=== PATIENT | male | born 1945 | race American Indian/Alaskan Native ===

== ENCOUNTER 2016-11-02 08:27 | Emergency (ER) | payer MEDICARE, OTHER ==
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
--- NOTE | 2016-11-02 09:24 | XR ---
Right elbow HISTORY: Trauma and pain 3 views of the right elbow, no comparisons Bone mineralization, joint spaces and alignment are maintained. There is no evident joint effusion. A rthropathy changes are present. There is soft tissue swelling. IMPRESSION: No acute fracture or dislocation. Soft tissue swelling. Follow-up as indicated.
--- NOTE | 2016-11-02 09:26 | XR ---
Right RIBS with PA chest x-ray HISTORY: Trauma and pain Frontal view of the chest, 4 views of the right ribs correlated to prior chest x-ray dated 2014 Chest shows a stable appearance. No displaced rib fracture. IMPRESSION: No acute abnormalities evident. Bone scan could be performed for increased sensitivity as indicated.
[2016-11-02 10:05] VITALS: BP 123/69; PULSE 94; RESP 14; TEMP 98
== END 2016-11-02 10:07 | disposition home or self-care (01) ==
LOC: EC 08:27
DX: S20.211A Contusion of right front wall of thorax, initial encounter (principal); S50.01XA Contusion of right elbow, initial encounter; W19.XXXA Unspecified fall, initial encounter; F03.90 Unspecified dementia, unspecified severity, without behavioral disturbance, psychotic disturbance, mood disturbance, and anxiety; I11.0 Hypertensive heart disease with heart failure; I50.9 Heart failure, unspecified; I25.10 Atherosclerotic heart disease of native coronary artery without angina pectoris; Z95.5 Presence of coronary angioplasty implant and graft; Z79.82 Long term (current) use of aspirin; Z79.899 Other long term (current) drug therapy; Z88.5 Allergy status to narcotic agent; Z87.891 Personal history of nicotine dependence
CPT/HCPCS: 99283

== ENCOUNTER 2017-03-31 14:11 | Emergency (ER) | payer MEDICARE ==
[2017-03-31] MEDS ORDERED: SODIUM CHLORIDE 0.9% 1,000 ML IV ONE (14:32)
[2017-03-31] MEDS ORDERED: RX INFO: IV CONTRAST WAS GIVEN 1 EACH MISC MISCELLANE PRN (14:32)
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
[2017-03-31 15:14] LABS: Basophils % (A) 1 %; CHCM 35.1; Eosinophils # (A) 0.1 k/uL (0-0.7); Eosinophils % (A) 2 %; HCT 43.7 % (39.0-53.0); HDW 2.76; HGB 15.2 gm/dL (13.0-17.5); Luc # (Auto) 0.09; Luc % (Auto) 2; Lymphocytes # (A) 1.6 k/uL (1.0-4.8); Lymphocytes % (A) 32 %; MCH 29.9 pg (25.0-35.0); MCHC 34.9 g/dL (31.0-37.0); MCV 85.9 fL (80.0-100.0); Monocytes # (A) 0.3 k/uL (0-1.0); Monocytes % (A) 5 %; Neutrophils # (A) 2.9 k/uL (1.3-7.7); Neutrophils % (A) 59 %; RBC 5.09 m/uL (4.30-5.90); RDW 13.5 % (11.5-15.5); WBC 4.9 k/uL (3.8-10.6); WBC (Perox) 4.98
[2017-03-31 15:19] LABS: Anion Gap 10 mmol/L; Blood Urea Nitrogen 15 mg/dL (9-20); Calcium 9.6 mg/dL (8.4-10.2); Carbon Dioxide 22 mmol/L (22-30); Chloride 106 mmol/L (98-107); Glucose 364 mg/dL (74-99); Non-African American GFR(MDRD) >60 (>60 ml/min/1.73 sqM); Potassium 4.1 mmol/L (3.5-5.1); Sodium 138 mmol/L (137-145)
[2017-03-31 15:30] LABS: Amorphous Sediment,Urine Occasional /hpf; Appearance,Urine Cloudy (Clear); Bacteria,Urine Few /hpf; Bilirubin,Urine Negative (Negative); Glucose,Urine (UA) 4+ (Negative); Ketones,Urine Negative (Negative); Leukocyte Esterase,Urine Large (Negative); Mucus,Urine Rare /hpf; Nitrite,Urine Negative (Negative); Particle Count 8055; Protein,Urine Trace (Negative); RBC,Urine 26 /hpf (0-5); Specific Gravity,Urine 1.032 (1.001-1.035); Squamous Epithelial Cell,Urine 6 /hpf (0-4); UA Billing (MACRO vs. MICRO) MICRO; Urobilinogen,Urine <2.0 mg/dL (<2.0); WBC,Urine >182 /hpf (0-5)
--- NOTE | 2017-03-31 16:10 | CT ---
EXAMINATION TYPE: CT abdomen pelvis w con DATE OF EXAM: 03/31/2017 COMPARISON: 07/02/2012 HISTORY: Lower abdominal pain x1 week. CT DLP: 1238.9 mGycm CONTRAST: CT scan of the abdomen and pelvis is performed without Oral Contrast and with IV Contrast, patient in jected with 100 mL of Omnipaque 300. FINDINGS: LUNG BASES-: No visible nodule. No infiltrate. LIVER/GB: No calcified gallstones. Simple cyst left hepatic lobe. Biliary tree is of normal caliber . PANCREAS: No inflammation. No distinct mass. SPLEEN: No splenic enlargement. No lesion seen. ADRENALS: No nodule. No thickening. KIDNEYS/BLADDER: No hydronephrosis. Nonobstructing 4 mm calculus lower pole right kidney. Simple jareth al cysts are noted bilaterally. Urinary bladder grossly unremarkable. BOWEL: Normal appendix. Normal bowel caliber. No inflammation. Moderate sigmoid diverticulosis with out diverticulitis. GENITAL ORGANS: Enlargement of the prostate gland. LYMPH NODES: No greater than 1cm abdominal or pelvic lymph nodes are appreciated. AORTA: Nonaneurysmal atheromatous change of the abdominal aorta. OSSEOUS STRUCTURES: Degenerative changes lumbar spine. OTHER: No significant additional abnormality is seen. IMPRESSION: 1. No acute intra-abdominal process. 2. Nonobstructing right-sided nephrolithiasis. 3. Sigmoid diverticulosis without diverticulitis.
[2017-03-31] MEDS ORDERED: INSULIN REGULAR 100 UNIT/ML VIAL SQ ONE (16:20)
[2017-03-31 16:27] VITALS: RESP 18
[2017-03-31 17:58] LABS: Glucose,Whole Blood 262 mg/dL (75-99)
[2017-03-31 18:05] VITALS: BP 147/80; PULSE 86; TEMP 98.6
== END 2017-03-31 18:05 | disposition home or self-care (01) ==
LOC: EC 14:11
DX: N47.1 Phimosis (principal); N48.1 Balanitis; N39.0 Urinary tract infection, site not specified; R00.0 Tachycardia, unspecified; I25.10 Atherosclerotic heart disease of native coronary artery without angina pectoris; E78.5 Hyperlipidemia, unspecified; I11.0 Hypertensive heart disease with heart failure; I50.9 Heart failure, unspecified; E11.40 Type 2 diabetes mellitus with diabetic neuropathy, unspecified; Z95.5 Presence of coronary angioplasty implant and graft; Z88.5 Allergy status to narcotic agent; Z79.02 Long term (current) use of antithrombotics/antiplatelets; Z79.84 Long term (current) use of oral hypoglycemic drugs; Z79.899 Other long term (current) drug therapy; Z87.891 Personal history of nicotine dependence
CPT/HCPCS: 99284; 96365; 96361; 36415; 80048; 83605; 85025; 81001; 87040; 74177; J0696; Q9967

== ENCOUNTER 2017-06-20 08:35 | Emergency (ER) | payer MEDICARE ==
[2017-06-20] MEDS ORDERED: SODIUM CHLORIDE 0.9% 1,000 ML IV STA (08:58)
[2017-06-20 09:18] LABS: Basophils % (A) 1 %; CH 31.2; CHCM 34.4; Eosinophils # (A) 0.1 k/uL (0-0.7); Eosinophils % (A) 2 %; HCT 42.9 % (39.0-53.0); HDW 2.65; HGB 14.3 gm/dL (13.0-17.5); Luc # (Auto) 0.07; Luc % (Auto) 2; Lymphocytes # (A) 1.3 k/uL (1.0-4.8); Lymphocytes % (A) 33 %; MCH 30.3 pg (25.0-35.0); MCHC 33.3 g/dL (31.0-37.0); Mean Platelet Volume 9.1; Monocytes # (A) 0.2 k/uL (0-1.0); Monocytes % (A) 6 %; Neutrophils # (A) 2.3 k/uL (1.3-7.7); Neutrophils % (A) 57 %; RBC 4.71 m/uL (4.30-5.90); RDW 14.3 % (11.5-15.5); WBC (Perox) 4.16
[2017-06-20 09:28] LABS: Anion Gap 8 mmol/L; Calcium 8.9 mg/dL (8.4-10.2); Carbon Dioxide 20 mmol/L (22-30); Chloride 107 mmol/L (98-107); Glucose 274 mg/dL (74-99); Non-African American GFR(MDRD) >60 (>60 ml/min/1.73 sqM); Sodium 135 mmol/L (137-145); Total Bilirubin 0.5 mg/dL (0.2-1.3); Total Protein 6.5 g/dL (6.3-8.2)
[2017-06-20 09:31] LABS: Blood Urea Nitrogen 9 mg/dL (9-20); Potassium 4.7 mmol/L (3.5-5.1)
[2017-06-20 09:32] LABS: ALT 22 U/L (21-72); AST 19 U/L (17-59); Alkaline Phosphatase 126 U/L (38-126); Magnesium 1.9 mg/dL (1.6-2.3)
[2017-06-20] MEDS ORDERED: KETOROLAC 30 MG/ML 1 ML VIAL IVP STA (09:39)
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
[2017-06-20 09:43] LABS: Creatine Kinase 68 U/L (55-170); INR 1.2 (<1.2); Partial Thromboplastin Time 23.3 sec (22.0-30.0); Prothrombin Time 12.1 sec (9.0-12.0)
--- NOTE | 2017-06-20 09:55 | XR ---
EXAMINATION TYPE: XR chest 2V DATE OF EXAM: 06/20/2017 HISTORY: Chest Pain. REFERENCE: Previous study dated 11/02/2016. FINDINGS: The lungs are overinflated but clear. Pleural spaces are clear. The heart is not enlarged. IMPRESSION: COPD.
[2017-06-20 09:56] LABS: Creatine Kinase MB 0.8 ng/mL (0.0-2.4); Troponin I <0.012 ng/mL (0.000-0.034)
--- NOTE | 2017-06-20 09:57 | XR ---
EXAMINATION TYPE: XR ribs LT , 4 VIEWS DATE OF EXAM ORDERED: 06/20/2017 HISTORY: Pain. COMPARISON: None. FINDINGS: No displaced rib fracture is seen. The underlying lung is unremarkable. No pneumothorax is seen. IMPRESSION: I DO NOT IDENTIFY A DISPLACED RIB FRACTURE AT THIS TIME.
[2017-06-20 10:32] VITALS: RESP 18
[2017-06-20 10:51] VITALS: BP 165/86; PULSE 72; TEMP 98.5
== END 2017-06-20 10:47 | disposition home or self-care (01) ==
LOC: EC 08:35
DX: R07.81 Pleurodynia (principal); E11.9 Type 2 diabetes mellitus without complications; I25.10 Atherosclerotic heart disease of native coronary artery without angina pectoris; I11.0 Hypertensive heart disease with heart failure; I50.9 Heart failure, unspecified; E78.5 Hyperlipidemia, unspecified; I25.2 Old myocardial infarction; Z87.891 Personal history of nicotine dependence; Z95.5 Presence of coronary angioplasty implant and graft; Z79.01 Long term (current) use of anticoagulants; Z79.84 Long term (current) use of oral hypoglycemic drugs; Z79.899 Other long term (current) drug therapy; Z88.5 Allergy status to narcotic agent; W19.XXXA Unspecified fall, initial encounter; Y92.015 Private garage of single-family (private) house as the place of occurrence of the external cause
CPT/HCPCS: 99284 ×2; 96374 ×2; 96361 ×2; 36415; 93005; 80053; 82550; 82553; 83735; 84484; 85025; 85610; 85730; 71020; 71100; J1885

== ENCOUNTER 2017-09-23 16:12 | Emergency (ER) | payer MEDICARE ==
[2017-09-23 16:18] VITALS: BP 171/86; PULSE 84; RESP 20; TEMP 97.5
--- NOTE | 2017-09-23 16:35 | XR ---
Left wrist HISTORY: Trauma and pain 4 views of the left wrist Correlation to prior exam 06/01/2016 Minimally displaced ulnar styloid fracture is present. There is sclerotic density within the distal r adial metaphysis, minimally displaced and possibly comminuted intra-articular fracture is present at the distal left radius. No dislocation. Bone mineralization is reduced. There is soft tissue swelling . IMPRESSION: Wrist fractures as described.
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
== END 2017-09-23 16:59 | disposition home or self-care (01) ==
LOC: EC 16:12
DX: S62.102A Fracture of unspecified carpal bone, left wrist, initial encounter for closed fracture (principal); I25.10 Atherosclerotic heart disease of native coronary artery without angina pectoris; E11.9 Type 2 diabetes mellitus without complications; E78.5 Hyperlipidemia, unspecified; I11.0 Hypertensive heart disease with heart failure; I25.2 Old myocardial infarction; I50.9 Heart failure, unspecified; F17.200 Nicotine dependence, unspecified, uncomplicated; Z79.02 Long term (current) use of antithrombotics/antiplatelets; Z79.84 Long term (current) use of oral hypoglycemic drugs; Z79.899 Other long term (current) drug therapy; Z88.5 Allergy status to narcotic agent; W01.0XXA Fall on same level from slipping, tripping and stumbling without subsequent striking against object, initial encounter; Y92.009 Unspecified place in unspecified non-institutional (private) residence as the place of occurrence of the external cause; Y93.89 Activity, other specified
CPT/HCPCS: 29125; 99283

== ENCOUNTER 2017-10-26 10:54 | Emergency (ER) | payer MEDICARE ==
[2017-10-26 11:26] VITALS: BP 185/88; PULSE 92; RESP 18; TEMP 98.5
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
--- NOTE | 2017-10-26 13:24 | XR ---
EXAMINATION TYPE: XR ribs LT w pa chest xray DATE OF EXAM: 10/26/2017 COMPARISON: 06/20/2017 HISTORY: Pain TECHNIQUE: Frontal view of the chest and 4 views of the left ribs are obtained FINDINGS: Mild ectasia of the aorta with vague left basilar subsegmental infiltrate or atelectasis. A pical pleural thickening noted. No pneumothorax. Correlate for underlying COPD. Rib cage intact. Hypertrophic and degenerative change of the spine. IMPRESSION: 1. Left basilar subsegmental atelectasis or infiltrate. 2. No pneumothorax. 3. No acute displaced rib fracture.
== END 2017-10-26 13:46 | disposition home or self-care (01) ==
LOC: EC 10:54
DX: S20.212A Contusion of left front wall of thorax, initial encounter (principal); I25.119 Atherosclerotic heart disease of native coronary artery with unspecified angina pectoris; I50.9 Heart failure, unspecified; I11.0 Hypertensive heart disease with heart failure; E78.5 Hyperlipidemia, unspecified; I25.2 Old myocardial infarction; F17.200 Nicotine dependence, unspecified, uncomplicated; Z79.01 Long term (current) use of anticoagulants; Z79.84 Long term (current) use of oral hypoglycemic drugs; Z79.899 Other long term (current) drug therapy; Z88.5 Allergy status to narcotic agent; W18.12XA Fall from or off toilet with subsequent striking against object, initial encounter
CPT/HCPCS: 99283

== ENCOUNTER 2018-06-19 08:18 | Emergency (ER) | payer MEDICARE ==
[2018-06-19 08:22] VITALS: BP 185/97; PULSE 103; RESP 20; TEMP 97.6
[2018-06-19] MEDS ORDERED: HYDROcodone/APAP 5-325MG 1 EACH TAB PO STA (08:31)
[2018-06-19] MEDS ORDERED: SODIUM CHLORIDE 0.9% 1,000 ML IV STA (08:31)
[2018-06-19] MEDS ORDERED: ONDANSETRON 4 MG/2 ML VIAL IVP STA (08:31)
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
[2018-06-19 09:10] LABS: Basophils % (A) 1 %; Eosinophils # (A) 0.2 k/uL (0-0.7); Eosinophils % (A) 3 %; HGB 14.8 gm/dL (13.0-17.5); Lymphocytes # (A) 2.1 k/uL (1.0-4.8); Lymphocytes % (A) 30 %; MCH 30.2 pg (25.0-35.0); MCHC 35.2 g/dL (31.0-37.0); MCV 85.7 fL (80.0-100.0); Mean Platelet Volume 8.2; Monocytes # (A) 0.4 k/uL (0-1.0); Monocytes % (A) 5 %; Neutrophils # (A) 4.1 k/uL (1.3-7.7); Neutrophils % (A) 60 %; Platelet Count 151 k/uL (150-450); RBC 4.91 m/uL (4.30-5.90); RDW 13.6 % (11.5-15.5); WBC 6.9 k/uL (3.8-10.6)
--- NOTE | 2018-06-19 09:11 | XR ---
EXAMINATION TYPE: XR chest 2V DATE OF EXAM: 06/19/2018 HISTORY: left side pain. REFERENCE: Previous study dated 10/26/2017. FINDINGS: The lungs are overinflated but clear. Pleural spaces are clear. Heart size is within normal limits. IMPRESSION: COPD.
--- NOTE | 2018-06-19 09:12 | XR ---
EXAMINATION TYPE: XR KUB , 2 VIEWS DATE OF EXAM ORDERED: 06/19/2018 HISTORY: Left posterior flank pain. COMPARISON: None. FINDINGS: The lung bases are clear. Within the abdomen, the abdominal gas pattern is within normal limits. There is no evidence of obstru ction or free air. There is some minimal calcification of the aorta. IMPRESSION: NO ACUTE INTRA-ABDOMINAL ABNORMALITY.
[2018-06-19 09:15] LABS: INR 1.2 (<1.2); Partial Thromboplastin Time 23.1 sec (22.0-30.0); Prothrombin Time 11.3 sec (9.0-12.0)
[2018-06-19 09:19] LABS: ALT 13 U/L (21-72); AST 13 U/L (17-59); Albumin 3.6 g/dL (3.5-5.0); Alkaline Phosphatase 129 U/L (38-126); Anion Gap 8 mmol/L; Blood Urea Nitrogen 9 mg/dL (9-20); Calcium 8.9 mg/dL (8.4-10.2); Carbon Dioxide 25 mmol/L (22-30); Chloride 108 mmol/L (98-107); Glucose 195 mg/dL (74-99); Potassium 4.2 mmol/L (3.5-5.1); Sodium 141 mmol/L (137-145); Total Bilirubin 0.7 mg/dL (0.2-1.3); Total Protein 6.6 g/dL (6.3-8.2)
[2018-06-19 09:23] LABS: Creatine Kinase 39 U/L (55-170)
[2018-06-19 09:36] LABS: Creatine Kinase MB 0.7 ng/mL (0.0-2.4); Troponin I <0.012 ng/mL (0.000-0.034)
[2018-06-19 09:49] LABS: Appearance,Urine Cloudy (Clear); Bacteria,Urine Few /hpf; Bilirubin,Urine Negative (Negative); Blood,Urine Small (Negative); Budding Yeast,Urine Few /hpf; Color,Urine Yellow; Glucose,Urine (UA) 4+ (Negative); Ketones,Urine Negative (Negative); Leukocyte Esterase,Urine Large (Negative); Mucus,Urine Rare /hpf; Nitrite,Urine Negative (Negative); PH, Urine 5.5 (5.0-8.0); Protein,Urine 1+ (Negative); RBC,Urine 39 /hpf (0-5); Specific Gravity,Urine 1.019 (1.001-1.035); Squamous Epithelial Cell,Urine 3 /hpf (0-4)
--- NOTE | 2018-06-19 10:55 | CT ---
EXAMINATION TYPE: CT abdomen pelvis wo con DATE OF EXAM: 06/19/2018 COMPARISON: Previous study dated 03/31/2017 HISTORY: Left sided flank pain with history of renal stones CT DLP: 688.4 mGycm Automated exposure control for dose reduction was used. FINDINGS: Visualized portions of the lungs are clear. There is no pleural or pericardial fluid. The h eart is not enlarged. Within the abdomen, the spleen and gallbladder appear normal. There is a stable, cystic-appearing, 1. 8 cm lesion in the lateral segment of the left lobe of the liver. There is a stable calcification tracy r the ligament of Treitz. The liver is otherwise normal. Both adrenal glands appear normal. There is a stable, 6.7 mm nonobstructing calculus in the anterior lower pole calyx of the right kidne y. There is some vascular calcification involving both kidneys as well as other arterial structures. There is no evidence of hydronephrosis. Limited views of the pancreas are unremarkable. There is no significant retroperitoneal, iliac or inguinal adenopathy. The bladder is unremarkable. The prostate gland is enlarged and is partially calcified. There is extensive diverticular change involving the left side of the colon without radiographic evid ence of diverticulitis. The appendix is normal. Small bowel loops are normal in caliber. There is no free fluid and no free air. There is degenerative disc disease, hypertrophic spondylosis and facet arthropathy in the lumbar spin e. There is a prominent Schmorl's node in the superior endplate of L3. IMPRESSION: 1. NONOBSTRUCTING RIGHT RENAL NEPHROLITHIASIS. 2. STABLE CYSTIC APPEARING LESION WITHIN THE LEFT LOBE OF THE LIVER. THIS COULD BE CONFIRMED WITH ULT RASOUND. 3. PROSTATIC HYPERTROPHY. 4. UNCOMPLICATED DIVERTICULOSIS OF THE LEFT SIDE OF THE COLON. 5. DEGENERATIVE CHANGES WITHIN THE SPINE.
== END 2018-06-19 11:36 | disposition home or self-care (01) ==
LOC: EC 08:18
DX: R10.9 Unspecified abdominal pain (principal); N20.0 Calculus of kidney; N40.0 Benign prostatic hyperplasia without lower urinary tract symptoms; K76.89 Other specified diseases of liver; K57.30 Diverticulosis of large intestine without perforation or abscess without bleeding; E11.65 Type 2 diabetes mellitus with hyperglycemia; E11.40 Type 2 diabetes mellitus with diabetic neuropathy, unspecified; I25.119 Atherosclerotic heart disease of native coronary artery with unspecified angina pectoris; I50.9 Heart failure, unspecified; E78.5 Hyperlipidemia, unspecified; I25.2 Old myocardial infarction; F17.200 Nicotine dependence, unspecified, uncomplicated; Z79.84 Long term (current) use of oral hypoglycemic drugs; Z79.02 Long term (current) use of antithrombotics/antiplatelets; Z79.899 Other long term (current) drug therapy; Z88.5 Allergy status to narcotic agent; Z95.5 Presence of coronary angioplasty implant and graft
CPT/HCPCS: 36415; 93005; 80053; 82550; 82553; 84484; 85025; 85610; 85730; 81001; 87086; 71046; 74018; 74176; 99284; 96374; 96361; J2405

== ENCOUNTER 2018-12-19 09:31 | Inpatient (IN) | payer MEDICARE ==
[2018-12-19] MEDS ORDERED: SODIUM CHLORIDE 0.9% 1,000 ML IV STA (09:59)
[2018-12-19] MEDS ORDERED: SODIUM CHLORIDE 0.9% 500 ML 500 ML IV ONE (10:00)
[2018-12-19] MEDS ORDERED: ONDANSETRON 4 MG/2 ML VIAL IVP STA (10:07)
[2018-12-19 10:08] LABS: Basophils % (A) 0 %; Eosinophils # (A) 0.1 k/uL (0-0.7); Eosinophils % (A) 1 %; HCT 49.4 % (39.0-53.0); HGB 16.8 gm/dL (13.0-17.5); Lymphocytes # (A) 0.8 k/uL (1.0-4.8); Lymphocytes % (A) 8 %; MCH 28.6 pg (25.0-35.0); MCHC 33.9 g/dL (31.0-37.0); MCV 84.1 fL (80.0-100.0); Mean Platelet Volume 11.4; Monocytes # (A) 0.4 k/uL (0-1.0); Monocytes % (A) 4 %; Neutrophils # (A) 8.7 k/uL (1.3-7.7); Neutrophils % (A) 86 %; Platelet Count 200 k/uL (150-450); RBC 5.87 m/uL (4.30-5.90); RDW 15.8 % (11.5-15.5); WBC 10.1 k/uL (3.8-10.6)
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
[2018-12-19 10:59] LABS: Albumin 4.5 g/dL (3.5-5.0); Calcium 9.5 mg/dL (8.4-10.2); Total Protein 8.5 g/dL (6.3-8.2)
[2018-12-19 11:04] LABS: INR 1.1 (<1.2); Prothrombin Time 11.4 sec (9.0-12.0)
[2018-12-19] MEDS ORDERED: HEPARIN SODIUM,PORCINE 5,000 UNIT/ML 1 ML VIAL IV ONE (11:42)
[2018-12-19] MEDS ORDERED: HEPARIN SODIUM,PORCINE 5,000 UNIT/ML 1 ML VIAL IV PRN (11:42)
[2018-12-19] MEDS ORDERED: NITROGLYCERIN SL TABS 0.4 MG TAB SUBLINGUAL PRN (11:51)
--- NOTE | 2018-12-19 12:22 | CT ---
EXAMINATION TYPE: CT abdomen pelvis w con DATE OF EXAM: 12/19/2018 REFERENCE: Previous study dated 06/19/2018. HISTORY: Pain HISTORY: Vomiting, diarrhea REFERENCE: NONE CT DLP: 938.5 mGy Automated exposure control for dose reduction was used. TECHNIQUE: Helical acquisition through the abdomen and pelvis was obtained following the oral ingesti on of without Oral Contrast and following intravenous administration of 100 mL of Isovue 300. The dev a was reformatted in axial, coronal and sagittal projections. FINDINGS: There is an consolidation in the left lower lobe. There is dependent atelectasis in the ri ght lung. There is no pleural or pericardial fluid. The heart is not enlarged. Within the abdomen, there is a stable 1.8 cm low attenuating lesion within the liver which likely rep resents a cyst. This can BE confirmed with ultrasound. The gallbladder is normal. The spleen is suleman l. Both adrenal glands appear normal. There is an 8mm, low attenuating lesion in the upper pole of the right kidney likely representing a c yst. There is a nonobstructing 7.2 mm calculus in the anterior lower pole calyx of the right kidney. Left kidney appears unremarkable. The pancreas is unremarkable. There is mild to moderate atheromatous calcification of the visualized arterial tree. There is fusifo rm dilatation of the distal abdominal aorta which measures 3 mm and is unchanged from previous. There is some tortuosity and ectasia of the iliac vessels. There is no significant retroperitoneal, iliac or inguinal adenopathy. The prostate gland is enlarged and contains calcifications. The bladder is unremarkable. There is extensive diverticulosis of the sigmoid colon with scattered diverticula elsewhere but witho ut radiographic evidence of diverticulitis. The appendix appears normal. Small bowel loops are normal. There is no free fluid and no free air. There is degenerative disc disease and hypertrophic spondylosis within the spine. There is a stable S chmorl's node in the superior endplate of the L3 vertebral body. IMPRESSION: 1. LEFT LOWER LOBE AIRSPACE DISEASE MAY REFLECT PNEUMONIA. 2. NONOBSTRUCTING RIGHT-SIDED NEPHROLITHIASIS. 3. CYSTIC CHANGE IN BOTH LIVER AND RIGHT KIDNEY. 4. ECTASIA OF THE INFRARENAL ABDOMINAL AORTA. 5. UNCOMPLICATED DIVERTICULOSIS OF THE LEFT SIDE OF THE COLON. 6. DEGENERATIVE CHANGES WITHIN THE SPINE.
--- NOTE | 2018-12-19 12:24 | XR ---
EXAMINATION TYPE: XR chest 2V DATE OF EXAM: 12/19/2018 HISTORY: Pain. REFERENCE: Previous study dated 06/19/2018. FINDINGS: The lungs are overinflated but clear. Heart size is normal. Pleural spaces are clear. IMPRESSION: COPD.
[2018-12-19] MEDS: HEPARIN SOD,PORK IN 0.45% NACL 25,000 UNIT in 0.45% NACL 1 250ML.BAG IV SCH (12:52)
[2018-12-19 17:03] LABS: Glucose,Whole Blood 118 mg/dL (75-99)
[2018-12-19 17:12] LABS: Amorphous Sediment,Urine Rare /hpf; Appearance,Urine Turbid (Clear); Bilirubin,Urine Negative (Negative); Blood,Urine Moderate (Negative); Budding Yeast,Urine Many /hpf; Color,Urine Yellow; Glucose,Urine (UA) 4+ (Negative); Leukocyte Esterase,Urine Large (Negative); Nitrite,Urine Negative (Negative); PH, Urine 5.5 (5.0-8.0); Protein,Urine 1+ (Negative); RBC,Urine >182 /hpf (0-5); Squamous Epithelial Cell,Urine 16 /hpf (0-4); Urobilinogen,Urine <2.0 mg/dL (<2.0); WBC,Urine >182 /hpf (0-5)
[2018-12-19 17:29] LABS: Specific Gravity,Urine >1.050 (1.001-1.035)
[2018-12-19 17:30] LABS: Ketones,Urine 2+ (Negative)
[2018-12-19] MEDS: INSULIN ASPART (NovoLOG) 100 UNIT/ML VIAL SQ SCH (20:06)
[2018-12-19] MEDS: SODIUM CHLORIDE 0.9% 1,000 ML IV SCH (20:07)
[2018-12-19 20:09] LABS: Glucose,Whole Blood 117 mg/dL (75-99)
[2018-12-19] MEDS ORDERED: RX INFO: IV CONTRAST WAS GIVEN 1 EACH MISC MISCELLANE PRN (22:46)
[2018-12-19] MEDS ORDERED: AZITHROMYCIN 500 MG in SODIUM CHLORIDE 0.9% 250 ML IVPB SCH (23:00)
[2018-12-19] MEDS: METOPROLOL TARTRATE 25 MG TAB PO SCH (23:56)
--- NOTE | 2018-12-20 00:14 | CT ---
EXAM: CT Chest With Intravenous Contrast CLINICAL HISTORY: ITS.REASON CT Reason: copd/cap TECHNIQUE: Axial computed tomography images of the chest with intravenous contrast. CTDI is 8.90 mGy and DLP is 423.80 mGy-cm. This CT exam was performed using one or more of the following dose reduction techniques: automated exposure control, adjustment of the mA and/or kV according to patient size, and/or use of iterative reconstruction technique. COMPARISON: CT chest 05/10/12. FINDINGS: Lungs: Centrilobular emphysema worse at the upper lobes. Large bulla at the medial aspect of the left apex measuring up to 6.3 centimeters. Scarring versus subsegmental atelectasis at the posterior aspect of left lower lobe is mild. Pleural space: Unremarkable. No pneumothorax. No significant effusion. Heart: See below. Bones/joints: Unremarkable. No acute fracture. No dislocation. Soft tissues: Unremarkable. Vasculature: No PE. No aneurysm or dissection. Multivessel coronary calcifications without pericardial or pericardial effusion. Lymph nodes: Small scattered mediastinal lymph nodes. No remarkable hilar lymph nodes. IMPRESSION: No PE or other acute cardiopulmonary disease.
[2018-12-20] MEDS: SODIUM CHLORIDE 0.9% 1,000 ML IV SCH ×3 (04:15→21:44)
[2018-12-20] MEDS: INSULIN ASPART (NovoLOG) 100 UNIT/ML VIAL SQ SCH ×4 (05:59→21:43)
[2018-12-20 06:24] LABS: Glucose,Whole Blood 140 mg/dL (75-99)
[2018-12-20 06:44] LABS: Basophils % (A) 1 %; Eosinophils # (A) 0.1 k/uL (0-0.7); Eosinophils % (A) 1 %; HCT 42.4 % (39.0-53.0); Lymphocytes # (A) 0.7 k/uL (1.0-4.8); Lymphocytes % (A) 13 %; MCH 28.8 pg (25.0-35.0); MCHC 32.9 g/dL (31.0-37.0); MCV 87.5 fL (80.0-100.0); Monocytes # (A) 0.3 k/uL (0-1.0); Monocytes % (A) 6 %; Neutrophils # (A) 4.3 k/uL (1.3-7.7); Neutrophils % (A) 78 %; Platelet Count 142 k/uL (150-450); RBC 4.84 m/uL (4.30-5.90); RDW 13.3 % (11.5-15.5); WBC 5.5 k/uL (3.8-10.6)
[2018-12-20 06:58] LABS: ALT 34 U/L (21-72); AST 36 U/L (17-59); Albumin 3.1 g/dL (3.5-5.0); Alkaline Phosphatase 104 U/L (38-126); Anion Gap 9 mmol/L; Blood Urea Nitrogen 18 mg/dL (9-20); Calcium 8.4 mg/dL (8.4-10.2); Carbon Dioxide 22 mmol/L (22-30); Chloride 107 mmol/L (98-107); Cholesterol 224 mg/dL (<200); Glucose 133 mg/dL (74-99); HDL Cholesterol 31 mg/dL (40-60); LDL Cholesterol,Calculated 172 mg/dL (0-99); Sodium 138 mmol/L (137-145); Total Bilirubin 0.5 mg/dL (0.2-1.3); Triglycerides 105 mg/dL (<150)
[2018-12-20 07:06] LABS: Appearance,Urine Cloudy (Clear); Bacteria,Urine Moderate /hpf; Bilirubin,Urine Negative (Negative); Blood,Urine Small (Negative); Color,Urine Yellow; Glucose,Urine (UA) 4+ (Negative); Ketones,Urine 1+ (Negative); Leukocyte Esterase,Urine Large (Negative); Mucus,Urine Occasional /hpf; Nitrite,Urine Negative (Negative); PH, Urine 5.5 (5.0-8.0); Protein,Urine 1+ (Negative); RBC,Urine 52 /hpf (0-5); Specific Gravity,Urine >1.050 (1.001-1.035); Squamous Epithelial Cell,Urine 9 /hpf (0-4); Urobilinogen,Urine <2.0 mg/dL (<2.0)
--- NOTE | 2018-12-20 07:46 | HP ---
HISTORY AND PHYSICAL CHIEF COMPLAINT: A 73-year-old white male came with vomiting and diarrhea for 1 week. He says the diarrhea is worse eating goulash. He is on anticoagulant cannot think of the name. He is noncompliant with all his medications. He runs out of all his medications, cannot afford any of his medicines. He was found to have possible pneumonia on a chest x-ray. CAT scan was ordered. MEDICATIONS: He is not really taking them. He is suppose to be Lipitor, Plavix, Lopressor, Actos, Bactrim, Tylenol 3, [place]. ALLERGIES: MORPHINE. REVIEW OF SYSTEMS: Fourteen point review of systems negative except for mentioned in HPI. PAST MEDICAL HISTORY: Coronary artery disease, angina, COPD, diabetes mellitus, GI bleed, hypertension, dyslipidemia, myocardial infarction, non STEMI, diverticulitis, diverticulosis. SURGERIES: Had orthopedic surgery, polypectomy, umbilical hernia repair. FAMILY HISTORY: Mother diabetes mellitus. Father with colon cancer. PHYSICAL EXAMINATION: A white male, no acute distress. Pupils equal, round, react to light and accommodation. CARDIOVASCULAR: S1, S2. LUNGS: Clear. Nonlabored. No wheeze. GI: Soft, increased bowel sounds. No mass or organomegaly. Muscle strength 5/5 x4. NEUROLOGIC: Cranial nerves are intact. SKIN: Warm, dry, no rashes. Excoriation . PSYCH: Fair mood and affect. Pulse rate 89 to 102, temp 97.7, blood pressure 110 to 124 over 70s. Troponins elevated at 1.5. EKGs negative. Chest x-ray shows right upper lobe pneumonia. UA is abnormal for UTI. ASSESSMENT: 1. Elevated troponin. 2. Possible gastroenteritis. 3. Urinary tract infection with sepsis. 4. Rule out myocardial infarction. 5. Chronic obstructive pulmonary disease . 6. Insulin-dependent diabetes mellitus. 7. Hypertension. 8. Dyslipidemia. 9. History of cardiac stents. Cardiology consult for non-STEMI, possible GI or surgical recommendation for diarrhea, nausea and vomiting. MMODL / IJN: [id number] /
[2018-12-20] MEDS: IPRATROPIUM-ALBUTEROL 3 ML NEB INHALATION SCH ×4 (08:09→21:32)
[2018-12-20] MEDS: METOPROLOL TARTRATE 50 MG TAB PO SCH ×2 (09:43→20:29)
[2018-12-20] MEDS: CLOPIDOGREL 75 MG TAB PO SCH (09:43)
[2018-12-20] MEDS: ASPIRIN 325 MG TAB PO SCH (09:43)
[2018-12-20] MEDS: ATORVASTATIN 80 MG TAB PO SCH (09:43)
[2018-12-20] MEDS: METOPROLOL TARTRATE 25 MG TAB PO SCH (10:58)
[2018-12-20 11:20] LABS: Glucose,Whole Blood 161 mg/dL (75-99)
[2018-12-20 11:40] LABS: Hemoglobin A1C 10.3 % (4.0-6.0)
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
--- NOTE | 2018-12-20 12:12 | ECHOF ---
Referral Reason:lv function MEASUREMENTS -------- HEIGHT: 188.0 cm WEIGHT: 83.9 kg BP: RVIDd: 3.5 cm (< 3.3) IVSd: 1.3 cm (0.6 - 1.1) LVIDd: 4.7 cm (3.9 - 5.3) LVPWd: 1.3 cm (0.6 - 1.1) IVSs: 2.0 cm LVIDs: 3.2 cm LVPWs: 2.0 cm LA Diam: 4.5 cm (2.7 - 3.8) LAESV Index (A-L): 24.27 ml/m Ao Diam: 3.1 cm (2.0 - 3.7) AV Cusp: 2.0 cm (1.5 - 2.6) MV EXCURSION: 19.176 mm (> 18.000) MV EF SLOPE: 50 mm/s (70 - 150) EPSS: 1.5 cm MV E Melvin: 0.77 m/s MV DecT: 170 ms MV A Melvin: 0.83 m/s MV E/A Ratio: 0.92 RAP: 5.00 mmHg RVSP: 33.51 mmHg FINDINGS -------- Sinus rhythm. This was a technically good study. The left ventricular size is normal. There is mild concentric left ventricular hypertrophy. Overa ll left ventricular systolic function is moderately impaired with, an EF between 35 - 40 %. The right ventricle is mildly enlarged. Normal LA size by volume 22+/-6 ml/m2. The right atrium is normal in size. There is mild aortic valve sclerosis. The mitral valve leaflets are mildly thickened. There is trace mitral regurgitation. Mild tricuspid regurgitation present. There is borderline pulmonary hypertension. The right ventr icular systolic pressure, as measured by Doppler, is 33.51mmHg. The pulmonic valve was not well visualized. The aortic root size is normal. Normal inferior vena cava with normal inspiratory collapse consistent with estimated right atrial pre ssure of 5 mmHg. There is no pericardial effusion. CONCLUSIONS -------- 1. Sinus rhythm. 2. This was a technically good study. 3. The left ventricular size is normal. 4. There is mild concentric left ventricular hypertrophy. 5. Overall left ventricular systolic function is moderately impaired with, an EF between 35 - 40 %. 6. The right ventricle is mildly enlarged. 7. Normal LA size by volume 22+/-6 ml/m2. 8. The right atrium is normal in size. 9. There is mild aortic valve sclerosis. 10. The mitral valve leaflets are mildly thickened. 11. There is trace mitral regurgitation. 12. Mild tricuspid regurgitation present. 13. There is borderline pulmonary hypertension. 14. The right ventricular systolic pressure, as measured by Doppler, is 33.51mmHg. 15. The pulmonic valve was not well visualized. 16. The aortic root size is normal. 17. Normal inferior vena cava with normal inspiratory collapse consistent with estimated right atrial pressure of 5 mmHg. 18. There is no pericardial effusion. INSPECTOR ALIGNING: Effie River RDCS
[2018-12-20] MEDS: HEPARIN SOD,PORK IN 0.45% NACL 25,000 UNIT in 0.45% NACL 1 250ML.BAG IV SCH (12:26)
[2018-12-20 16:31] LABS: Glucose,Whole Blood 151 mg/dL (75-99)
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
--- NOTE | 2018-12-20 20:13 | NM ---
EXAMINATION TYPE: NM hepatobiliary w CCK DATE OF EXAM: 12/20/2018 COMPARISON: NONE HISTORY: TECHNIQUE: After the intravenous administration of 3.63 mCi Tc 99m Mebrofenin hepatobiliary scintigra phy is performed. Immediate images post injection. FINDINGS: There is satisfactory initial accumulation of tracer by the liver. The gallbladder is visualized wit hin 20 minutes. The small bowel activity is noted within 15 minutes. At one hour CCK was administer ed, patient was injected with 1.68 mcg of Kinevac, and gallbladder ejection fraction is calculated at 84 %, in the normal range. Therefore there is no scintigraphic evidence of cystic or common bile du ct obstruction to suggest acute cholecystitis or gallbladder dyskinesia. IMPRESSION: Normal exam. Normal gallbladder ejection fraction. No focal liver defect.
[2018-12-20] MEDS: AZITHROMYCIN 500 MG TAB PO SCH (20:29)
[2018-12-20 21:14] LABS: Glucose,Whole Blood 140 mg/dL (75-99)
[2018-12-21 06:26] LABS: Glucose,Whole Blood 130 mg/dL (75-99)
[2018-12-21] MEDS: INSULIN ASPART (NovoLOG) 100 UNIT/ML VIAL SQ SCH ×4 (06:35→21:33)
[2018-12-21] MEDS: IPRATROPIUM-ALBUTEROL 3 ML NEB INHALATION SCH ×4 (07:16→20:30)
[2018-12-21 07:33] LABS: Basophils % (A) 1 %; Eosinophils # (A) 0.1 k/uL (0-0.7); Eosinophils % (A) 3 %; HCT 36.2 % (39.0-53.0); HGB 12.2 gm/dL (13.0-17.5); Lymphocytes # (A) 1.3 k/uL (1.0-4.8); Lymphocytes % (A) 32 %; MCH 29.2 pg (25.0-35.0); MCHC 33.7 g/dL (31.0-37.0); MCV 86.6 fL (80.0-100.0); Mean Platelet Volume 8.3; Monocytes # (A) 0.3 k/uL (0-1.0); Monocytes % (A) 7 %; Neutrophils # (A) 2.3 k/uL (1.3-7.7); Neutrophils % (A) 56 %; Platelet Count 126 k/uL (150-450); RBC 4.18 m/uL (4.30-5.90); RDW 13.4 % (11.5-15.5); WBC 4.2 k/uL (3.8-10.6)
[2018-12-21] MEDS: ATORVASTATIN 80 MG TAB PO SCH (09:12)
[2018-12-21] MEDS: ASPIRIN 325 MG TAB PO SCH (09:13)
[2018-12-21] MEDS: CLOPIDOGREL 75 MG TAB PO SCH (09:13)
[2018-12-21] MEDS: METOPROLOL TARTRATE 50 MG TAB PO SCH (09:13)
[2018-12-21] MEDS: SODIUM CHLORIDE 0.9% 1,000 ML IV SCH (09:13)
--- NOTE | 2018-12-21 10:19 | P.PN ---
Subjective Patient is doing well. No chest discomfort dizziness lightheadedness or palpitations Resting comfortably in bed He still continues to have the abdominal tenderness but it is improved since yesterday. Labs are reviewed hemoglobin 12.2 white count 4.2 On examination blood pressure 121/61 mmHg of rate in the 70s afebrile 98.3F Breath sounds are clear no rhonchi no crackles Heart sounds S1 and S2 are normal no murmurs or gallops or rub Extremities is warm no edema Impression Abnormal troponins of 1.5 1.7 1.5, non-Q-wave myocardial infarction/myocardial injury Known coronary artery disease status post cardiac stenting in the past Uncontrolled diabetes2 Cardio myopathy reduced LV systolic function ejection fraction 3540% mildly enlarged RV mild valvular abnormalities Patient presenting with nausea vomiting diarrhea and left-sided abdominal discomfort. Computed tomography scan suggests diverticulosis of the left side of the colon. It's exactly where his tenderness is Left lower lobe airspace disease on computed tomography scan Calcification of the arterial tree Distal abdominal aorta 3 cm LDL 172 total cholesterol 224 HDL 31 Plan Increase metoprolol to 75 mg twice daily Stop IV fluids Continue statins and antiplatelet agents Continue IV antibiotics Cardiac workup thereafter Objective - Vital Signs Vital signs: Vital Signs Temp 98.3 F 12/21/18 08:00 Pulse 71 12/21/18 08:00 Resp 18 12/21/18 08:00 BP 121/61 12/21/18 08:00 Pulse Ox 92 L 12/21/18 08:00 Intake & Output 12/20/18 12/21/18 12/21/18 18:59 06:59 18:59 Intake Total 644 1700 240 Output Total 600 Balance 44 1700 240 Weight 90.9 kg Intake: Intake, IV Titration 1700 Amount Sodium Chloride 0.9% 1, 1600 000 ml @ 100 mls/hr IV . Q10H [facility] Rx#:[id number] cefTRIAXone 1 gm In 100 Sodium Chloride 0.9% 50 ml @ 100 mls/hr IVPB Q12HR [facility] Rx#:[id number] Oral 644 240 Output: Urine 600 Other: Voiding Method Urinal Urinal - Labs CBC & Chem 7: 12/21/18 06:48 12/20/18 06:14 Labs: Abnormal Lab Results - Last 24 Hours (Table) 12/20/18 12/20/18 12/20/18 Range/Units 06:14 11:18 16:29 RBC (4.30-5.90) m/uL Hgb (13.0-17.5) gm/dL Hct (39.0-53.0) % Plt Count (150-450) k/uL POC Glucose (mg/dL) 161 H 151 H (75-99) mg/dL Hemoglobin A1c 10.3 H (4.0-6.0) % 12/20/18 12/21/18 12/21/18 Range/Units 21:05 06:18 06:48 RBC 4.18 L (4.30-5.90) m/uL Hgb 12.2 L (13.0-17.5) gm/dL Hct 36.2 L (39.0-53.0) % Plt Count 126 L (150-450) k/uL POC Glucose (mg/dL) 140 H 130 H (75-99) mg/dL Hemoglobin A1c (4.0-6.0) % Microbiology - Last 24 Hours (Table) 12/20/18 04:00 Urine Culture - Preliminary Urine,Clean Catch
[2018-12-21 11:34] LABS: Glucose,Whole Blood 187 mg/dL (75-99)
--- NOTE | 2018-12-21 13:45 | P.PN ---
Subjective Progress Note Date: 12/21/18 CHIEF COMPLAINT: Nausea, emesis, diarrhea HISTORY OF PRESENT ILLNESS: Patient seen and examined the bedside. Patient denies abdominal pain. Denies nausea or vomiting. Tolerating diet. HIDA scan completed yesterday reveals ejection fraction of 84%. PHYSICAL EXAM: VITAL SIGNS: Reviewed. GENERAL: Well-developed in no acute distress. HEENT: No sclera icterus. Extraocular movements grossly intact. Moist buccal mucosa. Head is atraumatic, normocephalic. ABDOMEN: Soft. Nondistended. Nontender. NEUROLOGIC: Alert and oriented. Cranial nerves II through XII grossly intact. ASSESSMENT: 1. Nausea, vomiting, diarrhea, suspect viral gastroenteritis, resolved 2. Diverticulosis, no evidence of acute diverticulitis 3. Hyperkinetic gallbladder PLAN: Continue current diet. Patient is stable for discharge from a surgical standpoint. Patient may follow up outpatient with Dr. Jacobs for possible laparoscopic cholecystectomy Nurse practitioner note has been reviewed by physician. Signing provider agrees with the documented findings, assessment, and plan of care. Objective - Vital Signs Vital signs: Vital Signs Temp 98.2 F 12/21/18 12:00 Pulse 87 12/21/18 12:00 Resp 18 12/21/18 12:00 BP 138/76 12/21/18 12:00 Pulse Ox 93 L 12/21/18 12:00 Intake & Output 12/20/18 12/21/18 12/21/18 18:59 06:59 18:59 Intake Total 644 1700 462 Output Total 600 700 Balance 44 1700 -238 Weight 90.9 kg Intake: Intake, IV Titration 1700 Amount Sodium Chloride 0.9% 1, 1600 000 ml @ 100 mls/hr IV . Q10H [facility] Rx#:[id number] cefTRIAXone 1 gm In 100 Sodium Chloride 0.9% 50 ml @ 100 mls/hr IVPB Q12HR [facility] Rx#:[id number] Oral 644 462 Output: Urine 600 700 Other: Voiding Method Urinal Urinal - Labs CBC & Chem 7: 12/21/18 06:48 12/20/18 06:14 Labs: Abnormal Lab Results - Last 24 Hours (Table) 12/20/18 12/20/18 12/21/18 Range/Units 16:29 21:05 06:18 RBC (4.30-5.90) m/uL Hgb (13.0-17.5) gm/dL Hct (39.0-53.0) % Plt Count (150-450) k/uL POC Glucose (mg/dL) 151 H 140 H 130 H (75-99) mg/dL 12/21/18 12/21/18 Range/Units 06:48 11:24 RBC 4.18 L (4.30-5.90) m/uL Hgb 12.2 L (13.0-17.5) gm/dL Hct 36.2 L (39.0-53.0) % Plt Count 126 L (150-450) k/uL POC Glucose (mg/dL) 187 H (75-99) mg/dL Microbiology - Last 24 Hours (Table) 12/20/18 04:00 Urine Culture - Final Urine,Clean Catch
[2018-12-21 15:24] VITALS: BMI 25.7
[2018-12-21 16:26] LABS: Glucose,Whole Blood 143 mg/dL (75-99)
[2018-12-21] MEDS: AZITHROMYCIN 500 MG TAB PO SCH (20:10)
[2018-12-21] MEDS: METOPROLOL TARTRATE 25 MG TAB PO SCH (20:11)
[2018-12-21 21:17] LABS: Glucose,Whole Blood 122 mg/dL (75-99)
[2018-12-22 05:44] LABS: Glucose,Whole Blood 134 mg/dL (75-99)
[2018-12-22] MEDS: INSULIN ASPART (NovoLOG) 100 UNIT/ML VIAL SQ SCH ×4 (05:45→20:56)
[2018-12-22 07:05] LABS: Basophils % (A) 1 %; Eosinophils # (A) 0.2 k/uL (0-0.7); Eosinophils % (A) 3 %; HCT 37.2 % (39.0-53.0); HGB 12.2 gm/dL (13.0-17.5); Lymphocytes # (A) 1.3 k/uL (1.0-4.8); Lymphocytes % (A) 28 %; MCH 28.6 pg (25.0-35.0); MCHC 32.9 g/dL (31.0-37.0); MCV 86.9 fL (80.0-100.0); Mean Platelet Volume 8.2; Monocytes # (A) 0.3 k/uL (0-1.0); Monocytes % (A) 6 %; Neutrophils # (A) 2.8 k/uL (1.3-7.7); Neutrophils % (A) 61 %; Platelet Count 131 k/uL (150-450); RBC 4.28 m/uL (4.30-5.90); RDW 13.3 % (11.5-15.5); WBC 4.6 k/uL (3.8-10.6)
[2018-12-22] MEDS: IPRATROPIUM-ALBUTEROL 3 ML NEB INHALATION SCH ×4 (07:50→20:44)
[2018-12-22] MEDS ORDERED: SODIUM CHLORIDE 0.9% 1,000 ML in EMPTY BAG 1 BAG IV ONE (09:10)
[2018-12-22] MEDS: METOPROLOL TARTRATE 25 MG TAB PO SCH ×2 (09:45→20:36)
[2018-12-22] MEDS: ASPIRIN 325 MG TAB PO SCH (09:45)
[2018-12-22] MEDS: CLOPIDOGREL 75 MG TAB PO SCH (09:46)
[2018-12-22] MEDS: ATORVASTATIN 80 MG TAB PO SCH (09:46)
--- NOTE | 2018-12-22 10:50 | P.PN ---
Subjective Patient is doing better at least from an abdominal perspective. He has less discomfort he is less tender in the left side of the abdomen He denies any chest discomfort dizziness lightheadedness or palpitations He was admitted with epigastric and abdominal discomfort. He had tenderness on the left side of his abdomen and he was treated with IV antibiotics. He has definitely improved On examination his blood pressure is 126/72 mmHg heart rate is in the 80s Breath sounds are clear no rhonchi no crackles Heart sounds S1 and S2 are normal no murmurs or gallops no rub Abdomen soft, minimal tenderness now Extent is warm no edema Impression Coronary artery disease status post coronary stenting in the past Abnormal troponins of 1.5 1.7 and 1.5 On appropriate medical treatment at this time and pain-free new Suggest I discussed this with Dr. Edmond and I have recommended to the patient coronary angiography. Dr. Edmond will proceed with coronary angiography tomorrow I discussed this with the surgical team to check if any surgery was being p lanned. It appears that there are no plans for any urgent surgery at this point If he were to undergo coronary stenting he would remain on dual antiplatelet therapy without interruption for at least 4 months, Continue aspirin Lasix atorvastatin metoprolol Objective - Vital Signs Vital signs: Vital Signs Temp 97.8 F 12/22/18 08:00 Pulse 84 12/22/18 08:10 Resp 16 12/22/18 08:00 BP 126/72 12/22/18 08:00 Pulse Ox 93 L 12/22/18 08:00 Intake & Output 12/21/18 12/22/18 12/22/18 18:59 06:59 18:59 Intake Total 684 700 360 Output Total 1450 Balance -766 700 360 Weight 90.9 kg 93.4 kg Intake: Intake, IV Titration 400 Amount Sodium Chloride 0.9% 1, 400 000 ml @ 100 mls/hr IV . Q10H [facility] Rx#:[id number] Oral 684 300 360 Output: Urine 1450 Other: Voiding Method Urinal Urinal # Voids 1 - Labs CBC & Chem 7: 12/22/18 06:45 12/20/18 06:14 Labs: Abnormal Lab Results - Last 24 Hours (Table) 12/21/18 12/21/18 12/21/18 Range/Units 11:24 16:25 21:13 RBC (4.30-5.90) m/uL Hgb (13.0-17.5) gm/dL Hct (39.0-53.0) % Plt Count (150-450) k/uL POC Glucose (mg/dL) 187 H 143 H 122 H (75-99) mg/dL 12/22/18 12/22/18 Range/Units 05:43 06:45 RBC 4.28 L (4.30-5.90) m/uL Hgb 12.2 L (13.0-17.5) gm/dL Hct 37.2 L (39.0-53.0) % Plt Count 131 L (150-450) k/uL POC Glucose (mg/dL) 134 H (75-99) mg/dL Microbiology - Last 24 Hours (Table) 12/20/18 04:00 Urine Culture - Final Urine,Clean Catch
[2018-12-22 11:41] LABS: Glucose,Whole Blood 190 mg/dL (75-99)
[2018-12-22 16:54] LABS: Glucose,Whole Blood 169 mg/dL (75-99)
[2018-12-22] MEDS: AZITHROMYCIN 500 MG TAB PO SCH (20:36)
[2018-12-22 20:47] LABS: Glucose,Whole Blood 150 mg/dL (75-99)
--- NOTE | 2018-12-22 22:41 | PN ---
PROGRESS NOTE SUBJECTIVE: 73-year-old white male admitted with diverticulitis. Surgery and Cardiology has been seeing him. Hyperkinetic gallbladder on HIDA scan, which will need to be outpatient worked on. Cardiology is clearing for discharge was cleared from cardiac recommendations and cardiomyopathy treatments. He is supposed to have coronary angiography tomorrow and possible discharge home. Depending on stenting, he may or may not be discharged. MMODL / IJN: [id number] /
[2018-12-23] MEDS ORDERED: ASPIRIN 325 MG TAB PO ONE (05:00)
[2018-12-23] MEDS ORDERED: ATORVASTATIN 80 MG TAB PO ONE (05:00)
[2018-12-23] MEDS: ATORVASTATIN 80 MG TAB PO SCH (05:24)
[2018-12-23] MEDS: ASPIRIN 325 MG TAB PO SCH (05:24)
[2018-12-23 06:13] LABS: Glucose,Whole Blood 161 mg/dL (75-99)
[2018-12-23] MEDS: METOPROLOL TARTRATE 25 MG TAB PO SCH ×2 (06:19→21:09)
[2018-12-23] MEDS: CLOPIDOGREL 75 MG TAB PO SCH (06:19)
[2018-12-23] MEDS: INSULIN ASPART (NovoLOG) 100 UNIT/ML VIAL SQ SCH ×4 (06:21→20:41)
[2018-12-23] MEDS ORDERED: IV FLUID CONTINUATION 400 ML IV ONE (07:29)
[2018-12-23] MEDS: IPRATROPIUM-ALBUTEROL 3 ML NEB INHALATION SCH ×4 (07:38→19:22)
[2018-12-23 07:39] LABS: Basophils % (A) 1 %; Eosinophils # (A) 0.2 k/uL (0-0.7); Eosinophils % (A) 4 %; HCT 39.5 % (39.0-53.0); HGB 12.8 gm/dL (13.0-17.5); Lymphocytes # (A) 1.3 k/uL (1.0-4.8); Lymphocytes % (A) 26 %; MCH 29.2 pg (25.0-35.0); MCHC 32.5 g/dL (31.0-37.0); MCV 89.9 fL (80.0-100.0); Mean Platelet Volume 8.4; Monocytes # (A) 0.2 k/uL (0-1.0); Monocytes % (A) 4 %; Neutrophils # (A) 3.2 k/uL (1.3-7.7); Neutrophils % (A) 63 %; Platelet Count 139 k/uL (150-450); RBC 4.39 m/uL (4.30-5.90); RDW 13.3 % (11.5-15.5); WBC 5.1 k/uL (3.8-10.6)
[2018-12-23] MEDS ORDERED: MIDAZOLAM 2 MG/2 ML VIAL IV ONE (07:45)
[2018-12-23] MEDS ORDERED: fentaNYL (PF) 50 MCG/ML 2 ML AMP IV ONE (07:48)
[2018-12-23] MEDS ORDERED: fentaNYL (PF) 50 MCG/ML 2 ML AMP ONE (07:51)
[2018-12-23] MEDS ORDERED: LIDOCAINE 1% INJ 10MG/ML (20 ML MDV) SQ ONE (07:51)
[2018-12-23] MEDS ORDERED: BIVALIRUDIN BOLUS 250 MG/50 ML IV ONE (08:19)
[2018-12-23] MEDS ORDERED: BIVALIRUDIN 250 MG in SODIUM CHLORIDE 0.9% 50 ML IV ONE (08:19)
[2018-12-23] MEDS ORDERED: CLOPIDOGREL 75 MG TAB ONE (08:45)
[2018-12-23] MEDS ORDERED: CLOPIDOGREL 75 MG TAB PO ONE (08:46)
--- NOTE | 2018-12-23 08:49 | CC ---
CARDIAC CATHETERIZATION REPORT INDICATION: Unstable angina. PROCEDURE NOTE: After obtaining informed consent, left heart catheterization and coronary angiogram are performed via the right femoral artery using standard Taco catheters. The patient tolerated the procedure well without any obvious immediate complications. He received moderate conscious sedation and total sedation time was 12 minutes. FINDINGS: 1. HEMODYNAMICS: Left ventricular end-diastolic pressure is 14 mm. There is no significant gradient across the aortic valve. 2. LEFT VENTRICULOGRAM: Left ventriculogram is not performed. 3. ANGIOGRAPHIC DATA: Left Main Coronary Artery: Left main coronary artery shows a 30% stenosis in its distal portion as it bifurcates into LAD and circumflex coronary artery. This seemed to have worsened a little compared to a prior angiogram in 2015. He had previous stents in both mid LAD and diagonal. Mid LAD stent appears patent. Diagonal stent is also patent, but just distal to the stent there is a focal 90% stenosis. Circumflex coronary artery is a nondominant vessel and shows mild nonobstructive coronary artery disease. Right coronary artery is a large dominant vessel that was previously stented in the proximal part. Just distal to the stent, he has a 60% to 70% stenosis. CONCLUSIONS: Multivessel coronary artery disease with patent stent within the left anterior descending artery, diagonal and right coronary artery. He has new significant obstructive lesions in the diagonal just past the stent which at its worse seems to be 90%. In the right coronary artery, there is a 60% to 70% stenosis past the stent in the mid right coronary artery. PLAN: I reviewed angiographic data with Dr. Jan Theodore the animal rehabilitator who performed angioplasties on him. He will proceed with angioplasty of the diagonal and if it goes well, will perform angioplasty of the right coronary artery in the same setting. MMODL / IJN: [id number] /
[2018-12-23] MEDS ORDERED: HYDROmorphone 2 MG/ML 1 ML SYRINGE IV ONE (08:57)
[2018-12-23] MEDS ORDERED: MAG HYDROX/AL HYDROX/SIMETH 30 ML CUP PO PRN (09:06)
[2018-12-23] MEDS ORDERED: ZOLPIDEM 5 MG TAB PO PRN (09:06)
[2018-12-23] MEDS ORDERED: ATROPINE SULFATE 0.1 MG/ML 10ML SYRINGE IV PRN (09:06)
[2018-12-23] MEDS ORDERED: RX INFO: IV CONTRAST WAS GIVEN 1 EACH MISC MISCELLANE PRN (09:06)
[2018-12-23] MEDS ORDERED: IOPAMIDOL-370 150ML BTL INJ ONE (09:09)
[2018-12-23] MEDS ORDERED: IOPAMIDOL-370 100ML BTL INJ ONE (09:10)
[2018-12-23] MEDS: SODIUM CHLORIDE 0.9% 1,000 ML IV SCH ×2 (10:08→23:16)
[2018-12-23 11:26] LABS: Glucose,Whole Blood 134 mg/dL (75-99)
[2018-12-23 16:36] LABS: Glucose,Whole Blood 153 mg/dL (75-99)
--- NOTE | 2018-12-23 17:16 | PN ---
PROGRESS NOTE DATE OF SERVICE: December 23, 2018. He does not complain of any chest pain and had undergone cardiac cath with stent placement today. The patient has no chest pain at this time and is in the post angioplasty state. On physical examination, blood pressure 126/78, respiratory rate of 18, pulse rate is 70, O2 saturation on 2 L by nasal cannula is 93%. HEENT is unremarkable. Chest is clear. Cardiovascular system is S1, S2. No S3, no S4. No murmurs. Abdomen is soft. There is no pedal edema. Labs reveal a white count 5.1, hemoglobin of 12.8. IMPRESSION: At this time is: 1. Acute myocardial infarction. 2. Coronary artery disease, status post cardiac cath with subsequent stent placement. Continue current medications which were reviewed. Appreciate Cardiology input and intervention. Increase his activity level. Depending on how he does, further changes to his care will be made. MMODL / IJN: [id number] /
[2018-12-23 20:40] LABS: Glucose,Whole Blood 128 mg/dL (75-99)
[2018-12-23] MEDS: LOSARTAN 50 MG TAB PO SCH (20:55)
[2018-12-23] MEDS: AZITHROMYCIN 500 MG TAB PO SCH (20:55)
[2018-12-24 06:29] LABS: Glucose,Whole Blood 144 mg/dL (75-99)
--- NOTE | 2018-12-24 06:40 | PTCA ---
PERCUTANEOUSTRANS CORORONARY ANGIOGRAPHY DATE OF SERVICE: 12/23/2018 PROCEDURE: 1. PTCA and stenting of the major diagonal branch with a drug-eluting stent. 2. PTCA and stenting of mid right coronary artery with a drug-eluting stent. PERFORMED BY: Dr. Jan Theodore. Moderate conscious sedation time was 41 minutes. Patient was administered Versed and Dilaudid. His oxygen saturation, hemodynamics and EKG were monitored closely. CLINICAL INFORMATION: Mr. Alireza Ervin is a 73-year-old gentleman with a known history of CAD. I performed stenting of his RCA in 2014 in the proximal portion, which was a 99% stenosis with calcification. Prior to that in 2012, I performed stenting of LAD and diagonal in both the vessels with drug-eluting stent. He has not been following consistently with progressive die maker. He came in with nondescript symptoms of abdominal pain, had a troponin elevation and because of his clinical presentation Dr. Hawthorne recommended coronary angiography that was performed by Dr. Lucio. Study revealed that the previously stented LAD was patent, but the diagonal lesion just immediately distal to the previous stent had an 80% stenosis and mid RCA which was a very super dominant vessel had another 70% to 80% stenosis immediately beyond the stented segment. The patient was advised intervention that was performed in the same setting. PROCEDURE NOTE: The existing 6-[place]ine[place] introducer in the right femoral artery was used to perform the procedure. I used a standard left Taco guide catheter to cannulate the left coronary artery and a run-through wire was used to cross the lesion of diagonal. Without predilatation, a 2.5 caliber 8 mm Xience stent was deployed at 13 atmospheres. Patient did not have any chest pain or EKG changes. Excellent angiographic result was achieved. Subsequently I turned my attention to the RCA. Using a KRS catheter, I cannulated the right coronary artery. The same run-through wire was used to cross the lesion. A 3.0 caliber 12 mm NC Trek balloon was used to pre-dilate the lesion. I then deployed a 15 mm long 4.0 caliber Xience stent at 13 atmospheres. Patient had a fairly decent result. In the proximal half of the stent there was still inadequate expansion. I addressed this with a 4.0 caliber 12 mm NC Trek balloon up to 13 atmospheres. Excellent angiographic result was achieved. Patient had mild chest discomfort and significant inferior ST elevation with inflation. Excellent angiographic result without complication was achieved. The sheath was sutured. Results were discussed with the patient and family. He was already on Plavix. He received additional 300 mg of Plavix. He also received Angiomax bolus and infusion as per protocol. Results were discussed with the patient and family and he was sent to the room in a stable condition. MMFIORELLA / IGNACION: [id number] /
[2018-12-24] MEDS: INSULIN ASPART (NovoLOG) 100 UNIT/ML VIAL SQ SCH ×4 (06:51→21:05)
[2018-12-24 07:09] LABS: Basophils # (A) 0.1 k/uL (0-0.2); Basophils % (A) 1 %; Eosinophils # (A) 0.1 k/uL (0-0.7); Eosinophils % (A) 3 %; HCT 36.4 % (39.0-53.0); HGB 12.1 gm/dL (13.0-17.5); Lymphocytes # (A) 1.2 k/uL (1.0-4.8); Lymphocytes % (A) 24 %; MCH 29.5 pg (25.0-35.0); MCHC 33.3 g/dL (31.0-37.0); MCV 88.6 fL (80.0-100.0); Mean Platelet Volume 8.6; Monocytes # (A) 0.2 k/uL (0-1.0); Monocytes % (A) 5 %; Neutrophils # (A) 3.4 k/uL (1.3-7.7); Neutrophils % (A) 66 %; Platelet Count 131 k/uL (150-450); RBC 4.12 m/uL (4.30-5.90); RDW 13.7 % (11.5-15.5); WBC 5.1 k/uL (3.8-10.6)
[2018-12-24 07:11] LABS: Anion Gap 4 mmol/L; Blood Urea Nitrogen 7 mg/dL (9-20); Calcium 8.5 mg/dL (8.4-10.2); Carbon Dioxide 28 mmol/L (22-30); Chloride 105 mmol/L (98-107); Glucose 147 mg/dL (74-99); Potassium 3.8 mmol/L (3.5-5.1); Sodium 137 mmol/L (137-145)
[2018-12-24] MEDS: IPRATROPIUM-ALBUTEROL 3 ML NEB INHALATION SCH ×4 (07:25→19:39)
[2018-12-24] MEDS: CLOPIDOGREL 75 MG TAB PO SCH (08:44)
[2018-12-24] MEDS: LOSARTAN 50 MG TAB PO SCH (08:44)
[2018-12-24] MEDS: METOPROLOL TARTRATE 25 MG TAB PO SCH ×2 (08:44→21:04)
[2018-12-24] MEDS: ATORVASTATIN 80 MG TAB PO SCH (08:45)
[2018-12-24] MEDS: ASPIRIN 81 MG PO SCH (08:45)
[2018-12-24 11:48] LABS: Glucose,Whole Blood 122 mg/dL (75-99)
--- NOTE | 2018-12-24 14:34 | P.PN ---
Subjective Patient is doing well. He has no chest discomfort no dizziness lightheadedness or palpitations. He underwent coronary stenting yesterday and did very well Electrolytes are normal BUN 7 creatinine 0.5 On examination he is afebrile 98.1F pulse rate in 70s normal respirations Blood pressure 134/78 mmHg Breath sounds are clear no rhonchi no crackles Heart sounds S1-S2 normal no murmurs or gallop. Extremities warm no edema Impression Non-Q wave myocardial infarction Left radical ejection fraction moderately impaired ejection fraction 35-40% RV enlargement mild Coronary artery disease chest was Ney stenting to the diagonal branch as well as the mid RCA with drug-eluting stents History of noncompliance He presented with abdominal symptoms as well as epigastric discomfort and his abdominal tenderness has resolved on IV antibiotics He may go home today on dual antiplatelet therapy with aspirin and Plavix Atorvastatin 80 mg daily Metoprolol 75 mg twice daily Losartan 50 mrem daily Follow-up with Dr. Zuniga Objective - Vital Signs Vital signs: Vital Signs Temp 98.1 F 12/24/18 12:00 Pulse 76 12/24/18 11:14 Resp 16 12/24/18 12:00 BP 158/95 12/24/18 12:00 Pulse Ox 90 L 12/24/18 08:00 Intake & Output 12/23/18 12/24/18 12/24/18 18:59 06:59 18:59 Intake Total 696.83 900 480 Output Total 100 500 300 Balance 596.83 400 180 Weight 93 kg Intake: IV 216.83 Intake, IV Titration 900 Amount Sodium Chloride 0.9% 1, 900 000 ml @ 75 mls/hr IV . [id number] [facility] Rx#:[id number] Oral 480 480 Output: Urine 100 500 300 Other: Voiding Method Urinal Urinal # Bowel Movements 0 - Labs CBC & Chem 7: 12/24/18 06:23 12/24/18 06:23 Labs: Abnormal Lab Results - Last 24 Hours (Table) 12/23/18 12/23/18 12/24/18 Range/Units 16:32 20:38 06:15 RBC (4.30-5.90) m/uL Hgb (13.0-17.5) gm/dL Hct (39.0-53.0) % Plt Count (150-450) k/uL BUN (9-20) mg/dL Creatinine (0.66-1.25) mg/dL Glucose (74-99) mg/dL POC Glucose (mg/dL) 153 H 128 H 144 H (75-99) mg/dL 12/24/18 12/24/18 12/24/18 Range/Units 06:23 06:23 11:43 RBC 4.12 L (4.30-5.90) m/uL Hgb 12.1 L (13.0-17.5) gm/dL Hct 36.4 L (39.0-53.0) % Plt Count 131 L (150-450) k/uL BUN 7 L (9-20) mg/dL Creatinine 0.52 L (0.66-1.25) mg/dL Glucose 147 H (74-99) mg/dL POC Glucose (mg/dL) 122 H (75-99) mg/dL
[2018-12-24 17:06] LABS: Glucose,Whole Blood 145 mg/dL (75-99)
--- NOTE | 2018-12-24 19:56 | PN ---
PROGRESS NOTE DATE OF SERVICE: December 24, 2018. The patient has been hemodynamically stable. He has no chest pain. On physical examination, his respiratory rate is 18, pulse rate 89, temperature 97 degrees Fahrenheit, blood pressure 151/92, O2 saturation on 2 L by nasal cannula is 95%. HEENT: Unremarkable. Chest is clear. Cardiovascular system reveals an S1, S2. Abdomen is soft. There is no edema. White count is 5.1, hemoglobin of 12.1, sodium 137, potassium 3.8, chloride 105, bicarb 28, glucose 147. IMPRESSION: At this time is: 1. Acute myocardial infarction. 2. Ischemic cardiomyopathy. 3. Status post stent placement. Increase his activity level. Continue him on his current medications. Discharge planning is in progress for tomorrow if he is otherwise stable. MMODL / IJN: [id number] /
[2018-12-24 20:49] LABS: Glucose,Whole Blood 146 mg/dL (75-99)
[2018-12-24] MEDS: AZITHROMYCIN 500 MG TAB PO SCH (21:04)
[2018-12-25 00:42] VITALS: RESP 18
[2018-12-25 06:24] LABS: Glucose,Whole Blood 144 mg/dL (75-99)
[2018-12-25 06:38] LABS: Basophils % (A) 1 %; Eosinophils # (A) 0.2 k/uL (0-0.7); Eosinophils % (A) 3 %; HCT 41.7 % (39.0-53.0); HGB 13.7 gm/dL (13.0-17.5); Lymphocytes # (A) 1.9 k/uL (1.0-4.8); Lymphocytes % (A) 26 %; MCH 29.3 pg (25.0-35.0); MCHC 32.8 g/dL (31.0-37.0); MCV 89.4 fL (80.0-100.0); Mean Platelet Volume 8.5; Monocytes # (A) 0.4 k/uL (0-1.0); Monocytes % (A) 6 %; Neutrophils # (A) 4.7 k/uL (1.3-7.7); Neutrophils % (A) 63 %; Platelet Count 162 k/uL (150-450); RBC 4.66 m/uL (4.30-5.90); RDW 13.2 % (11.5-15.5); WBC 7.5 k/uL (3.8-10.6)
[2018-12-25] MEDS: INSULIN ASPART (NovoLOG) 100 UNIT/ML VIAL SQ SCH (06:45)
[2018-12-25] MEDS: IPRATROPIUM-ALBUTEROL 3 ML NEB INHALATION SCH ×2 (07:05→11:17)
[2018-12-25] MEDS: ASPIRIN 81 MG PO SCH (07:37)
[2018-12-25] MEDS: LOSARTAN 50 MG TAB PO SCH (07:37)
[2018-12-25] MEDS: ATORVASTATIN 80 MG TAB PO SCH (07:37)
[2018-12-25] MEDS: METOPROLOL TARTRATE 25 MG TAB PO SCH (07:37)
[2018-12-25] MEDS: CLOPIDOGREL 75 MG TAB PO SCH (07:37)
[2018-12-25 08:06] VITALS: BP 144/93; PULSE 85; TEMP 97.5
--- NOTE | 2018-12-25 11:36 | P.PN ---
Subjective This is a pleasant 73 male who underwent stent placement to the diagonal branch in the mid RCA. He is currently maintained on dual antiplatelet therapy. He is seen and examined resting comfortably in bed in no acute distress. He denies symptoms of chest discomfort, shortness of breath, dizziness or palpitations. Blood pressure 144/93 heart rate 85 afebrile maintaining oxygen saturation on room air. Laboratory data reviewed, WBC 7.5, hemoglobin 13.7, platelets 162. Currently maintained on aspirin 81 mg daily, atorvastatin 80 mg daily, Plavix 75 mg daily, losartan 50 mg daily and Lopressor 75 mg twice a day. GENERAL: Well-appearing, well-nourished and in no acute distress. NECK: Supple without JVD or thyromegaly. LUNGS: Breath sounds clear to auscultation bilaterally. Respiration equal and unlabored. No wheezes, rales or rhonchi. HEART: Regular rate and rhythm without murmurs, rubs or gallops. S1 and S2 heard. EXTREMITIES: Normal range of motion, no edema. No clubbing or cyanosis. Peripheral pulses intact. ASSESSMENT Non-Q wave myocardial infarction status post successful stent placement to the diagonal branch and RCA Moderately impaired LV systolic function with ejection fraction 35-40% Hypertension Dyslipidemia History of noncompliance PLAN Overall stable from a cardiac perspective maintained on dual antiplatelet therapy. Will be discharged home to follow-up with Dr. Hawthorne in one week. The importance of medication compliance was discussed in great detail. Nurse Practitioner note has been reviewed, I agree with a documented findings and plan of care. Patient was seen and examined. Objective - Vital Signs Vital signs: Vital Signs Temp 97.5 F L 12/25/18 08:00 Pulse 85 12/25/18 08:00 Resp 18 12/25/18 08:00 BP 144/93 12/25/18 08:00 Pulse Ox 93 L 12/25/18 08:00 Intake & Output 12/24/18 12/25/18 12/25/18 18:59 06:59 18:59 Intake Total 480 644 240 Output Total 300 175 Balance 180 644 65 Weight 92.2 kg Intake: Oral 480 644 240 Output: Urine 300 175 Other: Voiding Method Urinal # Voids 1 1 # Bowel Movements 0 - Labs CBC & Chem 7: 12/25/18 05:49 12/24/18 06:23 Labs: Abnormal Lab Results - Last 24 Hours (Table) 12/24/18 12/24/18 12/24/18 Range/Units 11:43 17:04 20:48 POC Glucose (mg/dL) 122 H 145 H 146 H (75-99) mg/dL 12/25/18 Range/Units 06:15 POC Glucose (mg/dL) 144 H (75-99) mg/dL
--- NOTE | 2018-12-25 19:53 | DS ---
DISCHARGE SUMMARY Alireza Ervin is a 73-year-old male who presented initially to the ED at [facility] on December 19, 2018. At that time, he had come in with a history of vomiting and diarrhea for 1 week. He had begun an anticoagulant, had an episode of emesis. He also had some abdominal cramping and subsequently was seen in the ED and admitted for further evaluation and management. Past medical history is positive for coronary artery disease, angina, previous stent placement, osteomyelitis in the past. Family history positive for diabetes in his mother. Cancer in his father, colon cancer, at age 71. On physical examination, vitals stable. He is afebrile. His chest is clear. Cardiovascular system reveals an S1, S2. Abdomen is soft. There is no edema. INITIAL IMPRESSION: 1. Vomiting and nausea, etiology which is unclear, possibly was secondary gastroenteritis. 2. Troponin that was elevated with a known history of coronary artery disease for which the patient was on IV heparin. The patient subsequently was admitted for further treatment. During the hospital stay, patient was diagnosed to have a non ST NM. Subsequently underwent cardiac catheterization on December 23, 2018 and underwent coronary angioplasty with PTCA and stenting of the major diagonal branch with drug-eluting stent and PTCA and stenting of the mid right coronary with drug-eluting stent. Patient tolerated the procedure well and subsequently was closely monitored for 48 hours. He is doing better today and will be discharged home. He has no chest pain. On physical examination, respiratory rate is 18, pulse rate 85, temperature 97.5, blood pressure 140/93, O2 saturation on room air is 93%. HEENT is unremarkable. His chest is clear. Cardiovascular system: S1, S2. Abdomen is soft. There is no edema. White count of 7.5, hemoglobin 13.7. Patient will be discharged home today. DISCHARGE DIAGNOSES: 1. Acute myocardial infarction. 2. Gastroenteritis. 3. Ischemic cardiomyopathy. CONDITION: Stable. DIET: Cardiac. ACTIVITY: As tolerated. DISCHARGE MEDICATIONS: 1. Bystolic 5 mg daily. 2. 06/18 1 tablet p.o. daily. 3. Metoprolol 75 mg p.o. b.i.d. 4. Cozaar 50 mg p.o. daily. 5. Clopidogrel 75 mg p.o. daily. 6. Atorvastatin 80 mg p.o. q.h.s. 7. Aspirin 81 mg p.o. daily. Patient will follow up with Cardiology in one weeks time. Will follow up with Dr. Bello Holden in 3-4 days. MMODL / IJN: [id number] /
--- NOTE | 2018-12-28 10:36 | CDI ---
Documentation Clarification Form Date: 12/28/18 From: Zahraa Gomez Phone: If you have a question regarding this query, please contact Adrienne Gonsalves at [phone] between 8am and 5pm. Admit Date: 12/19/2018 11:51:00 AM Patient Name: Alireza Ervin Visit Number: [id number] Discharge Date: 12/25/2018 12:02:00 PM ATTENTION: The Clinical Documentation Specialists (CDI) and [facility] Coding Staff appreciate your assistance in clarifying documentation. Please respond to the clarification below the line at the bottom and electronically sign. The CDI & [facility] Coding staff will review the response and follow-up if needed. Please note: Queries are made part of the Legal Health Record. If you have any questions, please contact the author of this message via ITS. Dr. Bello Holden The patient presented with a NSTEMI, nausea vomiting and diarrhea. Sepsis was documented in the ED note as well. History/Risk Factors: The patient was found to have a UTI and viral gastroenteritis. The patient is also diabetic and has dementia. Clinical Indicators: No fever or chills. WBC: 5.5 Lactic acid: 1.5 Blood cultures: Not collected. Vitals signs on admission: T. 97.2, P. 102, R. 18, BP 124/76 Treatment: Antibiotics: IV Zithromax, IV Ceftriaxone IV Bolus: 1 Liter then 1 liter at 100 mls/hr In your professional opinion, please clarify if these findings signify whether the Sepsis was: Ruled Out Ruled In Other, please specify Unable to determine MTDD
--- NOTE | 2018-12-31 10:38 | DS ---
DISCHARGE SUMMARY Sepsis is ruled out. MMODL / IJN: [id number] /
--- NOTE | 2019-01-04 10:48 | CDI ---
Documentation Clarification Form Date: 01/04/19 From: Zahraa Gomez Phone: If you have a question regarding this query, please contact Adrienne Gonsalves at [phone] between 8am and 5pm. Admit Date: 12/19/2018 11:51:00 AM Patient Name: Alireza Ervin Visit Number: [id number] Discharge Date: 12/25/2018 12:02:00 PM ATTENTION: The Clinical Documentation Specialists (CDI) and [facility] Coding Staff appreciate your assistance in clarifying documentation. Please respond to the clarification below the line at the bottom and electronically sign. The CDI & [facility] Coding staff will review the response and follow-up if needed. Please note: Queries are made part of the Legal Health Record. If you have any questions, please contact the author of this message via ITS. Dr. Sonu Theodore Documentation in the H&P states that the patient's chest x-ray shows right upper lobe pneumonia. History/Risk Factors: Patient had an acute WI on admission along with UTI, gastritis and ischemic cardiomyopathy. Clinical Indicators: No cough, no fever Vital signs: T. 97.2, P. 102, R. 18, Bp 124/76 WBC/Left shift: 10.1/8.7 X-ray: Abdominal x-ray: Left lower lobe airspace disease may reflect pneumonia. Chest x-ray: COPD, Chest CT: No PE or other acute cardiopulmonary disease. Lung/Breathing assessment: Clear. Nonlabored. No wheeze. Treatment: Antibiotics: IV Zithromax, IV Ceftriaxone O2 2 L/nasal cannula Breathing Tx: Duoneb 3ml In order to capture the severity of condition, please clarify if the condition signifies and you are treating for: Aspiration Pneumonia, identify if: Bacterial Pneumonia, specify causal organism (if known) Viral Pneumonia, specify casual organism (if known) Healthcare Acquired Pneumonia/Pneumonia, unspecified Pneumonia Ruled Out Other, please specify Unable to determine MTDD
--- NOTE | 2019-01-07 07:28 | CDI ---
Documentation Clarification Form Date: 01/04/2019 10:48:00 AM From: Zahraa Gomez Phone: If you have a question regarding this query, please contact Adrienne Gonsalves at [phone] between 8am and 5pm. Admit Date: 12/19/2018 11:51:00 AM Patient Name: Alireza Ervin Visit Number: [id number] Discharge Date: 12/25/2018 12:02:00 PM ATTENTION: The Clinical Documentation Specialists (CDI) and [facility] Coding Staff appreciate your assistance in clarifying documentation. Please respond to the clarification below the line at the bottom and electronically sign. The CDI & [facility] Coding staff will review the response and follow-up if needed. Please note: Queries are made part of the Legal Health Record. If you have any questions, please contact the author of this message via ITS. Dr. Sonu Theodore Thank you for signing your previous query. Please document a response before signing this query. Documentation in the H&P states that the patient's chest x-ray shows right upper lobe pneumonia. History/Risk Factors: Patient had an acute GA on admission along with UTI, gastritis and ischemic cardiomyopathy. Clinical Indicators: No cough, no fever Vital signs: T. 97.2, P. 102, R. 18, Bp 124/76 WBC/Left shift: 10.1/8.7 X-ray: Abdominal x-ray: Left lower lobe airspace disease may reflect pneumonia. Chest x-ray: COPD, Chest CT: No PE or other acute cardiopulmonary disease. Lung/Breathing assessment: Clear. Nonlabored. No wheeze. Treatment: Antibiotics: IV Zithromax, IV Ceftriaxone O2 2 L/nasal cannula Breathing Tx: Duoneb 3ml In order to capture the severity of condition, please clarify if the condition signifies and you are treating for: Aspiration Pneumonia, identify if: Bacterial Pneumonia, specify causal organism (if known) Viral Pneumonia, specify casual organism (if known) Healthcare Acquired Pneumonia/Pneumonia, unspecified Pneumonia Ruled Out Other, please specify Unable to determine MTDD
--- NOTE | 2019-01-12 08:19 | CDI ---
Documentation Clarification Form Date: 01/04/2019 10:48:00 AM From: Zahraa Gomez Phone: If you have a question regarding this query, please contact Adrienne Gonsalves at [phone] between 8am and 5pm. Admit Date: 12/19/2018 11:51:00 AM Patient Name: Alireza Ervin Visit Number: [id number] Discharge Date: 12/25/2018 12:02:00 PM ATTENTION: The Clinical Documentation Specialists (CDI) and [facility] Coding Staff appreciate your assistance in clarifying documentation. Please respond to the clarification below the line at the bottom and electronically sign. The CDI & [facility] Coding staff will review the response and follow-up if needed. Please note: Queries are made part of the Legal Health Record. If you have any questions, please contact the author of this message via ITS. Dr. Bello Holden Documentation in the H&P states that the patient's chest x-ray shows right upper lobe pneumonia. CT scan was ordered to verify the pneumonia but it showed no PE or other acute cardiopulmonary disease. History/Risk Factors: Patient had an acute DC on admission along with UTI, gastritis and ischemic cardiomyopathy. Clinical Indicators: No cough, no fever Vital signs: T. 97.2, P. 102, R. 18, Bp 124/76 WBC/Left shift: 10.1/8.7 X-ray: Abdominal x-ray: Left lower lobe airspace disease may reflect pneumonia. Chest x-ray: COPD, Chest CT: No PE or other acute cardiopulmonary disease. Lung/Breathing assessment: Clear. Nonlabored. No wheeze. Treatment: Antibiotics: IV Zithromax, IV Ceftriaxone O2 2 L/nasal cannula Breathing Tx: Duoneb 3ml In order to capture the severity of condition, please clarify if the condition signifies and you are treating for: Aspiration Pneumonia, identify if: Bacterial Pneumonia, specify causal organism (if known) Viral Pneumonia, specify casual organism (if known) Healthcare Acquired Pneumonia/Pneumonia, unspecified Pneumonia Ruled Out Other, please specify Unable to determine MTDD
--- NOTE | 2019-01-13 08:40 | DS ---
DISCHARGE SUMMARY ADDENDUM: Community-acquired pneumonia, bacterial pneumonia. MMODL / IJN: [id number] /
== END 2018-12-25 12:02 | disposition home health service (06) | DRG 246 ==
LOC: EC 09:31 → 3SCARD 11:51
PROVIDERS: ADMIT Family Medicine; ATTEND Family Medicine
PROC: 027135Z Dilation of Coronary Artery, Two Arteries with Two Drug-eluting Intraluminal Devices, Percutaneous Approach (ICD-10-PCS; principal; 2018-12-23 07:30)
PROC: 4A023N7 Measurement of Cardiac Sampling and Pressure, Left Heart, Percutaneous Approach (ICD-10-PCS; 2018-12-23 07:30)
PROC: B2111ZZ Fluoroscopy of Multiple Coronary Arteries using Low Osmolar Contrast (ICD-10-PCS; 2018-12-23 07:30)
DX: I21.4 Non-ST elevation (NSTEMI) myocardial infarction (principal); J15.9 Unspecified bacterial pneumonia; I50.22 Chronic systolic (congestive) heart failure; N39.0 Urinary tract infection, site not specified; I25.110 Atherosclerotic heart disease of native coronary artery with unstable angina pectoris; I25.5 Ischemic cardiomyopathy; J44.9 Chronic obstructive pulmonary disease, unspecified; E11.42 Type 2 diabetes mellitus with diabetic polyneuropathy; I11.0 Hypertensive heart disease with heart failure; E11.65 Type 2 diabetes mellitus with hyperglycemia; F03.90 Unspecified dementia, unspecified severity, without behavioral disturbance, psychotic disturbance, mood disturbance, and anxiety; E78.5 Hyperlipidemia, unspecified; F17.200 Nicotine dependence, unspecified, uncomplicated; K57.30 Diverticulosis of large intestine without perforation or abscess without bleeding; I25.2 Old myocardial infarction; A08.4 Viral intestinal infection, unspecified; J30.2 Other seasonal allergic rhinitis; K44.9 Diaphragmatic hernia without obstruction or gangrene; M10.9 Gout, unspecified; M19.90 Unspecified osteoarthritis, unspecified site; H53.8 Other visual disturbances; H93.19 Tinnitus, unspecified ear; I83.90 Asymptomatic varicose veins of unspecified lower extremity; K82.8 Other specified diseases of gallbladder; Z79.02 Long term (current) use of antithrombotics/antiplatelets; Z79.899 Other long term (current) drug therapy; Z79.84 Long term (current) use of oral hypoglycemic drugs; Z88.5 Allergy status to narcotic agent; Z87.442 Personal history of urinary calculi; Z87.11 Personal history of peptic ulcer disease; Z86.73 Personal history of transient ischemic attack (TIA), and cerebral infarction without residual deficits; Z87.01 Personal history of pneumonia (recurrent); Z86.010 Personal history of colon polyps; Z98.41 Cataract extraction status, right eye; Z96.1 Presence of intraocular lens; Z95.5 Presence of coronary angioplasty implant and graft; Z91.14 Patient's other noncompliance with medication regimen; Z80.0 Family history of malignant neoplasm of digestive organs; Z83.3 Family history of diabetes mellitus
CPT/HCPCS: 36415; 71046; 71260; 74177; 78227; 80048; 80053; 80061; 81001; 82272; 83036; 83605; 83690; 84484; 85025; 85610; 85730; 87086; 87502; 93005; 93306; 93458; 94640; 94760; 96361; 96365; 96366; 96375; 96376; 99291; C1874

== ENCOUNTER 2019-06-19 14:35 | Emergency (ER) | payer MEDICARE ==
[2019-06-19 14:40] VITALS: BP 157/76; PULSE 87; RESP 18; TEMP 98.6
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
== END 2019-06-19 15:17 | disposition home or self-care (01) ==
LOC: EC 14:35
DX: L03.011 Cellulitis of right finger (principal); I25.119 Atherosclerotic heart disease of native coronary artery with unspecified angina pectoris; I11.0 Hypertensive heart disease with heart failure; I50.9 Heart failure, unspecified; E11.40 Type 2 diabetes mellitus with diabetic neuropathy, unspecified; I25.2 Old myocardial infarction; F17.200 Nicotine dependence, unspecified, uncomplicated; Z79.84 Long term (current) use of oral hypoglycemic drugs; Z79.899 Other long term (current) drug therapy; Z88.5 Allergy status to narcotic agent; Z95.5 Presence of coronary angioplasty implant and graft
CPT/HCPCS: 10060; 99283

== ENCOUNTER 2019-12-25 13:49 | Emergency (ER) | payer MEDICARE ==
[2019-12-25 13:56] VITALS: RESP 18; TEMP 97.9
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
--- NOTE | 2019-12-25 14:52 | US ---
EXAMINATION TYPE: US venous doppler duplex LE LT DATE OF EXAM: 12/25/2019 2:43 PM COMPARISON: NONE CLINICAL HISTORY: pain. SIDE PERFORMED: Left TECHNIQUE: The lower extremity deep venous system is examined utilizing real time linear array sonog polo with graded compression, doppler sonography and color-flow sonography. VESSELS IMAGED: External Iliac Vein (EIV) Common Femoral Vein Deep Femoral Vein Greater Saphenous Vein * Femoral Vein Popliteal Vein Small Saphenous Vein * Proximal Calf Veins (* superficial vessels) Left Leg: Negative for DVT IMPRESSION: No evidence for DVT at this time.
[2019-12-25] MEDS ORDERED: traMADol 50 MG STARTER PACK 3 TAB BTL PO STA (15:07)
[2019-12-25 15:32] VITALS: BP 150/85; PULSE 96
== END 2019-12-25 15:32 | disposition home or self-care (01) ==
LOC: EC 13:49
DX: M54.16 Radiculopathy, lumbar region (principal); I25.10 Atherosclerotic heart disease of native coronary artery without angina pectoris; I11.0 Hypertensive heart disease with heart failure; I50.9 Heart failure, unspecified; E11.40 Type 2 diabetes mellitus with diabetic neuropathy, unspecified; I25.2 Old myocardial infarction; F17.200 Nicotine dependence, unspecified, uncomplicated; Z95.5 Presence of coronary angioplasty implant and graft; Z79.84 Long term (current) use of oral hypoglycemic drugs; Z79.899 Other long term (current) drug therapy; Z88.5 Allergy status to narcotic agent
CPT/HCPCS: 99283

== ENCOUNTER 2020-02-04 13:55 | Inpatient (IN) | payer MEDICARE ==
[2020-02-04] MEDS ORDERED: NITROGLYCERIN SL TABS 0.4 MG TAB SUBLINGUAL STA (13:58)
[2020-02-04] MEDS ORDERED: LIDOCAINE 1% INJ 10MG/ML (20 ML MDV) ONE (14:06)
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
[2020-02-04] MEDS ORDERED: NALOXONE 0.4 MG/ML 1 ML VIAL IV PRN (14:09)
[2020-02-04] MEDS ORDERED: IV FLUID CONTINUATION 700 ML IV ONE (14:15)
--- NOTE | 2020-02-04 14:23 | XR ---
EXAMINATION TYPE: XR chest 1V portable DATE OF EXAM: 02/04/2020 COMPARISON: Prior chest x-ray and CT 12/19/2018 HISTORY: Chest pain TECHNIQUE: Single frontal view of the chest is obtained. FINDINGS: There is no pleural effusion or pneumothorax seen. No evident pneumonia. Lung volumes are increased consistent with underlying emphysema. The cardiac silhouette size is within normal limits. The osseous structures are intact. IMPRESSION: No acute process. Emphysema.
[2020-02-04] MEDS ORDERED: MIDAZOLAM 2 MG/2 ML VIAL IV ONE (14:25)
[2020-02-04] MEDS ORDERED: LIDOCAINE 1% INJ 10MG/ML (10 ML MDV) SQ ONE (14:27)
[2020-02-04] MEDS ORDERED: HEPARIN SODIUM 1,000 UN/ML (10ML VL) ONE (14:28)
[2020-02-04] MEDS ORDERED: TIROFIBAN BOLUS 12.5MG/250 ML BAG IV ONE (14:33)
[2020-02-04] MEDS ORDERED: TIROFIBAN 12.5MG-250ML NS 250 ML IV ONE (14:34)
[2020-02-04] MEDS ORDERED: NITROGLYCERIN 1000MCG/10ML SYRINGE INTRACORON ONE (14:52)
[2020-02-04] MEDS ORDERED: IOPAMIDOL-370 100ML BTL INJ ONE ×2 (14:56→15:13)
[2020-02-04] MEDS ORDERED: niCARdipine 25 MG/10 ML VIAL ONE (14:57)
[2020-02-04 14:59] LABS: Basophils # (A) 0.1 k/uL (0-0.2); Basophils % (A) 1 %; Eosinophils # (A) 0.1 k/uL (0-0.7); Eosinophils % (A) 2 %; HCT 41.6 % (39.0-53.0); HGB 13.6 gm/dL (13.0-17.5); Lymphocytes # (A) 1.5 k/uL (1.0-4.8); Lymphocytes % (A) 28 %; MCH 28.8 pg (25.0-35.0); MCHC 32.8 g/dL (31.0-37.0); MCV 87.7 fL (80.0-100.0); Mean Platelet Volume 10.2; Monocytes # (A) 0.3 k/uL (0-1.0); Monocytes % (A) 5 %; Neutrophils # (A) 3.4 k/uL (1.3-7.7); Neutrophils % (A) 63 %; Platelet Count 157 k/uL (150-450); RBC 4.74 m/uL (4.30-5.90); RDW 13.8 % (11.5-15.5); WBC 5.4 k/uL (3.8-10.6)
[2020-02-04] MEDS ORDERED: niCARdipine 25 MG/10 ML VIAL INTRACORON ONE (14:59)
[2020-02-04] MEDS ORDERED: CLOPIDOGREL 75 MG TAB ONE (15:03)
[2020-02-04 15:08] LABS: ALT 15 U/L (4-49); AST 25 U/L (17-59); African American GFR (CKD) >90 (>60 ml/min/1.73 sqM); Albumin 3.5 g/dL (3.5-5.0); Alkaline Phosphatase 170 U/L (38-126); Anion Gap 6 mmol/L; Blood Urea Nitrogen 16 mg/dL (9-20); Calcium 8.8 mg/dL (8.4-10.2); Carbon Dioxide 25 mmol/L (22-30); Chloride 102 mmol/L (98-107); Glucose 335 mg/dL (74-99); Magnesium 2.1 mg/dL (1.6-2.3); Non-African American GFR(CKD) 84 (>60 ml/min/1.73 sqM); Potassium 4.3 mmol/L (3.5-5.1); Sodium 133 mmol/L (137-145); Total Bilirubin 0.4 mg/dL (0.2-1.3); Total Protein 6.6 g/dL (6.3-8.2)
[2020-02-04] MEDS ORDERED: fentaNYL (PF) 50 MCG/ML 2 ML AMP ONE (15:08)
[2020-02-04] MEDS ORDERED: fentaNYL (PF) 50 MCG/ML 2 ML AMP IV ONE (15:10)
[2020-02-04] MEDS ORDERED: CLOPIDOGREL 75 MG TAB PO ONE (15:14)
[2020-02-04] MEDS ORDERED: ZOLPIDEM 5 MG TAB PO PRN (15:20)
[2020-02-04] MEDS ORDERED: ATROPINE SULFATE 0.1 MG/ML 10ML SYRINGE IV PRN (15:20)
[2020-02-04] MEDS ORDERED: RX INFO: IV CONTRAST WAS GIVEN 1 EACH MISC MISCELLANE PRN (15:20)
[2020-02-04 16:12] LABS: Glucose,Whole Blood 342 mg/dL (75-99)
[2020-02-04] MEDS: SODIUM CHLORIDE 0.9% 1,000 ML IV SCH (17:21)
[2020-02-04] MEDS: INSULIN ASPART (NovoLOG) 100 UNIT/ML VIAL SQ SCH ×2 (17:21→21:28)
[2020-02-04 18:24] LABS: INR 1.1 (<1.2); Partial Thromboplastin Time 37.4 sec (22.0-30.0); Prothrombin Time 11.1 sec (9.0-12.0)
[2020-02-04] MEDS: TIROFIBAN 12.5MG-250ML NS 250 ML IV SCH (18:59)
[2020-02-04] MEDS ORDERED: LORazepam 0.5 MG TAB PO PRN (20:13)
[2020-02-04] MEDS ORDERED: TEMAZEPAM 15 MG CAP PO PRN (20:13)
[2020-02-04 20:59] LABS: Glucose,Whole Blood 233 mg/dL (75-99)
[2020-02-04] MEDS ORDERED: INSULIN DETEMIR (LEVEMIR) 100 UNIT/ML SYR SQ SCH (21:00)
[2020-02-04] MEDS ORDERED: METOPROLOL TARTRATE 25 MG TAB PO SCH (21:00)
[2020-02-04] MEDS: ATORVASTATIN 80 MG TAB PO SCH (21:45)
[2020-02-04] MEDS: METOPROLOL TARTRATE 50 MG TAB PO SCH (21:45)
[2020-02-04] MEDS: LISINOPRIL 10 MG TAB PO SCH (21:45)
--- NOTE | 2020-02-04 21:55 | CONS ---
CONSULTATION Alireza Ervin is a 74-year-old gentleman with a known history of CAD, multiple previous PCIs that were performed. The last one was in December 2018 when I performed PTCA and stenting of a mid super dominant RCA and also a major diagonal branch of LAD. At that time, his LAD was patent and that was also stented in the past in 2012. He presented to [facility] with chest pain that was going on for 2-3 days, but more severe from last night 10:00 pm and got really worse this morning and he came into the hospital. For this gentleman, I performed stenting of RCA initially in 2014 and again in 2019. In 2015 lesion was proximal; 2019, was a mid lesion. Prior to that in 2012, I performed stenting of mid LAD and diagonal and I performed a repeat stenting of the diagonal distal to the previous stent in 2018. He now presented with an anterior myocardial infarction with an ST elevation and I advised prompt transfer from [facility] to [facility] for a PCI. I saw the patient in the freezer laboratory technician. He was hemodynamically stable, complained of ongoing chest pain, had ST elevation persistent. He smokes and has not been very consistent with medications, but for the last 2 days he tells me that he has taken his aspirin and Plavix. He has diabetes, hypertension, hyperlipidemia, smoking, COPD, noncompliance with medications, multiple stents. PAST MEDICAL HISTORY: 1. CAD with multiple PCIs as mentioned above. In 2012, I performed stenting of LAD and diagonal and repeat diagonal stenting in December 2018. I performed stenting of RCA proximal lesion in 2014 and repeat a stenting of the same vessel in mid lesion new lesion in 2018. 2. He has hypertension. 3. Type 2 diabetes. 4. Hyperlipidemia. 5. Osteoarthritis. PAST SURGICAL HISTORY: He has had previous accident and surgeries of his shoulder, thumb, umbilical hernia repair, rotator cuff surgery in both shoulders and cataract operations. ALLERGIES: MORPHINE. MEDICATIONS: Medications at home include Bystolic 5 mg daily, aspirin 81 mg daily, Lipitor 80 mg daily, Plavix 75 mg daily, Cozaar 50 mg daily, metoprolol tartrate 75 mg b.i.d., Augmentin he has been taking for some nonspecific infection that is unclear to me. Naproxen p.r.n. He also takes Empagliflozin and linagliptin combination 10/ 1 daily. PHYSICAL EXAMINATION: On examination, blood pressure was 140/80, pulse rate is about 93 per minute, regular. HEENT: Unremarkable. Fundus was not examined by me. NECK: Supple there is JVD of 1 cm. No carotid bruit. HEART exam reveals S1, S2, somewhat distant heart sounds, short systolic murmur. LUNGS: Lungs revealed bilateral diminished air entry, but no rales or rhonchi. ABDOMEN is soft, nontender. LOWER EXTREMITIES reveal normal pulses. No edema. CENTRAL NERVOUS SYSTEM is grossly within normal limits. This patient by echocardiogram had ejection fraction in the 40% range in 2019. EKG revealed sinus mechanism, anterior ST elevations. IMPRESSION: 1. Acute anterior wall ST-elevation myocardial infarction. 2. History of coronary artery disease with multivessel PCI in the past. 3. Hypertension. 4. Type 2 diabetes mellitus. 5. Smoking and chronic obstructive pulmonary disease. 6. History of ischemic cardiomyopathy. RECOMMENDATIONS: I recommended prompt cardiac cath and PCI and proceeded to perform the procedure expeditiously. MMODL / IJN: [id number] /
--- NOTE | 2020-02-04 22:08 | CC ---
CARDIAC CATHETERIZATION REPORT CARDIAC CATH AND PCI: DATE OF SERVICE: 02/04/2020. PROCEDURE PERFORMED: 1. Left heart catheterization and coronary angiography. 2. PTCA and stenting of a totally occluded mid LAD performed in the setting of an acute ST-elevation myocardial infarction with reperfusion accomplished in 85 minutes from the time he presented to [facility]. PERFORMED BY: Dr. Jan Theodore. SEDATION: Moderate conscious sedation time was 49 minutes. Patient was administered Versed. Oxygen saturation, hemodynamics and EKG were monitored closely. CLINICAL INFORMATION: Mr. Alireza Ervin is a 74-year-old gentleman with a known history of CAD, underwent multivessel PCI. In 2012, I performed LAD and diagonal stenting and repeat diagonal stenting was performed in December 2018. LAD was patent at that time. Proximal RCA was stented in 2014, I performed repeat stenting of a mid RCA, new location, new lesion in 2018. He presented to [facility] with chest pain and anterior ST elevation and was brought into the cemetery laborer expeditiously in [facility]. PROCEDURE NOTE: Under local anesthesia and strict aseptic precautions, a 6-Central African introducer was placed in the right femoral artery. I started off with a standard left Taco guide catheter of 6-Central African caliber and proceeded to perform the proceeded to perform PCI. Following the PCI, I used a standard right Taco catheter to check right coronary angiography and I also checked LV pressures but did not perform an LV gram. Following the procedure, I used a Perclose device to secure hemostasis, but the suture broke and therefore I switched over to an 8-Central African Angio-Seal device with excellent hemostasis. A FemoStop was applied and he was sent to the room in a stable condition with good distal pulses. CARDIAC CATHETERIZATION FINDINGS: CORONARY ANGIOGRAPHY FINDINGS: RIGHT CORONARY ARTERY: This is technically a very super dominant vessel that had a proximal RCA stenting performed in 2014 and mid RCA stenting performed in 2018 about 13 months ago. This vessel has about a 40% proximal lesion, very tortuous, super dominant, distally bifurcates into multiple branches, has minor irregularities. The stented segment is widely patent. The PDA branch has some diffuse disease in the midportion. The PLV branch also has a significant lesion in the midportion, but beyond the stenotic area, the amount of myocardium is small. Both of these lesions represent progression of disease, although there was moderate lesion before in 2019 as well. LEFT MAIN CORONARY ARTERY: This is a short patent vessel which has about 20% lesion distally and bifurcates into LAD and circumflex. LEFT ANTERIOR DESCENDING CORONARY vessel is totally occluded in the midportion. It gives off a small diagonal branch proximally. The larger diagonal branch in the midportion. This diagonal was stented in 2019 and the stented segment is widely patent with good flow. The LAD is occluded after the diagonal and a septal branch and the occlusion is before the previously placed stent. There appears to be some thrombus. LEFT POSTERIOR CIRCUMFLEX CORONARY ARTERY: Nondominant vessel gives off a high first obtuse marginal which is small in caliber, less than 2 mm in length, but long in distribution and very proximally there is a 90% stenosis. Beyond this, the circumflex is very tortuous, gives off a second obtuse marginal and then continues distally. All of these branches have minor diffuse irregularities. No other critical lesions are noted. Left ventriculogram was not performed. The left ventricular end-diastolic pressure was about 14 to 15 mmHg without any gradient across aortic valve. FINAL IMPRESSION: This patient has a superdominant RCA which has widely patent proximal and mid portion at the site of previous stenting, but in the proximal area before the stent, there is of 35% to 40% narrowing. Distally the PLV and PDA branches have diffuse disease in the midportion more than 60%. The left main has 20% narrowing. LAD is totally occluded in the midportion, which is the culprit lesion. Diagonal that was stented is patent. Circumflex marginal which is a high first obtuse marginal, small caliber, long distribution has a 95% stenosis. Rest of circumflex has mild diffuse disease. The filling pressures are acceptable and no gradient across aortic valve. RECOMMENDATIONS: I recommended PCI of LAD and this was performed expeditiously. PCI PROCEDURE DETAILS: I used a standard left Taco guide catheter. I gave a total of 7000 of heparin, 4000 was given in the emergency room at [facility] and another 3000 here and patient was started on an Aggrastat bolus and drip. ACT was 247. He also received 600 mg of Plavix. Standard left Taco guide catheter was used to cannulate the left coronary artery and a run-through wire was used to cross the lesion. A 2.5 caliber 15 mm Trek balloon was used to pre-dilate the lesion. I then deployed a 23 mm long 2.75 caliber Xience stent which was deployed distal to the previous stent and also enclosed the previous 12 mm stent and proximal to it. I then deployed a 3.0 caliber 8 mm Xience stent proximal to the previous stent and telescoped into it. Excellent angiographic result was achieved. Patient had relief of chest pain, but ST-segment elevation persisted. There was a remarkably good CHAITANYA-3 flow noted. I then performed the rest of coronary angiography. The sheath was then taken out and a Perclose device used to secure hemostasis. The suture on the wire Perclose device broke. Therefore, I switched over to an Angio-Seal since I already had a wire in place securely. I used 8- Central African Angio-Seal with excellent hemostasis. A FemoStop was applied and will be kept on for 4 hours. Aggrastat will be used for 12 hours. The patient's ACT was 247. Results were discussed with the patient. I spoke to his sister by phone. He was sent to the ICU in a stable condition. Prognosis however remains guarded. He was counseled regarding the need to quit smoking. MMODL / IJN: [id number] /
--- NOTE | 2020-02-04 22:25 | HP ---
HISTORY AND PHYSICAL DATE OF SERVICE: 02/04/2020 I am covering for Dr. Holden. CHIEF COMPLAINT: Chest pain. HISTORY OF PRESENT ILLNESS: This 74-year-old gentleman with a past medical history of multiple medical problems including history of CAD, history of CHF, COPD, dementia, diabetes type 2, hypertension, hyperlipidemia, being followed by Dr. Holden in the outpatient setting presented with chest pain to [facility]. The pain was present 9 out of 10, felt in the anterior part of the chest with some radiation to the shoulder. EKG showed changes in ST elevation, V1 in the anterior leads and Cardiology transferred the patient to [facility] and admitted for further evaluation and treatment. The patient underwent LAD stenting. The patient being closely monitored in ICU at this time. The blood sugars have been elevated 324. Troponins were found to be elevated up to 115. There is no history of fever, rigors. No history of headache, loss of consciousness, seizures at this time. PAST MEDICAL HISTORY: History of CAD, history of CHF, COPD, dementia, diabetes type 2, GI bleed, hypertension, hyperlipidemia. MEDICATIONS: 1. Ozempic 0.5 mg subcu q.7 days. 2. Bystolic 5 mg p.o. daily. 3. Naprosyn 500 mg p.o. b.i.d. 4. Lopressor 75 mg p.o. b.i.d. 5. Cozaar 750 mg p.o. daily. 6. Glyxambi 1 tablet p.o. daily. 7. Plavix 75 mg p.o. daily. 8. Lipitor 80 mg q.h.s. 9. Aspirin 81 mg daily. 10.Augmentin 1 tablet p.o. b.i.d. ALLERGIES: MORPHINE. SOCIAL HISTORY: History of alcohol and history of nicotine dependence. FAMILY HISTORY: History of diabetes in the family. REVIEW OF SYSTEMS: ENT: No diminished vision. No diminished hearing. CARDIO system as mentioned earlier. RESPIRATION: No cough or hemoptysis. GI no nausea and vomiting. no dysuria or hematuria. NERVOUS SYSTEM: No numbness or weakness. ALLERGY/IMMUNOLOGY no asthma or hayfever. MUSCULOSKELETAL system: ntd CONSTITUTIONAL: As mentioned earlier. DERMATOLOGY: Negative. RHEUMATOLOGY negative. PSYCHIATRY as mentioned earlier. PHYSICAL EXAMINATION: Alert and oriented x3. Pulse is 85. Blood pressure 105/87, respiration 12, temperature is normal. Pulse ox 98% on 3 L. HEENT is conjunctivae normal. Oral mucosa moist. NECK is no jugular venous distention. No carotid bruit. No lymph node enlargement. CARDIOVASCULAR system: S1, S2 muffled. No S3, no S4. RESPIRATORY: Breath sounds diminished in the bases. No rhonchi. No crackles. ABDOMEN: Soft, obese, nontender. No mass palpable. LEGS: No edema. No swelling. NERVOUS SYSTEM: Higher functions as mentioned earlier. Moves all 4 limbs. No focal motor or sensory deficits. Lymphatics: No lymph nodes palpable in the neck, axillae or groin. SKIN: No ulcer, no rashes and no bleeding. JOINTS: No active deforming arthropathy. LABS: CBC within normal limits. Sodium 133, glucose of 335. Troponin as noted. Alkaline phosphatase 170. ASSESSMENT: 1. Acute ST-segment elevation anterior wall myocardial infarct, status post cardiac catheterization and stenting of the LAD. 2. Diabetes mellitus type 2 uncontrolled. 3. Hyponatremia. 4. Troponin 115. 5. Elevated alkaline phosphatase. 6. History of nicotine dependence. 7. History of ETOH. 8. History of congestive heart failure, ejection fraction unknown. 9. History of chronic obstructive pulmonary disease. 10.Dementia. 11.History of gastrointestinal bleed. 12.Hypertension. 13.Hyperlipidemia. 14.History of myocardial infarction. 15.History of degenerative joint disease. 16.History of renal disease. 17.History of pneumonia. 18.History of bilateral peripheral neuropathy. 19.History of nephrolithiasis. 20.History of benign polyps. 21.History of stomach ulcer with lower gastrointestinal bleeding. 22.History of coronary artery disease/stents. 23.History of nicotine dependence. 24.History of THC. 25.Obesity with body mass of 32.1. 26.FULL CODE. RECOMMENDATIONS AND DISCUSSION: This 74-year-old gentleman who presented with multiple complex medical issues, we will monitor the patient closely, continue the current medications, monitor in ICU, dual antiplatelet treatment. I would also recommend hemoglobin A1c and we will initiate Lantus empirically now and continue to monitor. Otherwise, I would recommend close followup with Dr. Holden in the outpatient setting regarding further management of diabetes mellitus. We will resume the rest of medications when it is confirmed. Overall prognosis guarded because of multiple complex medical issues. A 2D echo will be ordered and copy of this will be forwarded to Dr. Holden. Discussed with the patient and staff. The patient understands and agrees. MMODL / IJN: [id number] / ANDREY
[2020-02-04 23:26] LABS: Hemoglobin A1C 9.1 % (4.0-6.0)
[2020-02-05 04:51] LABS: Basophils % (A) 1 %; Eosinophils # (A) 0.2 k/uL (0-0.7); Eosinophils % (A) 2 %; HCT 41.4 % (39.0-53.0); HGB 13.5 gm/dL (13.0-17.5); Lymphocytes # (A) 1.7 k/uL (1.0-4.8); Lymphocytes % (A) 20 %; MCH 29.1 pg (25.0-35.0); MCHC 32.6 g/dL (31.0-37.0); MCV 89.3 fL (80.0-100.0); Mean Platelet Volume 10.2; Monocytes # (A) 0.4 k/uL (0-1.0); Monocytes % (A) 5 %; Neutrophils # (A) 5.9 k/uL (1.3-7.7); Neutrophils % (A) 71 %; Platelet Count 159 k/uL (150-450); RBC 4.64 m/uL (4.30-5.90); RDW 13.9 % (11.5-15.5); WBC 8.3 k/uL (3.8-10.6)
[2020-02-05] MEDS: SODIUM CHLORIDE 0.9% 1,000 ML IV SCH (05:00)
[2020-02-05 05:02] LABS: African American GFR (CKD) >90 (>60 ml/min/1.73 sqM); Anion Gap 4 mmol/L; Blood Urea Nitrogen 22 mg/dL (9-20); Carbon Dioxide 26 mmol/L (22-30); Chloride 104 mmol/L (98-107); Glucose 162 mg/dL (74-99); Non-African American GFR(CKD) 88 (>60 ml/min/1.73 sqM); Potassium 4.5 mmol/L (3.5-5.1); Sodium 134 mmol/L (137-145)
[2020-02-05 06:34] LABS: Glucose,Whole Blood 163 mg/dL (75-99)
[2020-02-05] MEDS: INSULIN ASPART (NovoLOG) 100 UNIT/ML VIAL SQ SCH ×7 (06:51→22:08)
[2020-02-05] MEDS: PANTOPRAZOLE 40 MG TABLET PO SCH (06:53)
[2020-02-05] MEDS: TIROFIBAN 12.5MG-250ML NS 250 ML IV SCH (07:35)
[2020-02-05] MEDS: NITROGLYCERIN SL TABS 0.4 MG TAB SUBLINGUAL PRN (07:53)
[2020-02-05] MEDS: NICOTINE 14MG/24HR PATCH TRANSDERM SCH (07:53)
[2020-02-05] MEDS: METOPROLOL TARTRATE 50 MG TAB PO SCH ×2 (07:53→22:04)
[2020-02-05 10:09] VITALS: BMI 32.1
[2020-02-05 11:57] LABS: Glucose,Whole Blood 233 mg/dL (75-99)
[2020-02-05] MEDS: MAG HYDROX/AL HYDROX/SIMETH 30 ML CUP PO PRN (12:08)
[2020-02-05 17:28] LABS: Glucose,Whole Blood 190 mg/dL (75-99)
--- NOTE | 2020-02-05 18:35 | PN ---
PROGRESS NOTE DATE OF SERVICE: 02/05/2020 I am covering for Dr. Holden. This 74-year-old gentleman with acute anterior wall ST-segment elevation infarction, underwent cardiac consultation and as well as stenting of the totally occluded mid LAD by Dr. Jan Theodore. The patient being closely monitored. Patient also had uncontrolled blood sugars. Hemoglobin A1c is around 9. The patient apparently not very compliant with medications even with blood pressure medications according to the staff. PAST MEDICAL HISTORY: Reviewed. REVIEW OF SYSTEMS: Cardiovascular system: No angina or palpitations. RESPIRATORY: Occasional cough. GI as mentioned earlier. no dysuria. NERVOUS SYSTEM: No numbness, weakness. CURRENT MEDICATIONS: Reviewed and include: 1. Maalox 30 mL q.4 p.r.n. 2. Lipitor 80 mg q.h.s. 3. Atropine 0.5. 4. NovoLog before meals and at bedtime. 5. Levemir 30 units subcu q.h.s. 6. Zestril 10 mg q.h.s. 7. Ativan 0.5 mg p.o. q.8. 8. Metoprolol 50 mg p.o. b.i.d. 9. Narcan 0.2 q.2 p.r.n. 10.Habitrol 14 daily. 11.Nitrostat 0.4 mg sublingual p.r.n. 12.Protonix 40 mg p.o. b.i.d. 13.Restoril 15 mg q.h.s. p.r.n. 14.Ambien. PHYSICAL EXAMINATION: Patient is alert, oriented x3. Pulse 71. Blood pressure 118/70, respiration 12, temperature 97.8, pulse ox 98% on 2 L. HEENT: Conjunctivae normal. Oral mucosa moist. NECK is no JVD. No thyroid enlargement. No carotid bruit. Cardiovascular system: S1, S2 muffled. No S3, no S4. RESPIRATORY: Breath sounds diminished in the bases. No rhonchi. No crackles. ABDOMEN: Soft, nontender. No mass palpable. LEGS: No edema. No swelling. NERVOUS SYSTEM: Higher functions as mentioned earlier. Moves all 4 limbs. No focal motor or sensory deficit. Lymphatics: No lymph nodes palpable in the neck, axillae or groin. SKIN: No ulcer, no rashes and no bleeding. JOINTS no active deforming arthropathy. LABS: CBC within normal limits. Sodium 134 and troponin is 56. ASSESSMENT: 1. Acute ST-segment elevation anterior wall myocardial infarction status post cardiac catheterization, stenting of the LAD. 2. Diabetes type 2, uncontrolled. 3. Hyponatremia. 4. History of troponin 115. 5. Elevated alkaline phosphatase. 6. History of nicotine dependence. 7. History of noncompliance. 8. History of ETOH. 9. History of congestive heart failure, ejection fraction unknown. 10.History of chronic obstructive pulmonary disease. 11.Dementia. 12.History of gastrointestinal bleed. 13.Hypertension. 14.Hyperlipidemia. 15.History of myocardial infarction. 16.History of degenerative joint disease. 17.History of renal disease. 18.History of pneumonia. 19.History of bilateral peripheral neuropathy. 20.History of nephrolithiasis. 21.History of benign polyps. 22.Stomach ulcer with lower gastrointestinal bleeding. 23.History of coronary artery disease/stent. 24.History of nicotine dependence. 25.History of history of THC. 26.Obesity with body mass index of 32.1. 27.FULL CODE. RECOMMENDATIONS AND DISCUSSION: This 74-year-old gentleman with past medical history of multiple medical problems, at this time, I recommend to continue the current medications. Continue symptomatic treatment. Otherwise, I will recommend increase Lantus to 30 units at night and monitor blood sugars closely. The patient at this time will seem to be preferring taking 1 shot of insulin rather than taking pills, but we will continue to monitor. Continue the antiplatelet agents. Closely follow with multiple consultants. Prognosis guarded. Further recommendations to follow. MMODL / IJN: [id number] /
[2020-02-05] MEDS: ATORVASTATIN 80 MG TAB PO SCH (22:04)
[2020-02-05] MEDS: LISINOPRIL 10 MG TAB PO SCH (22:05)
[2020-02-05 22:09] LABS: Glucose,Whole Blood 246 mg/dL (75-99)
[2020-02-05] MEDS: INSULIN DETEMIR (LEVEMIR) 100 UNIT/ML SYR SQ SCH (22:19)
--- NOTE | 2020-02-06 07:29 | P.PN ---
Subjective Patient is resting comfortably in bed. No chest discomfort dizziness lightheadedness or palpitations He was admitted with ST elevation OR and stenting to the mid LAD Blood pressure 135/88 mmHg afebrile respirations normal pulse ox 91% on room air Normal heart sounds no murmurs or gallops no rub Normal breath sounds no rhonchi no crackles Abdomen soft nontender Extremities warm no edema Impression CAD ST elevation OR status post stenting Type 2 diabetes Noncompliance with medications in the past Suggest Continue atorvastatin, continue lisinopril Continue metoprolol tartrate May be transferred to [facility]. Objective - Vital Signs Vital signs: Vital Signs Temp 98.1 F 02/06/20 04:00 Pulse 70 02/06/20 04:00 Resp 16 02/06/20 04:00 BP 118/69 02/06/20 04:00 Pulse Ox 92 L 02/06/20 04:00 Intake & Output 02/05/20 02/06/20 02/06/20 18:59 06:59 18:59 Intake Total 1075 200 Output Total 5 Balance 1070 200 Weight 113.398 kg Intake: Intake, IV Titration 525 Amount IV Fluid Continuation 700 75 ml @ 0 mls/hr IV .STK- [facility] Rx#:[id number] Sodium Chloride 0.9% 1, 450 000 ml @ 75 mls/hr IV . [id number] [facility] Rx#:[id number] Oral 550 200 Output: Stool 5 Other: # Voids 1 2 # Bowel Movements 1 - Labs CBC & Chem 7: 02/05/20 04:24 02/05/20 04:24 Labs: Abnormal Lab Results - Last 24 Hours (Table) 02/05/20 02/05/20 02/05/20 Range/Units 11:55 17:26 22:08 POC Glucose (mg/dL) 233 H 190 H 246 H (75-99) mg/dL
[2020-02-06 07:58] LABS: Glucose,Whole Blood 206 mg/dL (75-99)
[2020-02-06] MEDS: INSULIN ASPART (NovoLOG) 100 UNIT/ML VIAL SQ SCH ×7 (08:03→22:19)
[2020-02-06] MEDS: NITROGLYCERIN SL TABS 0.4 MG TAB SUBLINGUAL PRN (08:14)
[2020-02-06] MEDS: NICOTINE 14MG/24HR PATCH TRANSDERM SCH (08:15)
[2020-02-06] MEDS: PANTOPRAZOLE 40 MG TABLET PO SCH (08:15)
[2020-02-06] MEDS: METOPROLOL TARTRATE 50 MG TAB PO SCH ×2 (08:16→22:19)
[2020-02-06 11:39] LABS: Glucose,Whole Blood 132 mg/dL (75-99)
[2020-02-06] MEDS ORDERED: ACETAMINOPHEN TAB 500 MG TAB PO PRN (15:26)
[2020-02-06 16:41] LABS: Glucose,Whole Blood 211 mg/dL (75-99)
--- NOTE | 2020-02-06 18:27 | PN ---
PROGRESS NOTE DATE OF SERVICE: 02/06/2020 I am covering for Dr. Holden. This 74-year-old gentleman who was admitted with acute anterior wall ST segment elevation, underwent cardiac catheterization as well as stenting of the totally occluded LAD by Dr. Jan Theodore. Patient being closely monitored at this time. The patient also complaining of central chest pain, which is rather vague in character, according to him. No relation with exertion was reported. Patient is able to walk around. Cardiology following the patient. Patient is on dual antiplatelet treatment. Smoking cessation has been advised. PAST MEDICAL HISTORY: Reviewed. REVIEW OF SYSTEMS: Cardiovascular: No angina. RESPIRATORY: As mentioned earlier. GI: As mentioned earlier. no dysuria. Nervous system: No numbness or weakness. CURRENT MEDICATIONS: Reviewed and include: 1. Maalox 30 mL q.4 p.r.n. 2. Lipitor 80 mg q.h.s. 3. Atropine. 4. NovoLog. 5. Levemir. 6. Zestril. 7. Ativan. 8. Narcan. 9. Habitrol. 10.Protonix. 11.Restoril. 12.Ambien. PHYSICAL EXAM: Patient is alert and oriented times three. Pulse 67, blood pressure 126/60, respirations 18, temperature 97.7, pulse ox 100 percent on room air. HEENT: Conjunctivae normal. NECK: No JVD. CARDIOVASCULAR: S1, S2 muffled. RESPIRATIONS: Breath sounds diminished in the bases. A few scattered rhonchi. No crackles. ABDOMEN: Soft, nontender. LEGS are no edema. No swelling. Nervous system: No focal deficits. LABS: Accu-Cheks 206 and 132. CBC within normal limits. Sodium 134. Troponin noted. ASSESSMENT: 1. Acute ST segment anterior wall myocardial infarction status post cardiac catheterization and stenting of the LAD. 2. Diabetes type 2 uncontrolled. 3. Hyponatremia. 4. History of troponin, 115. 5. Elevated alkaline phosphatase. 6. History of nicotine dependence. 7. History of noncompliance. 8. History of ETOH. 9. History of congestive heart failure, ejection fraction unknown. 10.History of chronic obstructive pulmonary disease. 11.Dementia. 12.History of gastrointestinal bleed. 13.Hypertension. 14.History of myocardial infarction. 15.History of degenerative joint disease. 16.History of renal disease. 17.History of pneumonia. 18.History of bilateral peripheral neuropathy. 19.History of nephrolithiasis. 20.History of benign polyps. 21.Stomach ulcer with lower gastrointestinal bleeding. 22.History of coronary artery disease/stent. 23.History of nicotine dependence. 24.History of THC. 25.Obesity with body mass index of 32.1. 26.FULL CODE. RECOMMENDATIONS AND DISCUSSION: Recommend to continue current medications, symptomatic treatment. Continue monitoring. Continue dual antiplatelet treatment. Continue with insulin 30 units at night, which seems to be controlling the blood sugars better. Otherwise a 2D echo has been has been requested. Overall prognosis guarded because of multiple complex medical issues. Also recommend symptomatic treatment of the pain. Further recommendations to follow. MMODL / IJN: [id number] /
[2020-02-06 20:27] LABS: Glucose,Whole Blood 286 mg/dL (75-99)
[2020-02-06] MEDS: LISINOPRIL 10 MG TAB PO SCH (22:19)
[2020-02-06] MEDS: ATORVASTATIN 80 MG TAB PO SCH (22:19)
[2020-02-06] MEDS: TIROFIBAN 12.5MG-250ML NS 250 ML IV SCH (22:41)
[2020-02-06] MEDS: INSULIN DETEMIR (LEVEMIR) 100 UNIT/ML SYR SQ SCH (23:47)
[2020-02-07] MEDS: MAG HYDROX/AL HYDROX/SIMETH 30 ML CUP PO PRN (04:17)
[2020-02-07] MEDS: NITROGLYCERIN SL TABS 0.4 MG TAB SUBLINGUAL PRN ×3 (04:56→05:08)
[2020-02-07] MEDS ORDERED: NITROGLYCERIN OINT 1 INCH/GM PACKET TOPICAL STA (05:15)
[2020-02-07] MEDS: ASPIRIN 81 MG PO SCH ×2 (05:21→08:43)
[2020-02-07] MEDS: CLOPIDOGREL 75 MG TAB PO SCH ×2 (05:21→08:43)
--- NOTE | 2020-02-07 06:21 | P.PN ---
Subjective Patient admitted with chest discomfort to [facility] He demonstrated ST elevation PR He was taken to the [facility] yesterday Coronary stenting of the occluded mid LAD was performed He has a history of noncompliance On examination blood pressure is 104/60 mmHg respirations in the 20s pulse rate in the 70s he is afebrile Oxygen saturation 92% on 2 L nasal cannula Medications reviewed and include atorvastatin 80 mg by mouth daily insulin lisinopril metoprolol 50 mg twice daily Nicotine patch and tirofiban drip Impression ST elevation PR Type 2 diabetes on insulin History of noncompliance to medications Plan 2-D echo and Doppler study May go to 3 S. Objective - Vital Signs Vital signs: Vital Signs Temp 97.8 F 02/05/20 12:00 Pulse 65 02/05/20 12:00 Resp 21 02/05/20 12:00 BP 103/58 02/05/20 12:00 Pulse Ox 92 L 02/05/20 12:00 Intake & Output 02/04/20 02/05/20 02/05/20 18:59 06:59 18:59 Intake Total 792.73 900 850 Output Total 200 1100 3 Balance 592.73 -200 847 Weight 113.398 kg 113.398 kg Intake: IV 167.73 Intake, IV Titration 225 900 450 Amount IV Fluid Continuation 700 75 ml @ 0 mls/hr IV .STK- [facility] Rx#:[id number] Sodium Chloride 0.9% 1, 225 900 375 000 ml @ 75 mls/hr IV . [id number] [facility] Rx#:[id number] Oral 400 400 Output: Urine 200 1100 Stool 3 Other: # Voids 1 # Bowel Movements 1 - Labs CBC & Chem 7: 02/05/20 04:24 02/05/20 04:24 Labs: Abnormal Lab Results - Last 24 Hours (Table) 02/04/20 02/04/20 02/04/20 Range/Units 14:42 14:42 14:42 APTT (22.0-30.0) sec Sodium 133 L (137-145) mmol/L BUN (9-20) mg/dL Glucose 335 H (74-99) mg/dL POC Glucose (mg/dL) (75-99) mg/dL Hemoglobin A1c 9.1 H (4.0-6.0) % Alkaline Phosphatase 170 H (38-126) U/L Troponin I 0.525 H* (0.000-0.034) ng/mL 02/04/20 02/04/20 02/04/20 Range/Units 15:51 17:57 17:57 APTT 37.4 H (22.0-30.0) sec Sodium (137-145) mmol/L BUN (9-20) mg/dL Glucose (74-99) mg/dL POC Glucose (mg/dL) 342 H (75-99) mg/dL Hemoglobin A1c (4.0-6.0) % Alkaline Phosphatase (38-126) U/L Troponin I 115.000 H* (0.000-0.034) ng/mL 02/04/20 02/04/20 02/05/20 Range/Units 20:58 23:25 04:24 APTT (22.0-30.0) sec Sodium 134 L (137-145) mmol/L BUN 22 H (9-20) mg/dL Glucose 162 H (74-99) mg/dL POC Glucose (mg/dL) 233 H (75-99) mg/dL Hemoglobin A1c (4.0-6.0) % Alkaline Phosphatase (38-126) U/L Troponin I 56.000 H* (0.000-0.034) ng/mL 02/05/20 02/05/20 02/05/20 Range/Units 04:24 06:32 11:55 APTT (22.0-30.0) sec Sodium (137-145) mmol/L BUN (9-20) mg/dL Glucose (74-99) mg/dL POC Glucose (mg/dL) 163 H 233 H (75-99) mg/dL Hemoglobin A1c (4.0-6.0) % Alkaline Phosphatase (38-126) U/L Troponin I 33.900 H* (0.000-0.034) ng/mL
[2020-02-07 06:23] LABS: Glucose,Whole Blood 226 mg/dL (75-99)
--- NOTE | 2020-02-07 06:23 | P.PN ---
Subjective Patient resting comfortably in bed no chest discomfort He was admitted with ST elevation PA and underwent stenting to the mid LAD by Dr. Theodore On examination normal breath sounds without any rhonchi or crackles Normal heart sounds Soft abdomen nontender No edema in the lower extremities no JVD Peak troponin was 56 Normal kidney function normal electrolytes Impression Coronary artery disease ST elevation PA mid LAD stenosis status post stenting Suggest 2-D echo and Doppler to assess LV function Continue dual antiplatelet therapy beta blockers and statins May transfer to telemetry Patient stable Objective - Vital Signs Vital signs: Vital Signs Temp 98.3 F 02/07/20 04:00 Pulse 66 02/07/20 05:09 Resp 18 02/07/20 05:09 BP 107/60 02/07/20 05:09 Pulse Ox 93 L 02/07/20 04:00 Intake & Output 02/06/20 02/06/20 02/07/20 06:59 18:59 06:59 Intake Total 200 1160 Output Total 500 380 Balance 200 660 -380 Weight 112.2 kg Intake: Oral 200 1160 Output: Urine 500 380 Other: Voiding Method Toilet # Voids 2 1 2 - Labs CBC & Chem 7: 02/05/20 04:24 02/05/20 04:24 Labs: Abnormal Lab Results - Last 24 Hours (Table) 02/06/20 02/06/20 02/06/20 Range/Units 07:56 11:30 16:30 POC Glucose (mg/dL) 206 H 132 H 211 H (75-99) mg/dL 02/06/20 Range/Units 20:26 POC Glucose (mg/dL) 286 H (75-99) mg/dL
[2020-02-07] MEDS: PANTOPRAZOLE 40 MG TABLET PO SCH (07:12)
[2020-02-07] MEDS: INSULIN ASPART (NovoLOG) 100 UNIT/ML VIAL SQ SCH ×7 (07:12→20:54)
[2020-02-07] MEDS: METOPROLOL TARTRATE 50 MG TAB PO SCH ×2 (08:53→20:33)
[2020-02-07] MEDS: NICOTINE 14MG/24HR PATCH TRANSDERM SCH (08:53)
--- NOTE | 2020-02-07 11:39 | ECHOF ---
Referral Reason:Acute Ant STEMI S/P LAD PCI MEASUREMENTS -------- HEIGHT: 188.0 cm WEIGHT: 113.4 kg BP: 107/69 IVSd: 1.5 cm (0.6 - 1.1) LVIDd: 4.7 cm (3.9 - 5.3) LVPWd: 1.6 cm (0.6 - 1.1) IVSs: 1.9 cm LVIDs: 3.6 cm LVPWs: 1.9 cm LA Diam: 4.1 cm (2.7 - 3.8) RVIDd: 3.5 cm (< 3.3) LAESV Index (A-L): 29.68 ml/m Ao Diam: 3.3 cm (2.0 - 3.7) AV Cusp: 1.8 cm (1.5 - 2.6) EPSS: 1.3 cm MV E Melvin: 0.85 m/s MV DecT: 184 ms MV A Melvin: 0.77 m/s MV E/A Ratio: 1.11 RAP: 15.00 mmHg RVSP: 41.67 mmHg MV EF SLOPE: 182.10 mm/s (70 - 150) MV EXCURSION: 22.67 mm (> 18.000) FINDINGS -------- Sinus rhythm. This was a technically difficult study with suboptimal parasternal views. The left ventricular size is normal. There is moderate concentric left ventricular hypertrophy. O verall left ventricular systolic function is moderately impaired with, an EF between 35 - 40 %. Api brown anterior LV wall motion is hypokinetic. Apical lateral LV wall motion is hypokinetic. Apica l inferior LV wall motion is hypokinetic. Apical septum LV wall motion is hypokinetic. The right ventricle is mildly enlarged. LA is midly dilated 29-33ml/m2. The right atrium is normal in size. Interatrial and interventricular septum intact. There is mild aortic valve sclerosis. Mild mitral annular calcification present. Mild mitral regurgitation is present. Mild tricuspid regurgitation present. There is mild pulmonary hypertension. The right ventricular systolic pressure, as measured by Doppler, is 41.67mmHg. The pulmonic valve was not well visualized. The aortic root size is normal. The inferior vena cava is dilated with poor inspiratory collapse which is consistent with estimated r ight atrial pressure of 15 mmHg. There is no pericardial effusion. CONCLUSIONS -------- 1. Sinus rhythm. 2. This was a technically difficult study with suboptimal parasternal views. 3. The left ventricular size is normal. 4. There is moderate concentric left ventricular hypertrophy. 5. Overall left ventricular systolic function is moderately impaired with, an EF between 35 - 40 %. 6. Apical anterior LV wall motion is hypokinetic. 7. Apical lateral LV wall motion is hypokinetic. 8. Apical inferior LV wall motion is hypokinetic. 9. Apical septum LV wall motion is hypokinetic. 10. The right ventricle is mildly enlarged. 11. LA is midly dilated 29-33ml/m2. 12. The right atrium is normal in size. 13. Interatrial and interventricular septum intact. 14. There is mild aortic valve sclerosis. 15. Mild mitral annular calcification present. 16. Mild mitral regurgitation is present. 17. Mild tricuspid regurgitation present. 18. There is mild pulmonary hypertension. 19. The right ventricular systolic pressure, as measured by Doppler, is 41.67mmHg. 20. The pulmonic valve was not well visualized. 21. The aortic root size is normal. 22. The inferior vena cava is dilated with poor inspiratory collapse which is consistent with estimat ed right atrial pressure of 15 mmHg. 23. There is no pericardial effusion. LABORATORY SAMPLER: Effie River RDCS
[2020-02-07 11:44] LABS: Glucose,Whole Blood 214 mg/dL (75-99)
--- NOTE | 2020-02-07 13:27 | P.PN ---
Subjective Progress Note Date: 02/07/20 This is a 74-year-old gentleman who presented to the hospital with an acute ST elevation myocardial infarction in the anterior wall, he underwent angioplasty and stenting of the LAD. Patient was seen and examined this morning, he feels well, denies any chest pain this morning and is breathing is stable. He does have history of hypertension, diabetes, hyperlipidemia, and nicotine dependence. Echocardiogram with Doppler study was performed which revealed an ejection fraction of 35-40%, apical anterior lateral inferior and septal wall hypokinesia noted. Blood pressure 100/50 with a heart rate in the 60s, 92% on room air. Objective - Vital Signs Vital signs: Vital Signs Temp 98.3 F 02/07/20 11:40 Pulse 62 02/07/20 11:40 Resp 18 02/07/20 11:40 BP 101/57 02/07/20 11:40 Pulse Ox 92 L 02/07/20 08:50 Intake & Output 02/06/20 02/07/20 02/07/20 18:59 06:59 18:59 Intake Total 1160 480 Output Total 500 606 300 Balance 660 -606 180 Weight 112.2 kg Intake: Oral 1160 480 Output: Urine 500 606 300 Other: Voiding Method Toilet Toilet # Voids 1 1 1 - Exam PHYSICAL EXAMINATION: GENERAL: 74-year-old gentleman in no acute distress at the time of my examination HEENT: Head is atraumatic, normocephalic. Pupils equal, round. Sclera anicteric. Conjunctiva are clear. Mucous membranes of the mouth are moist. Neck is supple. There is no elevated jugular venous pressure. No carotid bruit is heard. HEART EXAMINATION: Heart S1, S2 normal. No murmur or gallop heard. CHEST EXAMINATION: Lungs are clear to auscultation and precussion. No chest wall tenderness is noted on palpation or with deep breathing. ABDOMEN: Soft, nontender. Bowel sounds are heard. No organomegaly noted. EXTREMITIES: 2+ peripheral pulses with no evidence of peripheral edema and no calf tenderness noted. NEUROLOGIC patient is awake, alert and oriented 3 . . - Labs CBC & Chem 7: 02/05/20 04:24 02/05/20 04:24 Labs: Abnormal Lab Results - Last 24 Hours (Table) 02/06/20 02/06/20 02/07/20 Range/Units 16:30 20:26 06:22 POC Glucose (mg/dL) 211 H 286 H 226 H (75-99) mg/dL 02/07/20 Range/Units 11:34 POC Glucose (mg/dL) 214 H (75-99) mg/dL Assessment and Plan Plan: Assessment and plan #[address] elevation MS status post angioplasty and stenting of the LAD #2 hypertension #3 diabetes #4 hyperlipidemia #5 nicotine dependence #6 ischemic cardiomyopathy with documented ejection fraction of 35-40% Plan We will continue to monitor the patient for 24 hours, patient may require a LifeVest prior to discharge for prevention of sudden cardiac . Further recommendations to follow. DNP note has been reviewed, I agree with a documented findings and plan of care. Patient was seen and examined.
--- NOTE | 2020-02-07 15:25 | XR ---
EXAMINATION TYPE: XR chest 1V portable DATE OF EXAM: 02/07/2020 COMPARISON: Prior chest x-ray 02/04/2020 HISTORY: Congestive heart failure TECHNIQUE: Single frontal view of the chest is obtained. FINDINGS: Findings similar to prior exam. Patient is rotated. No evident pneumothorax or pleural eff usion. Heart size may be accentuated by rotation. Central vascularity appears prominently, as. Vascul ar indistinctness. Retrocardiac density persists. IMPRESSION: Correlate for pulmonary venous hypertension and interstitial edema, possible left lower lobe atelectasis, correlate to exclude pneumonia. Rotated exam. Follow-up suggested.
[2020-02-07 16:50] LABS: Glucose,Whole Blood 274 mg/dL (75-99)
--- NOTE | 2020-02-07 17:25 | PN ---
PROGRESS NOTE DATE OF SERVICE: 02/07/2020 This is a 74-year-old gentleman who was admitted with acute ST-segment elevation myocardial infarction, had cardiac cath and stenting also. A 2D echo with Doppler showed ejection fraction 35%-40%. The patient will be closely monitored. The patient had chest pain 2 days ago, which is nonspecific. This is improved with conservative line of management. PHYSICAL EXAMINATION: Alert and oriented x3. Pulse 62, blood pressure 101/57, respiration 18, temperature 98.3, pulse ox 98% on room air. HEENT: Normal. NECK: No jugular venous distension. CARDIOVASCULAR: S1, S2, muffled. RESPIRATION: Breath sounds diminished at the bases, a few scattered rhonchi, no crackles. ABDOMEN: Soft, nontender. LEGS No edema, no swelling. NERVOUS SYSTEM: No focal deficits. LABS: Accu-Cheks 226, 214. Sodium is 134. ASSESSMENT: 1. Acute ST-segment elevation myocardial infarction, anterior wall. 2. Status post cardiac catheterization and stenting of the LAD. 3. Acute congestive heart failure with acute systolic dysfunction, ejection fraction 35%-40% percent, possibly secondary to myocardial infarction. 4. Diabetes mellitus type 2, uncontrolled. 5. Hyponatremia. 6. Troponin 115. 7. Elevated alkaline phosphatase. 8. History of nicotine dependence. 9. History of noncompliance. 10.History of ETOH. 11.History of congestive heart failure. 12.History of chronic obstructive pulmonary disease. 13.Dementia. 14.History of gastrointestinal bleed. 15.Hypertension. 16.History of myocardial infarction. 17.History of degenerative joint disease. 18.History of renal disease. 19.History of pneumonia. 20.History of bilateral peripheral neuropathy. 21.History of nephrolithiasis. 22.History of benign polyps. 23.History of stomach ulcer with lower gastrointestinal bleeding. 24.History of coronary artery disease, stent. 25.History of nicotine dependence. 26.History of THC. 27.Obesity with body mass index of 32.1. 28.FULL CODE. RECOMMENDATION: Recommend to continue current medications, symptomatic treatment. Otherwise at this time, I would recommend continue with dual antiplatelet treatment, beta blockers, the rest of the medications per Cardiology and the previous chest x-ray was reviewed showing no acute abnormality. I would repeat a chest x-ray to ensure adequate volume status, otherwise and in the absence of CHF. Otherwise, closely follow with Cardiology. Prognosis guarded. Further recommendations to follow. Cardiology might be considering LifeVest prior to discharge because of the low ejection fraction. Further recommendations to follow.. MMODL / IJN: [id number] /
[2020-02-07 20:12] LABS: Glucose,Whole Blood 189 mg/dL (75-99)
[2020-02-07] MEDS: ATORVASTATIN 80 MG TAB PO SCH (20:33)
[2020-02-07] MEDS: LISINOPRIL 10 MG TAB PO SCH (20:33)
[2020-02-07] MEDS ORDERED: INSULIN DETEMIR (LEVEMIR) 100 UNIT/ML SYR SQ SCH (21:00)
[2020-02-08] MEDS: INSULIN ASPART (NovoLOG) 100 UNIT/ML VIAL SQ SCH ×4 (06:09→12:31)
[2020-02-08 06:15] LABS: Glucose,Whole Blood 168 mg/dL (75-99)
[2020-02-08] MEDS: PANTOPRAZOLE 40 MG TABLET PO SCH (06:15)
[2020-02-08 07:32] LABS: Basophils # (A) 0.1 k/uL (0-0.2); Basophils % (A) 1 %; Eosinophils # (A) 0.2 k/uL (0-0.7); Eosinophils % (A) 3 %; HCT 38.3 % (39.0-53.0); HGB 12.4 gm/dL (13.0-17.5); Lymphocytes # (A) 1.7 k/uL (1.0-4.8); Lymphocytes % (A) 28 %; MCH 28.8 pg (25.0-35.0); MCHC 32.3 g/dL (31.0-37.0); MCV 88.9 fL (80.0-100.0); Monocytes # (A) 0.4 k/uL (0-1.0); Monocytes % (A) 7 %; Neutrophils # (A) 3.7 k/uL (1.3-7.7); Neutrophils % (A) 60 %; Platelet Count 135 k/uL (150-450); RBC 4.31 m/uL (4.30-5.90); RDW 13.7 % (11.5-15.5); WBC 6.1 k/uL (3.8-10.6)
[2020-02-08 07:45] LABS: African American GFR (CKD) >90 (>60 ml/min/1.73 sqM); Anion Gap 4 mmol/L; Blood Urea Nitrogen 19 mg/dL (9-20); Calcium 8.6 mg/dL (8.4-10.2); Carbon Dioxide 25 mmol/L (22-30); Chloride 104 mmol/L (98-107); Glucose 155 mg/dL (74-99); Non-African American GFR(CKD) 90 (>60 ml/min/1.73 sqM); Potassium 4.7 mmol/L (3.5-5.1); Sodium 133 mmol/L (137-145)
[2020-02-08] MEDS: ASPIRIN 81 MG PO SCH (08:29)
[2020-02-08] MEDS: METOPROLOL TARTRATE 50 MG TAB PO SCH (08:29)
[2020-02-08] MEDS: NICOTINE 14MG/24HR PATCH TRANSDERM SCH (08:29)
[2020-02-08] MEDS: CLOPIDOGREL 75 MG TAB PO SCH (08:29)
[2020-02-08 08:34] VITALS: BP 111/58; PULSE 66; RESP 16; TEMP 98
[2020-02-08 11:50] LABS: Glucose,Whole Blood 335 mg/dL (75-99)
--- NOTE | 2020-02-08 15:29 | P.PN ---
Subjective Progress Note Date: 02/08/20 This is a 74-year-old gentleman who presented to the hospital with an acute ST elevation myocardial infarction in the anterior wall, he underwent angioplasty and stenting of the LAD. Patient was seen and examined this morning, he feels well, denies any chest pain this morning and is breathing is stable. He does have history of hypertension, diabetes, hyperlipidemia, and nicotine dependence. Echocardiogram with Doppler study was performed which revealed an ejection fraction of 35-40%, apical anterior lateral inferior and septal wall hypokinesia noted. Blood pressure 100/50 with a heart rate in the 60s, 92% on room air. 02/08/2020 Patient was seen and examined this morning, hemodynamically stable. Denies any chest pain, up ambulating without any difficulty. From cardiology's persp ective, he may be able to be discharged home today to follow-up in the office post discharge. Objective - Vital Signs Vital signs: Vital Signs Temp 98 F 02/08/20 08:00 Pulse 66 02/08/20 08:00 Resp 16 02/08/20 08:00 BP 111/58 02/08/20 08:00 Pulse Ox 95 02/08/20 08:00 Intake & Output 02/07/20 02/08/20 02/08/20 18:59 06:59 18:59 Intake Total 720 240 Output Total 300 1 Balance 420 239 Weight 112.8 kg Intake: Oral 720 240 Output: Urine 300 Stool 1 Other: Voiding Method Toilet Toilet # Voids 2 1 - Exam PHYSICAL EXAMINATION: GENERAL: 74-year-old gentleman in no acute distress at the time of my examination HEENT: Head is atraumatic, normocephalic. Pupils equal, round. Sclera anicteric. Conjunctiva are clear. Mucous membranes of the mouth are moist. Neck is supple. There is no elevated jugular venous pressure. No carotid bruit is heard. HEART EXAMINATION: Heart S1, S2 normal. No murmur or gallop heard. CHEST EXAMINATION: Lungs are clear to auscultation and precussion. No chest wall tenderness is noted on palpation or with deep breathing. ABDOMEN: Soft, nontender. Bowel sounds are heard. No organomegaly noted. EXTREMITIES: 2+ peripheral pulses with no evidence of peripheral edema and no calf tenderness noted. NEUROLOGIC patient is awake, alert and oriented 3 . . - Labs CBC & Chem 7: 05/27/20 06:55 02/08/20 06:55 Labs: Abnormal Lab Results - Last 24 Hours (Table) 02/07/20 02/07/20 02/08/20 Range/Units 16:41 20:10 06:14 Hgb (13.0-17.5) gm/dL Hct (39.0-53.0) % Plt Count (150-450) k/uL Sodium (137-145) mmol/L Glucose (74-99) mg/dL POC Glucose (mg/dL) 274 H 189 H 168 H (75-99) mg/dL 02/08/20 02/08/20 02/08/20 Range/Units 06:55 06:55 11:48 Hgb 12.4 L (13.0-17.5) gm/dL Hct 38.3 L (39.0-53.0) % Plt Count 135 L (150-450) k/uL Sodium 133 L (137-145) mmol/L Glucose 155 H (74-99) mg/dL POC Glucose (mg/dL) 335 H (75-99) mg/dL Assessment and Plan Plan: Assessment and plan #[address] elevation [place] status post angioplasty and stenting of the LAD #2 hypertension #3 diabetes #4 hyperlipidemia #5 nicotine dependence #6 ischemic cardiomyopathy with documented ejection fraction of 35-40% Plan Patient may be discharged home today, follow-up in the office post discharge. DNP note has been reviewed, I agree with a documented findings and plan of care. Patient was seen and examined.
--- NOTE | 2020-02-09 15:19 | P.DS ---
Providers Date of admission: 02/04/20 14:05 Expected date of discharge: 02/08/20 Attending physician: Keeley Babcock Consults: 02/04/20 14:09 Consult Physician Routine Consulting Provider: Elvin Geller Consult Reason/Comments: stemi Do you want consulting provider notified?: Already Contacted 02/04/20 15:20 Consult Physician Routine Consulting Provider: Elvin Geller Consult Reason/Comments: Post Interventional patient Do you want consulting provider notified?: Already Contacted [facility] Course: Final diagnosis Acute ST segment elevation myocardial infarction, anterior wall Status post cardiac catheterization and stenting of the LAD Acute congestive heart failure with acute systolic dysfunction, ejection fracti on 35-40%, possibly secondary to myocardial infarction Diabetes mellitus type 2, uncontrolled Hyponatremia Troponin 115 Elevated alkaline phosphatase History of nicotine dependence History of noncompliance history of EtOH History of congestive heart failure History of COPD Dementia History of GI bleed Hypertension history of myocardial infarction History of DJD History of renal disease History of pneumonia History of bilateral peripheral neuropathy history of nephrolithiasis history of benign polyps History of stomach ulcer with lower GI bleeding History of coronary artery disease, stents history of THC use Obesity with body mass index of 32.1 full code Discharge disposition Patient is being discharged in a stable condition with guarded prognosis to home and will follow-up with Dr. Holden upon discharge. Patient will also be following up with cardiology Dr. Hawthorne in one week. Total time taken is 35 minutes. History of present illness This is a 74-year-old male who was recently admitted with acute ST segment elevation myocardial infarction and was being closely monitored. Patient underwent cardiac catheterization with stenting to the LAD and repeat echo showed ejection fraction of 35-40%. She was reinitiated on aspirin and Plavix and will continue in the outpatient setting. Patient will follow-up with cardiology in the outpatient setting in 1 week. Currently no reports of chest pain, worsening shortness of breath, or palpitations. Patient is afebrile. No reports of nausea or vomiting and patient is tolerating diet. Patient requesting to go home today. On exam vital signs are stable. Temp is 98.0F, pulse is 66, respirations are 16, blood pressure is 111/58, oxygen saturation is 95 % on room air. Cardio S1, S2 are muffled. Respiratory system shows diminished breath sounds at the bases with no crackles or rhonchi noted. Abdomen is soft and nontender. Nervous system shows no focal deficits. Please refer to medication reconciliation sheet for a list of medications. Patient Condition at Discharge: Stable Plan - Discharge Summary New Discharge Prescriptions: New Nicotine 14Mg/24Hr Patch [Habitrol] 1 patch TRANSDERM DAILY #20 patch Insulin Detemir (Levemir) [Levemir] 50 unit SQ HS 30 Days #3 syr Metoprolol Tartrate [Lopressor] 50 mg PO BID 30 Days #60 tab Nitroglycerin Sl Tabs [Nitrostat] 0.4 mg SUBLINGUAL Q5M PRN #20 tab PRN Reason: Chest Pain Pantoprazole [Protonix] 40 mg PO AC-BRKFST 30 Days #30 tablet. Lisinopril [Zestril] 10 mg PO HS 30 Days #30 tab Continue Semaglutide [Ozempic] 0.25 mg SQ Q7D Aspirin 81 mg PO DAILY #30 chewable Atorvastatin [Lipitor] 80 mg PO HS #30 tab Clopidogrel Bisulfate [Plavix] 75 mg PO DAILY #30 tab Discontinued Nebivolol [Bystolic] 5 mg PO DAILY Naproxen 500 mg PO BID #20 tablet Discharge Medication List Semaglutide [Ozempic] 0.25 mg SQ Q7D 12/20/18 [History] Aspirin 81 mg PO DAILY #30 chewable 12/24/18 [Rx] Atorvastatin [Lipitor] 80 mg PO HS #30 tab 12/24/18 [Rx] Clopidogrel Bisulfate [Plavix] 75 mg PO DAILY #30 tab 12/24/18 [Rx] Insulin Detemir (Levemir) [Levemir] 50 unit SQ HS 30 Days #3 syr 02/07/20 [Rx] Lisinopril [Zestril] 10 mg PO HS 30 Days #30 tab 02/07/20 [Rx] Metoprolol Tartrate [Lopressor] 50 mg PO BID 30 Days #60 tab 02/07/20 [Rx] Nicotine 14Mg/24Hr Patch [Habitrol] 1 patch TRANSDERM DAILY #20 patch 02/07/20 [Rx] Nitroglycerin Sl Tabs [Nitrostat] 0.4 mg SUBLINGUAL Q5M PRN #20 tab 02/07/20 [Rx] Pantoprazole [Protonix] 40 mg PO AC-BRKFST 30 Days #30 tablet.dr 02/07/20 [Rx] Follow up Appointment(s)/Referral(s): Maverick Hawthorne MD [STAFF PHYSICIAN] - 02/14/20 1:30 pm (THURSDAY With REYNALDO Turner) Bello Holden MD [Primary Care Provider] - 1-2 days (Offices was closed. Please call tomorrow to make a follow up appointment.) Patient Instructions/Handouts: Heart Attack (DC), Safe Use of Antiplatelet Medication (DC), Heart Catheterization (DC) Activity/Diet/Wound Care/Special Instructions: Activity Limited until follow-up Continue current diet Follow-up with primary care provider upon discharge Follow-up with cardiology Discharge Disposition: HOME SELF-CARE
== END 2020-02-08 13:09 | disposition home or self-care (01) | DRG 246 ==
LOC: EC 13:55 → 2SICU 14:05 → 3SCARD 02-06 10:51
PROVIDERS: ADMIT Hospitalist; ATTEND Hospitalist
PROC: B2111ZZ Fluoroscopy of Multiple Coronary Arteries using Low Osmolar Contrast (ICD-10-PCS; 2020-02-04)
PROC: 027035Z Dilation of Coronary Artery, One Artery with Two Drug-eluting Intraluminal Devices, Percutaneous Approach (ICD-10-PCS; principal; 2020-02-04 14:07)
PROC: 4A023N7 Measurement of Cardiac Sampling and Pressure, Left Heart, Percutaneous Approach (ICD-10-PCS; 2020-02-04 14:07)
DX: I21.09 ST elevation (STEMI) myocardial infarction involving other coronary artery of anterior wall (principal); I50.21 Acute systolic (congestive) heart failure; E87.1 Hypo-osmolality and hyponatremia; E11.65 Type 2 diabetes mellitus with hyperglycemia; J44.9 Chronic obstructive pulmonary disease, unspecified; F03.90 Unspecified dementia, unspecified severity, without behavioral disturbance, psychotic disturbance, mood disturbance, and anxiety; I11.0 Hypertensive heart disease with heart failure; E11.42 Type 2 diabetes mellitus with diabetic polyneuropathy; F17.210 Nicotine dependence, cigarettes, uncomplicated; I25.5 Ischemic cardiomyopathy; E78.5 Hyperlipidemia, unspecified; M19.90 Unspecified osteoarthritis, unspecified site; I25.10 Atherosclerotic heart disease of native coronary artery without angina pectoris; E66.9 Obesity, unspecified; M10.9 Gout, unspecified; K44.9 Diaphragmatic hernia without obstruction or gangrene; J30.2 Other seasonal allergic rhinitis; H53.8 Other visual disturbances; I25.2 Old myocardial infarction; Z68.32 Body mass index [BMI] 32.0-32.9, adult; Z71.3 Dietary counseling and surveillance; Z71.6 Tobacco abuse counseling; Z79.82 Long term (current) use of aspirin; Z79.02 Long term (current) use of antithrombotics/antiplatelets; Z79.899 Other long term (current) drug therapy; Z91.19 Patient's noncompliance with other medical treatment and regimen; Z87.19 Personal history of other diseases of the digestive system; Z87.448 Personal history of other diseases of urinary system; Z87.01 Personal history of pneumonia (recurrent); Z87.442 Personal history of urinary calculi; Z87.11 Personal history of peptic ulcer disease; Z95.5 Presence of coronary angioplasty implant and graft; Z87.81 Personal history of (healed) traumatic fracture; Z87.828 Personal history of other (healed) physical injury and trauma; Z98.890 Other specified postprocedural states; Z98.41 Cataract extraction status, right eye; Z96.1 Presence of intraocular lens; Z86.010 Personal history of colon polyps; Z91.14 Patient's other noncompliance with medication regimen; Z88.5 Allergy status to narcotic agent; Z83.3 Family history of diabetes mellitus; Z80.0 Family history of malignant neoplasm of digestive organs
CPT/HCPCS: 71045; 80048; 80053; 83036; 83735; 84484; 85025; 85610; 85730; 93306; 93458; 99285

== ENCOUNTER 2020-05-11 09:38 | Inpatient (IN) | payer MEDICARE ==
[2020-05-11 11:55] LABS: Glucose,Whole Blood 118 mg/dL (75-99)
--- NOTE | 2020-05-11 15:27 | XR ---
EXAMINATION TYPE: XR chest 2V DATE OF EXAM: 05/11/2020 CLINICAL HISTORY: COPD TECHNIQUE: Frontal and lateral views of the chest are obtained. COMPARISON: 02/07/2020 chest radiograph FINDINGS: The cardiomediastinal silhouette is within normal limits for size. Pulmonary vasculature i s normal. There is no focal air space opacity, pleural effusion, or pneumothorax seen. The osseous st ructures are intact. IMPRESSION: No acute cardiopulmonary process.
[2020-05-11] MEDS: PANTOPRAZOLE 40 MG/10 ML VIAL IVP SCH (15:30)
[2020-05-11 15:39] LABS: Basophils # (A) 0.1 k/uL (0-0.2); Basophils % (A) 1 %; Eosinophils # (A) 0.2 k/uL (0-0.7); Eosinophils % (A) 3 %; HGB 13.8 gm/dL (13.0-17.5); Lymphocytes % (A) 31 %; MCH 28.4 pg (25.0-35.0); MCHC 32.1 g/dL (31.0-37.0); MCV 88.7 fL (80.0-100.0); Mean Platelet Volume 7.8; Monocytes # (A) 0.3 k/uL (0-1.0); Monocytes % (A) 5 %; Neutrophils # (A) 3.8 k/uL (1.3-7.7); Neutrophils % (A) 59 %; Platelet Count 195 k/uL (150-450); RBC 4.85 m/uL (4.30-5.90); RDW 13.5 % (11.5-15.5); WBC 6.4 k/uL (3.8-10.6)
[2020-05-11 16:06] LABS: ALT 8 U/L (4-49); AST 22 U/L (17-59); African American GFR (CKD) >90 (>60 ml/min/1.73 sqM); Albumin 3.4 g/dL (3.5-5.0); Alkaline Phosphatase 146 U/L (38-126); Anion Gap 4 mmol/L; Blood Urea Nitrogen 11 mg/dL (9-20); Carbon Dioxide 29 mmol/L (22-30); Chloride 103 mmol/L (98-107); Glucose 137 mg/dL (74-99); Non-African American GFR(CKD) >90 (>60 ml/min/1.73 sqM); Potassium 4.1 mmol/L (3.5-5.1); Sodium 136 mmol/L (137-145); Total Bilirubin 0.5 mg/dL (0.2-1.3); Total Protein 6.3 g/dL (6.3-8.2)
[2020-05-11 16:34] LABS: Appearance,Urine Cloudy (Clear); Bacteria,Urine Rare /hpf; Bilirubin,Urine Negative (Negative); Blood,Urine Negative (Negative); Color,Urine Yellow; Glucose,Urine (UA) Negative (Negative); Hyaline Casts,Urine 1 /lpf (0-2); Ketones,Urine Negative (Negative); Leukocyte Esterase,Urine Large (Negative); Mucus,Urine Rare /hpf; Nitrite,Urine Negative (Negative); PH, Urine 7.5 (5.0-8.0); Protein,Urine Trace (Negative); RBC,Urine 50 /hpf (0-5); Specific Gravity,Urine 1.019 (1.001-1.035); Squamous Epithelial Cell,Urine 4 /hpf (0-4); WBC,Urine 115 /hpf (0-5)
[2020-05-11] MEDS: SODIUM CHLORIDE 0.9% 1,000 ML IV SCH (16:40)
[2020-05-11 16:49] LABS: Glucose,Whole Blood 144 mg/dL (75-99)
[2020-05-11] MEDS ORDERED: HEPARIN SODIUM,PORCINE 5,000 UNIT/ML 1 ML VIAL IV PRN (16:58)
[2020-05-11] MEDS ORDERED: HEPARIN SODIUM,PORCINE 5,000 UNIT/ML 1 ML VIAL IV ONE (16:58)
[2020-05-11] MEDS ORDERED: RX INFO: IV CONTRAST WAS GIVEN 1 EACH MISC MISCELLANE PRN (17:00)
[2020-05-11 17:44] LABS: INR 1.1 (<1.2); Partial Thromboplastin Time 22.5 sec (22.0-30.0); Prothrombin Time 10.8 sec (9.0-12.0)
[2020-05-11] MEDS: HEPARIN SOD,PORK IN 0.45% NACL 25,000 UNIT in 0.45% NACL 1 250ML.BAG IV SCH (18:13)
[2020-05-11] MEDS: INSULIN ASPART (NovoLOG) 100 UNIT/ML VIAL SQ SCH ×2 (18:14→20:26)
[2020-05-11] MEDS ORDERED: ASPIRIN 81 MG PO STA (19:13)
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
--- NOTE | 2020-05-11 20:13 | CT ---
EXAMINATION TYPE: CT chest w con DATE OF EXAM: 05/11/2020 COMPARISON: HISTORY: COPD. CT DLP: 429.1 mGycm, Automated exposure control for dose reduction was used. CONTRAST: Performed injected with 100ml mL of Isovue 300. TECHNIQUE: Axial images were obtained at 5 mm thick sections. Reconstructed images are reviewed on [employer] computer in the coronal plane. FINDINGS: Portion of the thyroid visualized is normal. No suspicious lung nodules or focal infiltrates are present. Emphysematous blebs and bulla are presen t in the lung apices. No enlarged mediastinal or hilar adenopathy is evident. The ascending aorta diameter at the level o f the main pulmonary artery is 3.6 cm. The main pulmonary artery diameter at the bifurcation is 2.[address] sections are obtained through the upper abdomen. 1.7 cm cyst measuring 7 Hounsfield units is in the anterior left lobe liver. Pancreas is atrophic. Upper abdomen is otherwise unremarkable. St omach is debris filled. IMPRESSIONS: 1. COPD.
[2020-05-11 20:19] LABS: Glucose,Whole Blood 148 mg/dL (75-99)
[2020-05-11] MEDS: ATORVASTATIN 80 MG TAB PO SCH (20:26)
[2020-05-11] MEDS: INSULIN DETEMIR (LEVEMIR) 100 UNIT/ML SYR SQ SCH (20:26)
--- NOTE | 2020-05-11 20:51 | HP ---
HISTORY AND PHYSICAL This patient is a 74-year-old white male who came in with altered mental status, dizziness and falls. He gets dizzy with any ambulation. He has lost 20-30 pounds in the last 6 months. His foot has been dragging a little bit. He fell forward and cracked his head and broke a rib. This was about a month ago. History of diabetes for 15-20 years. He also has stents in his heart. He stopped all of his medications for his heart, including his Plavix, atenolol and atorvastatin. Long-time history of smoking. Lumbar disc disease. He was found to have a large UTI and was admitted, placed on IV antibiotics. Neurology consult. For his extreme weight loss, elevated D- dimer is ordered. A CT scan of the chest, which is pending. PAST MEDICAL HISTORY: Coronary artery disease, COPD, dementia, diabetes mellitus, GI bleed, dyslipidemia, hypertension, myocardial infarction, osteoarthritis, pneumonia, renal disease, osteomyelitis, mild memory impairment, history GI bleed in the past. PAST SURGICAL HISTORY: Heart catheterization with stent, hernia repair, orthopedic surgery, colonoscopy, polypectomy, umbilical hernia repair, bilateral rotator cuff surgery, PTCA with stent in the RCA. He is a current everyday smoker for many many years, noncompliant with medications due to monetary funds. FAMILY MEDICAL HISTORY: Mother with diabetes mellitus. Father with cancer of the colon. HOME MEDICATIONS: Tresiba 20 units b.i.d. He stopped all of his other medicines. ALLERGIES: MORPHINE (anaphylaxis). PHYSICAL EXAMINATION: VITAL SIGNS: Temperature 98.2, pulse 83 to 89, respiratory rate 18 to 19, blood pressure 148/80. CARDIOVASCULAR: S1, S2. LUNGS: Wheezes x4. GENERAL APPEARANCE: He is thin, disheveled. Left pupil is small, difficult to assess. Cranial nerves appear to be intact. Reflexes are downgoing. No tremors. No carotid bruits. No peripheral edema. Onychomycosis. Labs are reviewed. UA is reviewed. Elevated D-dimer. Elevated troponin. ASSESSMENT: 1. Mild encephalopathy from urinary tract infection causing some altered mental status and some imbalance, dizziness, lightheadedness, possibly orthostatic. Otherwise, on no medicines at home for this that could cause this. 2. Recurrent falls. 3. Peripheral neuropathy, possibly from diabetes. 4. Chest pain, elevated cardiac enzymes. 5. Hypertension. 6. Diabetes, poorly controlled. 7. Dyslipidemia. He is getting a CT scan of his head, carotid artery test. Start him on aspirin and Plavix. Check orthostatics. Treat UTI. Please see further orders. MMODL / IJN: [id number] /
[2020-05-11] MEDS ORDERED: ATORVASTATIN 40 MG TAB PO SCH (21:00)
[2020-05-11] MEDS ORDERED: atenoloL 25 MG TAB PO SCH (21:00)
--- NOTE | 2020-05-11 22:55 | US ---
EXAMINATION TYPE: US carotid duplex BILAT DATE OF EXAM: 05/11/2020 COMPARISON: NONE CLINICAL HISTORY: Dizziness, falls,. Dizziness EXAM MEASUREMENTS: RIGHT: Peak Systolic Velocity (PSV) cm/sec ----- Right CCA: 48.5 ----- Right ICA: 86.2 ----- Right ECA: 71.1 ICA/CCA ratio: 1.8 RIGHT: End Diastole cm/sec ----- Right CCA: 14.0 ----- Right ICA: 21.1 ----- Right ECA: 9.5 LEFT: Peak Systolic Velocity (PSV) cm/sec ----- Left CCA: 66.8 ----- Left ICA: 64.8 ----- Left ECA: 63.9 ICA/CCA ratio: 1.0 LEFT: End Diastole cm/sec ----- Left CCA: 17.4 ----- Left ICA: 25.5 ----- Left ECA: 8.6 VERTEBRALS (direction of flow): Right Vertebral: Antegrade Left Vertebral: Antegrade Rhythm: No elevated velocities, no significant stenosis. Intimal thickening is present. Some plaque is noted at the left carotid bulb near the internal carotid artery origin IMPRESSION: No significant flow-limiting stenosis. Criteria for Assigning % of Stenosis / Diameter reduction (Estimation based on the indirect measurements of the internal carotid artery velocities (ICA PSV). 1. Normal (no stenosis)=ICA PSV < 125 cm/s: ratio < 2.0: ICA EDV<40 cm/s. 2. Less than 50% stenosis=ICA PSV < 125 cm/s: ratio < 2.0: ICA EDV<40 cm/s. 3. 50 to 69% stenosis=ICA PSV of 125 to 230 cm/s: ration 2.0 ? 4.0: ICA EDV 40-100 cm/s. 4. Greater than 70% stenosis to near occlusion= ICA PSV > 230 cm/s: ratio > 4.0: ICA EDV > 100 cm/s. 5. Near occlusion= ICA PSV velocities may be low or undetectable: variable ratio and ICA EDV. 6. Total occlusion=unable to detect flow.
[2020-05-12 03:55] LABS: Basophils # (A) 0.1 k/uL (0-0.2); Basophils % (A) 1 %; Eosinophils # (A) 0.2 k/uL (0-0.7); Eosinophils % (A) 3 %; HCT 40.2 % (39.0-53.0); HGB 12.7 gm/dL (13.0-17.5); Lymphocytes # (A) 2.3 k/uL (1.0-4.8); Lymphocytes % (A) 36 %; MCH 27.7 pg (25.0-35.0); MCHC 31.7 g/dL (31.0-37.0); MCV 87.4 fL (80.0-100.0); Mean Platelet Volume 8.4; Monocytes # (A) 0.4 k/uL (0-1.0); Monocytes % (A) 6 %; Neutrophils # (A) 3.3 k/uL (1.3-7.7); Neutrophils % (A) 53 %; Platelet Count 179 k/uL (150-450); RBC 4.59 m/uL (4.30-5.90); RDW 13.6 % (11.5-15.5); WBC 6.3 k/uL (3.8-10.6)
[2020-05-12 04:11] LABS: ALT 9 U/L (4-49); AST 22 U/L (17-59); African American GFR (CKD) >90 (>60 ml/min/1.73 sqM); Alkaline Phosphatase 151 U/L (38-126); Anion Gap 4 mmol/L; Blood Urea Nitrogen 9 mg/dL (9-20); Calcium 8.7 mg/dL (8.4-10.2); Carbon Dioxide 25 mmol/L (22-30); Chloride 108 mmol/L (98-107); Cholesterol 221 mg/dL (<200); Glucose 94 mg/dL (74-99); HDL Cholesterol 34 mg/dL (40-60); LDL Cholesterol,Calculated 155 mg/dL (0-99); Non-African American GFR(CKD) >90 (>60 ml/min/1.73 sqM); Sodium 137 mmol/L (137-145); Total Bilirubin 0.4 mg/dL (0.2-1.3); Total Protein 5.7 g/dL (6.3-8.2); Triglycerides 160 mg/dL (<150)
[2020-05-12] MEDS: SODIUM CHLORIDE 0.9% 1,000 ML IV SCH ×2 (04:25→12:43)
[2020-05-12 06:06] LABS: Glucose,Whole Blood 116 mg/dL (75-99)
[2020-05-12] MEDS: INSULIN ASPART (NovoLOG) 100 UNIT/ML VIAL SQ SCH ×4 (06:30→20:33)
--- NOTE | 2020-05-12 07:33 | CT ---
EXAMINATION TYPE: CT brain wo con DATE OF EXAM: 05/12/2020 COMPARISON: None HISTORY: 74 year-old male dizziness, falls TECHNIQUE: Examination was done in axial plane without intravenous contrast. Coronal and sagittal r econstructions performed. CT DLP: 1100.4 mGycm Automated exposure control for dose reduction was used. FINDINGS: There is no evidence of acute intracranial hemorrhage, acute ischemic changes, mass, mass-effect, or extra-axial fluid collection. There is no effacement of cerebral sulci or basal subarachnoid cister ns. There is no hydrocephalus. There is no midline shift. Fisher-white matter distinction is preserv ed. Moderate cerebral cortical atrophy especially in the bifrontal regions. Scattered atelectatic calcifi cations within the V4 segments of the vertebral arteries and within the bilateral carotid siphons. Incidental 3 mm of benign cerebellar tonsillar ectopia on the right. Trace mucosal thickening ethmoid air cells. Orbits and globes are intact. Mastoid air cells well pneu matized. IMPRESSION: Moderate cortical atrophy, especially bifrontal atrophy. No acute intracranial abnormality seen. Trac e chronic ethmoid sinus disease.
[2020-05-12 08:25] LABS: Basophils # (A) 0.1 k/uL (0-0.2); Basophils % (A) 1 %; Eosinophils # (A) 0.2 k/uL (0-0.7); Eosinophils % (A) 3 %; HCT 39.7 % (39.0-53.0); HGB 13.1 gm/dL (13.0-17.5); Lymphocytes # (A) 1.8 k/uL (1.0-4.8); Lymphocytes % (A) 29 %; MCH 28.9 pg (25.0-35.0); MCV 87.6 fL (80.0-100.0); Mean Platelet Volume 8.1; Monocytes # (A) 0.3 k/uL (0-1.0); Monocytes % (A) 5 %; Neutrophils # (A) 3.8 k/uL (1.3-7.7); Neutrophils % (A) 61 %; Platelet Count 164 k/uL (150-450); RBC 4.53 m/uL (4.30-5.90); RDW 13.4 % (11.5-15.5); WBC 6.3 k/uL (3.8-10.6)
[2020-05-12] MEDS: ASPIRIN 81 MG PO SCH (09:14)
[2020-05-12] MEDS: lisinopriL 5 MG TAB PO SCH (09:14)
[2020-05-12] MEDS: PANTOPRAZOLE 40 MG/10 ML VIAL IVP SCH (09:14)
[2020-05-12] MEDS: METOPROLOL TARTRATE 50 MG TAB PO SCH ×2 (09:14→20:33)
[2020-05-12] MEDS: CLOPIDOGREL 75 MG TAB PO SCH (09:14)
--- NOTE | 2020-05-12 11:50 | PN ---
PROGRESS NOTE A 74-year-old white male came in with altered mental status, found to have elevated troponins. Waiting to be placed on heparin drip. CT of the chest showed no PE with elevated D-dimer, so he was continued on because of elevated troponins until cardiology assesses. Brain CT and carotid Dopplers are normal. He is being treated for UTI, urosepsis at this time. Temp 98.4, pulse 16, respiratory 70s to 80s. Oxygen level was 91% on room air, blood pressure 130/73. CARDIOVASCULAR: S1, S2. Lungs show wheezes at the bases. Hematology: Negative Homans. Psych: Fair mood and affect. He has a large amount of weight gain recently. Also, he is on Rocephin for UTI. ASSESSMENT/PLAN: 1. Urinary tract infection with sepsis. 2. Elevated troponins, possible non STEMI. 3. Chronic obstructive pulmonary disease. 4. Insulin-dependent diabetes mellitus. 5. Hypertension. 6. Noncompliance with home medicines. 7. Restarted aspirin. Beta rad, Lipitor and Plavix. 8. Await for Cardiology recommendations. 9. Continue to treat for UTI and sepsis. 10.Order CT scan of the abdomen later on for his weight loss once Cardiology gets done dealing with his heart. MMODL / IJN: [id number] /
[2020-05-12 11:58] LABS: Glucose,Whole Blood 174 mg/dL (75-99)
[2020-05-12] MEDS: INSULIN DETEMIR (LEVEMIR) 100 UNIT/ML SYR SQ SCH ×2 (12:40→20:33)
[2020-05-12] MEDS: HEPARIN SOD,PORK IN 0.45% NACL 25,000 UNIT in 0.45% NACL 1 250ML.BAG IV SCH (12:42)
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
--- NOTE | 2020-05-12 14:55 | ECHOF ---
Referral Reason:cp, nstemi MEASUREMENTS -------- HEIGHT: 182.9 cm WEIGHT: 83.0 kg BP: 130/73 IVSd: 1.2 cm (0.6 - 1.1) LVIDd: 4.9 cm (3.9 - 5.3) LVPWd: 1.1 cm (0.6 - 1.1) IVSs: 1.6 cm LVIDs: 4.4 cm LVPWs: 1.6 cm LA Diam: 4.2 cm (2.7 - 3.8) LAESV Index (A-L): 26.69 ml/m Ao Diam: 3.7 cm (2.0 - 3.7) AV Cusp: 1.6 cm (1.5 - 2.6) LA Diam: 4.1 cm (2.7 - 3.8) MV EXCURSION: 20.195 mm (> 18.000) MV EF SLOPE: 75 mm/s (70 - 150) EPSS: 1.4 cm MV E Melvin: 0.35 m/s MV DecT: 206 ms MV A Melvin: 0.70 m/s MV E/A Ratio: 0.50 FINDINGS -------- Undetermined rhythm. This was a techncally difficult study with suboptimal views, , Lumason utilized for enhancement of im ages. The left ventricular size is normal. There is moderate global hypokinesis of LV . Overall left ve ntricular systolic function is severely impaired with, an EF between 25 - 30 %. The right ventricle is normal in size. The left atrium is mildly dilated. LA is midly dilated 29-33ml/m2. The right atrial size is normal. 5.0mg OF Lumason UTLIZED: 2 OR MORE WALL SEGMENTS NOT VISUALIZED. The aortic valve is trileaflet, and appears structurally normal. No aortic stenosis or regurgitation. Mild mitral regurgitation is present. Mild tricuspid regurgitation present. Right ventricular systolic pressure is normal at < 35 mmHg. Trace/mild (physiologic) pulmonic regurgitation. The aortic root size is normal. There is no pericardial effusion. CONCLUSIONS -------- 1. The left ventricular size is normal. 2. There is moderate global hypokinesis of LV . 3. Overall left ventricular systolic function is severely impaired with, an EF between 25 - 30 %. 4. The right ventricle is normal in size. 5. The left atrium is mildly dilated. 6. LA is midly dilated 29-33ml/m2. 7. The right atrial size is normal. 8. 5.0mg OF Lumason UTLIZED: 2 OR MORE WALL SEGMENTS NOT VISUALIZED. 9. Mild mitral regurgitation is present. 10. Mild tricuspid regurgitation present. 11. Trace/mild (physiologic) pulmonic regurgitation. ELECTRICAL TECH: Rani Estrada RDCS
[2020-05-12 17:01] LABS: Glucose,Whole Blood 122 mg/dL (75-99)
[2020-05-12 20:18] LABS: Glucose,Whole Blood 148 mg/dL (75-99)
[2020-05-12] MEDS: ATORVASTATIN 80 MG TAB PO SCH (20:33)
[2020-05-13 06:10] LABS: Glucose,Whole Blood 106 mg/dL (75-99)
[2020-05-13 06:11] LABS: Basophils % (A) 1 %; Eosinophils # (A) 0.2 k/uL (0-0.7); Eosinophils % (A) 3 %; HCT 40.8 % (39.0-53.0); HGB 13.2 gm/dL (13.0-17.5); Lymphocytes # (A) 1.8 k/uL (1.0-4.8); Lymphocytes % (A) 33 %; MCH 28.5 pg (25.0-35.0); MCHC 32.4 g/dL (31.0-37.0); Mean Platelet Volume 8.3; Monocytes # (A) 0.2 k/uL (0-1.0); Monocytes % (A) 4 %; Neutrophils # (A) 3.2 k/uL (1.3-7.7); Neutrophils % (A) 57 %; Platelet Count 179 k/uL (150-450); RBC 4.63 m/uL (4.30-5.90); RDW 13.7 % (11.5-15.5); WBC 5.6 k/uL (3.8-10.6)
[2020-05-13] MEDS: SODIUM CHLORIDE 0.9% 1,000 ML IV SCH ×2 (06:13→19:47)
[2020-05-13] MEDS: INSULIN ASPART (NovoLOG) 100 UNIT/ML VIAL SQ SCH ×4 (06:32→21:29)
[2020-05-13] MEDS: CLOPIDOGREL 75 MG TAB PO SCH (08:33)
[2020-05-13] MEDS: ASPIRIN 81 MG PO SCH (08:33)
[2020-05-13] MEDS: METOPROLOL TARTRATE 50 MG TAB PO SCH ×2 (08:33→19:47)
[2020-05-13] MEDS: PANTOPRAZOLE 40 MG/10 ML VIAL IVP SCH (08:34)
[2020-05-13] MEDS: lisinopriL 5 MG TAB PO SCH (08:34)
[2020-05-13] MEDS: INSULIN DETEMIR (LEVEMIR) 100 UNIT/ML SYR SQ SCH ×2 (08:34→21:28)
[2020-05-13] MEDS: HEPARIN SOD,PORK IN 0.45% NACL 25,000 UNIT in 0.45% NACL 1 250ML.BAG IV SCH (08:48)
[2020-05-13 12:15] LABS: Glucose,Whole Blood 128 mg/dL (75-99)
[2020-05-13] MEDS ORDERED: ALPRAZolam 0.25 MG TAB PO PRN (13:01)
[2020-05-13] MEDS ORDERED: NITROGLYCERIN SL TABS 0.4 MG TAB SUBLINGUAL PRN (13:01)
[2020-05-13] MEDS ORDERED: ALPRAZolam 0.5 MG TAB PO PRN (13:01)
--- NOTE | 2020-05-13 13:02 | P.PN ---
Subjective HISTORY OF PRESENTING ILLNESS This is a pleasant 74-year-old male past medical history significant for coronary artery disease status post multivessel PCI, myocardial infarction most recently in January 2020, ischemic cardiomyopathy, chronic systolic heart failure, hypertension, dyslipidemia, diabetes mellitus and chronic nicotine dependence. He follows in the office with Dr. Theodore. He is seen and examined resting comfortably lying flat in bed in no acute distress. He states he did have an episode of chest discomfort this morning that was very brief in nature and resolved on its own momentarily. Blood pressure 146/80 heart rate 75 afebrile maintaining oxygen saturation on room air. Laboratory data reviewed, CBC unremarkable. Currently maintained on heparin infusion, aspirin 81 mg daily, atorvastatin 80 mg daily, Plavix 75 mg daily, lisinopril 5 mg daily and metoprolol 50 mg twice a day. Repeat echocardiogram reveals severely impaired LV systolic function with ejection fraction 25-30% with global hypokinesia noted. PHYSICAL EXAMINATION CONSTITUTIONAL: No apparent distress. HEENT: Head is normocephalic. Pupils are equal, round. Sclerae anicteric. Mucous membranes of the mouth are moist. No JVD. No carotid bruit. CHEST EXAMINATION: Lungs are clear to auscultation. No chest wall tenderness is noted on palpation or with deep breathing. HEART EXAMINATION: Regular rate and rhythm. S1, S2 heard. No murmurs, gallops or rub. EXTREMITIES: 2+ peripheral pulses, no lower extremity edema and no calf tenderness. ASSESSMENT Non-ST elevated myocardial infarction Chest pain Coronary artery disease status post PCI in the setting of a myocardial infarction January 2020 Medication noncompliance Hypertension Dyslipidemia Diabetes mellitus Chronic nicotine dependence PLAN Continue current medical regimen and proceed with cardiac catheterization tomorrow as previously discussed. Nurse Practitioner note has been reviewed, I agree with a documented findings and plan of care. Patient was seen and examined. Objective - Vital Signs Vital signs: Vital Signs Temp 98.5 F 05/13/20 08:40 Pulse 75 05/13/20 11:45 Resp 16 05/13/20 11:45 BP 146/80 05/13/20 11:45 Pulse Ox 92 L 05/13/20 11:45 Intake & Output 05/12/20 05/13/20 05/13/20 18:59 06:59 18:59 Intake Total 501.468 234.889 Output Total 800 650 Balance -298.532 -650 234.889 Weight 86.9 kg Intake: IV 80 Heparin Sod,Pork in 0.45% 80 NaCl 25,000 unit In 0.45 % NaCl 1 250ml.bag @ 11. 862 UNITS/KG/HR 10 mls/hr IV .Q24H [facility] Rx#: [id number] Intake, IV Titration 181.468 234.889 Amount Heparin Sod,Pork in 0.45% 131.468 234.889 NaCl 25,000 unit In 0.45 % NaCl 1 250ml.bag @ 11. 862 UNITS/KG/HR 10 mls/hr IV .Q24H [facility] Rx#: [id number] 1 gm In 50 Sodium Chloride 0.9% 50 ml @ 100 mls/hr IVPB Q24HR [facility] Rx#:[id number] Oral 240 Output: Urine 800 650 Other: Voiding Method Toilet Toilet Toilet Urinal Urinal Urinal # Bowel Movements 1 - Labs CBC & Chem 7: 05/13/20 06:01 05/12/20 03:00 Labs: Abnormal Lab Results - Last 24 Hours (Table) 05/12/20 05/12/20 05/13/20 Range/Units 16:48 20:11 06:01 APTT 47.3 H (22.0-30.0) sec POC Glucose (mg/dL) 122 H 148 H (75-99) mg/dL 05/13/20 05/13/20 Range/Units 06:04 12:13 APTT (22.0-30.0) sec POC Glucose (mg/dL) 106 H 128 H (75-99) mg/dL
[2020-05-13 17:06] LABS: Glucose,Whole Blood 145 mg/dL (75-99)
[2020-05-13] MEDS: ATORVASTATIN 80 MG TAB PO SCH (19:48)
[2020-05-13 21:10] LABS: Glucose,Whole Blood 139 mg/dL (75-99)
--- NOTE | 2020-05-14 03:28 | PN ---
PROGRESS NOTE A 74-year-old white male awaiting heart catheterization. Remains on IV heparin, Plavix, beta blockers, cholesterol pills. Non-STEMI. He is being treated for UTI with IV Rocephin. CARDIOVASCULAR: S1, S2. LUNGS: Clear. GI: Soft. HEMATOLOGY: Negative Homans. PSYCH: Fair mood and affect Continue with current antibiotics, IV heparin. Wait for treatment. Possible discharge home after heart catheterization. MMODL / IJN: [id number] /
[2020-05-14] MEDS ORDERED: SODIUM CHLORIDE 0.9% 1,000 ML in EMPTY BAG 1 BAG IV ONE (06:00)
[2020-05-14] MEDS ORDERED: ASPIRIN 325 MG TAB PO ONE (06:00)
[2020-05-14 06:11] LABS: Glucose,Whole Blood 101 mg/dL (75-99)
[2020-05-14] MEDS: INSULIN ASPART (NovoLOG) 100 UNIT/ML VIAL SQ SCH ×4 (06:20→21:00)
[2020-05-14] MEDS ORDERED: LIDOCAINE 1% INJ 10MG/ML (20 ML MDV) ONE (08:51)
[2020-05-14] MEDS ORDERED: VERAPAMIL 2.5 MG/ML 2 ML AMP ONE (08:51)
[2020-05-14] MEDS ORDERED: HEPARIN SODIUM 1,000 UN/ML (10ML VL) ONE (08:56)
[2020-05-14 08:57] LABS: Basophils # (A) 0.1 k/uL (0-0.2); Basophils % (A) 1 %; Eosinophils # (A) 0.2 k/uL (0-0.7); Eosinophils % (A) 3 %; HCT 39.9 % (39.0-53.0); HGB 12.9 gm/dL (13.0-17.5); Lymphocytes # (A) 1.5 k/uL (1.0-4.8); Lymphocytes % (A) 24 %; MCH 28.4 pg (25.0-35.0); MCHC 32.2 g/dL (31.0-37.0); MCV 88.1 fL (80.0-100.0); Mean Platelet Volume 8.5; Monocytes # (A) 0.3 k/uL (0-1.0); Monocytes % (A) 5 %; Neutrophils # (A) 4.1 k/uL (1.3-7.7); Neutrophils % (A) 66 %; Platelet Count 164 k/uL (150-450); RBC 4.53 m/uL (4.30-5.90); RDW 13.7 % (11.5-15.5); WBC 6.3 k/uL (3.8-10.6)
[2020-05-14] MEDS ORDERED: IV FLUID CONTINUATION 1,000 ML IV ONE (09:12)
[2020-05-14] MEDS ORDERED: MIDAZOLAM 2 MG/2 ML VIAL IVP ONE (09:12)
[2020-05-14 09:14] LABS: African American GFR (CKD) >90 (>60 ml/min/1.73 sqM); Anion Gap 4 mmol/L; Blood Urea Nitrogen 13 mg/dL (9-20); Calcium 8.3 mg/dL (8.4-10.2); Carbon Dioxide 25 mmol/L (22-30); Chloride 108 mmol/L (98-107); Glucose 101 mg/dL (74-99); Non-African American GFR(CKD) >90 (>60 ml/min/1.73 sqM); Potassium 4.5 mmol/L (3.5-5.1); Sodium 137 mmol/L (137-145)
[2020-05-14] MEDS ORDERED: LIDOCAINE 1% INJ 10MG/ML (20 ML MDV) SQ ONE (09:16)
[2020-05-14] MEDS ORDERED: VERAPAMIL SYRINGE (5 MG/10 ML) INTRAARTER ONE (09:22)
[2020-05-14] MEDS ORDERED: BIVALIRUDIN BOLUS 250 MG/50 ML IV ONE (09:41)
[2020-05-14] MEDS ORDERED: BIVALIRUDIN 250 MG in SODIUM CHLORIDE 0.9% 50 ML IV ONE (09:42)
[2020-05-14] MEDS ORDERED: IOPAMIDOL-370 100ML BTL INJ ONE ×2 (09:49→10:06)
[2020-05-14] MEDS ORDERED: NITROGLYCERIN 1000MCG/10ML SYRINGE INTRACORON ONE (10:01)
[2020-05-14] MEDS ORDERED: CLOPIDOGREL 75 MG TAB ONE (10:04)
[2020-05-14] MEDS ORDERED: CLOPIDOGREL 75 MG TAB PO ONE (10:05)
[2020-05-14] MEDS ORDERED: lisinopriL 5 MG TAB PO STA (10:27)
[2020-05-14] MEDS: CLOPIDOGREL 75 MG TAB PO SCH (10:31)
--- NOTE | 2020-05-14 11:41 | CC ---
CARDIAC CATHETERIZATION REPORT DATE OF SERVICE: 05/14/2020. PROCEDURES: 1. Left heart catheterization and coronary angiography. 2. PTCA and stenting of first obtuse marginal branch of circumflex. 3. PTCA and stenting of mid circumflex coronary artery. PERFORMED BY: Dr. Jan Theodore. Moderate conscious sedation time was 51 minutes. Patient was administered Versed and oxygenation. Hemodynamics and EKG were monitored closely. CLINICAL INFORMATION: Mr. Alireza Ervin is a 74-year-old gentleman who is very noncompliant. He has multivessel PCI performed in the past. In 2012, I performed stenting of his LAD and RCA. He also had a diagonal branch stenting. In 2019, I performed right coronary artery and diagonal branch stenting. At that time, LAD was patent. He presented with acute anterior RI in January of this year and underwent stenting of mid LAD with 2 drug-eluting stents. After he left the hospital, he has not followed up with any insurance representative and has stopped taking his medications about a month and a half ago. He comes into the hospital with chest pain, has a troponin elevation suggestive of non-ST elevation RI. He was advised cardiac catheterization after due discussion regarding risks, benefits, and options. PROCEDURE NOTE: Under local anesthesia and strict aseptic precautions, a 6-Thai introducer was placed in the right radial artery. Using a JL3.5 and JR4 catheters, I performed coronary angiography and the same right Taco catheter was used to check LV pressures but LV gram was not performed. I then proceeded to perform PCI of the circumflex marginal as well as mid circumflex in the same setting. After the procedure was completed. A TR band was applied and patient was sent to the room in stable condition with oxygen saturation in the fingers of the right hand of more than 92%. CARDIAC CATHETERIZATION FINDINGS: The left ventricular end-diastolic pressure was about 8 mmHg. There was no gradient across the aortic valve. CORONARY ANGIOGRAPHY FINDINGS: RIGHT CORONARY ARTERY: A very large dominant vessel has about a 30% to 40% narrowing in the proximal portion and the stented segment is widely patent. Distally bifurcates into PDA and PLV. PDA in the midportion has a 70% stenosis and diffuse disease beyond that. PLV gives off a secondary superior branch which is small in caliber and distribution has an 80% to 90% stenosis, unchanged from January of this year. The main portion of the PLV is free of significant disease. These two lesions were also noted in January, but I advised medical therapy at that time. LEFT MAIN CORONARY ARTERY: Short patent vessel with a distal disease of 20%. Bifurcates into LAD and circumflex. LEFT ANTERIOR DESCENDING CORONARY ARTERY: A 30%-40% percent proximal lesion. Mid LAD has that was stented before is widely patent with remarkably good flow. Diagonal that was stented is also widely patent with good flow. There is a first diagonal which is small in caliber, has a 90% stenosis but the vessel is less than 1.5 mm. Second diagonal that was stented is patent and mid LAD is patent. LEFT POSTERIOR CIRCUMFLEX CORONARY ARTERY: Nondominant vessel, gives off a first obtuse marginal. A 2.2 mm vessel. There is a 95% stenosis and mid circumflex after the groove branch has another 95% stenosis with a moderate caliber vessel beyond that. Left ventriculogram was not performed. RECOMMENDATION: I recommended intervention of the first obtuse marginal branch of circumflex and mid circumflex and proceeded to perform this in the same setting. The right coronary branches will be dealt with later. If he has more symptoms, we can pursue medical therapy for that. I explained to the patient the rationale and proceeded to perform procedure in the same setting. PCI PROCEDURE DETAILS: A JL4, 6-Thai guide catheter was used to cannulate the left coronary artery. A run- through wire was used to cross the lesion in the first obtuse marginal. The patient received Angiomax bolus and infusion. He also received 600 mg of Plavix. The first obtuse marginal branch was crossed with a run-through wire. Predilatation was performed with a 2.0 caliber Trek balloon and then a 2.0 caliber 12 mm Jennifer Resolute stent was deployed with excellent result. I then advanced the wire carefully into the distal circumflex beyond the lesion. I used the same 2.0 balloon that was available to pre-dilate the lesion. I then deployed a 2.25 caliber 12 mm Xience stent. The patient did have mild chest discomfort but no significant EKG changes. Excellent angiographic result was achieved without complication. The sheath was taken out and TR band applied as per protocol. The patient received 2 drug-eluting stents. one in the first obtuse marginal which was a 2.0 caliber jennifer and one in the mid circumflex which is a 2.25 12 mm Xience stent. Excellent result was achieved. Patient had no complication. Results were discussed with the patient and family and he was sent to the room in a stable condition. He was advised the importance of being compliant with medications. MMODL / IJN: [id number] /
[2020-05-14 12:12] LABS: Glucose,Whole Blood 110 mg/dL (75-99)
--- NOTE | 2020-05-14 14:02 | PN ---
PROGRESS NOTE Mr. Ervin came in with a chest pain, had a mild troponin elevation, underwent a cardiac cath which revealed 95% first OM and mid circumflex. Both of these were stented with good result. He also has disease in the PLV and PDA branches, but these are chronic. We will pursue medical therapy for that. No significant disease noted in the proximal RCA that was stented and LAD and diagonal which was stented previously. Vitals are stable. No JVD, S1-S2 heard normally. Lungs are clear. Abdomen and lower extremity exam unchanged. Plan is to continue dual antiplatelet therapy. Patient has been noncompliant, stopped all his medications for 6 weeks. Advised to be compliant with medicines. Hopefully we can discharge him in the next 24 to 48 hours on dual antiplatelet therapy and I will see him in the office in a week. MMODL / IJN: [id number] /
--- NOTE | 2020-05-14 15:31 | P.PN ---
Subjective Progress Note Date: 05/14/20 Principal diagnosis: Low Vitamin B12 level Dizziness and light-headedness: likely due to orthostatic in nature. Patient was seen at bedside and he states that he is doing much better today compared to the weekend. He states that he does not have any further episodes of dizziness lightheadedness. He does not have any weakness, difficulty getting his words out. Objective - Vital Signs Vital signs: Vital Signs Temp 98 F 05/14/20 00:00 Pulse 73 05/14/20 12:09 Resp 19 05/14/20 12:00 BP 121/71 05/14/20 12:09 Pulse Ox 97 05/14/20 10:24 Intake & Output 05/13/20 05/14/20 05/14/20 18:59 06:59 18:59 Intake Total 554.889 116.8 Output Total 400 1110 Balance 154.889 -1110 116.8 Weight 85.8 kg Intake: IV 80 116.8 Heparin Sod,Pork in 0.45% 80 NaCl 25,000 unit In 0.45 % NaCl 1 250ml.bag @ 11. 862 UNITS/KG/HR 10 mls/hr IV .Q24H SUSIE Rx#: [id number] Intake, IV Titration 234.889 Amount Heparin Sod,Pork in 0.45% 234.889 NaCl 25,000 unit In 0.45 % NaCl 1 250ml.bag @ 11. 862 UNITS/KG/HR 10 mls/hr IV .Q24H SUSIE Rx#: [id number] Oral 240 Output: Urine 400 1110 Other: Voiding Method Toilet Toilet Toilet Urinal Urinal Urinal # Voids 4 # Bowel Movements 1 - Exam On examination patient is an elderly male, in no acute distress. Patient is alert and awake. Patient states is May and the year is 2019. He knows he is in [facility] in [place]. Knows name of the current president. Speech and language functions are normal. Attention and concentration fund of knowledge is adequate. Detailed cognitive function testing deferred. On cranial nerve examination pupils are unequal, right is larger, oblong, nonreactive, surgical. The left pupil is very small, difficult to assess reactivity. Visual mohan are full on confrontation, extraocular muscles are intact with no nystagmus. Face is symmetric, tongue protrudes to the midline. Palatal elevation and sensation normal. Hearing and shoulder shrug normal. On muscle strength testing there is no pronator drift and the strength is normal in arms and legs distally and proximally. Reflexes are 1+ at the biceps, 1 brachioradialis, 1+ knees, absent ankles and plantars are downgoing. Patient has bilateral hammertoes. Sensory touch is equal with no neglect. No ataxia for dccymv-yz-xxdo or ixgx-ph-rdso testing. Tone and bulk of muscles normal. No parkinsonian tremor. Gait deferred. There is no carotid bruit, S1 and S2 audible, abdomen soft, chest clear. No peripheral edema. Patient has onychomycosis. - Labs CBC & Chem 7: 05/14/20 08:22 05/14/20 08:22 Labs: Abnormal Lab Results - Last 24 Hours (Table) 05/13/20 05/13/20 05/14/20 Range/Units 16:40 20:57 06:09 Hgb (13.0-17.5) gm/dL Chloride (98-107) mmol/L Creatinine (0.66-1.25) mg/dL Glucose (74-99) mg/dL POC Glucose (mg/dL) 145 H 139 H 101 H (75-99) mg/dL Calcium (8.4-10.2) mg/dL 05/14/20 05/14/20 05/14/20 Range/Units 08:22 08:22 12:10 Hgb 12.9 L (13.0-17.5) gm/dL Chloride 108 H (98-107) mmol/L Creatinine 0.59 L (0.66-1.25) mg/dL Glucose 101 H (74-99) mg/dL POC Glucose (mg/dL) 110 H (75-99) mg/dL Calcium 8.3 L (8.4-10.2) mg/dL Microbiology - Last 24 Hours (Table) 05/13/20 23:11 Urine Culture - Preliminary Urine,Voided Assessment and Plan Assessment: * Dizziness, lightheadedness, only on standing up, likely orthostatic in nature. * Low Vitamin B12 * Altered mental status, possible mild encephalopathy. Probable UTI. Also due to low vitamin B12 level. Possible mild underlying cognitive impairment. * Recurrent falls, mostly accidental in nature. Patient has history of diabet es, has evidence of mild peripheral neuropathy on examination, which may be contributing to poor balance and falls. No clinical evidence of parkinsonism. * Chest pain with elevated cardiac enzymes. * Hypertension * Diabetes poorly controlled * Hyperlipidemia Plan: * For imbalance: check B12: 160. Because his vitamin B12 was low patient was started on the vitamin B12 1000 g IM for 7 days and after that please change it to the by mouth daily * folate: 8.0 hemoglobin A1c: 8.0. * CT head: Was reported as moderate cortical atrophy, especially bifrontal atrophy. No acute intracranial abnormality seen. Trace chronic ethmoid sinus disease. * Carotid Doppler: No significant flow limiting stenosis. * Patient has hyperlipidemia. We will start patient on Lipitor 40 mg daily which was changed to the Lipitor 80 mg likely from a primary or cardiology perspective. * Optimize control of diabetes, to target hemoglobin A1c <7.0. * Cardiology on board for abnormal cardiac enzymes. We will start aspirin 325 mg. was switched changed to aspirin 81 mg and the Plavix 75 was added likely from cardiology perspective * Check orthostatics. * Patient had an echocardiogram on the * Treatment of UTI as per IM. * The patient had echocardiogram on 05/12/2020 which was reported as the dict ated difficult study with suboptimal views. There is moderate global hypokinesis of left ventricle. Overall left ventricular systolic function was severely impaired with ejection fraction 25-30%. Left atrium is mildly dilated. * Patient had cardiac cath today. We'll defer the cardiac management to the cardiology team. * Upon discharge the patient needs to follow up with a neurologist as an outpa tient especially that his vitamin B-12 was low and was having dizziness and lightheadedness as well as some mild mild cognitive issues to see whether dose actually improved or not. Patient is clear from neurology perspective. Augie Mazariegos MD Neuro-hospitalist Time with Patient: Greater than 30
[2020-05-14] MEDS: SODIUM CHLORIDE 0.9% 1,000 ML IV SCH ×4 (16:11→23:45)
[2020-05-14] MEDS: CYANOCOBALAMIN 1,000 MCG/ML 1 ML VIAL IM SCH (16:12)
[2020-05-14] MEDS: METOPROLOL TARTRATE 50 MG TAB PO SCH ×2 (16:12→19:47)
[2020-05-14] MEDS: INSULIN DETEMIR (LEVEMIR) 100 UNIT/ML SYR SQ SCH ×2 (16:12→21:00)
[2020-05-14 17:06] LABS: Glucose,Whole Blood 137 mg/dL (75-99)
[2020-05-14] MEDS: HEPARIN SOD,PORK IN 0.45% NACL 25,000 UNIT in 0.45% NACL 1 250ML.BAG IV SCH (18:44)
[2020-05-14] MEDS: PANTOPRAZOLE 40 MG/10 ML VIAL IVP SCH (19:36)
[2020-05-14] MEDS: lisinopriL 5 MG TAB PO SCH (19:37)
[2020-05-14] MEDS: ATORVASTATIN 80 MG TAB PO SCH (19:47)
[2020-05-14 20:28] LABS: Glucose,Whole Blood 164 mg/dL (75-99)
--- NOTE | 2020-05-14 20:59 | PN ---
PROGRESS NOTE This 74-year-old white male is status post non-STEMI. He had 2 stents placed in the right circumflex artery today per Cardiology. Remains on IV antibiotics until urine culture is back for urosepsis. He is having no chest pain or shortness of breath. No lightheadedness, dizziness, syncope. His home medicines have been restarted. Await standard postoperative PTCA and IV antibiotics at this time and possible discharge home in the next 24 to 48 hours. He also has some infection in his distal finger digits, 2 to 3 fingers, for which he will need antibiotics for few weeks going home. MMODL / IJN: [id number] /
[2020-05-15 06:18] LABS: Glucose,Whole Blood 109 mg/dL (75-99)
[2020-05-15] MEDS: INSULIN ASPART (NovoLOG) 100 UNIT/ML VIAL SQ SCH ×2 (06:31→11:32)
[2020-05-15 07:19] LABS: Basophils % (A) 1 %; Eosinophils # (A) 0.2 k/uL (0-0.7); Eosinophils % (A) 4 %; HCT 37.1 % (39.0-53.0); HGB 11.9 gm/dL (13.0-17.5); Lymphocytes # (A) 1.4 k/uL (1.0-4.8); Lymphocytes % (A) 24 %; MCH 28.4 pg (25.0-35.0); MCHC 32.1 g/dL (31.0-37.0); MCV 88.4 fL (80.0-100.0); Mean Platelet Volume 8.4; Monocytes # (A) 0.3 k/uL (0-1.0); Monocytes % (A) 6 %; Neutrophils # (A) 3.7 k/uL (1.3-7.7); Neutrophils % (A) 64 %; Platelet Count 157 k/uL (150-450); RDW 13.8 % (11.5-15.5); WBC 5.8 k/uL (3.8-10.6)
[2020-05-15 07:33] LABS: African American GFR (CKD) >90 (>60 ml/min/1.73 sqM); Anion Gap 4 mmol/L; Blood Urea Nitrogen 11 mg/dL (9-20); Calcium 8.1 mg/dL (8.4-10.2); Carbon Dioxide 25 mmol/L (22-30); Chloride 109 mmol/L (98-107); Glucose 95 mg/dL (74-99); Non-African American GFR(CKD) >90 (>60 ml/min/1.73 sqM); Sodium 138 mmol/L (137-145)
[2020-05-15] MEDS: INSULIN DETEMIR (LEVEMIR) 100 UNIT/ML SYR SQ SCH (08:55)
[2020-05-15] MEDS: CYANOCOBALAMIN 1,000 MCG/ML 1 ML VIAL IM SCH (08:56)
[2020-05-15] MEDS: METOPROLOL TARTRATE 50 MG TAB PO SCH (08:56)
[2020-05-15] MEDS: CLOPIDOGREL 75 MG TAB PO SCH (08:56)
[2020-05-15] MEDS ORDERED: lisinopriL 10 MG TAB PO SCH (09:00)
[2020-05-15] MEDS ORDERED: ASPIRIN 81 MG PO SCH (09:00)
[2020-05-15] MEDS ORDERED: PANTOPRAZOLE 40 MG TABLET PO SCH (09:00)
[2020-05-15 10:00] VITALS: TEMP 98.1
[2020-05-15 11:20] LABS: Glucose,Whole Blood 129 mg/dL (75-99)
[2020-05-15] MEDS: SODIUM CHLORIDE 0.9% 1,000 ML IV SCH (11:32)
--- NOTE | 2020-05-15 13:41 | P.PN ---
Subjective Progress Note Date: 05/15/20 Principal diagnosis: Vitamin B12 deficiency Dizziness and light-headedness: likely due to orthostatic in nature. Patient was seen at bedside and continues to be feeling good. He states that he does not have any further episodes of dizziness lightheadedness. He does not have any weakness, difficulty getting his words out. Objective - Vital Signs Vital signs: Vital Signs Temp 98.1 F 05/15/20 08:00 Pulse 67 05/15/20 11:36 Resp 20 05/15/20 11:36 BP 133/66 05/15/20 11:36 Pulse Ox 92 L 05/15/20 11:36 Intake & Output 05/14/20 05/15/20 05/15/20 18:59 06:59 18:59 Intake Total 592.8 480 Output Total 700 300 300 Balance -107.2 -300 180 Weight 87.1 kg Intake: IV 116.8 Oral 476 480 Output: Urine 700 300 300 Other: Voiding Method Toilet Toilet Urinal Urinal # Voids 1 2 1 - Exam On examination patient is an elderly male, in no acute distress. Patient is alert and awake. Patient states is May and the year is 2019. He knows he is in [facility] in [place]. Knows name of the current president. Speech and language functions are normal. Attention and concentration fund of knowledge is adequate. Detailed cognitive function testing deferred. On cranial nerve examination pupils are unequal, right is larger, oblong, nonreactive, surgical. The left pupil is very small, difficult to assess reactivity. Visual mohan are full on confrontation, extraocular muscles are intact with no nystagmus. Face is symmetric, tongue protrudes to the midline. Palatal elevation and sensation normal. Hearing and shoulder shrug normal. On muscle strength testing there is no pronator drift and the strength is normal in arms and legs distally and proximally. Reflexes are 1+ at the biceps, 1 brachioradialis, 1+ knees, absent ankles and plantars are downgoing. Patient has bilateral hammertoes. Sensory touch is equal with no neglect. No ataxia for zuhxdt-td-chun or xqlk-iz-nxls testing. Tone and bulk of muscles normal. No parkinsonian tremor. Gait deferred. There is no carotid bruit, S1 and S2 audible, abdomen soft, chest clear. No peripheral edema. Patient has onychomycosis. - Labs CBC & Chem 7: 05/15/20 06:49 05/15/20 06:49 Labs: Abnormal Lab Results - Last 24 Hours (Table) 05/14/20 05/14/20 05/15/20 Range/Units 17:01 20:26 06:17 RBC (4.30-5.90) m/uL Hgb (13.0-17.5) gm/dL Hct (39.0-53.0) % Chloride (98-107) mmol/L Creatinine (0.66-1.25) mg/dL POC Glucose (mg/dL) 137 H 164 H 109 H (75-99) mg/dL Calcium (8.4-10.2) mg/dL 05/15/20 05/15/20 05/15/20 Range/Units 06:49 06:49 11:19 RBC 4.20 L (4.30-5.90) m/uL Hgb 11.9 L (13.0-17.5) gm/dL Hct 37.1 L (39.0-53.0) % Chloride 109 H (98-107) mmol/L Creatinine 0.58 L (0.66-1.25) mg/dL POC Glucose (mg/dL) 129 H (75-99) mg/dL Calcium 8.1 L (8.4-10.2) mg/dL Microbiology - Last 24 Hours (Table) 05/13/20 23:11 Urine Culture - Final Urine,Voided Assessment and Plan Assessment: * Dizziness, lightheadedness, only on standing up, likely orthostatic in nature. * Vitamin B12 defiency * Altered mental status, possible mild encephalopathy. Probable UTI. Also due to low vitamin B12 level. Possible mild underlying cognitive impairment. * Recurrent falls, mostly accidental in nature. Patient has history of diabetes, has evidence of mild peripheral neuropathy on examination, which may be contributing to poor balance and falls as well as Vitamin B12 deficiency can play a role. No clinical evidence of parkinsonism. * NSTEMI s/p 2 stents on the right circumflex artery. * Hypertension * Diabetes poorly controlled * Hyperlipidemia Plan: * For imbalance: check B12: 160. Because his vitamin B12 was low patient was started on the vitamin B12 1000 g IM for total 7 days (started on 05/14) and after that please change it to by mouth daily * folate: 8.0 hemoglobin A1c: 8.0. * CT head: Was reported as moderate cortical atrophy, especially bifrontal atrophy. No acute intracranial abnormality seen. Trace chronic ethmoid sinus disease. * Carotid Doppler: No significant flow limiting stenosis. * Patient has hyperlipidemia. We will start patient on Lipitor 40 mg daily which was changed to the Lipitor 80 mg likely from a primary or cardiology perspective. * Optimize control of diabetes, to target hemoglobin A1c <7.0. * Cardiology on board for abnormal cardiac enzymes. We will start aspirin 325 mg. was switched changed to aspirin 81 mg and the Plavix 75 was added likely from cardiology perspective * Check orthostatics. * Patient had an echocardiogram on the * Treatment of UTI as per IM. * The patient had echocardiogram on 05/12/2020 which was reported as the dictated difficult study with suboptimal views. There is moderate global hypokinesis of left ventricle. Overall left ventricular systolic function was severely impaired with ejection fraction 25-30%. Left atrium is mildly dilated. * Patient had cardiac cath on 05/14/20 and had 2 stent placed in the right circumflex per cardiology. * * Upon discharge the patient needs 5 days of IM Vitamin B12 (if discharged today) then switching to PO. If patient has further dizziness or light- headedness in the future then recommend following-up with Neurologist as outpatients. Patient is clear from neurology perspective. Augie Mazariegos MD Neuro-hospitalist Time with Patient: Greater than 30
--- NOTE | 2020-05-15 13:59 | PN ---
PROGRESS NOTE Mr. Ervin had stenting performed yesterday of his circumflex system. First obtuse marginal branch and mid circumflex were stented. He is doing well today. Right radial cath site is clean and dry with a good pulse. The plan is to increase activity and discharge him home. He also has disease in the distal branches of RCA. For this, I will recommend medical therapy for now. The patient is very noncompliant. Continues to smoke. Advised to be compliant with medications and also smoking cessation was discussed. He will be discharged on dual antiplatelet therapy. Discharge instructions regarding activity, diet and medications were given. I will see him in the office in next week. Vitals are stable, no JVD. S1, S2 heard normally. Lungs reveal diminished air entry. Abdomen and lower extremity exam unchanged. Right radial cath site is clean and dry with a good pulse. MMODL / IJN: [id number] /
[2020-05-15 16:51] VITALS: BP 147/74; PULSE 68; RESP 17
--- NOTE | 2020-05-17 08:20 | CDI ---
Documentation Clarification Form Date: 05/17/20 From: Wanda Guido Phone: If you have a question about this query, please contact Adrienne Gonsalves, Ceo [employer] at [phone] between 8am and 5pm. Admit Date: 05/11/20 Discharge Date: 05/15/20 Patient Name: CHRIS CALDWELL Visit Number: [id number] ATTENTION: The Clinical Documentation Specialists (CDI) and [facility] Coding Staff appreciate your assistance in clarifying documentation. Please respond to the clarification below the line at the bottom and electronically sign. The CDI & [facility] Coding staff will review the response and follow-up if needed. Please note: Queries are made part of the Legal Health Record. If you have any questions, please contact the author of this message via ITS. Dear Dr. Bello Holden, The patient has poorly controlled Type II diabetes, as indicated in H&P and Neuro consult, progress notes 05/14 & 05/15. POC Glucose: 118, 144, 148, 116, 174, 122, 148, 106, 128, 145, 139, 101, 110, 137, 164, 109, 129 Glucose: 137, 94, 101, 95 A1c: 8.0 Treatment: blood glucose monitoring ACHS, consistent carbohydrate diet, NovoLOG per protocol UNIT SQ ACHS, Levemir 20 units SQ BID. Per [facility] - query the provider for clarification whether the patient has hyperglycemia or hypoglycemia so that the appropriate code may be reported - uncontrolled diabetes indicates that the patient's blood sugar is not at an acceptable level, because it is either too high or too low. In order to capture the severity of Illness and necessary documentation specificity, please clarify if Type 2 uncontrolled diabetes is: Hyperglycemia Hypoglycemia Other, please specify Unable to Determine MTDD
--- NOTE | 2020-05-17 08:27 | CDI ---
Documentation Clarification Form Date: 05/17/20 From: Wanda Guido Phone: If you have a question about this query, please contact Adrienne Gonsalves, Principal Cyber Engineer at [phone] between 8am and 5pm. Admit Date: 05/11/20 Discharge Date: 05/15/20 Patient Name: CHRIS CALDWELL Visit Number: [id number] ATTENTION: The Clinical Documentation Specialists (CDI) and [facility] Coding Staff appreciate your assistance in clarifying documentation. Please respond to the clarification below the line at the bottom and electronically sign. The CDI & [facility] Coding staff will review the response and follow-up if needed. Please note: Queries are made part of the Legal Health Record. If you have any questions, please contact the author of this message via ITS. Dear Dr. Bello Holden, The diagnosis sepsis was documented in the 05/14 progress note, but is not noted in subsequent documentation. History/Risk Factors: NSTEMI, encephalopathy, HTN w chronic systolic CHF, Type 2 diabetic neuopathy, dementia, hyperlipidemia, COPD, ischemis cardiomyopathy, previous MIs, CAD, B12 deficiency Clinical Indicators: Per 05/14 PN "urinary tract infection with sepsis". WBC- 6.4, Neutrophils-59, no lactic acid, total bilirubin-0.5, anion gap-4, urine culture - no growth after 18 hours Treatment: IV Rocephin Please clarify if the sepsis was: Present/active this admission Ruled out Other, please specify Clinically unable to determine MTDD
--- NOTE | 2020-05-19 07:43 | PN ---
PROGRESS NOTE ADDENDUM: 1. Hyperglycemia secondary to uncontrolled type 2 diabetes mellitus. 2. Urinary tract infection with no sepsis. MMODL / IJN: [id number] /
--- NOTE | 2020-05-23 09:26 | CDI ---
Documentation Clarification Form Date: 05/17/20 From: Wanda Guido Phone: If you have a question about this query, please contact Adrienne Gonsalves, Human Machine Interface Engineer at [phone] between 8am and 5pm. Admit Date: 05/11/20 Discharge Date: 05/15/20 Patient Name: CHRIS CALDWELL Visit Number: [id number] ATTENTION: The Clinical Documentation Specialists (CDI) and [facility] Coding Staff appreciate your assistance in clarifying documentation. Please respond to the clarification below the line at the bottom and electronically sign. The CDI & [facility] Coding staff will review the response and follow-up if needed. Please note: Queries are made part of the Legal Health Record. If you have any questions, please contact the author of this message via ITS. Dear Dr. Bello Holden, The patient has poorly controlled Type II diabetes, as indicated in H&P and Neuro consult, progress notes 05/14 & 05/15. POC Glucose: 118, 144, 148, 116, 174, 122, 148, 106, 128, 145, 139, 101, 110, 137, 164, 109, 129 Glucose: 137, 94, 101, 95 A1c: 8.0 Treatment: blood glucose monitoring ACHS, consistent carbohydrate diet, NovoLOG per protocol UNIT SQ ACHS, Levemir 20 units SQ BID. Per [facility] 2016 - query the provider for clarification whether the patient has hyperglycemia or hypoglycemia so that the appropriate code may be reported - uncontrolled diabetes indicates that the patient's blood sugar is not at an acceptable level, because it is either too high or too low. In order to capture the severity of Illness and necessary documentation specificity, please clarify if Type 2 uncontrolled diabetes is: Hyperglycemia Hypoglycemia Other, please specify Unable to Determine MTDD
--- NOTE | 2020-05-23 09:27 | CDI ---
Documentation Clarification Form Date: 05/17/20 From: Wanda Guido Phone: If you have a question about this query, please contact Adrienne Gonsalves, Spring Setter at [phone] between 8am and 5pm. Admit Date: 05/11/20 Discharge Date: 05/15/20 Patient Name: CHRIS CALDWELL Visit Number: [id number] ATTENTION: The Clinical Documentation Specialists (CDI) and [facility] Coding Staff appreciate your assistance in clarifying documentation. Please respond to the clarification below the line at the bottom and electronically sign. The CDI & [facility] Coding staff will review the response and follow-up if needed. Please note: Queries are made part of the Legal Health Record. If you have any questions, please contact the author of this message via ITS. Dear Dr. Bello Holden, The diagnosis sepsis was documented in the 05/14 progress note, but is not noted in subsequent documentation. History/Risk Factors: NSTEMI, encephalopathy, HTN w chronic systolic CHF, Type 2 diabetic neuopathy, dementia, hyperlipidemia, COPD, ischemis cardiomyopathy, previous MIs, CAD, B12 deficiency Clinical Indicators: Per 05/14 PN "urinary tract infection with sepsis". WBC- 6.4, Neutrophils-59, no lactic acid, total bilirubin-0.5, anion gap-4, urine culture - no growth after 18 hours Treatment: IV Rocephin Please clarify if the sepsis was: Present/active this admission Ruled out Other, please specify Clinically unable to determine MTDD
--- NOTE | 2020-05-24 09:12 | PN ---
PROGRESS NOTE ADDENDUM: Hyperglycemia secondary to uncontrolled diabetes mellitus. Sepsis ruled out. MMODL / IJN: [id number] /
--- NOTE | 2020-06-01 11:09 | PN ---
PROGRESS NOTE ADDENDUM: Please add: 1. Hyperglycemia secondary to uncontrolled diabetes mellitus. 2. Urinary tract infection with no sepsis. MMODL / IJN: [id number] /
== END 2020-05-15 17:45 | disposition home health service (06) | DRG 247 ==
LOC: 3SCARD 10:02
PROVIDERS: ADMIT Family Medicine; ATTEND Family Medicine
PROC: B2111ZZ Fluoroscopy of Multiple Coronary Arteries using Low Osmolar Contrast (ICD-10-PCS; principal; 2020-05-14 11:05)
PROC: 027135Z Dilation of Coronary Artery, Two Arteries with Two Drug-eluting Intraluminal Devices, Percutaneous Approach (ICD-10-PCS; principal; 2020-05-14 11:05)
PROC: 4A023N7 Measurement of Cardiac Sampling and Pressure, Left Heart, Percutaneous Approach (ICD-10-PCS; principal; 2020-05-14 11:05)
DX: I21.4 Non-ST elevation (NSTEMI) myocardial infarction (principal); N39.0 Urinary tract infection, site not specified; G93.49 Other encephalopathy; I50.22 Chronic systolic (congestive) heart failure; E11.42 Type 2 diabetes mellitus with diabetic polyneuropathy; I11.0 Hypertensive heart disease with heart failure; F03.90 Unspecified dementia, unspecified severity, without behavioral disturbance, psychotic disturbance, mood disturbance, and anxiety; E78.5 Hyperlipidemia, unspecified; B35.1 Tinea unguium; J44.9 Chronic obstructive pulmonary disease, unspecified; Z79.4 Long term (current) use of insulin; I25.5 Ischemic cardiomyopathy; T45.526A Underdosing of antithrombotic drugs, initial encounter; T44.7X6A Underdosing of beta-adrenoreceptor antagonists, initial encounter; T46.6X6A Underdosing of antihyperlipidemic and antiarteriosclerotic drugs, initial encounter; Z91.120 Patient's intentional underdosing of medication regimen due to financial hardship; Z91.19 Patient's noncompliance with other medical treatment and regimen; R29.6 Repeated falls; I25.10 Atherosclerotic heart disease of native coronary artery without angina pectoris; I49.3 Ventricular premature depolarization; E53.8 Deficiency of other specified B group vitamins; I83.90 Asymptomatic varicose veins of unspecified lower extremity; K44.9 Diaphragmatic hernia without obstruction or gangrene; I25.2 Old myocardial infarction; M51.9 Unspecified thoracic, thoracolumbar and lumbosacral intervertebral disc disorder; M20.42 Other hammer toe(s) (acquired), left foot; M20.41 Other hammer toe(s) (acquired), right foot; M19.90 Unspecified osteoarthritis, unspecified site; R42 Dizziness and giddiness; H93.19 Tinnitus, unspecified ear; F17.210 Nicotine dependence, cigarettes, uncomplicated; Z71.6 Tobacco abuse counseling; Y63.6 Underdosing and nonadministration of necessary drug, medicament or biological substance; Z95.5 Presence of coronary angioplasty implant and graft; Z87.01 Personal history of pneumonia (recurrent); Z87.19 Personal history of other diseases of the digestive system; Z86.010 Personal history of colon polyps; Z87.39 Personal history of other diseases of the musculoskeletal system and connective tissue; Z98.890 Other specified postprocedural states; Z87.442 Personal history of urinary calculi; Z87.820 Personal history of traumatic brain injury; Z86.69 Personal history of other diseases of the nervous system and sense organs; Z87.81 Personal history of (healed) traumatic fracture; Z98.41 Cataract extraction status, right eye; Z87.11 Personal history of peptic ulcer disease; Z96.1 Presence of intraocular lens; Z87.448 Personal history of other diseases of urinary system; Z91.048 Other nonmedicinal substance allergy status; Z88.5 Allergy status to narcotic agent; Z83.3 Family history of diabetes mellitus; Z80.0 Family history of malignant neoplasm of digestive organs; E11.65 Type 2 diabetes mellitus with hyperglycemia
CPT/HCPCS: 70450; 71046; 71260; 80048; 80053; 80061; 81001; 82272; 82607; 82746; 83036; 83690; 84443; 84484; 85025; 85379; 85610; 85730; 87086; 93306; 93458; 93880

== ENCOUNTER → 2020-09-27 | Day surgery (SDC) | payer MEDICARE, OTHER ==
[2020-09-21 10:42] VITALS: BMI 30.3
[~2020-09-27] MED LIST: ACETAMINOPHEN IV (For NPO) 1,000 MG in EMPTY BAG 1 BAG IVPB ONE; ACETAMINOPHEN TAB 325 MG TAB PO PRN; ASPIRIN 81 MG PO SCH; ATORVASTATIN 80 MG TAB PO SCH; CLOPIDOGREL 75 MG TAB PO SCH; HYDROcodone/APAP 5-325MG 1 EACH TAB PO PRN; IOPAMIDOL-370 50ML BTL INJ ONE; IV FLUID CONTINUATION 900 ML IV ONE; LIDOCAINE 1% INJ 10MG/ML (20 ML MDV) ONE; LIDOCAINE 1% INJ 10MG/ML (20 ML MDV) SQ ONE; METOPROLOL TARTRATE 50 MG TAB PO SCH; MIDAZOLAM 2 MG/2 ML VIAL ONE; PROPOFOL 10 MG/ML 20 ML VIAL IV ONE; SODIUM CHLORIDE 0.9% 1,000 ML IV SCH; ceFAZolin 1 GM in SODIUM CHLORIDE 0.9% 250 ML IRRIGATION PRN; fentaNYL (PF) 50 MCG/ML 2 ML AMP ONE; lisinopriL 10 MG TAB PO SCH
[2020-09-27 10:45] VITALS: TEMP 97.8
[2020-09-27 10:51] LABS: Glucose,Whole Blood 169 mg/dL (75-99)
[2020-09-27 10:53] LABS: Basophils # (A) 0.1 k/uL (0-0.2); Basophils % (A) 2 %; Eosinophils # (A) 0.2 k/uL (0-0.7); Eosinophils % (A) 3 %; HCT 46.2 % (39.0-53.0); HGB 15.6 gm/dL (13.0-17.5); Lymphocytes # (A) 2.1 k/uL (1.0-4.8); Lymphocytes % (A) 31 %; MCH 29.9 pg (25.0-35.0); MCHC 33.8 g/dL (31.0-37.0); MCV 88.6 fL (80.0-100.0); Mean Platelet Volume 8.3; Monocytes # (A) 0.3 k/uL (0-1.0); Monocytes % (A) 5 %; Neutrophils % (A) 58 %; Platelet Count 203 k/uL (150-450); RBC 5.21 m/uL (4.30-5.90); RDW 13.6 % (11.5-15.5); WBC 6.8 k/uL (3.8-10.6)
[2020-09-27 11:04] LABS: African American GFR (CKD) >90 (>60 ml/min/1.73 sqM); Anion Gap 8 mmol/L; Blood Urea Nitrogen 16 mg/dL (9-20); Calcium 9.5 mg/dL (8.4-10.2); Carbon Dioxide 26 mmol/L (22-30); Chloride 104 mmol/L (98-107); Glucose 176 mg/dL (74-99); Non-African American GFR(CKD) 86 (>60 ml/min/1.73 sqM); Potassium 4.8 mmol/L (3.5-5.1); Sodium 138 mmol/L (137-145)
--- NOTE | 2020-09-27 13:34 | P.PCN ---
Preoperative Diagnosis: Left upper extremity venogram 50 mL IV dye injected into the left arm Patent left subclavian vein/patent left axillary vein Plan Proceed with single chamber ICD implant
--- NOTE | 2020-09-27 15:11 | XR ---
EXAMINATION TYPE: XR chest 1V portable DATE OF EXAM: 09/27/2020 COMPARISON: 05/11/2020 HISTORY: Pacemaker placement TECHNIQUE: Single frontal view of the chest is obtained. FINDINGS: Diffuse interstitial pattern and bibasilar infiltrate and small effusion. Single lead card iac device seen with the tip overlying the right ventricle. Heart size is stable. Underlying COPD josh pected. No pneumothorax. IMPRESSION: 1. Pacemaker appears in good position with no evidence of pneumothorax. 2. Correlate for CHF otherwise consider pneumonia.
[2020-09-27 15:44] VITALS: RESP 16
[2020-09-27 15:45] VITALS: BP 132/62; PULSE 70
--- NOTE | 2020-09-27 19:38 | P.EPPROC ---
- EP Procedure Note Electrophysiology Procedure Note: Diagnosis Cardiomyopathy, chronic, ischemic, underlying CAD Congestive heart failure, systolic, class II CHF On guideline directed medical treatment guideline directed Procedure: Single ICD implantation for management of risk of sudden cardiac Geodetic Technician: Dr. Hawthorne Result: Single chamber ICD implantation, [employer] medical/L RV ICD lead: Single coil ICD, LDA [id number]-58 Pacing threshold 0.25 V at 0.5 ms, R waves and millivolts, pacing impedance 710 ohms High-voltage impedance 74 ohms ICD generator: [employer] [id number], serial #[id number] Procedure details: Patient was brought to the EP lab in a fasting state. Written informed consent was obtained prior to the procedure. Options, pros and cons, benefits and risks and complications discussed with patient in detail prior to the procedure (shared decision making document, from [facility]). Importance of continuing medical treatment emphasized. Alternatives discussed. Patient would like to proceed with ICD implant. Left upper extremity venogram performed. 15 mL IV dye injected in the left arm. Patent axillary/subclavian vein The left pectoral area was prepped and draped as a protocol. IV antibiotics administered 1% lidocaine was used for local anesthesia. A 4 cm incision was made parallel to the deltopectoral groove, about 1.5 cm medial to it. The incision was carried down to the level of the pectoralis muscle and the subfascial pocket was made. Hemostasis was assured. The axillary vein access was obtained. Appropriately sized venous sheath was placed. ICD lead implanted in the right ventricle and screwed in. ICD lead tested for threshold, sensing, impedances and tested with high output pacing for diaphragmatic stimulation Lead secured to the underlying transverse muscle after removing sheaths . Pocket irrigated with antibiotic solution Leads connected to the biventricular ICD generator. Wound closed in 3 layers and dressed per protocol Biventricular ICD interrogated and programmed. Appropriate pacing parameters, antitachycardia therapies with antitachycardia pacing cardioversion defibrillations programmed. Patient tolerated the procedure well without any acute complications. See scanned device report in EMR for lead details DFT testing under anesthesia DC fibber shock was used to induce ventricular fibrillation. This was adequately and appropriately detected at least sensitivity and successfully internally defibrillated with 10 J shock, cathodal configuration Charge time 1.8 seconds shocking impedance 74 ohms no post shock noise No dropouts The device was then programmed to VVI at 40 beats a minute, MADIT RIT programming Patient tolerated the procedure well without difficulty acute complications
== END | disposition home or self-care (01) ==
LOC: CATHEP 10:13
PROVIDERS: ATTEND Internal Medicine Clinical Cardiac Electrophysiology
DX: I25.5 Ischemic cardiomyopathy (principal); I25.10 Atherosclerotic heart disease of native coronary artery without angina pectoris; I11.0 Hypertensive heart disease with heart failure; I50.22 Chronic systolic (congestive) heart failure; E78.5 Hyperlipidemia, unspecified; I25.2 Old myocardial infarction; E11.51 Type 2 diabetes mellitus with diabetic peripheral angiopathy without gangrene; E78.00 Pure hypercholesterolemia, unspecified; F17.200 Nicotine dependence, unspecified, uncomplicated; Z95.5 Presence of coronary angioplasty implant and graft; Z88.5 Allergy status to narcotic agent; Z97.2 Presence of dental prosthetic device (complete) (partial); Z79.02 Long term (current) use of antithrombotics/antiplatelets; Z79.82 Long term (current) use of aspirin; Z79.4 Long term (current) use of insulin; Z79.899 Other long term (current) drug therapy
CPT/HCPCS: 93641; 33249; 80048; 85025; 71045; C1769; C1722; C1892; C1777; J2250; J0690; J2001; J3010; J0131; J2704; Q9967

== ENCOUNTER 2021-10-24 11:10 | Emergency (ER) | payer MEDICARE ==
[2021-10-24 11:17] VITALS: PULSE 107; RESP 18; TEMP 98.4
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
[2021-10-24] MEDS ORDERED: ACETAMINOPHEN TAB 325 MG TAB PO STA (12:02)
[2021-10-24 12:29] LABS: Basophils % (A) 1 %; Eosinophils # (A) 0.2 k/uL (0-0.7); Eosinophils % (A) 4 %; HCT 45.4 % (39.0-53.0); HGB 15.3 gm/dL (13.0-17.5); Lymphocytes # (A) 1.4 k/uL (1.0-4.8); Lymphocytes % (A) 29 %; MCH 30.9 pg (25.0-35.0); MCHC 33.7 g/dL (31.0-37.0); MCV 91.6 fL (80.0-100.0); Mean Platelet Volume 9.4; Monocytes # (A) 0.2 k/uL (0-1.0); Monocytes % (A) 4 %; Neutrophils % (A) 61 %; Platelet Count 162 k/uL (150-450); RBC 4.95 m/uL (4.30-5.90); RDW 13.4 % (11.5-15.5); WBC 4.9 k/uL (3.8-10.6)
[2021-10-24 12:50] LABS: Appearance,Urine Clear (Clear); Bilirubin,Urine Negative (Negative); Blood,Urine Negative (Negative); Color,Urine Yellow; Glucose,Urine (UA) 4+ (Negative); Hyaline Casts,Urine 4 /lpf (0-2); Ketones,Urine Negative (Negative); Leukocyte Esterase,Urine Large (Negative); Mucus,Urine Rare /hpf; Nitrite,Urine Negative (Negative); Protein,Urine Trace (Negative); RBC,Urine 8 /hpf (0-5); Specific Gravity,Urine 1.017 (1.001-1.035); Squamous Epithelial Cell,Urine 2 /hpf (0-4); Urobilinogen,Urine <2.0 mg/dL (<2.0); WBC,Urine 14 /hpf (0-5)
[2021-10-24 13:36] LABS: African American GFR (CKD) >90 (>60 ml/min/1.73 sqM); Anion Gap 4 mmol/L; Blood Urea Nitrogen 18 mg/dL (9-20); Carbon Dioxide 26 mmol/L (22-30); Chloride 105 mmol/L (98-107); Glucose 293 mg/dL (74-99); Non-African American GFR(CKD) 85 (>60 ml/min/1.73 sqM); Potassium 4.6 mmol/L (3.5-5.1); Sodium 135 mmol/L (137-145)
[2021-10-24] MEDS ORDERED: cefTRIAXone IN SWFI 1,000 MG/10 ML SYRINGE IVP STA (14:33)
[2021-10-24 14:38] VITALS: BP 148/93
== END 2021-10-24 15:04 | disposition home or self-care (01) ==
LOC: EC 11:10
DX: N39.0 Urinary tract infection, site not specified (principal); E11.65 Type 2 diabetes mellitus with hyperglycemia; I11.0 Hypertensive heart disease with heart failure; I50.9 Heart failure, unspecified; I25.10 Atherosclerotic heart disease of native coronary artery without angina pectoris; J44.9 Chronic obstructive pulmonary disease, unspecified; E78.5 Hyperlipidemia, unspecified; I25.2 Old myocardial infarction; M19.90 Unspecified osteoarthritis, unspecified site; F03.90 Unspecified dementia, unspecified severity, without behavioral disturbance, psychotic disturbance, mood disturbance, and anxiety; F32.A Depression, unspecified; F17.200 Nicotine dependence, unspecified, uncomplicated; Z79.4 Long term (current) use of insulin; Z88.5 Allergy status to narcotic agent; Z87.442 Personal history of urinary calculi
CPT/HCPCS: 99284; 96374; 36415; 80048; 85025; 81001; 87086; J0696

== ENCOUNTER 2022-01-20 14:10 | Inpatient (IN) | payer MEDICARE ==
[2022-01-20] MEDS ORDERED: SODIUM CHLORIDE 0.9% 1,000 ML IV STA (14:20)
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
[2022-01-20 14:37] LABS: Basophils # (A) 0.1 k/uL (0-0.2); Basophils % (A) 1 %; Eosinophils # (A) 0.3 k/uL (0-0.7); Eosinophils % (A) 4 %; HCT 43.4 % (39.0-53.0); HGB 14.3 gm/dL (13.0-17.5); Lymphocytes # (A) 1.6 k/uL (1.0-4.8); Lymphocytes % (A) 25 %; MCV 91.1 fL (80.0-100.0); Mean Platelet Volume 8.6; Monocytes # (A) 0.3 k/uL (0-1.0); Monocytes % (A) 5 %; Neutrophils # (A) 4.1 k/uL (1.3-7.7); Neutrophils % (A) 64 %; Platelet Count 169 k/uL (150-450); RBC 4.76 m/uL (4.30-5.90); RDW 13.5 % (11.5-15.5); WBC 6.3 k/uL (3.8-10.6)
[2022-01-20 14:42] LABS: ALT 8 U/L (4-49); AST 15 U/L (17-59); African American GFR (CKD) >90 (>60 ml/min/1.73 sqM); Albumin 3.4 g/dL (3.5-5.0); Alkaline Phosphatase 98 U/L (38-126); Anion Gap 3 mmol/L; Blood Urea Nitrogen 18 mg/dL (9-20); Calcium 8.3 mg/dL (8.4-10.2); Carbon Dioxide 28 mmol/L (22-30); Chloride 106 mmol/L (98-107); Glucose 243 mg/dL (74-99); Magnesium 2.1 mg/dL (1.6-2.3); Non-African American GFR(CKD) 85 (>60 ml/min/1.73 sqM); Potassium 4.5 mmol/L (3.5-5.1); Sodium 137 mmol/L (137-145); Total Bilirubin 0.4 mg/dL (0.2-1.3); Total Protein 6.3 g/dL (6.3-8.2)
[2022-01-20 14:59] LABS: Prothrombin Time 11.3 sec (9.0-12.0); T4, Free (Free Thyroxine) 0.99 ng/dL (0.78-2.19)
--- NOTE | 2022-01-20 15:07 | XR ---
EXAMINATION TYPE: XR chest 2V DATE OF EXAM: 01/20/2022 COMPARISON: Chest x-ray September 27, 2020 HISTORY: Weakness. TECHNIQUE: Frontal and lateral views of the chest are obtained. FINDINGS: Elevated left hemidiaphragm redemonstrated. There is chronic parenchymal change without josh picious new focal air space opacity, pleural effusion, or pneumothorax seen. The cardiac silhouette size is upper limits of normal with single lead pacemaker redemonstrated along with atherosclerotic a ortic knob. The osseous structures are intact. IMPRESSION: Chronic changes without new acute pulmonary process.
--- NOTE | 2022-01-20 15:13 | CT ---
EXAMINATION TYPE: CT brain wo con DATE OF EXAM: 01/20/2022 COMPARISON: CT dated 05/12/2020 HISTORY: generalized weakness CT DLP: 1099.4 mGycm Automated exposure control for dose reduction was used. TECHNIQUE: CT scan of the brain is performed without IV contrast administration. FINDINGS: Brain volume loss changes, likely age-related. Bilateral cerebral white matter hypodensities, likely representing chronic microvascular ischemic changes. Scattered arterial atherosclerotic calcification s. Interval right basal ganglia chronic infarct. Suspected small bilateral anterior frontal chronic subd ural hygromas measuring up to 8mm on the right side and 6 mm on the left side, appreciated previously . No acute intracranial hemorrhage. No gross acute cortical infarct. No midline shift, herniation or ve ntriculomegaly. Unremarkable basal cisterns, sella and CP angles. No gross space-occupying lesion, va sogenic edema or mass effect. Unremarkable orbits. Mucosal thickening of the sphenoid sinus and ethmoid air cells. Opacified left i nferior mastoid air cells. Unremarkable calvarial bones. IMPRESSION: No acute intracranial abnormality or gross space-occupying lesion by this nonenhanced CT scan. Chroni c and incidental findings as described above.
[2022-01-20 15:23] LABS: Partial Thromboplastin Time 18.6 sec (22.0-30.0)
[2022-01-20 16:00] LABS: Appearance,Urine Clear (Clear); Bilirubin,Urine Negative (Negative); Blood,Urine Negative (Negative); Color,Urine Yellow; Glucose,Urine (UA) 4+ (Negative); Ketones,Urine Negative (Negative); Leukocyte Esterase,Urine Moderate (Negative); Mucus,Urine Rare /hpf; Nitrite,Urine Negative (Negative); PH, Urine 7.5 (5.0-8.0); Protein,Urine Trace (Negative); RBC,Urine 6 /hpf (0-5); Specific Gravity,Urine 1.018 (1.001-1.035); Squamous Epithelial Cell,Urine 5 /hpf (0-4); Urobilinogen,Urine <2.0 mg/dL (<2.0); WBC,Urine 34 /hpf (0-5)
[2022-01-20] MEDS ORDERED: cefTRIAXone IN SWFI 1,000 MG/10 ML SYRINGE IVP STA (16:17)
[2022-01-20] MEDS ORDERED: NALOXONE 0.4 MG/ML 1 ML VIAL IV PRN (16:19)
[2022-01-20 20:00] LABS: Glucose,Whole Blood 203 mg/dL (75-99)
[2022-01-20] MEDS ORDERED: hydrALAZINE HCL 20 MG/ML 1 ML VIAL IVP PRN (20:09)
[2022-01-20] MEDS: METOPROLOL TARTRATE 50 MG TAB PO SCH (22:19)
[2022-01-20] MEDS: ATORVASTATIN 80 MG TAB PO SCH (22:19)
[2022-01-20 23:15] LABS: Glucose,Whole Blood 247 mg/dL (75-99)
[2022-01-20] MEDS: INSULIN ASPART (NovoLOG) 100 UNIT/ML VIAL SQ SCH (23:27)
[2022-01-21 07:08] LABS: Glucose,Whole Blood 165 mg/dL (75-99)
[2022-01-21] MEDS ORDERED: INSULIN ASPART (NovoLOG) 100 UNIT/ML VIAL SQ SCH (07:30)
[2022-01-21] MEDS: SPIRONOLACTONE 25 MG TAB PO SCH (08:03)
[2022-01-21] MEDS: METOPROLOL TARTRATE 50 MG TAB PO SCH ×2 (08:03→22:18)
[2022-01-21] MEDS: INSULIN ASPART (NovoLOG) 100 UNIT/ML VIAL SQ SCH ×4 (08:03→22:18)
[2022-01-21] MEDS: ASPIRIN 81 MG PO SCH (08:03)
[2022-01-21] MEDS: ATORVASTATIN 80 MG TAB PO SCH (08:04)
--- NOTE | 2022-01-21 09:47 | US ---
EXAMINATION TYPE: US carotid duplex BILAT DATE OF EXAM: 01/21/2022 COMPARISON: 05/11/2020 CLINICAL HISTORY: cva. CVA, abnormal speech EXAM MEASUREMENTS: RIGHT: Peak Systolic Velocity (PSV) cm/sec ----- Right CCA: 62.5 ----- Right ICA: 104.8 ----- Right ECA: 108.1 ICA/CCA ratio: 1.7 RIGHT: End Diastole cm/sec ----- Right CCA: 16.4 ----- Right ICA: 17.6 ----- Right ECA: 0.0 LEFT: Peak Systolic Velocity (PSV) cm/sec ----- Left CCA: 88.5 ----- Left ICA: 109.7 ----- Left ECA: 76.8 ICA/CCA ratio: 1.2 LEFT: End Diastole cm/sec ----- Left CCA: 14.4 ----- Left ICA: 24.1 ----- Left ECA: 0.0 VERTEBRALS (direction of flow): Right Vertebral: Antegrade Left Vertebral: Antegrade Rhythm: Normal Heterogeneous plaque bilaterally, with no evidence of significant stenosis bilaterally IMPRESSION: 1. Heterogeneous plaque bilaterally with no diagnostic evidence of significant hemodynamic stenosis Criteria for Assigning % of Stenosis / Diameter reduction (Estimation based on the indirect measurements of the internal carotid artery velocities (ICA PSV). 1. Normal (no stenosis)=ICA PSV < 125 cm/s: ratio < 2.0: ICA EDV<40 cm/s. 2. Less than 50% stenosis=ICA PSV < 125 cm/s: ratio < 2.0: ICA EDV<40 cm/s. 3. 50 to 69% stenosis=ICA PSV of 125 to 230 cm/s: ration 2.0 ? 4.0: ICA EDV 40-100 cm/s. 4. Greater than 70% stenosis to near occlusion= ICA PSV > 230 cm/s: ratio > 4.0: ICA EDV > 100 cm/s. 5. Near occlusion= ICA PSV velocities may be low or undetectable: variable ratio and ICA EDV. 6. Total occlusion=unable to detect flow.
--- NOTE | 2022-01-21 10:45 | CA ---
Transthoracic Echo Report Name: Alireza Ervin Age: 76 Gender: M : 1945 Exam Date: 01/21/2022 07:42 Exam Location: [facility] Ht (in): 62 Wt (lb): 140 Ordering Physician: Bello Holden MD Attending/Referring Phys: Cuff Stitcher Idania Guerrero RDCS Procedure CPT: Indications: systolic CHF Cardiac Hx: Hx of stenting, pacemaker. Technical Quality: Good Contrast 1: Total Dose (mL): Contrast 2: Total Dose (mL): MEASUREMENTS (Male / Female) Normal Values 2D ECHO LA Volume 44.0 cm??? 18 - 58 / 22 - 52 cm??? M-MODE Aortic Root Diameter MM 3.4 cm LA Systolic Diameter MM 3.6 cm LA Ao Ratio MM 1.1 MV E Point Septal Separation 3.6 cm AV Cusp Separation MM 1.8 cm DOPPLER AV Peak Velocity 144.6 cm/s AV Peak Gradient 8.4 mmHg AI Peak Velocity 209.7 cm/s AI Peak Gradient 17.6 mmHg AI Pressure Half Time 471.8 ms MV Area PHT 4.7 cm??? MR Peak Velocity 126.7 cm/s MR Peak Gradient 6.4 mmHg Mitral E Point Velocity 60.9 cm/s Mitral A Point Velocity 75.2 cm/s Mitral E to A Ratio 0.8 MV Deceleration Time 161.7 ms MV E' Velocity 4.0 cm/s Mitral E to MV E' Ratio 15.1 TR Peak Velocity 132.6 cm/s TR Peak Gradient 7.0 mmHg Right Ventricular Systolic Press 21.5 mmHg FINDINGS Left Ventricle Left ventricular cavity size normal. Severe global hypokinesis.left ventricular ejection fraction is estimated at 20-25 %. Right Ventricle The right ventricle is normal in size and function. Right Atrium The right atrium is normal in size. Left Atrium The left atrium is normal in size. Mitral Valve Structurally normal mitral valve without significant stenosis or prolapse. Mitral valve thickened. Mild mitral annular calcification. There is mild mitral regurgitation. Aortic Valve Structurally normal aortic valve without significant sclerosis or stenosis. There is no aortic regurgitation. Tricuspid Valve Structurally normal tricuspid valve without significant stenosis. Pulmonary artery systolic pressure is normal. Mild tricuspid regurgitation. Pulmonic Valve Structurally normal pulmonic valve without significant stenosis. There is no pulmonic regurgitation. Pericardium Normal pericardium without effusion. Aorta Normal aortic root dimension. CONCLUSIONS Severe LV systolic dysfunction Mild mitral regurgitation Previewed by: Dr. Jose Ramon Lucio MD (Electronically Signed) Final Date: 21 Jan 2022 10:44
[2022-01-21 11:25] LABS: Glucose,Whole Blood 183 mg/dL (75-99)
[2022-01-21] MEDS: ACETAMINOPHEN TAB 325 MG TAB PO PRN ×2 (12:25→20:15)
[2022-01-21] MEDS ORDERED: lisinopriL 5 MG TAB PO STA (14:21)
[2022-01-21] MEDS ORDERED: ONDANSETRON 4 MG/2 ML VIAL IVP PRN (14:42)
[2022-01-21 17:10] LABS: Glucose,Whole Blood 214 mg/dL (75-99)
[2022-01-21] MEDS ORDERED: RX INFO: IV CONTRAST WAS GIVEN 1 EACH MISC MISCELLANE PRN (17:24)
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
--- NOTE | 2022-01-21 19:30 | HP ---
HISTORY AND PHYSICAL This 76-year-old white male came in to the hospital with generalized weakness. Last night I examined him in the emergency room. He is unsure of his medicines. I told him his CT scan shows an old CVA. I have a feeling he has not been taking his medications at home after he had his prior stroke. He has not been eating or drinking well recently. He is generalized weak. He states he has been taking his diabetic medications, but he in my opinion is a little bit confused because I know him. Home medicines: Unsure if he is taking everything. ALLERGIES: MORPHINE. Fourteen-point review of systems: Weakness, fatigue, tired. Otherwise negative. PAST MEDICAL HISTORY: Coronary artery disease with two stents in the past, COPD, heart failure, diabetes mellitus, history of GI bleed, dyslipidemia, hypertension, myocardial infarction, osteoarthritis, renal disease, systolic CHF with ejection fraction 20% to 25%. FAMILY HISTORY: Mother with diabetes mellitus. Father with cancer of the colon. PHYSICAL EXAMINATION: He is weak, fatigued, cachectic. Cardiovascular S1-S2. Lungs with scattered rhonchi, wheeze. Blood pressure is high, 170s over 100s. I suspect he has not been taking his blood pressure medicines. Pupils equal, round and reactive. Extremities: No cyanosis, clubbing, edema. GI soft, nontender. He moves 4 extremities. As mentioned, blood pressure was 170s over 100 in the ER. We started him on p.r.n. hydralazine. His home medicines are metoprolol. Temperature 97.3, pulse 82, respiratory rate 16 to 18. EKG sinus rhythm. I suspect he has hypertension acceleration, possibly giving him some encephalopathy. Will have to rule out another stroke, although CT scan shows old stroke. Possibly rehydrate him. Treat for possible UTI. Cardiology to see him, as he has not seen them in years, either. Has had two stents in the past. Prognosis extremely guarded. Maybe get neurology consult also. MMODL / IJN: [id number] /
--- NOTE | 2022-01-21 20:25 | CT ---
EXAMINATION TYPE: CT chest w con DATE OF EXAM: 01/21/2022 COMPARISON: 05/11/2020 HISTORY: COPD. Weakness CT DLP: mGycm Automated exposure control for dose reduction was used. Images obtained from the thoracic inlet to the diaphragm with IV contrast. FINDINGS: There is bullous pulmonary emphysema. There is large bulla in the left upper lobe. There is no medias tinal adenopathy. There are no hilar masses. Thoracic ureter is atheromatous. There is coronary arter y calcification. Heart size is normal. No pericardial effusion. There is some minimal atelectasis at the lung bases. The thoracic spine shows normal alignment of the vertebra. There is a T12 anterior wedging 25% which appears old. IMPRESSION: There is some mild atelectasis at the lung bases increased compared to old exam. Atherosclerotic vasc ular disease. Normal heart size. No evidence of pulmonary embolism. No aortic aneurysm or dissection. Bullous pulmonary emphysema.
[2022-01-21 22:01] LABS: Glucose,Whole Blood 207 mg/dL (75-99)
[2022-01-22 00:06] LABS: LDL Cholesterol,Calculated 182.5 mg/dL (0.0-131.0)
[2022-01-22 07:02] LABS: Glucose,Whole Blood 162 mg/dL (75-99)
[2022-01-22] MEDS: ASPIRIN 81 MG PO SCH (08:27)
[2022-01-22] MEDS: SPIRONOLACTONE 25 MG TAB PO SCH (08:27)
[2022-01-22] MEDS: FOLIC ACID 1 MG TAB PO SCH (08:27)
[2022-01-22] MEDS: lisinopriL 10 MG TAB PO SCH (08:27)
[2022-01-22] MEDS: ATORVASTATIN 80 MG TAB PO SCH (08:27)
[2022-01-22] MEDS: INSULIN ASPART (NovoLOG) 100 UNIT/ML VIAL SQ SCH ×4 (08:27→21:32)
[2022-01-22] MEDS: METOPROLOL TARTRATE 50 MG TAB PO SCH ×2 (08:27→21:32)
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
[2022-01-22 11:10] LABS: Glucose,Whole Blood 331 mg/dL (75-99)
--- NOTE | 2022-01-22 13:03 | P.PN ---
Subjective Progress Note Date: 01/22/22 The patient is seen at bedside and feels he is doing well. Denies of any new neurological issues. Objective - Vital Signs Vital signs: Vital Signs Temp 98.7 F 01/22/22 11:37 Pulse 55 L 01/22/22 11:37 Resp 20 01/22/22 11:37 BP 108/66 01/22/22 11:37 Pulse Ox 94 L 01/22/22 11:37 Intake & Output 01/21/22 01/22/22 01/22/22 18:59 06:59 18:59 Intake Total 1560 200 Balance 1560 200 Intake: Intake, IV Titration 1560 Amount Sodium Chloride 0.9% 1, 1560 000 ml @ 130 mls/hr IV . Q7H42M STA Rx#:[id number] Oral 200 Other: Voiding Method Toilet Urinal - Exam GENERAL: The patient is lying in bed and is not in acute distress. NEUROLOGICAL: Higher mental function: The patient is awake, alert, oriented to self, place and time. Patient is following commands. No aphasia and no neglect. Cranial nerves: The pupils are round, equal and reactive to light and accommodation. Visual mohan are full to confrontation throughout. Extraocular movement is intact no nystagmus is noted. Facial sensation is normal to touch throughout. The facial strength is normal throughout. Hearing is normal bilat erally to hand rub. Tongue is midline and moved [id number] without any difficulty. No dysarthria is noted. Shoulder shrug is normal bilaterally. Motor: Gait is deferred. The strength is left upper forearm is 5-. Otherwise 5 over 5 throughout. Normal tone and bulk. Cerebellum: Normal finger to nose heel to calabrese bilaterally. Sensation: Sensation is normal to touch throughout. Reflexes (right/left): 2+ throughout. Plantars are downgoing bilaterally. WORK-UP: Vitamin B12: 284 (normal is 200-944) Serum folate: 5.60 (normal is 4.4 to 31) Hemoglobin A1c is 9.0 Lipid panel: TG 199, cholestrol 262, DL 182, HDL 39. Patient blood sugar has been in the range of 160s to 240s. TSH is 1.670. Urine analysis seen possible suggestive of urinary tract infection. 2-D echo was reported as severe left ventricle systolic dysfunction. Ejection fraction of 20-25%. Severe global hypokinesis. Left atrium is normal size. Carotid duplex is reported as heterogeneous plaque bilaterally with no diagnostic evidence of significant hemodynamic stenosis. - Labs CBC & Chem 7: 01/20/22 14:26 01/20/22 14:26 Labs: Abnormal Lab Results - Last 24 Hours (Table) 01/21/22 01/21/22 01/21/22 Range/Units 05:25 14:43 17:08 D-Dimer 0.65 H (<0.60) mg/L FEU POC Glucose (mg/dL) 214 H (75-99) mg/dL Triglycerides 199.00 H (0.00-149.00) mg/dL Cholesterol 262.00 H (0.00-200.00) mg/dL LDL Cholesterol, Calc 182.5 H (0.0-131.0) mg/dL HDL Cholesterol 39.70 L (40.00-60.00) mg/dL 01/21/22 01/22/22 01/22/22 Range/Units 21:40 07:00 11:08 D-Dimer (<0.60) mg/L FEU POC Glucose (mg/dL) 207 H 162 H 331 H (75-99) mg/dL Triglycerides (0.00-149.00) mg/dL Cholesterol (0.00-200.00) mg/dL LDL Cholesterol, Calc (0.0-131.0) mg/dL HDL Cholesterol (40.00-60.00) mg/dL Microbiology - Last 24 Hours (Table) 01/20/22 16:29 Blood Culture - Preliminary Blood No Growth after 24 hours 01/20/22 15:28 Urine Culture - Final Urine,Voided Assessment and Plan Assessment: 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 No acute or subacute ischemic stroke on imaging. Etiology likely due small vessel disease due to patient risk factors (DM, hypertension, CAD) Diabetes mellitus and it's uncontrolled patient recent hemoglobin A1c is 9.0 Hypertension and it's uncontrolled Possible acute UTI Low normal vitamin B12 Low normal folate Heart failure appears systolic with recent ejection fraction between 20-25% Pacer History of coronary artery disease status post stent Peripheral diabetic neuropathy Reported memory impairment/dementia Reported history of stomach ulcer with lower GI bleed Nicotine use (1/2 PPD for years) Plan: Patient is continued on his home medication of aspirin 81 mg daily and Lipitor 80 mg. I will not start the patient on dual antiplatelet since this is an old stroke and second the patient has history of lower GI bleed. Because of low normal vitamin B12: I started patient on VItamin B12 1000mcg IM for today and tomorrow then PO daily after that. Because of low normal folate, started on folic acid 1mg daily. PT and OT are consulted Recommended the patient to control his symptoms better of his hypertension, diabetes and his cardiac. Cardiology is consulted by the primary team Patient is counseled on tobacco cessation for 3 minutes. Upon discharge recommended the patient to follow-up with a neurologist within 3 weeks. The plan was discussed with the patient nurse. There is no further neurological work-up. Neurology will sign off. Please reconsult if needed. Augie Mazariegos M.D. Neuro-Hospitalist Time with Patient: Less than 30
--- NOTE | 2022-01-22 15:32 | PN ---
PROGRESS NOTE This is a 76-year-old white male with bullous emphysema on CT scan. He has an old stroke. He has a history heart disease with two stents. hypertension with encephalopathy whenever his balance is off when he walks secondary to super high hypertension. He ran out of all his pills at home except for his insulin. He ran out of all his blood pressure and stroke medications 2 to 3 weeks ago. Currently right now he is saturating 94 on room air, temperature 98.7, blood pressure 108/66. Cardiovascular S1-S2. Lungs with mild wheeze. Psych poor mood and affect. Cardiology saw the patient today as well as a neurologist. His echo shows 20% to 25% ejection fraction. He has generalized weakness, dizziness secondary to hypertension, encephalopathy, atypical chest pain, COPD, coronary artery disease, ischemic cardiomyopathy, AICD, hypertension, dyslipidemia, diabetes, insulin-dependent, noncompliant. He is on aspirin, Lipitor, Aldactone, metoprolol and lisinopril. Will get him ambulating with PT/OT, possible discharge home once cleared by Neurology. He had gait imbalance I think secondary to hypertension with encephalopathy. was cleared by neuro also. There is no plaque of any significance in his carotid arteries. A1c is 9. He will need better control and followup as an outpatient. MMODL / IJN: [id number] /
[2022-01-22 16:46] LABS: Glucose,Whole Blood 201 mg/dL (75-99)
[2022-01-22 17:00] VITALS: BMI 17.9
[2022-01-22 20:13] LABS: Glucose,Whole Blood 194 mg/dL (75-99)
[2022-01-23 06:52] LABS: Glucose,Whole Blood 199 mg/dL (75-99)
--- NOTE | 2022-01-23 08:46 | P.PN ---
Subjective Progress Note Date: 01/23/22 HISTORY OF PRESENT ILLNESS: This is a 76-year-old male with a past medical history significant for ischemic cardiomyopathy, coronary artery disease with previous stenting by Dr. Theodore, congestive heart failure, hypertension, hyperlipidemia, and diabetes. Patient follows in the office with Dr. Hawthorne but has not been seen since August 2020. The patient did have a single-chamber ICD implantation with Dr. Hawthorne in September 2020. We have been asked to see the patient in consultation for CAD. Patient examined at the bedside. Patient presented to the hospital with a chief complaint of generalized weakness. He also reports dizziness when he turns his head side to side or puts his chin to his chest. He reports having some mild chest pain prior to coming to the hospital but denies any CP this morning. Denies any SOB. * EKG reveals sinus mechanism with no signs of acute ischemia * Chest xray chronic changes without new acute pulmonary process * Laboratory data: WBC 6.3. Hemoglobin 14.3. Platelet count 169. Sodium 137. Potassium 4.5. BUN 18. Creatinine 0.83. Troponin negative 1 * Current home cardiac medications include aspirin 81 mg daily, metoprolol tartrate 50 mg twice a day, Lipitor 80 mg daily, spironolactone 12.5 mg daily * Carotid Doppler completed with no diagnostic evidence of significant hemodynamic stenosis * Echocardiogram completed revealing ejection fraction 20-25%, mild MR, mild TR * Cardiac catheterization history: April 2020 with stenting of the first obtuse marginal branch of circumflex and stenting of the mid circumflex. Mid LAD that was previously stented was widely patent. Second diagonal that was previously stented was also patent. The RCA was found to be a very large dominant vessel that had a 30-40% narrowing in the proximal portion and the stented segment was widely patent 01/23/2022 Patient examined this morning at the bedside. Patient denies any chest pain or pressure. He denies shortness of breath. Blood pressure remains slightly elevated this morning with a reading of 160/82. PHYSICAL EXAM: VITAL SIGNS: Reviewed. GENERAL: Well-developed in no acute distress. HEENT: Head is normocephalic. Pupils are equal, round. Sclerae anicteric. Mucous membranes of the mouth are moist. Neck supple. No JVD or thyromegaly LUNGS: Respirations even and unlabored. Lungs essentially clear to auscultation bilaterally. HEART: Regular rate and rhythm. S1 and S2 heard. ABDOMEN: Soft. Nondistended. Nontender. EXTREMITIES: Normal range of motion. No clubbing or cyanosis. Peripheral pulses intact. No lower extremity edema NEUROLOGIC: Awake and alert. Oriented x 3. ASSESSMENT: Generalized weakness Dizziness Chest pain, atypical, troponin negative Coronary artery disease with previous multivessel stenting Ischemic cardiomyopathy with previous AICD implantation Chronic congestive heart failure with reduced EF Hypertension Hyperlipidemia Diabetes History of medical noncompliance PLAN: Continue aspirin, Lipitor, lisinopril, Aldactone and metoprolol Increase metoprolol to 75 mg twice a day Continue to monitor blood pressure Patient is currently stable for discharge from a cardiac standpoint Further recommendations pending patient course Nurse practitioner note has been reviewed by physician. Signing provider agrees with the documented findings, assessment, and plan of care. Objective - Vital Signs Vital signs: Vital Signs Temp 97.9 F 01/23/22 04:43 Pulse 64 01/23/22 04:43 Resp 18 01/23/22 04:43 BP 168/82 01/23/22 04:43 Pulse Ox 92 L 01/23/22 04:43 Intake & Output 01/22/22 01/23/22 01/23/22 18:59 06:59 18:59 Intake Total 540 Output Total 250 Balance 540 -250 Weight 63.503 kg Intake: Oral 540 Output: Urine 250 Other: Voiding Method Toilet Urinal # Voids 4 2 - Labs CBC & Chem 7: 01/20/22 14:26 01/20/22 14:26 Labs: Abnormal Lab Results - Last 24 Hours (Table) 01/22/22 01/22/22 01/22/22 Range/Units 11:08 16:44 20:00 POC Glucose (mg/dL) 331 H 201 H 194 H (75-99) mg/dL 01/23/22 Range/Units 06:51 POC Glucose (mg/dL) 199 H (75-99) mg/dL Microbiology - Last 24 Hours (Table) 01/20/22 16:29 Blood Culture - Preliminary Blood No Growth after 48 hours
[2022-01-23] MEDS ORDERED: METOPROLOL TARTRATE 25 MG TAB PO SCH (09:00)
[2022-01-23] MEDS: INSULIN ASPART (NovoLOG) 100 UNIT/ML VIAL SQ SCH ×2 (09:22→12:52)
[2022-01-23] MEDS: SPIRONOLACTONE 25 MG TAB PO SCH (09:23)
[2022-01-23] MEDS: lisinopriL 10 MG TAB PO SCH (09:23)
[2022-01-23] MEDS: ATORVASTATIN 80 MG TAB PO SCH (09:23)
[2022-01-23] MEDS: ASPIRIN 81 MG PO SCH (09:23)
[2022-01-23] MEDS: FOLIC ACID 1 MG TAB PO SCH (09:23)
[2022-01-23 12:05] LABS: Glucose,Whole Blood 207 mg/dL (75-99)
[2022-01-23 12:36] VITALS: BP 147/83; PULSE 67; RESP 20; TEMP 98.3
--- NOTE | 2022-01-23 15:18 | DS ---
DISCHARGE SUMMARY DATE OF DISCHARGE: 01/23/2022 DATE OF ADMISSION: 01/20/2022 DIAGNOSES: 1. Ischemic cardiomyopathy. 2. Coronary artery disease. 3. Hypertensive encephalopathy. 4. Gait imbalance. 5. Insulin-dependent diabetes mellitus, noncompliant. This patient came to the hospital with dizziness, weakness, fatigue. CT scan shows an old stroke. Neurology cleared him for discharge, put him back on his hypertension medicines that he ran out of and his cardiac medicines. Cardiology cleared him for discharge. Carotid shows no significant blockage. Insulin was adjusted to what we saw in the hospital. Echo showed 20% to 25% ejection fraction, which he had 2 to 3 years ago when he had two stents placed by Cardiology, who says there is no reason to do any stress test or heart catheterization at this point. Because of his gait imbalance, he will have to go up to [facility] on the [place] for physical therapy. Medicines as above. Diet as tolerated. PT/OT. Condition stable. Prognosis guarded. MMAMIRAL / IGNACION: [id number] /
[2022-01-23 17:10] LABS: Glucose,Whole Blood 202 mg/dL (75-99)
[2022-01-23] MEDS ORDERED: CYANOCOBALAMIN 1,000 MCG/ML 1 ML VIAL IM SCH (20:00)
[2022-01-24] MEDS ORDERED: CYANOCOBALAMIN 500 MCG TAB PO SCH (09:00)
== END 2022-01-23 17:45 | disposition home or self-care (01) | DRG 78 ==
LOC: EC 14:10 → 5NMEDONC 16:19
PROVIDERS: ADMIT Family Medicine; ATTEND Family Medicine
DX: I67.4 Hypertensive encephalopathy (principal); I50.22 Chronic systolic (congestive) heart failure; N39.0 Urinary tract infection, site not specified; G96.08 Other cranial cerebrospinal fluid leak; E86.0 Dehydration; E11.42 Type 2 diabetes mellitus with diabetic polyneuropathy; E78.5 Hyperlipidemia, unspecified; F17.210 Nicotine dependence, cigarettes, uncomplicated; I11.0 Hypertensive heart disease with heart failure; F03.90 Unspecified dementia, unspecified severity, without behavioral disturbance, psychotic disturbance, mood disturbance, and anxiety; I25.10 Atherosclerotic heart disease of native coronary artery without angina pectoris; J30.9 Allergic rhinitis, unspecified; H53.8 Other visual disturbances; I25.5 Ischemic cardiomyopathy; J43.9 Emphysema, unspecified; T38.3X6A Underdosing of insulin and oral hypoglycemic [antidiabetic] drugs, initial encounter; Z20.822 Contact with and (suspected) exposure to COVID-19; Z96.1 Presence of intraocular lens; Z91.19 Patient's noncompliance with other medical treatment and regimen; I25.2 Old myocardial infarction; Z98.42 Cataract extraction status, left eye; Z95.5 Presence of coronary angioplasty implant and graft; Z87.19 Personal history of other diseases of the digestive system; Z87.11 Personal history of peptic ulcer disease; Z79.4 Long term (current) use of insulin; Z79.82 Long term (current) use of aspirin; Z88.5 Allergy status to narcotic agent; Z79.899 Other long term (current) drug therapy; Z86.73 Personal history of transient ischemic attack (TIA), and cerebral infarction without residual deficits; Z87.442 Personal history of urinary calculi; Z87.820 Personal history of traumatic brain injury; Z95.810 Presence of automatic (implantable) cardiac defibrillator; Z80.0 Family history of malignant neoplasm of digestive organs; Z83.3 Family history of diabetes mellitus
CPT/HCPCS: 36415; 70450; 71046; 71260; 80053; 80061; 81001; 82533; 82607; 82746; 83036; 83605; 83735; 83880; 84439; 84443; 84481; 84484; 85025; 85379; 85610; 85730; 87040; 87086; 87635; 93005; 93306; 93880; 96361; 96374; 99285

== ENCOUNTER 2022-01-24 05:52 | Emergency (ER) | payer MEDICARE ==
[2022-01-24 06:00] VITALS: TEMP 98.4
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
[2022-01-24 07:16] LABS: Basophils # (A) 0.1 k/uL (0-0.2); Basophils % (A) 1 %; Eosinophils # (A) 0.4 k/uL (0-0.7); Eosinophils % (A) 4 %; HGB 13.8 gm/dL (13.0-17.5); Lymphocytes # (A) 1.8 k/uL (1.0-4.8); Lymphocytes % (A) 21 %; MCH 29.3 pg (25.0-35.0); MCHC 32.1 g/dL (31.0-37.0); MCV 91.3 fL (80.0-100.0); Mean Platelet Volume 8.7; Monocytes # (A) 0.4 k/uL (0-1.0); Monocytes % (A) 5 %; Neutrophils # (A) 5.6 k/uL (1.3-7.7); Neutrophils % (A) 67 %; Platelet Count 166 k/uL (150-450); RBC 4.71 m/uL (4.30-5.90); RDW 12.8 % (11.5-15.5); WBC 8.3 k/uL (3.8-10.6)
[2022-01-24 07:27] LABS: ALT 12 U/L (4-49); AST 21 U/L (17-59); African American GFR (CKD) >90 (>60 ml/min/1.73 sqM); Albumin 3.4 g/dL (3.5-5.0); Alkaline Phosphatase 92 U/L (38-126); Anion Gap 3 mmol/L; Blood Urea Nitrogen 17 mg/dL (9-20); Calcium 8.6 mg/dL (8.4-10.2); Carbon Dioxide 24 mmol/L (22-30); Chloride 108 mmol/L (98-107); Glucose 155 mg/dL (74-99); Non-African American GFR(CKD) 89 (>60 ml/min/1.73 sqM); Potassium 4.6 mmol/L (3.5-5.1); Sodium 135 mmol/L (137-145); Total Bilirubin 0.8 mg/dL (0.2-1.3); Total Protein 6.3 g/dL (6.3-8.2)
[2022-01-24 07:28] LABS: Appearance,Urine Clear (Clear); Bilirubin,Urine Negative (Negative); Blood,Urine Negative (Negative); Color,Urine Light Yellow; Glucose,Urine (UA) Negative (Negative); Ketones,Urine Negative (Negative); Leukocyte Esterase,Urine Small (Negative); Mucus,Urine Rare /hpf; Nitrite,Urine Negative (Negative); Protein,Urine Negative (Negative); RBC,Urine 2 /hpf (0-5); Urobilinogen,Urine <2.0 mg/dL (<2.0); WBC,Urine 10 /hpf (0-5)
--- NOTE | 2022-01-24 07:40 | CT ---
EXAM: CT Head Without Intravenous Contrast CLINICAL HISTORY: ITS.REASON CT Reason: Pain after fall TECHNIQUE: Axial computed tomography images of the head/brain without intravenous contrast. CTDI is 45.2 mGy and DLP is 1004 mGy-cm. This CT exam was performed using one or more of the following dose reduction techniques: automated exposure control, adjustment of the mA and/or kV according to patient size, and/or use of iterative reconstruction technique. COMPARISON: No relevant prior studies available. FINDINGS: Brain: Unremarkable. No hemorrhage. Patchy periventricular white matter hypoattenuation which is nonspecific most commonly seen in the setting of small vessel ischemic disease. No edema. Ventricles: Unremarkable. No ventriculomegaly. Bones/joints: Unremarkable. No acute fracture. Soft tissues: Unremarkable. Sinuses: Unremarkable as visualized. No acute sinusitis. Mastoid air cells: Unremarkable as visualized. No mastoid effusion. IMPRESSION: No acute intracranial process. EXAM: CT Cervical Spine Without Intravenous Contrast CLINICAL HISTORY: ITS.REASON CT Reason: Pain after fall TECHNIQUE: Axial computed tomography images of the cervical spine without intravenous contrast. CTDI is 14 mGy and DLP is 451.5 mGy-cm. This CT exam was performed using one or more of the following dose reduction techniques: automated exposure control, adjustment of the mA and/or kV according to patient size, and/or use of iterative reconstruction technique. COMPARISON: No relevant prior studies available. FINDINGS: Vertebrae: Unremarkable. No acute fracture. Discs/spinal canal/neural foramina: No acute findings. No spinal canal stenosis. Mild degenerative disc disease of the mid and lower cervical spine. Soft tissues: Unremarkable. Severe centrilobular emphysema in the bilateral apices. IMPRESSION: No acute fractures or spondylolisthesis cervical spine.
--- NOTE | 2022-01-24 08:04 | XR ---
EXAM: XR Pelvis, 1 or 2 Views CLINICAL HISTORY: ITS.REASON XR Reason: Pain after fall TECHNIQUE: Frontal view of the pelvis. COMPARISON: No relevant prior studies available. FINDINGS: Bones/joints: Unremarkable. No acute fracture. No dislocation. Soft tissues: Unremarkable. IMPRESSION: Normal pelvis x-ray.
--- NOTE | 2022-01-24 08:04 | XR ---
EXAM: XR Chest, 1 View CLINICAL HISTORY: ITS.REASON XR Reason: Pain after fall TECHNIQUE: Frontal view of the chest. COMPARISON: No relevant prior studies available. FINDINGS: Lungs: Unremarkable. No consolidation. Pleural space: Unremarkable. No pneumothorax. Heart: Left chest pacer in place. No cardiomegaly. Mediastinum: Unremarkable. Bones/joints: Unremarkable. IMPRESSION: Normal chest x-ray.
[2022-01-24 09:23] VITALS: BP 162/84; PULSE 63; RESP 20
== END 2022-01-24 10:30 | disposition home or self-care (01) ==
LOC: EC 05:52
DX: M54.2 Cervicalgia (principal); R51.9 Headache, unspecified; E11.36 Type 2 diabetes mellitus with diabetic cataract; E78.5 Hyperlipidemia, unspecified; F17.200 Nicotine dependence, unspecified, uncomplicated; I11.0 Hypertensive heart disease with heart failure; I25.2 Old myocardial infarction; I50.9 Heart failure, unspecified; J44.9 Chronic obstructive pulmonary disease, unspecified; M19.90 Unspecified osteoarthritis, unspecified site; Z79.82 Long term (current) use of aspirin; Z88.5 Allergy status to narcotic agent; Z79.899 Other long term (current) drug therapy; W18.30XA Fall on same level, unspecified, initial encounter; Y92.129 Unspecified place in nursing home as the place of occurrence of the external cause
CPT/HCPCS: 36415; 70450; 71045; 72125; 72170; 80053; 81001; 84484; 85025; 93005; 99284

== ENCOUNTER 2022-02-05 13:31 | Emergency (ER) | payer MEDICARE ==
[2022-02-05 13:41] VITALS: RESP 18
[2022-02-05 13:49] LABS: Glucose,Whole Blood 281 mg/dL (75-99)
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
[2022-02-05 14:57] LABS: Glucose,Whole Blood 152 mg/dL (75-99)
[2022-02-05 15:24] LABS: Glucose,Whole Blood 120 mg/dL (75-99)
[2022-02-05 15:36] VITALS: BP 167/97; PULSE 79; TEMP 98.4
== END 2022-02-05 15:36 | disposition home or self-care (01) ==
LOC: EC 13:31
DX: T38.3X1A Poisoning by insulin and oral hypoglycemic [antidiabetic] drugs, accidental (unintentional), initial encounter (principal); I25.10 Atherosclerotic heart disease of native coronary artery without angina pectoris; I11.0 Hypertensive heart disease with heart failure; I25.2 Old myocardial infarction; J44.9 Chronic obstructive pulmonary disease, unspecified; Z79.1 Long term (current) use of non-steroidal anti-inflammatories (NSAID); F17.200 Nicotine dependence, unspecified, uncomplicated; Z88.5 Allergy status to narcotic agent
CPT/HCPCS: 36415

== ENCOUNTER 2022-02-18 14:40 | Inpatient (IN) | payer MEDICARE ==
[2022-02-18] MEDS ORDERED: SODIUM CHLORIDE 0.9% 500 ML 500 ML IV STA (15:04)
[2022-02-18 15:23] LABS: Basophils # (A) 0.1 k/uL (0-0.2); Basophils % (A) 1 %; Eosinophils # (A) 0.3 k/uL (0-0.7); Eosinophils % (A) 4 %; HCT 42.1 % (39.0-53.0); HGB 13.4 gm/dL (13.0-17.5); Lymphocytes # (A) 1.6 k/uL (1.0-4.8); Lymphocytes % (A) 24 %; MCH 29.3 pg (25.0-35.0); MCHC 31.9 g/dL (31.0-37.0); MCV 91.8 fL (80.0-100.0); Monocytes # (A) 0.3 k/uL (0-1.0); Monocytes % (A) 5 %; Neutrophils # (A) 4.1 k/uL (1.3-7.7); Neutrophils % (A) 64 %; Platelet Count 136 k/uL (150-450); RBC 4.58 m/uL (4.30-5.90); RDW 13.1 % (11.5-15.5); WBC 6.4 k/uL (3.8-10.6)
[2022-02-18 15:29] LABS: ALT 11 U/L (4-49); AST 17 U/L (17-59); African American GFR (CKD) >90 (>60 ml/min/1.73 sqM); Albumin 3.7 g/dL (3.5-5.0); Alkaline Phosphatase 115 U/L (38-126); Anion Gap 4 mmol/L; Blood Urea Nitrogen 13 mg/dL (9-20); Calcium 8.4 mg/dL (8.4-10.2); Carbon Dioxide 26 mmol/L (22-30); Chloride 107 mmol/L (98-107); Glucose 168 mg/dL (74-99); Non-African American GFR(CKD) >90 (>60 ml/min/1.73 sqM); Potassium 4.2 mmol/L (3.5-5.1); Sodium 137 mmol/L (137-145); Total Bilirubin 0.6 mg/dL (0.2-1.3); Total Protein 6.4 g/dL (6.3-8.2)
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
--- NOTE | 2022-02-18 15:31 | CT ---
EXAMINATION TYPE: CT brain wo con DATE OF EXAM: 02/18/2022 COMPARISON: 01/24/2022 HISTORY: 76-year-old male neurologic deficit, acute, stroke suspected. CVA. TECHNIQUE: Examination was done in axial plane without intravenous contrast. Coronal and sagittal r econstructions performed. CT DLP: 1091.6 mGycm Automated exposure control for dose reduction was used. FINDINGS: Similar moderate volume loss overlying the bilateral cerebral convexities. Moderate patchy white matter hypodensities in both cerebral hemispheres. Area of old white matter infarct right kelly radiata. Prominent atherosclerotic calcifications before segment left vertebral artery and also within the car otid siphons. There is no evidence of acute intracranial hemorrhage, acute ischemic changes, mass, mass-effect, or extra-axial fluid collection. There is no effacement of cerebral sulci or basal subarachnoid cister ns. There is no hydrocephalus. There is no midline shift. Fisher-white matter distinction is preserv ed. Mild mucosal thickening ethmoid air cells. Mastoid air cells well pneumatized. Orbits and globes are intact. IMPRESSION: Similar moderate cerebral cortical atrophy and moderate patchy burden of chronic small vessel ischemi c disease. No acute intracranial abnormality seen.
[2022-02-18 15:43] LABS: INR 1.1 (<1.2); Partial Thromboplastin Time 23.4 sec (22.0-30.0); Prothrombin Time 11.8 sec (9.0-12.0)
--- NOTE | 2022-02-18 15:54 | CT ---
EXAMINATION TYPE: CT angio head neck DATE OF EXAM: 02/18/2022 HISTORY: cva COMPARISON: Unenhanced CT brain performed earlier same day CT DLP: 459.7 mGycm. Automated Exposure Control for Dose Reduction was Utilized. TECHNIQUE: CTA scan of the head and neck is performed with IV Contrast, patient injected with 65cc m L of Isovue 370, axial images are obtained, coronal and sagittal reformatted images are reviewed. 3D reconstructed images are created on an independent workstation and reviewed. FINDINGS: Carotid/Vascular Structures: Dominant left vertebral artery with hypoplastic right-sided one ending m ainly as a right-sided right PICA. Scattered arterial atherosclerotic calcification and tortuosity. 2 0% stenosis of the proximal portion of the left internal carotid artery by a partially calcified athe romatous plaque. 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 Otherwise normal caliber and enhancement of the major neck elli sweetie and intracranial arteries without significant stenosis, occlusion, dissection, aneurysm or AV ma lformation. Patent intracranial venous sinuses. Other: COPD changes. No intracranial abnormal enhancement. Osteopenia. Degenerative changes of the ce rvical spine. IMPRESSION: No significant arterial stenosis, occlusion, dissection or aneurysm. Atherosclerotic changes and othe r incidental findings as described above.
--- NOTE | 2022-02-18 16:40 | XR ---
EXAMINATION TYPE: XR chest 2V DATE OF EXAM: 02/18/2022 COMPARISON: X-ray dated 01/24/2022 HISTORY: Altered mental status TECHNIQUE: Frontal and lateral views of the chest are obtained. FINDINGS: Questionable atelectasis in the left lung base. Grossly unremarkable lungs otherwise. No sizable pleu ral effusion or definite pneumothorax. No gross cardiomegaly. Aortic atherosclerotic calcification. Left chest wall single-lead pacemaker. D egenerative changes of the thoracic spine. Osteopenia. IMPRESSION: As above.
[2022-02-18] MEDS ORDERED: ASPIRIN 325 MG TAB PO STA (16:53)
[2022-02-18] MEDS: CLOPIDOGREL 75 MG TAB PO SCH (17:59)
[2022-02-18 20:36] LABS: Glucose,Whole Blood 180 mg/dL (75-99)
[2022-02-18] MEDS: HEPARIN SODIUM,PORCINE/PF 5,000 UNIT/0.5 ML SYRINGE SQ SCH (22:42)
[2022-02-18] MEDS: ATORVASTATIN 80 MG TAB PO SCH (22:42)
[2022-02-19 06:11] LABS: Glucose,Whole Blood 159 mg/dL (75-99)
[2022-02-19] MEDS ORDERED: ASPIRIN 325 MG TAB PO SCH (09:00)
[2022-02-19 09:26] VITALS: BMI 23.1
[2022-02-19] MEDS: FOLIC ACID 1 MG TAB PO SCH (09:46)
[2022-02-19] MEDS: CLOPIDOGREL 75 MG TAB PO SCH (09:46)
[2022-02-19] MEDS: METOPROLOL TARTRATE 25 MG TAB PO SCH ×2 (09:46→21:07)
[2022-02-19] MEDS: HEPARIN SODIUM,PORCINE/PF 5,000 UNIT/0.5 ML SYRINGE SQ SCH ×2 (09:46→21:05)
[2022-02-19] MEDS: lisinopriL 10 MG TAB PO SCH (09:46)
[2022-02-19] MEDS: SPIRONOLACTONE 25 MG TAB PO SCH (09:47)
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
[2022-02-19 11:52] LABS: Glucose,Whole Blood 245 mg/dL (75-99)
[2022-02-19] MEDS: CYANOCOBALAMIN 500 MCG TAB PO SCH (12:17)
[2022-02-19] MEDS: INSULN ASP PRT/INSULIN ASPART 100 UNIT/ML 10 ML VIAL SQ SCH ×2 (13:06→17:33)
--- NOTE | 2022-02-19 15:38 | HP ---
HISTORY AND PHYSICAL He is evaluated in the emergency room on 02/18/2022 He came in with a history of a right basal ganglia stroke. He was in the hospital about a month ago for hypertension acceleration with dizziness and impairment. He was negative for stroke back then. He was cleared by Neurology on last admission. He had ejection fraction 20 to 25% with a pacemaker, coronary artery disease, diabetic neuropathy, insulin-dependent diabetes mellitus, uncontrolled hypertension, which has been uncontrolled. He states he has been taking his insulin and his blood pressure medicines at home. He has not missed any medicines since he got out of the intermediate about a week ago. He was admitted to rule out stroke due to right-sided weakness. CT of the head and neck was negative. Waiting for neurology recommendations. PAST MEDICAL HISTORY: Coronary artery disease, insulin-dependent diabetes mellitus, hypertension, history of prior stroke. Please see further in H&P. SURGERIES: He has had stents in his heart, hernia repair, orthopedic surgery, colonoscopy with polypectomy, right inguinal hernia repair. FAMILY HISTORY: Mother diabetes mellitus. Father with some kind of cancer, unclear. MEDICATIONS: Home medicines see list. ALLERGIES: MORPHINE. PHYSICAL EXAMINATION: Blood pressure high in the ER, was up to I want to say near 200/80-90, the last one I see is like 170s to 160s over 96 to 91. Cardiovascular S1, S2. Neurologic: He has some mild right-sided weakness, 4/5 upper and lower extremity. Left side is 5/5. He has slurred speech. Sticks his tongue out appropriately, given appropriate answers. Lungs scattered wheeze times 4. Hematology: Negative Homans. Psych: Fair mood and affect. Labs reviewed. ASSESSMENT: 1. Rule out cerebrovascular accident, acute neurologic change. 2. Hypertension acceleration. 3. Insulin-dependent diabetes mellitus. 4. 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 5. Mild dementia. 6. Numbness in the face and extremities. 7. Low vitamin B12 level. 8. Normal folate. 9. Ischemic cardiomyopathy with pacemaker, status post stent. 10.Diabetic neuropathy. 11.History of gastrointestinal bleed with stomach ulcer. 12.Nicotine addiction. Wait for Neurology recommendations. Please see further orders. I saw him in the ER on 02/18/2022. MMODL / IJN: [id number] /
[2022-02-19 15:40] LABS: Chol/HDL Ratio 4.33 Ratio; LDL Cholesterol,Calculated 95.1 mg/dL (0.0-131.0)
[2022-02-19 16:55] LABS: Glucose,Whole Blood 98 mg/dL (75-99)
[2022-02-19 20:22] LABS: Glucose,Whole Blood 147 mg/dL (75-99)
[2022-02-19] MEDS: ATORVASTATIN 80 MG TAB PO SCH (21:05)
--- NOTE | 2022-02-19 21:53 | PN ---
PROGRESS NOTE This patient is going to get a repeat CT scan in the morning. He has improved from the medical standpoint. He just has difficulty with his right arm weakness. He is able to open his fingers, but he has 3-1/2 out of 5 strength in them. Wait for neurology recommendations. Repeat CT scan in the morning. He has less garbled speech today. Cardiovascular S1, S2. Hematology negative Homans. Temperature 97.9, respiratory rate 18 to 20, pulse 64, blood pressure 109/67, O2 94% on room air. ASSESSMENT: Probable cerebrovascular accident with right-sided weakness. Wait for neurology recommendations. Angiography CT showed no obstruction. We are going to repeat brain CT scan in the morning again. He has no significant stenosis. Possibly will have to do an echo with a bubble study to rule out some kind of embolic CVA. Prognosis is guarded. Await neurology recommendations. MMAMIRAL / IJN: [id number] /
[2022-02-20] MEDS: INSULN ASP PRT/INSULIN ASPART 100 UNIT/ML 10 ML VIAL SQ SCH ×2 (06:56→18:12)
[2022-02-20 06:57] LABS: Glucose,Whole Blood 156 mg/dL (75-99)
[2022-02-20] MEDS: CYANOCOBALAMIN 500 MCG TAB PO SCH (09:47)
[2022-02-20] MEDS: HEPARIN SODIUM,PORCINE/PF 5,000 UNIT/0.5 ML SYRINGE SQ SCH ×2 (09:47→21:03)
[2022-02-20] MEDS: SPIRONOLACTONE 25 MG TAB PO SCH (09:47)
[2022-02-20] MEDS: METOPROLOL TARTRATE 25 MG TAB PO SCH ×2 (09:47→21:03)
[2022-02-20] MEDS: lisinopriL 10 MG TAB PO SCH (09:48)
[2022-02-20] MEDS: CLOPIDOGREL 75 MG TAB PO SCH (09:48)
[2022-02-20] MEDS: FOLIC ACID 1 MG TAB PO SCH (09:48)
--- NOTE | 2022-02-20 10:50 | CA ---
Transthoracic Echo Report Name: Alireza Ervin Age: 76 Gender: M : 1945 Exam Date: 02/20/2022 08:01 Exam Location: [facility] Ht (in): 72 Wt (lb): 180 Ordering Physician: Clayton Goode DO Attending/Referring Phys: Cathode Maker Rani Estrada RDCS Procedure CPT: Indications: embolic CVA Cardiac Hx: Echo done 01/21/22 Repeat Echo with [facility]. Technical Quality: Technically difficult study Contrast 1: [facility] Total Dose (mL): 3 Contrast 2: Total Dose (mL): MEASUREMENTS (Male / Female) Normal Values FINDINGS Left Ventricle Left ventricular ejection fraction is estimated at 35 -40% Right Ventricle Normal right ventricular size and function. Right Atrium Left Atrium Mitral Valve Aortic Valve Tricuspid Valve Pulmonic Valve Pericardium Aorta CONCLUSIONS #1. Study done with [facility]. Left ventricular function appears to be mild to moderate impaired with global hypokinesia. Ejection fraction probably around 40% Previewed by: Dr. Eric Mcmanus MD (Electronically Signed) Final Date: 20 February 2022 10:49
--- NOTE | 2022-02-20 11:30 | CT ---
EXAMINATION TYPE: CT brain wo con DATE OF EXAM: 02/20/2022 COMPARISON: CT dated 02/18/2022 HISTORY: Right arm weakness, Stroke CT DLP: 1143.4 mGycm Automated exposure control for dose reduction was used. TECHNIQUE: CT scan of the brain is performed without IV contrast administration. FINDINGS: Brain volume loss changes, likely age-related. Bilateral cerebral white matter hypodensities, likely representing chronic microvascular ischemic changes. Scattered bilateral cerebral small lacunar infar cts, stable. Scattered arterial atherosclerotic calcifications. No acute intracranial hemorrhage. No gross acute cortical infarct. No midline shift, herniation or ve ntriculomegaly. Unremarkable basal cisterns, sella and CP angles. No gross space-occupying lesion, va sogenic edema or mass effect. Unremarkable orbits. Clear visualized paranasal sinuses. Opacified inferior mastoid air cells. Osteop enia. IMPRESSION: No acute intracranial hemorrhage or gross acute cortical infarct. Chronic findings as described above .
[2022-02-20 12:12] LABS: Glucose,Whole Blood 128 mg/dL (75-99)
--- NOTE | 2022-02-20 15:53 | P.PN ---
Subjective Progress Note Date: 02/20/22 The patient is seen at bedside and continues to have right arm weakness and numbness. Denies any new neurological deficits. Objective - Vital Signs Vital signs: Vital Signs Temp 97.8 F 02/20/22 07:47 Pulse 64 02/20/22 08:00 Resp 17 02/20/22 08:00 BP 148/81 02/20/22 07:47 Pulse Ox 94 L 02/20/22 12:58 FiO2 Intake & Output 02/19/22 02/20/22 02/20/22 18:59 06:59 18:59 Intake Total 354 240 Output Total 300 Balance 354 -60 Weight 81.647 kg Intake: Oral 354 240 Output: Urine 300 Other: Voiding Method Urinal Urinal Urinal # Voids 1 1 # Bowel Movements 2 - Exam GENERAL: The patient is lying in bed and is not in acute distress. NEUROLOGICAL: Higher mental function: The patient is awake, alert, oriented to self, place. He correctly stated the currently year but stated the month is April. Patient is following simple commands. No aphasia and no neglect. Cranial nerves: The pupils are round, equal and reactive to light. Visual mohan are full to confrontation throughout. Extraocular movement is intact no nystagmus is noted. Facial sensation is decrease to touch over the right V2 distribution. The facial strength is normal throughout. Hearing is mildly decreased bilaterally to hand rub. Tongue is midline and moved [id number] without any difficulty. No dysarthria is noted. Shoulder shrug is normal bilaterally. Motor: The strength is right upper extremity is 3-4 and has right pronator drift. Right lower is 4. Otherwise left is 5/5. Slightly decreased tone over the right upper. Normal bulk. Cerebellum: Normal finger to nose bilaterally. Sensation: Sensation is decreased over the right upper extremity to touch. Reflexes (right/left): 1+ throughout.. Plantars are mute bilaterally. SOME OF THE WORK-UP DURING THIS ADMISSION CONSISTED OF: TSH is 1.50 Hemoglobin A1c is 8.8 Lipid panel is triglyceride 159, cholesterol 165, LDL is 95, HDL 38. CT of the head is reported as similar moderate cerebral cortical atrophy and moderate patchy burden of chronic small vessel ischemic disease. No acute intracranial abnormality seen. I personally reviewed the CT of the head and the patient has an old lacunar over right basal ganglia otherwise there is no acute subacute ischemia CT angiography of the head and neck is reported as no significant arterial stenosis, occlusion, dissection or aneurysm. Limited 2D echo: Left ventricular function appears to be mild to moderate impaired with global hypokinesis. Ejection fraction probably around 40%. EKG is reported as sinus rhythm. Nonspecific T wave abnormality. Abnormal EKG - Labs CBC & Chem 7: 02/18/22 15:13 02/18/22 15:13 Labs: Abnormal Lab Results - Last 24 Hours (Table) 02/19/22 02/20/22 02/20/22 Range/Units 20:20 06:55 12:11 POC Glucose (mg/dL) 147 H 156 H 128 H (75-99) mg/dL Assessment and Plan Assessment: Acute right arm weakness and numbness> right leg weakness with some numbness of right face. Likely due acute ischemic stroke. 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 The body report is reported as bilateral cerebral white matter hypodensity likely representing chronic microvascular ischemic changes. Scattered bilateral cerebral small lacunar infarct stable. I personally reviewed the CT of the head and I felt patient has a left subacute lacunar in the basal ganglia on the left on initial CT that is more noticeable now on current image. * I stopped the aspirin (was on home ASA 81mg) since the patient has history of GI bleed and he failed aspirin and start the patient on Plavix 75 mg daily. Patient is continued on his home dose of Lipitor 80 mg daily at bedtime. * Cannot get MRI since the patient has a pacemaker. * PT OT and PUBLIC AFFAIRS OFFICER are consulted * Continue neuro checks * On cardiac monitoring * Patient is on folic acid 1 mg daily because of low normal folic acid. I restarted the patient the vitamin B12 1000 g since his last vitamin B12 on 01/21/2022 is 284. * We'll defer the rest of the medical management to primary team * Counseled on tobacco cessation. * For DVT prophylaxis I started the patient on subcu heparin 5000 units every 12 hours. * Upon discharge the patient needs to follow-up with a neurologist in outpatient within 1-2 weeks. The plan is discussed with patient and his nurse. I feel patient will benefit from inpatient rehab in he qualifies. If not then subacute rehab. Consulted Dr. Martinez for rehab. Augie Mazariegos M.D. Neuro-Hospitalist Time with Patient: Less than 30
[2022-02-20 16:35] LABS: Glucose,Whole Blood 172 mg/dL (75-99)
[2022-02-20 20:55] LABS: Glucose,Whole Blood 153 mg/dL (75-99)
[2022-02-20] MEDS: ATORVASTATIN 80 MG TAB PO SCH (21:03)
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
[2022-02-21] MEDS: INSULN ASP PRT/INSULIN ASPART 100 UNIT/ML 10 ML VIAL SQ SCH ×2 (07:06→16:51)
[2022-02-21 07:07] LABS: Glucose,Whole Blood 130 mg/dL (75-99)
--- NOTE | 2022-02-21 08:36 | PN ---
PROGRESS NOTE 76-year-old white male. Repeat brain CT scan did not show any change. He still has right-sided residual weakness 3/5 in his right arm and numbness in his arm. Slurred speech is improved. Temperature 97.8, pulse 64, respiratory 16 to to 18, blood pressure 140/81, O2 94%. Cardiovascular S1, S2. Lungs clear. GI soft. Hematology negative Homans. Psych: Fair mood and affect. Hemoglobin A1C is 8.8, TSH 1.5, cholesterol 165. CT of the head shows no change from 2 days ago except for possible multiple right basal ganglia and old lacunar infarct, possibly some small diffuse infarcts in the basal ganglia. History of nicotine addiction, diabetic neuropathy, coronary artery disease, heart failure, CHF. Nicotine cessation, diabetes control, heparin subcu. Continue with Plavix. We will get PT/OT involved. Possibly have to go back to [facility]. He has scattered bilateral cerebral small lacunar infarcts which one appears to be new on the left side, which may cause right-sided weakness. Continue Folic acid, B12, B6. Prognosis guarded. MMODL / IJN: [id number] /
[2022-02-21] MEDS: CYANOCOBALAMIN 500 MCG TAB PO SCH (09:38)
[2022-02-21] MEDS: FOLIC ACID 1 MG TAB PO SCH (09:38)
[2022-02-21] MEDS: SPIRONOLACTONE 25 MG TAB PO SCH (09:38)
[2022-02-21] MEDS: METOPROLOL TARTRATE 25 MG TAB PO SCH ×2 (09:38→22:05)
[2022-02-21] MEDS: lisinopriL 10 MG TAB PO SCH (09:38)
[2022-02-21] MEDS: HEPARIN SODIUM,PORCINE/PF 5,000 UNIT/0.5 ML SYRINGE SQ SCH ×2 (09:39→22:05)
[2022-02-21] MEDS: CLOPIDOGREL 75 MG TAB PO SCH (09:41)
--- NOTE | 2022-02-21 10:18 | P.PN ---
Subjective Progress Note Date: 02/21/22 The patient is seen at bedside and stated he is about the same. Denies of any new neurological issues. Objective - Vital Signs Vital signs: Vital Signs Temp 98.6 F 02/21/22 03:45 Pulse 66 02/21/22 03:45 Resp 16 02/21/22 03:45 BP 137/72 02/21/22 03:45 Pulse Ox 94 L 02/21/22 03:45 FiO2 Intake & Output 02/20/22 02/21/22 02/21/22 18:59 06:59 18:59 Intake Total 240 240 Output Total 300 200 Balance -60 40 Intake: Oral 240 240 Output: Urine 300 200 Other: Voiding Method Urinal Toilet # Voids 1 # Bowel Movements 1 - Exam GENERAL: The patient is lying in bed and is not in acute distress. NEUROLOGICAL: Higher mental function: The patient is awake, alert, oriented to self, place. He correctly stated the currently year but stated the month is April. Patient is following simple commands. No aphasia and no neglect. Cranial nerves: The pupils are round, equal and reactive to light. Visual mohan are full to confrontation throughout. Extraocular movement is intact no nystagmus is noted. Facial sensation is normal to touch. (stated improving). The facial strength is minimal right nasolabial flattening. Hearing is mildly decreased bilaterally to hand rub. Tongue is midline and moved [id number] without any difficulty. No dysarthria is noted. Shoulder shrug is normal bilaterally. Motor: The strength is right upper extremity is 3-4 and has right pronator drift. Right lower is 5-. Otherwise left is 5/5. Slightly decreased tone over the right upper. Normal bulk. Cerebellum: Normal finger to nose bilaterally. Sensation: Sensation is slightly decreased over the right upper extremity to touch. Reflexes (right/left): 1+ throughout.. Plantars are mute bilaterally. SOME OF THE WORK-UP DURING THIS ADMISSION CONSISTED OF: TSH is 1.50 Hemoglobin A1c is 8.8 Lipid panel is triglyceride 159, cholesterol 165, LDL is 95, HDL 38. CT of the head is reported as similar moderate cerebral cortical atrophy and moderate patchy burden of chronic small vessel ischemic disease. No acute intracranial abnormality seen. I personally reviewed the CT of the head and the patient has an old lacunar over right basal ganglia otherwise there is no acute subacute ischemia CT angiography of the head and neck is reported as no significant arterial stenosis, occlusion, dissection or aneurysm. Limited 2D echo: Left ventricular function appears to be mild to moderate impaired with global hypokinesis. Ejection fraction probably around 40%. EKG is reported as sinus rhythm. Nonspecific T wave abnormality. Abnormal EKG - Labs CBC & Chem 7: 02/18/22 15:13 02/18/22 15:13 Labs: Abnormal Lab Results - Last 24 Hours (Table) 02/20/22 02/20/22 02/20/22 Range/Units 12:11 16:31 20:11 POC Glucose (mg/dL) 128 H 172 H 153 H (75-99) mg/dL 02/21/22 Range/Units 07:05 POC Glucose (mg/dL) 130 H (75-99) mg/dL Assessment and Plan Assessment: Acute right arm weakness and numbness> right leg weakness with some numbness of right face. Likely due acute ischemic stroke. 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 The body report is reported as bilateral cerebral white matter hypodensity likely representing chronic microvascular ischemic changes. Scattered bilateral cerebral small lacunar infarct stable. I personally reviewed the CT of the head and I felt patient has a left subacute lacunar in the basal ganglia on the left on initial CT that is more noticeable now on current image. * I stopped the aspirin (was on home ASA 81mg) since the patient has history of GI bleed and he failed aspirin and start the patient on Plavix 75 mg daily. Patient is continued on his home dose of Lipitor 80 mg daily at bedtime. * Cannot get MRI since the patient has a pacemaker. * PT OT and [facility] are consulted * Consulted Dr. Martinez for inpatient rehab which patient will benefit from. * Continue neuro checks * On cardiac monitoring * Patient is on folic acid 1 mg daily because of low normal folic acid. I restarted the patient the vitamin B12 1000 g since his last vitamin B12 on 01/21/2022 is 284. * We'll defer the rest of the medical management to primary team * Counseled on tobacco cessation. * For DVT prophylaxis I started the patient on subcu heparin 5000 units every 12 hours. * Upon discharge the patient needs to follow-up with a neurologist in outpatient within 1-2 weeks. The plan is discussed with patient and his nurse. Patient is clear for discharge from neurological perspective. Will sign off. Please reconsult if needed. Augie Mazariegos M.D. Neuro-Hospitalist Time with Patient: Less than 30
[2022-02-21 12:02] LABS: Glucose,Whole Blood 108 mg/dL (75-99)
--- NOTE | 2022-02-21 15:43 | DS ---
DISCHARGE SUMMARY DATE OF DISCHARGE: 02/21/2022. DISCHARGE DIAGNOSIS: 1. Cerebrovascular accident of the left basal ganglia area with right-sided weakness in his right arm. 2. Hemiplegia. 3. Coronary artery disease. 4. Insulin-dependent diabetes mellitus. 5. Chronic obstructive pulmonary disease. MEDICATIONS: 1. Lopressor 75 mg b.i.d. 2. Plavix 75 mg daily. 3. B12 1000 mcg daily. 4. Aspirin 81 mg daily. 5. Zestril 10 mg daily. 6. NovoLog 70/30, 20 units subcutaneously b.i.d. 7. Lipitor 80 daily. 8. Spironolactone 12.5 daily. 9. Folic acid 1 mg daily. Follow up with Dr. Holden at [facility]. Regular diet. HOSPITAL COURSE OF EVENTS: This 76-year-old white male came to the hospital with a stroke, garbled speech, flaccid right upper extremity. He has maybe had 30% improvement of his right arm. Neurology saw him. CT scan of the brain showed no bleeds. Further CT scan 2 days later showed possibly some multiple lacunar infarcts, unclear etiology. Echo was okay. Carotids were okay on CTA of the carotids. He will need PT/OT. Follow up with neurologist as an outpatient; maybe Dr. Edwards's office [place], where he is going to be at [facility]. Continue current treatments as mentioned above. PT/OT, strengthening on the right arm. Please see further orders. MMODL / IJN: [id number] /
[2022-02-21 16:38] LABS: Glucose,Whole Blood 132 mg/dL (75-99)
[2022-02-21 21:09] LABS: Glucose,Whole Blood 84 mg/dL (75-99)
[2022-02-21] MEDS: ATORVASTATIN 80 MG TAB PO SCH (22:05)
[2022-02-22 05:57] VITALS: RESP 16
[2022-02-22 06:37] LABS: Glucose,Whole Blood 184 mg/dL (75-99)
[2022-02-22] MEDS: INSULN ASP PRT/INSULIN ASPART 100 UNIT/ML 10 ML VIAL SQ SCH (07:19)
[2022-02-22] MEDS: lisinopriL 10 MG TAB PO SCH (09:26)
[2022-02-22] MEDS: SPIRONOLACTONE 25 MG TAB PO SCH (09:26)
[2022-02-22] MEDS: CLOPIDOGREL 75 MG TAB PO SCH (09:26)
[2022-02-22] MEDS: HEPARIN SODIUM,PORCINE/PF 5,000 UNIT/0.5 ML SYRINGE SQ SCH (09:26)
[2022-02-22] MEDS: CYANOCOBALAMIN 500 MCG TAB PO SCH (09:26)
[2022-02-22] MEDS: FOLIC ACID 1 MG TAB PO SCH (09:26)
[2022-02-22] MEDS: METOPROLOL TARTRATE 25 MG TAB PO SCH (09:27)
[2022-02-22 10:40] VITALS: BP 110/70; PULSE 58; TEMP 97.6
[2022-02-22 11:58] LABS: Glucose,Whole Blood 118 mg/dL (75-99)
== END 2022-02-22 12:26 | DRG 65 ==
LOC: EC 14:40 → 3SCARD 16:54
PROVIDERS: ADMIT Family Medicine; ATTEND Family Medicine
DX: I63.9 Cerebral infarction, unspecified (principal); G81.91 Hemiplegia, unspecified affecting right dominant side; I50.22 Chronic systolic (congestive) heart failure; J98.11 Atelectasis; F03.90 Unspecified dementia, unspecified severity, without behavioral disturbance, psychotic disturbance, mood disturbance, and anxiety; E11.40 Type 2 diabetes mellitus with diabetic neuropathy, unspecified; I11.0 Hypertensive heart disease with heart failure; E11.65 Type 2 diabetes mellitus with hyperglycemia; J44.9 Chronic obstructive pulmonary disease, unspecified; Z79.4 Long term (current) use of insulin; R47.81 Slurred speech; R29.703 NIHSS score 3; E78.5 Hyperlipidemia, unspecified; I25.5 Ischemic cardiomyopathy; I25.10 Atherosclerotic heart disease of native coronary artery without angina pectoris; I67.89 Other cerebrovascular disease; K44.9 Diaphragmatic hernia without obstruction or gangrene; J30.2 Other seasonal allergic rhinitis; F32.A Depression, unspecified; I83.90 Asymptomatic varicose veins of unspecified lower extremity; I25.2 Old myocardial infarction; M19.90 Unspecified osteoarthritis, unspecified site; F17.210 Nicotine dependence, cigarettes, uncomplicated; Z71.6 Tobacco abuse counseling; Z79.82 Long term (current) use of aspirin; Z79.899 Other long term (current) drug therapy; Z87.19 Personal history of other diseases of the digestive system; Z87.01 Personal history of pneumonia (recurrent); Z87.448 Personal history of other diseases of urinary system; Z87.39 Personal history of other diseases of the musculoskeletal system and connective tissue; Z87.442 Personal history of urinary calculi; Z87.820 Personal history of traumatic brain injury; Z86.010 Personal history of colon polyps; Z87.11 Personal history of peptic ulcer disease; Z87.81 Personal history of (healed) traumatic fracture; Z95.5 Presence of coronary angioplasty implant and graft; Z95.0 Presence of cardiac pacemaker; Z98.41 Cataract extraction status, right eye; Z96.1 Presence of intraocular lens; Z86.73 Personal history of transient ischemic attack (TIA), and cerebral infarction without residual deficits; Z98.890 Other specified postprocedural states; Z88.5 Allergy status to narcotic agent; Z83.3 Family history of diabetes mellitus; Z80.0 Family history of malignant neoplasm of digestive organs
CPT/HCPCS: 36415; 70450; 70496; 70498; 71046; 80053; 80061; 83036; 84443; 84484; 85025; 85610; 85730; 93005; 93308; 94760; 99291

== ENCOUNTER 2022-05-20 13:45 | Inpatient (IN) | payer MEDICARE ==
[2022-05-20] MEDS ORDERED: DEXTROSE 5% IN WATER 1,000 ML BAG ONE (16:05)
[2022-05-20] MEDS ORDERED: CALCIUM GLUCONATE IN NACL 1 GM/100 ML IVPB ONE (16:05)
[2022-05-20] MEDS ORDERED: ACETAMINOPHEN TAB 500 MG TAB ONE (16:05)
[2022-05-20] MEDS ORDERED: SODIUM BICARB 8.4% 50 ML SYR (1 MEQ/ML) ONE (16:05)
[2022-05-20] MEDS ORDERED: FUROSEMIDE 10 MG/ML 4 ML VIAL ONE (16:05)
[2022-05-20] MEDS ORDERED: SODIUM BICARB 8.4% 50 ML VIAL (1 MEQ/ML) ONE (16:05)
[2022-05-20] MEDS ORDERED: DEXTROSE 50% SYRINGE 50 ML IVP ONE (16:05)
[2022-05-20] MEDS ORDERED: SODIUM CHLORIDE 0.9% 1,000 ML BAG ONE (16:05)
[2022-05-20] MEDS ORDERED: INSULIN REGULAR 100 UNIT/ML VIAL (IM/SQ) ONE (17:08)
[2022-05-20] MEDS ORDERED: ACETAMINOPHEN TAB 325 MG TAB PO PRN (21:14)
[2022-05-20 22:18] LABS: Albumin 3.6 g/dL (3.5-5.0); Calcium 8.5 mg/dL (8.4-10.2); Total Bilirubin 0.3 mg/dL (0.2-1.3); Total Protein 6.5 g/dL (6.3-8.2)
[2022-05-20 22:20] LABS: Potassium 7.2 mmol/L (3.5-5.1)
[2022-05-20 22:42] LABS: Basophils % (A) 0 %; Eosinophils # (A) 0.1 k/uL (0-0.7); Eosinophils % (A) 2 %; HCT 41.3 % (39.0-53.0); HGB 13.6 gm/dL (13.0-17.5); Lymphocytes # (A) 0.4 k/uL (1.0-4.8); Lymphocytes % (A) 5 %; MCH 30.8 pg (25.0-35.0); MCV 93.2 fL (80.0-100.0); Mean Platelet Volume 9.1; Monocytes # (A) 0.4 k/uL (0-1.0); Monocytes % (A) 5 %; Neutrophils # (A) 6.7 k/uL (1.3-7.7); Neutrophils % (A) 87 %; Platelet Count 191 k/uL (150-450); RBC 4.43 m/uL (4.30-5.90); RDW 14.4 % (11.5-15.5); WBC 7.7 k/uL (3.8-10.6)
[2022-05-20 22:56] LABS: INR 1.1 (<1.2); Prothrombin Time 11.7 sec (9.0-12.0)
[2022-05-20 23:06] LABS: Phosphorus 7.4 mg/dL (2.5-4.5); Total Bilirubin 0.5 mg/dL (0.2-1.3); Total Protein 7.1 g/dL (6.3-8.2)
[2022-05-20 23:27] LABS: Potassium 7.4 mmol/L (3.5-5.1)
[2022-05-20 23:56] LABS: Glucose,Whole Blood 80 mg/dL (70-110)
[2022-05-20] MEDS ORDERED: INSULIN REGULAR 100 UNIT/ML VIAL (IV) IV ONE (23:59)
[2022-05-20] MEDS ORDERED: CALCIUM GLUCONATE IN NACL 1 GM in SALINE 1 100ML.BAG IVPB ONE (23:59)
[2022-05-20] MEDS ORDERED: DEXTROSE 50% SYRINGE 50 ML IVP STA (23:59)
[2022-05-21] MEDS ORDERED: FUROSEMIDE 10 MG/ML 10 ML VIAL IV STA
[2022-05-21] MEDS: METOPROLOL TARTRATE 25 MG TAB PO SCH ×4 (02:15→21:29)
[2022-05-21] MEDS: SODIUM CHLORIDE 0.9% 1,000 ML IV SCH ×2 (02:19→10:00)
[2022-05-21 07:17] LABS: Basophils % (A) 0 %; Eosinophils # (A) 0.2 k/uL (0-0.7); Eosinophils % (A) 2 %; HCT 40.2 % (39.0-53.0); HGB 12.9 gm/dL (13.0-17.5); Lymphocytes % (A) 13 %; MCH 29.3 pg (25.0-35.0); MCV 91.5 fL (80.0-100.0); Mean Platelet Volume 8.8; Monocytes # (A) 0.4 k/uL (0-1.0); Monocytes % (A) 6 %; Neutrophils # (A) 6.1 k/uL (1.3-7.7); Neutrophils % (A) 77 %; Platelet Count 169 k/uL (150-450); RBC 4.39 m/uL (4.30-5.90); RDW 14.1 % (11.5-15.5); WBC 7.9 k/uL (3.8-10.6)
[2022-05-21 08:14] LABS: Albumin 3.6 g/dL (3.5-5.0); Calcium 8.9 mg/dL (8.4-10.2); Total Bilirubin 0.5 mg/dL (0.2-1.3); Total Protein 6.5 g/dL (6.3-8.2)
[2022-05-21 08:35] LABS: Potassium 6.4 mmol/L (3.5-5.1)
[2022-05-21] MEDS: FOLIC ACID 1 MG TAB PO SCH (10:00)
[2022-05-21] MEDS: SERTRALINE 25 MG TAB PO SCH (10:00)
[2022-05-21] MEDS: QUEtiapine 25 MG TAB PO SCH (10:00)
[2022-05-21] MEDS: CYANOCOBALAMIN 500 MCG TAB PO SCH (10:00)
[2022-05-21] MEDS ORDERED: DEXTROSE 50% SYRINGE 50 ML IVP STA (11:15)
[2022-05-21] MEDS ORDERED: SODIUM BICARB 8.4% 50 ML SYR (1 MEQ/ML) IV STA (11:15)
[2022-05-21] MEDS ORDERED: INSULIN REGULAR 100 UNIT/ML VIAL (IV) IV ONE (11:30)
[2022-05-21] MEDS: TICAGRELOR 90 MG TAB PO SCH ×2 (11:43→21:29)
[2022-05-21] MEDS: DEXTROSE 5% IN WATER 1,000 ML with SODIUM BICARB (1 MEQ/ML) 150 ML IV SCH ×2 (11:48→23:32)
[2022-05-21] MEDS: SODIUM ZIRCONIUM CYCLOSILICATE 10 GM PACKET PO ONE ×2 (12:50→13:24)
[2022-05-21 13:32] LABS: Glucose,Whole Blood 301 mg/dL (70-110)
[2022-05-21 16:29] LABS: Glucose,Whole Blood 222 mg/dL (70-110)
[2022-05-21] MEDS: INSULIN ASPART (NovoLOG) 100 UNIT/ML VIAL SQ SCH ×2 (17:14→20:50)
--- NOTE | 2022-05-21 17:19 | XR ---
EXAM: XR Right Hip With Pelvis When Performed, 2 or 3 Views CLINICAL HISTORY: ITS. REASON XR Reason: PAIN TECHNIQUE: Two or three views of the right hip with pelvis when performed. COMPARISON: 01/24/22. FINDINGS: Bones/joints: Mild bilateral hip degeneration.. No acute fracture. No dislocation. Soft tissues: Pelvic surgical clips. Extensive iliofemoral atherosclerotic calcification. IMPRESSION: No acute osseous abnormality. Mild degeneration of the hips.
[2022-05-21 17:58] LABS: Potassium 5.6 mmol/L (3.5-5.1)
[2022-05-21 20:24] LABS: Glucose,Whole Blood 129 mg/dL (70-110)
[2022-05-21] MEDS: ATORVASTATIN 80 MG TAB PO SCH (21:29)
--- NOTE | 2022-05-21 23:13 | HP ---
HISTORY AND PHYSICAL HISTORY OF PRESENT ILLNESS: A 76-year-old white male who came to the hospital for altered mental status from the skilled nursing. He was found to have acute renal failure, for which fluids have been given overnight. His potassium went from 7.2 down to 6.4 today with BUN went from 136 to 133. His creatinine went from 8.36 to 7.23. He was found to have severe prerenal azotemia and acute tubular necrosis probably from severe dehydration. Home medicines that can affect the kidneys were discontinued on admission, he was given fluids overnight. His cardiac and COPD and prior stroke medicines will be continued except for medicines that can worsen kidneys. Hemoglobin is down to 12.9. Await for renal physician consult. He is on Lipitor 80 at bedtime, some vitamins, folic acid 1 mg daily, calcium gluconate replacement, metoprolol 25 b.i.d., Seroquel 25 in the morning and 50 at night. He is on Brilinta 90 mg b.i.d., Zoloft 25 mg daily. All his Lasix was discontinued. He is on Accu-Chek protocol until his appetite improves and we can restart his insulin. Ultrasound of renal and bladders are pending. CT scan of brain is pending. PHYSICAL EXAMINATION: GENERAL: He looks weak and fatigued, stated age. VITAL SIGNS: Temperature 97.4, blood pressure is still low at 97/58, pulse 90, respiratory rate 16 to 18. CARDIOVASCULAR: S1, S2. HEMATOLOGIC: 1 to 2+ edema. PSYCHIATRIC: He is thin, cachectic. He is pleasantly confused. NEUROLOGIC: Cranial nerves are intact. GI: Soft, nontender. EXTREMITIES: No rash or excoriation. ASSESSMENT: Acute renal failure, acute tubular necrosis secondary to prerenal azotemia, most likely versus medication effect. Stopped his medicines that can worsen his kidneys. Continue with fluid rehydration. Await for a kidney doctor. Ultrasound of kidneys, bladder pending. He has improved overnight with his creatinine, but needs much more improvement. PROGNOSIS: Extremely guarded. MMODL / IJN: [id number] /
--- NOTE | 2022-05-22 02:08 | CONS ---
CONSULTATION REASON FOR CONSULT: Acute kidney injury. HISTORY OF PRESENT ILLNESS: The patient is a 76-year-old male who is admitted to the hospital with increased weakness. He was transferred from assisted living. The patient was recently hospitalized about 10 days ago for right shoulder/scapular pain. The patient was evaluated by Orthopedic Surgery at that time with no significant intervention planned. The patient is noted to have a creatinine of 8.3 mg/dL, BUN of 136 and potassium of 7.2 with CO2 of 11 when he presented to the hospital. Blood pressure has been low with systolic in the 80s. Serum creatinine was 1.1 on 05/02/2022. At home, patient was maintained on Zestril. I do not see any nonsteroidal anti- inflammatory agents on his current med list. It looks like patient had urine retention and Adler catheter was placed. It appears that about 1000 mL of urine was obtained, I am not sure if this was on initial Adler placement. PAST MEDICAL HISTORY: Significant for hypertension, coronary artery disease, COPD, history of CHF, dementia, type 2 diabetes, previous history of GI bleed, history of LA, pneumonia, osteoarthritis, gout, neuropathy, history of nephrolithiasis. PAST SURGICAL HISTORY: Cardiac catheterization, coronary stent placement, right inguinal hernia and umbilical hernia repair, bilateral rotator cuff surgery, cystoscopy, cataract surgery. SOCIAL HISTORY: Positive for smoking. No history of drug abuse or alcohol abuse. MEDICATIONS: Prior to admission included: 1. Aspirin. 2. Lipitor. 3. Spironolactone. 4. Zestril. 5. Insulin. 6. Lopressor. 7. Plavix. ALLERGIES: None. PHYSICAL EXAMINATION: GENERAL: The patient is comfortable, awake, not in any acute distress. He is confused. VITAL SIGNS: Blood pressure this morning 89/55, heart rate 92 per minute, the patient is afebrile. HEART: S1, S2. LUNGS: Bilateral breath sounds are heard. ABDOMEN: Soft, nontender. LOWER EXTREMITIES: Show no evidence of edema. MICA MINER: Shows the patient is moving all 4 extremities. LABORATORY DATA: Labs show sodium 137, potassium 6.4, BUN 133, serum creatinine 7.23, CO2 is 14, hemoglobin 12.9 g/dL. ASSESSMENT: 1. Acute kidney injury, acute tubular necrosis and secondary to urine retention, currently slowly improving, continue with Adler catheter, continue with IV fluids and hold off on GERONIMO inhibitors and check ultrasound of the kidneys. 2. Hyperkalemia, associated with acute kidney injury, urine retention and use of GERONIMO inhibitors prior to admission, currently improving. 3. Severe metabolic acidosis associated with acute kidney injury and hypotension. We will start bicarbonate drip. 4. Type 2 diabetes, maintained on insulin. PLAN: Start IV bicarb and maintain IV fluids. Continue with Adler catheter. Lokelma p.o. x1. Repeat labs in a.m. Check UA and check ultrasound of the kidneys and check serum acetone level. Thank you for the consultation. We will continue to follow the patient with you during his hospitalization. MMODL / IJN: [id number] / ANDREY
[2022-05-22 06:13] LABS: Glucose,Whole Blood 173 mg/dL (70-110)
[2022-05-22] MEDS: INSULIN ASPART (NovoLOG) 100 UNIT/ML VIAL SQ SCH ×4 (06:39→20:28)
[2022-05-22 07:22] LABS: Basophils # (A) 0.1 k/uL (0-0.2); Basophils % (A) 1 %; Eosinophils # (A) 0.3 k/uL (0-0.7); Eosinophils % (A) 4 %; HCT 37.8 % (39.0-53.0); HGB 12.8 gm/dL (13.0-17.5); Lymphocytes # (A) 1.1 k/uL (1.0-4.8); Lymphocytes % (A) 15 %; MCH 30.8 pg (25.0-35.0); MCHC 33.9 g/dL (31.0-37.0); MCV 91.1 fL (80.0-100.0); Mean Platelet Volume 9.3; Monocytes # (A) 0.4 k/uL (0-1.0); Monocytes % (A) 6 %; Neutrophils # (A) 5.3 k/uL (1.3-7.7); Neutrophils % (A) 73 %; Platelet Count 185 k/uL (150-450); RBC 4.15 m/uL (4.30-5.90); RDW 14.6 % (11.5-15.5); WBC 7.2 k/uL (3.8-10.6)
[2022-05-22 07:54] LABS: Albumin 3.5 g/dL (3.5-5.0); Calcium 8.2 mg/dL (8.4-10.2); Potassium 5.4 mmol/L (3.5-5.1); Total Bilirubin 0.8 mg/dL (0.2-1.3); Total Protein 6.1 g/dL (6.3-8.2)
[2022-05-22] MEDS: METOPROLOL TARTRATE 25 MG TAB PO SCH ×2 (09:31→20:39)
[2022-05-22] MEDS: TICAGRELOR 90 MG TAB PO SCH ×2 (09:31→20:39)
[2022-05-22] MEDS: FOLIC ACID 1 MG TAB PO SCH (09:31)
[2022-05-22] MEDS: SERTRALINE 25 MG TAB PO SCH (09:31)
[2022-05-22] MEDS: QUEtiapine 25 MG TAB PO SCH (09:31)
[2022-05-22] MEDS: CYANOCOBALAMIN 500 MCG TAB PO SCH (09:32)
--- NOTE | 2022-05-22 10:48 | P.PN ---
Subjective Patient is seen for follow-up for acute kidney injury, hyperkalemia and metabolic acidosis. Renal function has been improving. Serum creatinine down to 4.1 from 8.3 on admission, potassium decreased to 5.4 from 7.0 on initial admission. Patient has an indwelling Adler catheter with good urine output. Currently maintained on IV bicarb Objective - Vital Signs Vital signs: Vital Signs Temp 98.0 F 05/22/22 08:00 Pulse 86 05/22/22 08:00 Resp 18 05/22/22 08:00 BP 103/62 05/22/22 08:00 Pulse Ox 95 05/22/22 08:00 FiO2 Intake & Output 05/21/22 05/22/22 05/22/22 18:59 06:59 18:59 Intake Total 10 280 Output Total 900 300 Balance -890 -20 Intake: IV 10 Invasive Line 2 10 Oral 280 Output: Urine 900 300 Other: Voiding Method Indwelling Catheter # Bowel Movements 1 - Exam Awake, comfortable, not in any acute distress Examination of the heart S1 and S2 Examination of the lungs bilateral breath sounds are heard Abdomen is soft nontender Examination of the lower extremities shows no significant edema LVN LPN exam grossly intact - Labs CBC & Chem 7: 05/22/22 06:41 05/22/22 06:41 Labs: Abnormal Lab Results - Last 24 Hours (Table) 05/21/22 05/21/22 05/21/22 Range/Units 13:30 16:27 17:16 RBC (4.30-5.90) m/uL Hgb (13.0-17.5) gm/dL Hct (39.0-53.0) % Potassium 5.6 H (3.5-5.1) mmol/L BUN (9-20) mg/dL Creatinine (0.66-1.25) mg/dL Glucose (74-99) mg/dL POC Glucose (mg/dL) 301 H 222 H (70-110) mg/dL Calcium (8.4-10.2) mg/dL Total Protein (6.3-8.2) g/dL 05/21/22 05/22/22 05/22/22 Range/Units 20:23 06:11 06:41 RBC 4.15 L (4.30-5.90) m/uL Hgb 12.8 L (13.0-17.5) gm/dL Hct 37.8 L (39.0-53.0) % Potassium (3.5-5.1) mmol/L BUN (9-20) mg/dL Creatinine (0.66-1.25) mg/dL Glucose (74-99) mg/dL POC Glucose (mg/dL) 129 H 173 H (70-110) mg/dL Calcium (8.4-10.2) mg/dL Total Protein (6.3-8.2) g/dL 05/22/22 Range/Units 06:41 RBC (4.30-5.90) m/uL Hgb (13.0-17.5) gm/dL Hct (39.0-53.0) % Potassium 5.4 H (3.5-5.1) mmol/L BUN 115 H* (9-20) mg/dL Creatinine 4.11 H (0.66-1.25) mg/dL Glucose 175 H (74-99) mg/dL POC Glucose (mg/dL) (70-110) mg/dL Calcium 8.2 L (8.4-10.2) mg/dL Total Protein 6.1 L (6.3-8.2) g/dL Assessment and Plan Assessment: 1. Acute kidney injury, ATN and secondary to urine retention currently improving. Continue off of GERONIMO inhibitor's and continue with Adler catheter. UA is not yet done. Ultrasound report is not available. 2. Severe hyperkalemia associated with acute kidney injury, urine retention and use of GERONIMO inhibitor's currently improving 3. Severe metabolic acidosis associated with acute kidney injury and hypotension currently maintained on IV bicarb 4. Type 2 diabetes maintained on insulin Plan: Switch bicarb drip to Ringer lactate Follow-up on ultrasound of the kidneys Continue with Adler catheter Repeat labs in a.m. Continue to hold off on GERONIMO inhibitor's for now
[2022-05-22] MEDS ORDERED: LORazepam 2 MG/ML INJ IV PRN (11:04)
[2022-05-22] MEDS ORDERED: LORazepam 1 MG TAB PO PRN (11:12)
[2022-05-22 11:56] LABS: Glucose,Whole Blood 220 mg/dL (70-110)
--- NOTE | 2022-05-22 12:23 | CT ---
EXAMINATION TYPE: CT brain cspine wo con DATE OF EXAM: 05/20/2022 COMPARISON: CT brain May 05, 2022 HISTORY: Fall injury with headache and neck pain CT DLP: 412 mGycm. Automated Exposure Control for Dose Reduction was Utilized. TECHNIQUE: CT scan of the head and cervical spine are performed without contrast. FINDINGS: There is no acute intracranial hemorrhage or midline shift identified. Mild to moderate v entricular and sulcal prominence greatest over the bilateral frontal lobes redemonstrated. Old lacuna r infarct deep right frontal lobe axial image 39 redemonstrated. Low attenuation in the deep and abdoulaye ventricular white matter. The globes are intact and the visualized sinuses are clear. Calvarium is in tact. Cervical spine is visualized in its entirety from C1 through upper thoracic levels and demonstrates s atisfactory alignment without evidence of acute fracture or dislocation. Prevertebral soft tissue ap pears within normal limits. The C1-C2 articulation is within normal limits on the coronal images. V ertebral body heights are preserved. Moderate multilevel disc space narrowing greatest at C4-C5 and C 6-C7 levels. Posterior spur disc complexes efface the anterior thecal sac at C2-C3 through C6-C7 leve ls on sagittal and axial images. Axial images show multilevel uncovertebral and facet degenerative ch anges causing multilevel bilateral neural foraminal narrowing. Thyroid gland appears within normal li mits. Lung apices show emphysematous change. IMPRESSION: 1. There is no acute fracture or dislocation evident in the cervical spine. 2. No acute intracranial hemorrhage or midline shift is seen.
[2022-05-22] MEDS ORDERED: LORazepam 1 MG/0.5 ML VIAL ONE (12:38)
[2022-05-22] MEDS: LACTATED RINGERS 1,000 ML IV SCH ×2 (12:40→20:40)
[2022-05-22] MEDS ORDERED: LORazepam 1 MG/0.5 ML VIAL IV PRN (12:42)
[2022-05-22] MEDS: DEXTROSE 5% IN WATER 1,000 ML with SODIUM BICARB (1 MEQ/ML) 150 ML IV SCH (13:06)
[2022-05-22 14:09] LABS: Bacteria,Urine Many /hpf; RBC,Urine >182 /hpf (0-5); Squamous Epithelial Cell,Urine 6 /hpf (0-4); WBC,Urine >182 /hpf (0-5)
[2022-05-22 14:11] LABS: Appearance,Urine Bloody (Clear); Color,Urine Brown
[2022-05-22] MEDS ORDERED: flUPHENAZine 2.5 MG/ML (MDV) 10 ML VIAL IM PRN (14:31)
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
--- NOTE | 2022-05-22 14:53 | US ---
EXAMINATION TYPE: US renals and bladder DATE OF EXAM: 05/21/2022 COMPARISON: [address] CLINICAL HISTORY: ARF. EXAM MEASUREMENTS: Right Kidney: 11.6 x 6.2 x 5.6 cm Left Kidney: 10.9 x 5.6 x 3.8 cm Exam limitations due to overlying bowel gas Right Kidney: wnl as seen Left Kidney: wnl as seen Bladder: unable to evaluate, pt has a clemente There is no evidence for hydronephrosis at this point in time. Echogenic focus is present at the lowe r pole of the right kidney. No masses are identified. Cortical medullary differentiation is maintain ed. The urinary bladder is catheterized. Bilateral ureteral jets are not seen. IMPRESSION: There may be right-sided nephrolithiasis. No evident hydronephrosis.
--- NOTE | 2022-05-22 14:54 | US ---
EXAMINATION TYPE: US renals and bladder DATE OF EXAM: 05/21/2022 COMPARISON: Ultrasound 05/20/2022 CLINICAL HISTORY: arf. ARF EXAM MEASUREMENTS: Right Kidney: 11.0 x 5.5 x 6.2 cm Left Kidney: 10.5 x 4.9 x 5.2 cm Right Kidney: dense echogenic focus = 0.6cm lower pole Left Kidney: limited evaluation due to overlying bowel content, no evidence of hydronephrosis Bladder: Adler Catheter There is no evidence for hydronephrosis at this point in time. Possible nephrolithiasis right kidney. No masses are identified. The urinary bladder is catheterized. Bilateral ureteral jets are not se en. IMPRESSION: Exam is limited. Findings are similar to prior exam, no evident hydronephrosis, possible right renal calculus
[2022-05-22] MEDS ORDERED: ACETAMINOPHEN IV (For NPO) 1,000 MG in EMPTY BAG 1 BAG IVPB PRN (15:31)
--- NOTE | 2022-05-22 16:00 | CDI ---
Documentation Clarification Form Date: 05/22/2022 03:51:20 PM From: Annie Wiseman CCS, CCDS Admit Date: 05/20/2022 05:00:00 PM Patient Name: Alireza Ervin Visit Number: [id number] Discharge Date: ATTENTION: The Clinical Documentation Specialists (CDI) and [facility] Coding Staff appreciate your assistance in clarifying documentation. Please respond to the clarification below the line at the bottom and electronically sign. The CDI & [facility] C[facility] staff will review the response and follow-up if needed. Please note: Queries are made part of the Legal Health Record. If you have any questions, please contact the author of this message via ITS. Dr. Kurt Cardona: The following is documented in the 05/22 Psychiatric Consult: Delirium likely secondary to toxic metabolic. Additional clarification regarding the type of delirium is requested. History/Risk Factors per the 05/21 H/P: CAD with stents, COPD, CVA. Clinical Indicators: Presented from a halfway with altered mental status, found to have acute renal failure, severe prerenal azotemia and acute tubular necrosis probably from severe dehydration. Admit with Acute renal failure, ATN sec to prerenal azotemia most likely vs medication effect. 05/20 VS: T 98.1, P 90, R 16, BP 125/71, PO 98 RA, BMI: 29.9 05/20 LAB: Lymph 0.4; Na 135, K 7.2, 7.4; Chloride 110, CO2 11, BUN 136, Creatinine 8.36, Glucose 132, Mag 3.0, AST 15 Treatment 05/20: po Tylenol 650 mg q4H/prn, po Lopressor 25 mg BID, IV Na Chl 1,000 mls @ 125 mls/hr q8H, IV Calcium Gluconate/Na Chl 100 mls @ 100 mls/hr x1, IV extrose 50 ml x1, IV Insulin 10 units x1. 05/22 Restraints ordered. Please further clarify the diagnosis of Delirium: [ ] Metabolic Encephalopathy [ ] Toxic Encephalopathy [ ] Other, please specify [ ] Unable to determine (Template Last Revised: November 2020) MTDD
[2022-05-22 16:57] LABS: Glucose,Whole Blood 122 mg/dL (70-110)
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
[2022-05-22 20:21] LABS: Glucose,Whole Blood 120 mg/dL (70-110)
[2022-05-22] MEDS: MELATONIN 3 MG TABLET PO SCH (20:39)
[2022-05-22] MEDS: ATORVASTATIN 80 MG TAB PO SCH (20:39)
[2022-05-23 01:18] LABS: Appearance,Urine Turbid (Clear); Bacteria,Urine Many /hpf; Bilirubin,Urine Negative (Negative); Blood,Urine Large (Negative); Color,Urine Yellow; Glucose,Urine (UA) Negative (Negative); Ketones,Urine Negative (Negative); Leukocyte Esterase,Urine Large (Negative); Nitrite,Urine Negative (Negative); PH, Urine 5.5 (5.0-8.0); Protein,Urine 1+ (Negative); RBC,Urine 178 /hpf (0-5); Specific Gravity,Urine 1.015 (1.001-1.035); Squamous Epithelial Cell,Urine 1 /hpf (0-4); Urobilinogen,Urine <2.0 mg/dL (<2.0); WBC,Urine >182 /hpf (0-5)
[2022-05-23 06:16] LABS: Glucose,Whole Blood 116 mg/dL (70-110)
--- NOTE | 2022-05-23 06:18 | PN ---
PROGRESS NOTE SUBJECTIVE: A 76-year-old white male, acute kidney injury, hyperkalemia, urinary retention, severe prerenal azotemia. The patient's creatinine went from 8 down to 4 with fluid rehydration. We are going to continue this. Stopped all blood pressure medications as it affected kidneys. OBJECTIVE: CARDIOVASCULAR: S1, S2. LUNGS: Clear. GI: Soft. HEMATOLOGY: Negative Homans. PSYCH: Pleasantly confused. ASSESSMENT: Acute kidney injury, prerenal azotemia, hyperkalemia, severe dehydration, dementia, prior cerebrovascular accident. Continue current treatments except for the medications that were stopped including GERONIMO inhibitors that were discontinued. Monitor blood pressures. Continue psych medications that he takes at home. Prognosis is guarded. MMODL / IJN: [id number] /
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
[2022-05-23] MEDS: INSULIN ASPART (NovoLOG) 100 UNIT/ML VIAL SQ SCH ×4 (06:42→20:27)
[2022-05-23] MEDS: LACTATED RINGERS 1,000 ML IV SCH ×2 (06:44→18:21)
[2022-05-23 09:33] LABS: Calcium 8.1 mg/dL (8.4-10.2); Potassium 5.3 mmol/L (3.5-5.1)
[2022-05-23] MEDS: FOLIC ACID 1 MG TAB PO SCH (10:21)
[2022-05-23] MEDS: METOPROLOL TARTRATE 25 MG TAB PO SCH ×2 (10:21→20:27)
[2022-05-23] MEDS: TICAGRELOR 90 MG TAB PO SCH ×2 (10:21→20:27)
[2022-05-23] MEDS: CYANOCOBALAMIN 500 MCG TAB PO SCH (10:22)
[2022-05-23] MEDS: SERTRALINE 25 MG TAB PO SCH (10:22)
[2022-05-23 10:44] LABS: HCT 37.3 % (39.0-53.0); MCH 29.5 pg (25.0-35.0); MCHC 32.3 g/dL (31.0-37.0); MCV 91.4 fL (80.0-100.0); Mean Platelet Volume 9.9; Platelet Count 164 k/uL (150-450); RBC 4.08 m/uL (4.30-5.90); RDW 14.2 % (11.5-15.5); WBC 8.5 k/uL (3.8-10.6)
--- NOTE | 2022-05-23 10:50 | P.PN ---
Subjective Patient is seen for follow-up for acute kidney injury, hyperkalemia and metabolic acidosis. Renal function has been improving. Serum creatinine down to 2.8 from 8.3 on admission, potassium decreased to 5.3 from 7.0 on initial admission. Patient has an indwelling Adler catheter with good urine output. IV bicarb switch to Ringer lactate yesterday. Objective - Vital Signs Vital signs: Vital Signs Temp 98.7 F 05/23/22 07:57 Pulse 69 05/23/22 07:57 Resp 18 05/23/22 07:57 BP 135/62 05/23/22 07:57 Pulse Ox 92 L 05/23/22 07:57 FiO2 Intake & Output 05/22/22 05/23/22 05/23/22 18:59 06:59 18:59 Intake Total 330 0 Output Total 800 450 200 Balance -470 -450 -200 Intake: IV 30 Invasive Line 2 20 Invasive Line 3 10 Oral 300 0 Output: Urine 800 450 200 Uretheral (Adler) 450 Other: Voiding Method Indwelling Catheter Indwelling Catheter Indwelling Catheter # Bowel Movements 1 - Exam Awake, comfortable, not in any acute distress Examination of the heart S1 and S2 Examination of the lungs bilateral breath sounds are heard Abdomen is soft nontender Examination of the lower extremities shows no significant edema NUT ORCHARDIST exam grossly intact - Labs CBC & Chem 7: 05/23/22 06:52 05/23/22 06:52 Labs: Abnormal Lab Results - Last 24 Hours (Table) 05/22/22 05/22/22 05/22/22 Range/Units 06:41 11:54 12:56 RBC (4.30-5.90) m/uL Hgb (13.0-17.5) gm/dL Hct (39.0-53.0) % Potassium (3.5-5.1) mmol/L BUN (9-20) mg/dL Creatinine (0.66-1.25) mg/dL Glucose (74-99) mg/dL POC Glucose (mg/dL) 220 H (70-110) mg/dL Calcium (8.4-10.2) mg/dL Creatine Kinase 267 H (55-170) U/L Urine Protein (Negative) Urine Blood (Negative) Ur Leukocyte Esterase (Negative) Urine RBC >182 H (0-5) /hpf Urine WBC >182 H (0-5) /hpf Urine WBC Clumps (None) /hpf Ur Squamous Epith Cells 6 H (0-4) /hpf Urine Bacteria Many H (None) /hpf 05/22/22 05/22/22 05/23/22 Range/Units 16:46 20:19 00:55 RBC (4.30-5.90) m/uL Hgb (13.0-17.5) gm/dL Hct (39.0-53.0) % Potassium (3.5-5.1) mmol/L BUN (9-20) mg/dL Creatinine (0.66-1.25) mg/dL Glucose (74-99) mg/dL POC Glucose (mg/dL) 122 H 120 H (70-110) mg/dL Calcium (8.4-10.2) mg/dL Creatine Kinase (55-170) U/L Urine Protein 1+ H (Negative) Urine Blood Large H (Negative) Ur Leukocyte Esterase Large H (Negative) Urine RBC 178 H (0-5) /hpf Urine WBC >182 H (0-5) /hpf Urine WBC Clumps Many H (None) /hpf Ur Squamous Epith Cells (0-4) /hpf Urine Bacteria Many H (None) /hpf 05/23/22 05/23/22 05/23/22 Range/Units 06:15 06:52 06:52 RBC 4.08 L (4.30-5.90) m/uL Hgb 12.0 L (13.0-17.5) gm/dL Hct 37.3 L (39.0-53.0) % Potassium 5.3 H (3.5-5.1) mmol/L BUN 97 H (9-20) mg/dL Creatinine 2.82 H (0.66-1.25) mg/dL Glucose 113 H (74-99) mg/dL POC Glucose (mg/dL) 116 H (70-110) mg/dL Calcium 8.1 L (8.4-10.2) mg/dL Creatine Kinase (55-170) U/L Urine Protein (Negative) Urine Blood (Negative) Ur Leukocyte Esterase (Negative) Urine RBC (0-5) /hpf Urine WBC (0-5) /hpf Urine WBC Clumps (None) /hpf Ur Squamous Epith Cells (0-4) /hpf Urine Bacteria (None) /hpf Microbiology - Last 24 Hours (Table) 05/23/22 00:55 Urine Culture - Preliminary Urine,Voided Assessment and Plan Assessment: 1. Acute kidney injury, ATN and secondary to urine retention currently improving. Continue off of GERONIMO inhibitor's and continue with Adler catheter. UA is not yet done. Ultrasound report is not available. 2. Severe hyperkalemia associated with acute kidney injury, urine retention and use of GERONIMO inhibitor's currently improving 3. Severe metabolic acidosis associated with acute kidney injury and hypot ension , status post IV bicarb 4. Type 2 diabetes maintained on insulin Plan: Continue current IV fluids Repeat labs in a.m.
[2022-05-23 11:26] LABS: Glucose,Whole Blood 170 mg/dL (70-110)
[2022-05-23 17:01] LABS: Glucose,Whole Blood 187 mg/dL (70-110)
[2022-05-23 20:16] LABS: Glucose,Whole Blood 158 mg/dL (70-110)
[2022-05-23] MEDS: ATORVASTATIN 80 MG TAB PO SCH (20:27)
[2022-05-23] MEDS: MELATONIN 3 MG TABLET PO SCH (20:27)
[2022-05-24] MEDS: LACTATED RINGERS 1,000 ML IV SCH ×3 (02:49→23:20)
--- NOTE | 2022-05-24 05:00 | PN ---
PROGRESS NOTE SUBJECTIVE: The patient is admitted with acute severe prerenal azotemia, acute tubular necrosis. Creatinine today is with rehydration day 3, his creatinine came down from over 4 down to 2.82. His BUN is 197. Sugars are mid 100s. Hemoglobin A1c is 7.9 for diabetes. Calcium is 8.1. UA showed large amount of blood, for which Urology has been consulted many red cells, many white cells. Hemoglobin is 12. OBJECTIVE: VITAL SIGNS: Temperature 97.2, O2 saturation 96% on room air, blood pressure 150s over 60s, pulse 79, respiratory rate 18. CARDIOVASCULAR: S1, S2. LUNGS: Decreased breath sounds x4. PSYCH: Fair mood and affect. ASSESSMENT: The kidney function is greatly improved over 8 on admission, now down to 2.82 due to severe dehydration. Did get IV bicarb, switched to Ringer lactate. He has acute kidney injury, severe hyperkalemia, severe metabolic acidosis, type 2 diabetes mellitus, much better. He had urinary retention hematuria in the urine, for which Dr. Mckeon saw the patient. Dr. Mckeon recommended ultrasound. Possible right lower lobe renal calculus. No evidence of hydronephrosis. Hematuria secondary to pulling out his Adler per him. He is greatly improved with just fluid rehydration. Hypotensive secondary to dehydration. He continues to be improved. Please see further orders. MMODL / IJN: [id number] /
[2022-05-24 05:56] LABS: Glucose,Whole Blood 114 mg/dL (70-110)
[2022-05-24] MEDS: INSULIN ASPART (NovoLOG) 100 UNIT/ML VIAL SQ SCH ×4 (06:11→20:22)
[2022-05-24] MEDS: SERTRALINE 25 MG TAB PO SCH (08:59)
[2022-05-24] MEDS: TICAGRELOR 90 MG TAB PO SCH ×2 (08:59→20:21)
[2022-05-24] MEDS: METOPROLOL TARTRATE 25 MG TAB PO SCH ×2 (08:59→20:21)
[2022-05-24] MEDS: CYANOCOBALAMIN 500 MCG TAB PO SCH (08:59)
[2022-05-24] MEDS: FOLIC ACID 1 MG TAB PO SCH (08:59)
--- NOTE | 2022-05-24 09:04 | P.PN ---
Subjective Progress Note Date: 05/24/22 Principal diagnosis: The patient is a 76-year-old white male admitted yesterday. [facility] due to weakness and altered mental status. He was fo und to be in renal failure. A Adler catheter was placed, with reportedly a return of 1 L of urine. His renal function has improved somewhat. Renal ultrasound today showed no evidence of hydronephrosis. His serum creatinine level last month was 1.16. He is a vague historian. Some information was obtained from family members at the bedside. He continues to do well. Denies any fever chills cough. Appetite is good but he doesn't like the food. He is able to walk. He continues to have Adler catheter in. Creatinine is trending down today's labs are pending Objective - Vital Signs Vital signs: Vital Signs Temp 98.0 F 05/23/22 19:51 Pulse 78 05/24/22 03:57 Resp 18 05/24/22 03:57 BP 162/83 05/24/22 03:57 Pulse Ox 97 05/24/22 03:57 FiO2 Intake & Output 05/23/22 05/24/22 05/24/22 18:59 06:59 18:59 Intake Total 2300 Output Total 1101 950 Balance 1199 -950 Intake: IV 1200 Lactated Ringers 1,000 ml 1200 @ 100 mls/hr IV .Q10H [facility] Rx#:[id number] Oral 1100 Output: Urine 1100 950 Uretheral (Adler) 750 100 Urine/Stool Mix 1 Other: Voiding Method Indwelling Catheter Indwelling Catheter Awake alert oriented comfortable HEENT exam no JVP neck is supple no facial asymmetry Lungs clear to auscultation Heart sounds unremarkable Abdomen soft nontender Extremity exam was no edema Neurologically awake alert oriented - Labs CBC & Chem 7: 05/23/22 06:52 05/23/22 06:52 Labs: Abnormal Lab Results - Last 24 Hours (Table) 05/23/22 05/23/22 05/23/22 Range/Units 06:52 06:52 06:52 RBC (4.30-5.90) m/uL Hgb (13.0-17.5) gm/dL Hct (39.0-53.0) % Potassium 5.3 H (3.5-5.1) mmol/L BUN 97 H (9-20) mg/dL Creatinine 2.82 H (0.66-1.25) mg/dL Glucose 113 H (74-99) mg/dL POC Glucose (mg/dL) (70-110) mg/dL Hemoglobin A1c 6.9 H (0.0-6.0) % Calcium 8.1 L (8.4-10.2) mg/dL PTH Intact 100.0 H (14.0-72.0) pg/mL 05/23/22 05/23/22 05/23/22 Range/Units 06:52 11:23 16:59 RBC 4.08 L (4.30-5.90) m/uL Hgb 12.0 L (13.0-17.5) gm/dL Hct 37.3 L (39.0-53.0) % Potassium (3.5-5.1) mmol/L BUN (9-20) mg/dL Creatinine (0.66-1.25) mg/dL Glucose (74-99) mg/dL POC Glucose (mg/dL) 170 H 187 H (70-110) mg/dL Hemoglobin A1c (0.0-6.0) % Calcium (8.4-10.2) mg/dL PTH Intact (14.0-72.0) pg/mL 05/23/22 05/24/22 Range/Units 20:12 05:54 RBC (4.30-5.90) m/uL Hgb (13.0-17.5) gm/dL Hct (39.0-53.0) % Potassium (3.5-5.1) mmol/L BUN (9-20) mg/dL Creatinine (0.66-1.25) mg/dL Glucose (74-99) mg/dL POC Glucose (mg/dL) 158 H 114 H (70-110) mg/dL Hemoglobin A1c (0.0-6.0) % Calcium (8.4-10.2) mg/dL PTH Intact (14.0-72.0) pg/mL Microbiology - Last 24 Hours (Table) 05/23/22 00:55 Urine Culture - Preliminary Urine,Voided Assessment and Plan Assessment: Impression 1. Acute kidney injury likely from outlet obstruction relieved with Adler c atheter but there may be an element of prerenal which is improving. 2. Mild degree of hyperkalemia secondary acute kidney injury potassium 5.3 yesterday last today pending 3. Diabetes mellitus hemoglobin A1c 6.9% controlled . 4. Mild proteinuria 1+ not quantified likely from diabetes mellitus 5. Baseline creatinine 0.69 on 02/18/2022. Recommendation 1. Patient can be discharged home. 2. Defer to urology regarding the Adler catheter. 3. We will need to be followed up in the office if discharged
[2022-05-24 11:43] LABS: Glucose,Whole Blood 169 mg/dL (70-110)
[2022-05-24 16:04] VITALS: RESP 18
[2022-05-24 16:10] LABS: Basophils % (A) 0 %; Eosinophils # (A) 0.1 k/uL (0-0.7); Eosinophils % (A) 1 %; HCT 36.8 % (39.0-53.0); HGB 11.7 gm/dL (13.0-17.5); Lymphocytes # (A) 1.1 k/uL (1.0-4.8); Lymphocytes % (A) 11 %; MCH 29.5 pg (25.0-35.0); MCHC 31.9 g/dL (31.0-37.0); MCV 92.4 fL (80.0-100.0); Monocytes # (A) 0.6 k/uL (0-1.0); Monocytes % (A) 6 %; Neutrophils # (A) 7.9 k/uL (1.3-7.7); Neutrophils % (A) 81 %; Platelet Count 175 k/uL (150-450); RBC 3.98 m/uL (4.30-5.90); WBC 9.8 k/uL (3.8-10.6)
[2022-05-24 16:20] LABS: Albumin 3.2 g/dL (3.5-5.0); Calcium 8.3 mg/dL (8.4-10.2); Potassium 5.1 mmol/L (3.5-5.1); Total Bilirubin 0.6 mg/dL (0.2-1.3); Total Protein 5.8 g/dL (6.3-8.2)
[2022-05-24 16:56] LABS: Glucose,Whole Blood 168 mg/dL (70-110)
[2022-05-24 19:59] LABS: Glucose,Whole Blood 100 mg/dL (70-110)
--- NOTE | 2022-05-24 20:17 | P.PN ---
Progress Note - Text Progress Note Date: 05/24/22 The patient was seen this morning. He is resting comfortably. His Adler catheter was draining clear yellow urine. His serum creatinine level is improving (1.71 today). His Adler catheter will be removed tomorrow for a voiding trial.
[2022-05-24] MEDS: ATORVASTATIN 80 MG TAB PO SCH (20:21)
[2022-05-24] MEDS: MELATONIN 3 MG TABLET PO SCH (20:21)
[2022-05-25 04:02] VITALS: BP 153/82; PULSE 66; TEMP 98.1
[2022-05-25] MEDS: LACTATED RINGERS 1,000 ML IV SCH (06:11)
[2022-05-25 06:33] LABS: Glucose,Whole Blood 127 mg/dL (70-110)
[2022-05-25] MEDS: INSULIN ASPART (NovoLOG) 100 UNIT/ML VIAL SQ SCH ×2 (06:39→13:04)
--- NOTE | 2022-05-25 07:03 | PN ---
PROGRESS NOTE SUBJECTIVE: A 76-year-old white male. Sugars have been in the mid 100s. Kidney functions improving daily. Last kidney function showed 97 yesterday with a creatinine of 2.82. He is improving with fluids. He is more alert. Bradycardia was stopped. Beta-rad and a couple of cardiology medicines were stopped. He is more alert, possibly go back to rehab center this week. OBJECTIVE: CARDIOVASCULAR: S1, S2. LUNGS: Clear. GI: Soft. HEMATOLOGY: Negative Homans. He is pleasantly confused, given mostly appropriate lactated Ringer's. We will check his kidney function today, which is pending. He would like his Adler catheter staying in. Vital signs were reviewed. Acute kidney injury secondary to dehydration with little bit of outlet obstruction as he had 800 mL on admission with Adler catheter. Mild degree of hyperkalemia and diabetes mellitus. Hemoglobin A1c 6.9. Mild proteinuria. Baseline creatinine is 0.69, it is improving daily. Possibly, he will go home soon. He probably is either going to go home or to rehab center, but see what his creatinine is today. He should go home with the Adler catheter possibly in place. Prognosis guarded. MMODL / IJN: [id number] /
--- NOTE | 2022-05-25 09:02 | P.PN ---
Subjective Progress Note Date: 05/25/22 Principal diagnosis: The patient is a 76-year-old white male, was brought to the ER from a skilled nursing due to weakness and altered mental status. He was found to be in renal failure. A Adler catheter was placed, with reportedly a return of 1 L of urine. His renal function is improving. Renal ultrasound today showed no evidence of hydronephrosis. His serum creatinine level last month was 1.16. Urine culture grew gram-negative bacilli, sensitivity pending, labs pending He continues to do well. Denies any fever chills cough. Appetite is good but he doesn't like the food. He is able to walk. He continues to have Adler catheter in. Creatinine is trending down today's labs are pending. Urine output is 2625 intake is not accurately documented. Documented at 11 8 mL Objective - Vital Signs Vital signs: Vital Signs Temp 98.1 F 05/25/22 04:01 Pulse 66 05/25/22 04:01 Resp 18 05/25/22 04:01 BP 153/82 05/25/22 04:01 Pulse Ox 94 L 05/25/22 04:01 FiO2 Intake & Output 05/24/22 05/25/22 05/25/22 18:59 06:59 18:59 Intake Total 118 Output Total 1675 950 Balance -1557 -950 Intake: Oral 118 Output: Urine 1675 950 Other: Voiding Method Indwelling Catheter Indwelling Catheter Awake alert oriented comfortable HEENT exam no JVP neck is supple no facial asymmetry Lungs clear to auscultation Heart sounds unremarkable Abdomen soft nontender Extremity exam was no edema Neurologically awake alert oriented - Labs CBC & Chem 7: 05/24/22 15:49 05/24/22 15:49 Labs: Abnormal Lab Results - Last 24 Hours (Table) 05/24/22 05/24/22 05/24/22 Range/Units 11:41 15:49 15:49 RBC 3.98 L (4.30-5.90) m/uL Hgb 11.7 L (13.0-17.5) gm/dL Hct 36.8 L (39.0-53.0) % Neutrophils # 7.9 H (1.3-7.7) k/uL BUN 52 H (9-20) mg/dL Creatinine 1.71 H (0.66-1.25) mg/dL Glucose 197 H (74-99) mg/dL POC Glucose (mg/dL) 169 H (70-110) mg/dL Calcium 8.3 L (8.4-10.2) mg/dL Total Protein 5.8 L (6.3-8.2) g/dL Albumin 3.2 L (3.5-5.0) g/dL 05/24/22 05/25/22 Range/Units 16:51 06:31 RBC (4.30-5.90) m/uL Hgb (13.0-17.5) gm/dL Hct (39.0-53.0) % Neutrophils # (1.3-7.7) k/uL BUN (9-20) mg/dL Creatinine (0.66-1.25) mg/dL Glucose (74-99) mg/dL POC Glucose (mg/dL) 168 H 127 H (70-110) mg/dL Calcium (8.4-10.2) mg/dL Total Protein (6.3-8.2) g/dL Albumin (3.5-5.0) g/dL Microbiology - Last 24 Hours (Table) 05/23/22 00:55 Urine Culture - Preliminary Urine,Voided Gram Neg Bacilli Assessment and Plan Assessment: Impression 1. Acute kidney injury likely from outlet obstruction relieved with Adler catheter but there may be an element of prerenal which is improving. Creatinine down to 1.7 from peak of 8.36. Baseline creatinine 0.69 on 02/18/2022. 2. Mild degree of hyperkalemia secondary acute kidney injury, resolved 3. Diabetes mellitus hemoglobin A1c 6.9% controlled . 4. Mild proteinuria 1+ not quantified likely from diabetes mellitus 5. UTI with gram-negative bacilli sensitivities and identification pending Recommendation 1. Patient can be discharged home. 2. Defer to urology regarding the Adler catheter. 3. We will need to be followed up in the office if discharged
[2022-05-25 09:23] LABS: Basophils % (A) 0 %; Eosinophils # (A) 0.3 k/uL (0-0.7); Eosinophils % (A) 3 %; HGB 12.4 gm/dL (13.0-17.5); Lymphocytes # (A) 1.1 k/uL (1.0-4.8); Lymphocytes % (A) 12 %; MCH 29.4 pg (25.0-35.0); MCHC 31.8 g/dL (31.0-37.0); MCV 92.4 fL (80.0-100.0); Monocytes # (A) 0.4 k/uL (0-1.0); Monocytes % (A) 5 %; Neutrophils # (A) 6.6 k/uL (1.3-7.7); Neutrophils % (A) 78 %; Platelet Count 163 k/uL (150-450); RBC 4.22 m/uL (4.30-5.90); RDW 13.8 % (11.5-15.5); WBC 8.5 k/uL (3.8-10.6)
[2022-05-25 09:53] LABS: Calcium 8.3 mg/dL (8.4-10.2); Potassium 5.1 mmol/L (3.5-5.1); Total Bilirubin 0.9 mg/dL (0.2-1.3); Total Protein 5.7 g/dL (6.3-8.2)
[2022-05-25] MEDS: TICAGRELOR 90 MG TAB PO SCH (09:56)
[2022-05-25] MEDS: FOLIC ACID 1 MG TAB PO SCH (09:56)
[2022-05-25] MEDS: CYANOCOBALAMIN 500 MCG TAB PO SCH (09:56)
[2022-05-25] MEDS: SERTRALINE 25 MG TAB PO SCH (09:56)
[2022-05-25] MEDS: METOPROLOL TARTRATE 25 MG TAB PO SCH (09:56)
--- NOTE | 2022-05-25 10:55 | P.PN ---
Subjective Progress Note Date: 05/24/22 Patient was seen for a follow-up. Patient's mentation has improved. Still slightly confused. Patient not in pain anymore. Appears more comfortable. Affect is normal. Objective - Vital Signs Vital signs: Vital Signs Temp 98 F 05/24/22 15:45 Pulse 72 05/24/22 15:45 Resp 18 05/24/22 15:45 BP 168/79 05/24/22 15:45 Pulse Ox 98 05/24/22 15:45 FiO2 Intake & Output 05/23/22 05/24/22 05/24/22 18:59 06:59 18:59 Intake Total 2300 118 Output Total 1101 950 850 Balance 9659 -562 -762 Intake: IV 1200 Lactated Ringers 1,000 ml 1200 @ 100 mls/hr IV .Q10H SUSIE Rx#:[id number] Oral 1100 118 Output: Urine 1100 950 850 Uretheral (Adler) 750 100 Urine/Stool Mix 1 Other: Voiding Method Indwelling Catheter Indwelling Catheter Indwelling Catheter - Exam Patient is alert and awake, in no distress. Speech and language functions are normal. Patient states that he is 73 years old. Could not tell the current month or the year. He thinks he is in [facility] and knows name of the current president. Speech and language functions are normal. Cranial nerves:pupils are unequal, right pupil is oval, nonreactive and the left pupil is very small, nonreactive. His visual mohan are full on confrontation, with no neglect. Face is symmetric. Tongue protrudes the midline. On muscle strength testing strength is normal in the arms. Right shoulder is 5- related to pain. In the lower limbs (right/left) hip flexion is 4-/5, ankle dorsiflexion 5/5. Sensory touch is equal. Gait deferred. - Labs CBC & Chem 7: 05/25/22 08:36 05/25/22 08:36 Labs: Abnormal Lab Results - Last 24 Hours (Table) 05/23/22 05/24/22 05/24/22 Range/Units 20:12 05:54 11:41 RBC (4.30-5.90) m/uL Hgb (13.0-17.5) gm/dL Hct (39.0-53.0) % Neutrophils # (1.3-7.7) k/uL BUN (9-20) mg/dL Creatinine (0.66-1.25) mg/dL Glucose (74-99) mg/dL POC Glucose (mg/dL) 158 H 114 H 169 H (70-110) mg/dL Calcium (8.4-10.2) mg/dL Total Protein (6.3-8.2) g/dL Albumin (3.5-5.0) g/dL 05/24/22 05/24/22 05/24/22 Range/Units 15:49 15:49 16:51 RBC 3.98 L (4.30-5.90) m/uL Hgb 11.7 L (13.0-17.5) gm/dL Hct 36.8 L (39.0-53.0) % Neutrophils # 7.9 H (1.3-7.7) k/uL BUN 52 H (9-20) mg/dL Creatinine 1.71 H (0.66-1.25) mg/dL Glucose 197 H (74-99) mg/dL POC Glucose (mg/dL) 168 H (70-110) mg/dL Calcium 8.3 L (8.4-10.2) mg/dL Total Protein 5.8 L (6.3-8.2) g/dL Albumin 3.2 L (3.5-5.0) g/dL Microbiology - Last 24 Hours (Table) 05/23/22 00:55 Urine Culture - Preliminary Urine,Voided Gram Neg Bacilli Assessment and Plan Assessment: * Altered mental status, likely due to acute metabolic encephalopathy due to reasons mentioned below. Mentation and encephalopathy much improved. * Acute renal failure, significantly improved. Most recent BUN 52, creatinine 1.71. * Hyperkalemia * Acute UTI * Diabetes, controlled with A1c 6.9. * Kidney stone with acute renal colic. * History of B12 deficiency Plan: * Patient's mentation and encephalopathy has improved. * CT head showed no acute process. No acute CVA. * No other neurological workup indicated. * Patient's mentation will improve, once his medical conditions/renal functions improves. * Check CPK. Came as 267/170. * Continue B12, folate * Continue Brilinta 90 mg twice a day if no medical contra indication. * Neurologically clear. Neurology will sign off. Please reconsult if any other concerns.
[2022-05-25 11:56] LABS: Glucose,Whole Blood 180 mg/dL (70-110)
--- NOTE | 2022-05-25 18:22 | P.PN ---
Progress Note - Text Progress Note Date: 05/24/22 Psychiatry follow-up note: Interval history: Patient was seen laying in bed and was directable and agreeable to speak with life insurance underwriter. He is calm, has not been agitated. At this time, patient denies any suicidal or homicidal ideation, intent or plan. Denies any auditory or visual hallucinations. Patient denies any side effects from the medications and has been compliant with meds. Mental status exam: General Appearance: Patient appears to be stated age, is tall, fair hygiene Behavior: No agitated behavior. Patient is calm and directable. Speech: Patient's speech is fluent and non-pressured. Mood/Affect: Mood is "good", affect is congruent and constricted. Suicidality/Homicidality: Patient denies having any suicidal or homicidal ideation intent or plan. Perceptions: Patient denies any auditory or visual hallucinations. Though content/process: There is no evidence of any delusional thought content. Thought process is concrete. Memory and concentration: AOX2, fair Judgment and insight: chronically limited/poor Assessment/Plan: Continue with current diagnosis. Patient will be maintained on current psychotropic medication regimen. He tolerating medications without side effects. Monitor for medication compliance and for any psychotropic medication side e ffects. Psychiatry will sign off at this time.
--- NOTE | 2022-05-27 12:15 | CT ---
EXAMINATION TYPE: CT brain wo con DATE OF EXAM: 05/22/2022 HISTORY: Altered mental status CT DLP: 1316 mGycm. Automated Exposure Control for Dose Reduction was Utilized. TECHNIQUE: CT scan of the head is performed without contrast. COMPARISON: CT brain 2 days earlier. FINDINGS: Due to PACS downtime, case presented for official dictation May 27, 2022. There is no acute intracranial hemorrhage or midline shift identified. There is tuwc-[id number]-[id number] diff use ventricular and sulcal prominence with focal prominence greatest over the superior bilateral fron mejia and parietal lobes redemonstrated. There is mild to moderate low-attenuation in the periventricu lar white matter consistent with chronic small vessel ischemic change redemonstrated. Old infarct michaela p right frontoparietal region axial image 32 redemonstrated. Patchy opacification of frontal sinus re demonstrated. Nonvisualized right lens in the right globe suggesting prior cataract surgery similar t o prior. IMPRESSION: No acute intracranial hemorrhage or midline shift. There is mild to moderate diffuse ag e-related cerebral atrophy and chronic small vessel ischemic change along with right-sided infarct al l redemonstrated. No significant change from prior. Preliminary report provided by on site radiologist.
--- NOTE | 2022-05-27 12:22 | XR ---
EXAMINATION TYPE: XR chest 2V DATE OF EXAM: 05/27/2022 COMPARISON: 02/18/2022 TECHNIQUE: PA and lateral views submitted. HISTORY: Hypoglycemia with pain FINDINGS: The cardiac device is seen and there is left lower lobe infiltrate with small bilateral effusions. Hy perinflation noted. Arthropathy of the shoulders with diffuse osteopenia. IMPRESSION: 1. COPD with left lower lobe infiltrate and small bilateral effusions.
--- NOTE | 2022-05-28 09:18 | CDI ---
Documentation Clarification Form Date: 05/28/22 From: Wanda Guido Admit Date: 05/20/2022 05:00:00 PM Patient Name: Alireza Ervin Visit Number: [id number] Discharge Date: 05/25/2022 02:38:00 PM ATTENTION: The Clinical Documentation Specialists (CDI) and [facility] Coding Staff appreciate your assistance in clarifying documentation. Please respond to the clarification below the line at the bottom and electronically sign. The CDI & [facility] Coding staff will review the response and follow-up if needed. Please note: Queries are made part of the Legal Health Record. If you have any questions, please contact the author of this message via ITS. Dr. Bello Holden, Your patient has the documented diagnosis of unspecified heart failure in all 3 consults. Additional information regarding the [type, acuity] of CHF is requested. History/Risk Factors: HTN, dementia, ATN, metabolic encephalopathy, cachexia, UTI, T2DM w hypoglycemia and neuropathy, hyperkalemia, dehydration, urinary retention Clinical Indicators: Hx of CHF VS/Pulse OX: T 98.1, P 90, R 16, BP 127/71, O2 98 BNP: none 05/05/22 Echocardiogram Results: Left ventricular ejection fraction is estimated at 30-35% 05/27/22 Chest X Ray: COPD with left lower lobe infiltrate and small bilateral effusions. Treatment: IV Lasix 10 mg on 05/21 In your professional opinion, can you please clarify the [acuity and type] of CHF if known? [ ] Chronic Systolic Heart Failure (reduced EF) [ ] Chronic Diastolic Heart Failure (reduced EF) [ ] Other, please specify [ ] Unable to determine MTDD
--- NOTE | 2022-06-02 05:39 | CDI ---
Documentation Clarification Form Date: 05/28/2022 09:17:00 AM From: Wanda Guido Admit Date: 05/20/2022 05:00:00 PM Patient Name: Alireza Ervin Visit Number: [id number] Discharge Date: 05/25/2022 02:38:00 PM ATTENTION: The Clinical Documentation Specialists (CDI) and [facility] Coding Staff appreciate your assistance in clarifying documentation. Please respond to the clarification below the line at the bottom and electronically sign. The CDI & [facility] Coding staff will review the response and follow-up if needed. Please note: Queries are made part of the Legal Health Record. If you have any questions, please contact the author of this message via ITS. Dr. Bello Holden, Your patient has the documented diagnosis of unspecified heart failure in all 3 consults. Additional information regarding the [type, acuity] of CHF is requested. History/Risk Factors: HTN, dementia, ATN, metabolic encephalopathy, cachexia, UTI, T2DM w hypoglycemia and neuropathy, hyperkalemia, dehydration, urinary retention Clinical Indicators: Hx of CHF VS/Pulse OX: T 98.1, P 90, R 16, BP 127/71, O2 98 BNP: none 05/05/22 Echocardiogram Results: Left ventricular ejection fraction is estimated at 30-35% 05/27/22 Chest X Ray: COPD with left lower lobe infiltrate and small bilateral effusions. Treatment: IV Lasix 10 mg on 05/21 In your professional opinion, can you please clarify the [acuity and type] of CHF if known? [ ] Chronic Systolic Heart Failure (reduced EF) [ ] Chronic Diastolic Heart Failure (reduced EF) [ ] Other, please specify [ ] Unable to determine MTDD
--- NOTE | 2022-06-15 03:47 | PN ---
PROGRESS NOTE Chronic systolic heart failure. MMODL / IJN: [id number] /
== END 2022-05-25 14:38 | disposition home health service (06) | DRG 682 ==
LOC: EC 13:45 → 3SCARD 17:00 → EC 20:39 → 3SCARD 05-21 04:33
PROVIDERS: ADMIT Family Medicine; ATTEND Family Medicine
DX: N17.0 Acute kidney failure with tubular necrosis (principal); G93.41 Metabolic encephalopathy; R64 Cachexia; E87.2 Acidosis; F03.91 Unspecified dementia, unspecified severity, with behavioral disturbance; I50.22 Chronic systolic (congestive) heart failure; N39.0 Urinary tract infection, site not specified; E11.649 Type 2 diabetes mellitus with hypoglycemia without coma; I95.9 Hypotension, unspecified; E11.40 Type 2 diabetes mellitus with diabetic neuropathy, unspecified; I11.0 Hypertensive heart disease with heart failure; J44.9 Chronic obstructive pulmonary disease, unspecified; Z79.4 Long term (current) use of insulin; E87.5 Hyperkalemia; E86.0 Dehydration; N20.0 Calculus of kidney; R33.9 Retention of urine, unspecified; R31.0 Gross hematuria; I65.23 Occlusion and stenosis of bilateral carotid arteries; R29.6 Repeated falls; I25.10 Atherosclerotic heart disease of native coronary artery without angina pectoris; E53.8 Deficiency of other specified B group vitamins; E78.5 Hyperlipidemia, unspecified; R00.1 Bradycardia, unspecified; F32.A Depression, unspecified; I25.2 Old myocardial infarction; I83.90 Asymptomatic varicose veins of unspecified lower extremity; H93.19 Tinnitus, unspecified ear; K44.9 Diaphragmatic hernia without obstruction or gangrene; M19.90 Unspecified osteoarthritis, unspecified site; F17.210 Nicotine dependence, cigarettes, uncomplicated; Z79.02 Long term (current) use of antithrombotics/antiplatelets; Z79.899 Other long term (current) drug therapy; Z87.442 Personal history of urinary calculi; Z95.5 Presence of coronary angioplasty implant and graft; Z87.11 Personal history of peptic ulcer disease; Z86.73 Personal history of transient ischemic attack (TIA), and cerebral infarction without residual deficits; Z87.820 Personal history of traumatic brain injury; Z88.5 Allergy status to narcotic agent
CPT/HCPCS: 70450; 71046; 72125; 73502; 76770; 80048; 80053; 81001; 82009; 82550; 83036; 83605; 83735; 83970; 84100; 84132; 84484; 85025; 85027; 85610; 85730; 86850; 86900; 86901; 87077; 87086; 87186; 96361; 96374; 96375; 99291

== ENCOUNTER 2022-06-10 13:26 | Emergency (ER) | payer MEDICARE ==
[2022-06-10 13:43] VITALS: RESP 18; TEMP 98.5
[2022-06-10 14:03] LABS: Glucose,Whole Blood 94 mg/dL (70-110)
[2022-06-10 14:16] LABS: Basophils % (A) 0 %; Eosinophils % (A) 0 %; HCT 39.1 % (39.0-53.0); HGB 13.3 gm/dL (13.0-17.5); Lymphocytes # (A) 0.3 k/uL (1.0-4.8); Lymphocytes % (A) 6 %; MCH 29.7 pg (25.0-35.0); Mean Platelet Volume 9.4; Monocytes # (A) 0.2 k/uL (0-1.0); Monocytes % (A) 4 %; Neutrophils # (A) 4.5 k/uL (1.3-7.7); Neutrophils % (A) 87 %; Platelet Count 208 k/uL (150-450); RBC 4.48 m/uL (4.30-5.90); RDW 13.7 % (11.5-15.5); WBC 5.2 k/uL (3.8-10.6)
[2022-06-10 14:28] LABS: Partial Thromboplastin Time 22.3 sec (22.0-30.0); Prothrombin Time 10.9 sec (9.0-12.0)
[2022-06-10 14:30] LABS: ALT 35 U/L (4-49); AST 49 U/L (17-59); African American GFR (CKD) 79 (>60 ml/min/1.73 sqM); Albumin 3.7 g/dL (3.5-5.0); Alcohol <10 mg/dL; Alkaline Phosphatase 141 U/L (38-126); Anion Gap 12 mmol/L; Blood Urea Nitrogen 37 mg/dL (9-20); Calcium 8.8 mg/dL (8.4-10.2); Carbon Dioxide 19 mmol/L (22-30); Chloride 106 mmol/L (98-107); Glucose 99 mg/dL (74-99); Non-African American GFR(CKD) 69 (>60 ml/min/1.73 sqM); Potassium 4.1 mmol/L (3.5-5.1); Sodium 137 mmol/L (137-145); Total Bilirubin 0.7 mg/dL (0.2-1.3); Total Protein 6.7 g/dL (6.3-8.2)
[2022-06-10 14:32] LABS: MCV 87.4 fL (80.0-100.0)
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
--- NOTE | 2022-06-10 14:54 | XR ---
EXAMINATION TYPE: XR chest 2V DATE OF EXAM: 06/10/2022 COMPARISON: Chest x-ray 05/20/2022 HISTORY: Altered mental status TECHNIQUE: Frontal and lateral views of the chest are obtained. FINDINGS: There is no focal air space opacity, pleural effusion, or pneumothorax seen. The cardiac silhouette size is within normal limits. Increased AP diameter chest and flattening the hemidiaphrag ms consistent with COPD, patient has emphysema. There is a generator present in the left pectoral reg ion, lead in the right atrium. The osseous structures are intact. IMPRESSION: No acute cardiopulmonary process.
--- NOTE | 2022-06-10 15:04 | CT ---
EXAMINATION TYPE: CT brain wo con DATE OF EXAM: 06/10/2022 COMPARISON: CT brain 05/22/2022 HISTORY: ams CT DLP: 1063.4 mGycm Automated exposure control for dose reduction was used. Helical imaging through the brain FINDINGS: There are cerebral vascular calcifications present. Cortical atrophy is again seen. There is no hemor rhage or hydrocephalus. Periventricular white matter shows patchy low attenuation. Lacunar infarct is present in the periventricular white matter on the right. There is inflammatory change present withi n the frontal sinus on the left similar to prior exam. IMPRESSION: NO ACUTE ABNORMALITY. AGE-RELATED CHANGES OF ATROPHY AND CHRONIC SMALL VESSEL ISCHEMIA.
[2022-06-10 16:22] LABS: Glucose,Whole Blood 56 mg/dL (70-110)
[2022-06-10 17:02] LABS: Glucose,Whole Blood 85 mg/dL (70-110)
[2022-06-10 17:51] LABS: Glucose,Whole Blood 122 mg/dL (70-110)
[2022-06-10 17:53] VITALS: BP 163/77; PULSE 83
== END 2022-06-10 18:28 | disposition home or self-care (01) ==
LOC: EC 13:26
DX: U07.1 COVID-19 (principal); E16.2 Hypoglycemia, unspecified; Z88.5 Allergy status to narcotic agent; J44.9 Chronic obstructive pulmonary disease, unspecified; E78.5 Hyperlipidemia, unspecified; I10 Essential (primary) hypertension; I25.2 Old myocardial infarction; F03.90 Unspecified dementia, unspecified severity, without behavioral disturbance, psychotic disturbance, mood disturbance, and anxiety; F17.200 Nicotine dependence, unspecified, uncomplicated
CPT/HCPCS: 36415; 93005; 80053; 82140; 84484; 85025; 85610; 85730; 87635; 71046; 70450; 99285; G0480; 80320

== ENCOUNTER 2022-06-18 11:46 | Inpatient (IN) | payer MEDICARE ==
[2022-06-18] MEDS ORDERED: SODIUM CHLORIDE 0.9% 1,000 ML IV STA ×2 (13:11→14:41)
[2022-06-18 13:49] LABS: Basophils % (A) 0 %; Eosinophils % (A) 1 %; HCT 41.3 % (39.0-53.0); HGB 13.7 gm/dL (13.0-17.5); Lymphocytes # (A) 0.8 k/uL (1.0-4.8); Lymphocytes % (A) 10 %; MCH 29.6 pg (25.0-35.0); MCHC 33.3 g/dL (31.0-37.0); Mean Platelet Volume 9.6; Monocytes # (A) 0.3 k/uL (0-1.0); Monocytes % (A) 4 %; Neutrophils # (A) 6.7 k/uL (1.3-7.7); Neutrophils % (A) 85 %; Platelet Count 198 k/uL (150-450); RBC 4.64 m/uL (4.30-5.90); RDW 13.8 % (11.5-15.5); WBC 7.9 k/uL (3.8-10.6)
[2022-06-18 14:03] LABS: Lactic Acid, Venous 1.3 mmol/L (0.7-2.0)
[2022-06-18 14:04] LABS: Albumin 3.8 g/dL (3.5-5.0); Calcium 8.8 mg/dL (8.4-10.2); Potassium 4.9 mmol/L (3.5-5.1); Total Protein 6.7 g/dL (6.3-8.2)
[2022-06-18 14:07] LABS: INR 1.1 (<1.2); Prothrombin Time 11.4 sec (9.0-12.0)
[2022-06-18 14:10] LABS: Partial Thromboplastin Time 21.6 sec (22.0-30.0)
--- NOTE | 2022-06-18 14:10 | CT ---
EXAMINATION TYPE: CT brain wo con DATE OF EXAM: 06/18/2022 COMPARISON: 06/10/2022 INDICATION: ams, weakness DLP: 1099.4 mGycm, Automated exposure control for dose reduction was used. CONTRAST: None CT of the brain is performed utilizing 3 mm thick sections through the posterior fossa and 3 mm thick sections through the remaining calvarium. Study is performed within 24 hours of arrival to the hosp ital. No abnormal hyperdensity is present to suggest an acute intracranial hemorrhage. No mass lesion is evident. No acute infarcts are evident. Periventricular white matter hypodensity is present, likely on the bas is of chronic white matter ischemic changes. A lacunar infarct in the left centrum semiovale was pres ent previously. An old right kelly radiata lacunar infarct is evident. There is some mild prominence along the right frontal region extra-axial space could be a small subdural hygroma with a depth of 1 .2 cm. This is stable from comparison. Ventricles and sulci are prominent for the patient age. Mucosal thickening is within the left frontal sinus. There is an air-fluid level within the left maxi llary sinus. Correlate for acute maxillary sinusitis. IMPRESSIONS: 1. Atrophy with chronic appearing periventricular white matter ischemic changes. 2. Acute left maxillary sinusitis
--- NOTE | 2022-06-18 14:33 | XR ---
EXAMINATION TYPE: XR chest 2V DATE OF EXAM: 06/18/2022 COMPARISON: 06/10/2022 TECHNIQUE: PA and lateral views submitted. HISTORY: Pain FINDINGS: Cardiac device is seen with subsegmental changes left lung base. Hypertrophic degenerative changes sp ine. Chronic appearing wedge deformity lower thoracic region. No overt failure. Diffuse osteopenia. C ardiac stents noted. IMPRESSION: 1. Correlate for COPD with left basilar atelectasis favored over early pneumonia correlate clinically .
--- NOTE | 2022-06-18 14:34 | XR ---
EXAMINATION TYPE: XR KUB DATE OF EXAM: 06/18/2022 COMPARISON: NONE HISTORY: Pain TECHNIQUE: One view abdominal series FINDINGS: The osseous structures are intact. The bowel gas pattern is nonspecific. Question pleural-based calc ifications left lung base. Postsurgical changes in the pelvis. Arthropathy of the hips. Degenerative change lower lumbar spine. Calcification the aorta. Cannot exclude an aneurysm. IMPRESSION: 1. Nonspecific abdomen. Calcification along the left spinal line could be associated with an abdomin al aortic aneurysm correlate with CT scan as clinically warranted.
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
[2022-06-18] MEDS ORDERED: NALOXONE 0.4 MG/ML 1 ML VIAL IV PRN (14:45)
[2022-06-18 15:02] LABS: Appearance,Urine Cloudy (Clear); Bacteria,Urine Many /hpf; Bilirubin,Urine 1+ (Negative); Blood,Urine Moderate (Negative); Color,Urine Yellow; Glucose,Urine (UA) Negative (Negative); Hyaline Casts,Urine 1 /lpf (0-2); Ketones,Urine Trace (Negative); Leukocyte Esterase,Urine Large (Negative); Mucus,Urine Rare /hpf; Nitrite,Urine Negative (Negative); Protein,Urine 1+ (Negative); RBC,Urine 9 /hpf (0-5); Squamous Epithelial Cell,Urine 2 /hpf (0-4); WBC,Urine 10 /hpf (0-5)
[2022-06-18] MEDS: AZITHROMYCIN 500 MG in SODIUM CHLORIDE 0.9% 250 ML IVPB SCH (15:52)
[2022-06-18] MEDS: INSULN ASP PRT/INSULIN ASPART 100 UNIT/ML 10 ML VIAL SQ SCH (20:26)
[2022-06-18] MEDS: HEPARIN SODIUM,PORCINE/PF 5,000 UNIT/0.5 ML SYRINGE SQ SCH (20:27)
[2022-06-18] MEDS: METOPROLOL TARTRATE 25 MG TAB PO SCH (20:27)
[2022-06-18] MEDS: ATORVASTATIN 80 MG TAB PO SCH (20:27)
[2022-06-18 20:42] LABS: Glucose,Whole Blood 135 mg/dL (70-110)
[2022-06-18] MEDS: TICAGRELOR 90 MG TAB PO SCH (22:06)
--- NOTE | 2022-06-19 05:50 | HP ---
HISTORY AND PHYSICAL HISTORY OF PRESENT ILLNESS: A 77-year-old white male brought in by his daughter. History of COPD, dementia, recent COVID pneumonia with encephalopathy, hypertension, headache. COVID has not been any good. last 2 weeks since he had COVID, history of hypertension. He is alert and oriented x2-3 at home. He lives at home with his daughter who has not noticed any new symptoms of COVID, just refusing to eat, weakness and fatigue. They had Nutrition consult. MEDICATIONS: Questran for diarrhea, Lopressor 25 b.i.d., folic acid, insulin FlexPen, . ALLERGIES: Morphine. REVIEW OF SYSTEMS: A 14-point review of systems otherwise negative. colon polyps. FAMILY HISTORY: Mother diabetes mellitus. Father . PHYSICAL EXAMINATION: VITAL SIGNS: Temperature 97.4, blood pressure 118/75, pulse 76, respiratory rate 16 to 18, O2 sat 96%. GENERAL: He is pleasantly confused. CARDIOVASCULAR: S1, S2. LUNGS: Scattered rhonchi and wheeze. HEMATOLOGY: Negative Homans. PSYCH: Fair mood and affect. ASSESSMENT: COVID-19, chronic obstructive pulmonary disease, coronary artery disease, hypertension, malnutrition, generalized encephalopathy after COVID. Prognosis extremely guarded. Get Neuro consult. Infectious Disease consult. tubular necrosis. Rehydrate. MMODL / IJN: [id number] /
[2022-06-19 07:20] LABS: Glucose,Whole Blood 154 mg/dL (70-110)
[2022-06-19 08:59] LABS: Basophils # (A) 0.02 X 10*3/uL (0.00-0.10); Basophils % (A) 0.3 %; Eosinophils # (A) 0.06 X 10*3/uL (0.04-0.35); Eosinophils % (A) 0.9 %; HGB 11.6 g/dL (13.0-17.0); Immature Grans, Automated 0.5 %; Lymphocytes # (A) 0.88 X 10*3/uL (0.90-5.00); Lymphocytes % (A) 13.7 %; MCH 29.4 pg (27.0-32.0); MCHC 32.2 g/dL (32.0-37.0); MCV 91.1 fL (80.0-97.0); Mean Platelet Volume 11.9 fL (9.5-12.2); Monocytes # (A) 0.61 X 10*3/uL (0.20-1.00); Monocytes % (A) 9.5 %; NRBC Per 100 WBC 0 /100 WBCS (0.0-0.0); Neutrophils # (A) 4.84 X 10*3/uL (1.80-7.70); Neutrophils % (A) 75.1 %; Platelet Count 190 X 10*3/uL (140-440); RBC 3.95 X 10*6/uL (4.40-5.60); RDW 13.6 % (11.5-14.5); WBC 6.44 X 10*3/uL (4.50-10.00)
[2022-06-19 09:05] LABS: African American GFR (CKD) 60.6 (60.0-200.0); Albumin 3.4 g/dL (3.8-4.9); Albumin/Globulin Ratio 1.42 (1.60-3.17); Anion Gap 14.8 mmol/L (10.00-18.00); Blood Urea Nitrogen 42.9 mg/dL (9.0-27.0); Carbon Dioxide 19.2 mmol/L (20.0-27.5); Globulin 2.4 g/dL (1.6-3.3); Non-African American GFR(CKD) 52.3 (60.0-200.0); Total Bilirubin 0.5 mg/dL (0.30-1.20); Total Protein 5.8 g/dL (6.2-8.2)
[2022-06-19] MEDS: HEPARIN SODIUM,PORCINE/PF 5,000 UNIT/0.5 ML SYRINGE SQ SCH ×2 (09:54→20:59)
[2022-06-19] MEDS: METOPROLOL TARTRATE 25 MG TAB PO SCH ×2 (09:54→20:59)
[2022-06-19] MEDS: TICAGRELOR 90 MG TAB PO SCH ×2 (09:54→20:59)
[2022-06-19] MEDS: INSULN ASP PRT/INSULIN ASPART 100 UNIT/ML 10 ML VIAL SQ SCH ×2 (10:02→16:42)
[2022-06-19] MEDS: AZITHROMYCIN 500 MG in SODIUM CHLORIDE 0.9% 250 ML IVPB SCH (10:39)
[2022-06-19 11:26] LABS: Glucose,Whole Blood 195 mg/dL (70-110)
[2022-06-19 13:31] VITALS: BMI 19.8
[2022-06-19 16:31] LABS: Glucose,Whole Blood 110 mg/dL (70-110)
[2022-06-19] MEDS: ATORVASTATIN 80 MG TAB PO SCH (20:59)
[2022-06-19 21:12] LABS: Glucose,Whole Blood 154 mg/dL (70-110)
--- NOTE | 2022-06-20 06:18 | PN ---
PROGRESS NOTE SUBJECTIVE: The patient states he is eating better. He wants to go home. Wants to be discharged tomorrow. He is saturating 97% on room air. OBJECTIVE: VITAL SIGNS: Blood pressure 140/83, temperature 98.7, pulse 74 to 90, respiratory rate 16 to 18. CARDIOVASCULAR: S1, S2. LUNGS: Clear. PSYCH: Giving appropriate answers. LABS: Hemoglobin is normal. White count is normal. GFR 60. Sugars mid 100s, albumin is low at 3.4. PLAN: We are going to get his nutrition increased. Possibly discharge him home in the next 24 hours as he wants to go home. His blood cultures are negative x24 hours. Prognosis guarded. We started him on Marinol 2.5 b.i.d., which will help with his appetite. He will continue with the Marinol 5 mg b.i.d. RODNEY / ADA: [id number] /
[2022-06-20 06:51] VITALS: BP 123/77; PULSE 82; RESP 16; TEMP 97.7
[2022-06-20 07:16] LABS: Glucose,Whole Blood 165 mg/dL (70-110)
[2022-06-20] MEDS: TICAGRELOR 90 MG TAB PO SCH (07:54)
[2022-06-20] MEDS: METOPROLOL TARTRATE 25 MG TAB PO SCH (07:54)
[2022-06-20] MEDS: INSULN ASP PRT/INSULIN ASPART 100 UNIT/ML 10 ML VIAL SQ SCH (07:54)
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
[2022-06-20 11:13] LABS: Glucose,Whole Blood 108 mg/dL (70-110)
--- NOTE | 2022-06-20 15:29 | P.PN ---
Subjective Progress Note Date: 06/20/22 Principal diagnosis: UTI/pneumonia The patient is 71-year-old male with multiple, comorbidities and patient did have a covered about 2-3 weeks ago presented to the hospital with weakness and decreased appetite patient did have some infected with resistant positive UA concerning for possible bacterial pneumonia or UTI on today's evaluation that is 06/20/2022, the patient is afebrile the patient is more awake a lot of the patient is breathing comfortable the patient denies having any chest pain or shortness with occasional cough no abdominal pain no diarrhea Objective - Vital Signs Vital signs: Vital Signs Temp 97.7 F 06/20/22 06:00 Pulse 82 06/20/22 08:00 Resp 16 06/20/22 08:00 BP 123/77 06/20/22 06:00 Pulse Ox 99 06/20/22 06:00 FiO2 Intake & Output 06/19/22 06/20/22 06/20/22 18:59 06:59 18:59 Output Total 200 Balance -200 Weight 69.853 kg Output: Urine 200 Other: Voiding Method Diaper Diaper Incontinent Incontinent # Voids 2 3 1 - Exam GENERAL DESCRIPTION: An elderly male lying in bed in no distress RESPIRATORY SYSTEM: Unlabored breathing , decreased breath sounds at bases HEART: S1 S2 regular rate and rhythm , ABDOMEN: Soft , no tenderness EXTREMITIES: No edema feet - Labs CBC & Chem 7: 06/19/22 06:36 06/19/22 06:36 Labs: Abnormal Lab Results - Last 24 Hours (Table) 06/19/22 06/20/22 Range/Units 21:10 07:14 POC Glucose (mg/dL) 154 H 165 H (70-110) mg/dL Microbiology - Last 24 Hours (Table) 06/18/22 13:35 Blood Culture - Preliminary Blood No Growth after 24 hours 06/18/22 13:35 Blood Culture - Preliminary Blood No Growth after 24 hours Assessment and Plan (1) Pneumonia Status: Acute Code(s): J18.9 - PNEUMONIA, UNSPECIFIED ORGANISM SNOMED Code(s): 838597541 Plan: 1patient presented hospital with generalized weakness decreased appetite in this patient with COVID about 2 weeks ago with a persistent positive test more likely leftover from his recent COVID infection rather than reinfection and would not need any isolation. 2concern for possible mild UTI versus early pneumonia community-acquired. 3patient seemed to have shown clinical improvement on Rocephin and Zithromax to finish a short course of oral Ceftin and close out patient follow-up Time with Patient: Less than 30
--- NOTE | 2022-06-23 18:31 | CDI ---
Documentation Clarification Form Date: 06/23/2022 06:19:01 PM From: Vannessa Enciso Phone: Admit Date: 06/18/2022 02:45:00 PM Pt. Name: Alireza Ervin Visit Number: [id number] Discharge Date: 06/20/2022 01:08:00 PM ATTENTION: The Clinical Documentation Specialists (CDI) and [facility] Coding Staff appreciate your assistance in clarifying documentation. Please respond to the clarification below the line at the bottom and electronically sign. The CDI & [facility] Coding staff will review the response and follow-up if needed. Please note: Queries are made part of the Legal Health Record. If you have any questions, please contact the author of this message via ITS. Dr. Bello Holden Malnutrition is documented per H&P. Additional clarification regarding the severity of malnutrition is requested. History/Risk Factors: 77yo M, Recent COVID PNA, encephalopathy, UTI, ATN, DMII, CHF, HTN, CAD, dementia, active smoker Clinical Indicators: Current BMI: 19.8 Insufficient energy intake: refusing to eat; Appears dehydrated Treatment: Pt. presented hospital with generalized weakness decreased appetite in this Pt. with COVID about 2 weeks ago with a persistent positive test more likely leftover from his recent COVID infection rather than reinfection and would not need any isolation; concern for possible mild UTI versus early pneumonia community-acquired; Pt. seemed to have shown clinical improvement on Rocephin and Zithromax to finish a short course of oral Ceftin and close out Pt. follow-up Please clarify the type of malnutrition, if known: [ ] Mild Protein-Calorie Malnutrition [ ] Moderate Protein-Calorie Malnutrition [ ] Severe Protein-Calorie Malnutrition [ ] Malnutrition, unspecified [ ] Other condition, please specify [ ] Unable to Determine (Template Last Revised: November 2020) MTDD
--- NOTE | 2022-06-23 18:31 | CDI ---
Documentation Clarification Form Date: 06/23/2022 06:19:01 PM From: Vannessa Enciso Phone: Admit Date: 06/18/2022 02:45:00 PM Pt. Name: Alireza Ervin Visit Number: [id number] Discharge Date: 06/20/2022 01:08:00 PM ATTENTION: The Clinical Documentation Specialists (CDI) and [facility] Coding Staff appreciate your assistance in clarifying documentation. Please respond to the clarification below the line at the bottom and electronically sign. The CDI & [facility] Coding staff will review the response and follow-up if needed. Please note: Queries are made part of the Legal Health Record. If you have any questions, please contact the author of this message via ITS. Dr. Bello Holden Malnutrition is documented per H&P. Additional clarification regarding the severity of malnutrition is requested. History/Risk Factors: 77yo M, Recent COVID PNA, encephalopathy, UTI, ATN, DMII, CHF, HTN, CAD, dementia, active smoker Clinical Indicators: Current BMI: 19.8 Insufficient energy intake: refusing to eat; Appears dehydrated Treatment: Pt. presented hospital with generalized weakness decreased appetite in this Pt. with COVID about 2 weeks ago with a persistent positive test more likely leftover from his recent COVID infection rather than reinfection and would not need any isolation; concern for possible mild UTI versus early pneumonia community-acquired; Pt. seemed to have shown clinical improvement on Rocephin and Zithromax to finish a short course of oral Ceftin and close out Pt. follow-up Please clarify the type of malnutrition, if known: [ ] Mild Protein-Calorie Malnutrition [ ] Moderate Protein-Calorie Malnutrition [ ] Severe Protein-Calorie Malnutrition [ ] Malnutrition, unspecified [ ] Other condition, please specify [ ] Unable to Determine (Template Last Revised: November 2020) MTDD
--- NOTE | 2022-06-26 10:40 | CDI ---
Documentation Clarification Form Date: 10:42:08 AM From: Vannessa Enciso Phone: Admit Date: 06/18/2022 02:45:00 PM Pt. Name: Alireza Ervin Visit Number: [id number] Discharge Date: 06/20/2022 01:08:00 PM ATTENTION: The Clinical Documentation Specialists (CDI) and [facility] Coding Staff appreciate your assistance in clarifying documentation. Please respond to the clarification below the line at the bottom and electronically sign. The CDI & [facility] Coding staff will review the response and follow-up if needed. Please note: Queries are made part of the Legal Health Record. If you have any questions, please contact the author of this message via ITS. Dr. Bello Holden The previous query was signed but was not answered; therefore, I am resubmitting. Malnutrition is documented per H&P. Additional clarification regarding the severity of malnutrition is requested. History/Risk Factors: 77yo M, Recent COVID PNA, encephalopathy, UTI, ATN, DMII, CHF, HTN, CAD, dementia, active smoker Clinical Indicators: Current BMI: 19.8 Insufficient energy intake: refusing to eat; Appears dehydrated Treatment: Pt. presented hospital with generalized weakness decreased appetite in this Pt. with COVID about 2 weeks ago with a persistent positive test more likely leftover from his recent COVID infection rather than reinfection and would not need any isolation; concern for possible mild UTI versus early pneumonia community-acquired; Pt. seemed to have shown clinical improvement on Rocephin and Zithromax to finish a short course of oral Ceftin and close out Pt. follow-up Please clarify the type of malnutrition, if known: [ ] Mild Protein-Calorie Malnutrition [ ] Moderate Protein-Calorie Malnutrition [ ] Severe Protein-Calorie Malnutrition [ ] Malnutrition, unspecified [ ] Other condition, please specify [ ] Unable to Determine (Template Last Revised: November 2020) MTDD
--- NOTE | 2022-06-26 10:40 | CDI ---
Documentation Clarification Form Date: 10:42:08 AM From: Vannessa Enciso Phone: Admit Date: 06/18/2022 02:45:00 PM Pt. Name: Alireza Ervin Visit Number: [id number] Discharge Date: 06/20/2022 01:08:00 PM ATTENTION: The Clinical Documentation Specialists (CDI) and [facility] Coding Staff appreciate your assistance in clarifying documentation. Please respond to the clarification below the line at the bottom and electronically sign. The CDI & [facility] Coding staff will review the response and follow-up if needed. Please note: Queries are made part of the Legal Health Record. If you have any questions, please contact the author of this message via ITS. Dr. Bello Holden The previous query was signed but was not answered; therefore, I am resubmitting. Malnutrition is documented per H&P. Additional clarification regarding the severity of malnutrition is requested. History/Risk Factors: 77yo M, Recent COVID PNA, encephalopathy, UTI, ATN, DMII, CHF, HTN, CAD, dementia, active smoker Clinical Indicators: Current BMI: 19.8 Insufficient energy intake: refusing to eat; Appears dehydrated Treatment: Pt. presented hospital with generalized weakness decreased appetite in this Pt. with COVID about 2 weeks ago with a persistent positive test more likely leftover from his recent COVID infection rather than reinfection and would not need any isolation; concern for possible mild UTI versus early pneumonia community-acquired; Pt. seemed to have shown clinical improvement on Rocephin and Zithromax to finish a short course of oral Ceftin and close out Pt. follow-up Please clarify the type of malnutrition, if known: [ ] Mild Protein-Calorie Malnutrition [ ] Moderate Protein-Calorie Malnutrition [ ] Severe Protein-Calorie Malnutrition [ ] Malnutrition, unspecified [ ] Other condition, please specify [ ] Unable to Determine (Template Last Revised: November 2020) MTDD
--- NOTE | 2022-06-30 12:19 | CDI ---
Documentation Clarification Form Date: 06/30/2022 12:15 PM From: Vannessa Enciso Phone: Admit Date: 06/18/2022 02:45:00 PM Pt. Name: Alireza Ervin Visit Number: [id number] Discharge Date: 06/20/2022 01:08:00 PM ATTENTION: The Clinical Documentation Specialists (CDI) and [facility] Coding Staff appreciate your assistance in clarifying documentation. Please respond to the clarification below the line at the bottom and electronically sign. The CDI & [facility] Coding staff will review the response and follow-up if needed. Please note: Queries are made part of the Legal Health Record. If you have any questions, please contact the author of this message via ITS. Dr. Bello Holden The previous two queries were signed but was not answered; therefore, I am resubmitting. Malnutrition is documented per H&P. Additional clarification regarding the severity of malnutrition is requested. History/Risk Factors: 77yo M, Recent COVID PNA, encephalopathy, UTI, ATN, DMII, CHF, HTN, CAD, dementia, active smoker Clinical Indicators: Current BMI: 19.8 Insufficient energy intake: refusing to eat; Appears dehydrated Treatment: Pt. presented hospital with generalized weakness decreased appetite in this Pt. with COVID about 2 weeks ago with a persistent positive test more likely leftover from his recent COVID infection rather than reinfection and would not need any isolation; concern for possible mild UTI versus early pneumonia community-acquired; Pt. seemed to have shown clinical improvement on Rocephin and Zithromax to finish a short course of oral Ceftin and close out Pt. follow-up Please clarify the type of malnutrition, if known: [ ] Mild Protein-Calorie Malnutrition [ ] Moderate Protein-Calorie Malnutrition [ ] Severe Protein-Calorie Malnutrition [ ] Malnutrition, unspecified [ ] Other condition, please specify [ ] Unable to Determine (Template Last Revised: November 2020) YUMIKOD
--- NOTE | 2022-06-30 12:19 | CDI ---
Documentation Clarification Form Date: 06/30/2022 12:15 PM From: Vannessa Enciso Phone: Admit Date: 06/18/2022 02:45:00 PM Pt. Name: Alireza Ervin Visit Number: [id number] Discharge Date: 06/20/2022 01:08:00 PM ATTENTION: The Clinical Documentation Specialists (CDI) and [facility] Coding Staff appreciate your assistance in clarifying documentation. Please respond to the clarification below the line at the bottom and electronically sign. The CDI & [facility] Coding staff will review the response and follow-up if needed. Please note: Queries are made part of the Legal Health Record. If you have any questions, please contact the author of this message via ITS. Dr. Bello Holden The previous two queries were signed but was not answered; therefore, I am resubmitting. Malnutrition is documented per H&P. Additional clarification regarding the severity of malnutrition is requested. History/Risk Factors: 77yo M, Recent COVID PNA, encephalopathy, UTI, ATN, DMII, CHF, HTN, CAD, dementia, active smoker Clinical Indicators: Current BMI: 19.8 Insufficient energy intake: refusing to eat; Appears dehydrated Treatment: Pt. presented hospital with generalized weakness decreased appetite in this Pt. with COVID about 2 weeks ago with a persistent positive test more likely leftover from his recent COVID infection rather than reinfection and would not need any isolation; concern for possible mild UTI versus early pneumonia community-acquired; Pt. seemed to have shown clinical improvement on Rocephin and Zithromax to finish a short course of oral Ceftin and close out Pt. follow-up Please clarify the type of malnutrition, if known: [ ] Mild Protein-Calorie Malnutrition [ ] Moderate Protein-Calorie Malnutrition [ ] Severe Protein-Calorie Malnutrition [ ] Malnutrition, unspecified [ ] Other condition, please specify [ ] Unable to Determine (Template Last Revised: November 2020) YUMIKOD
--- NOTE | 2022-06-30 13:12 | CDI ---
Documentation Clarification Form Date: 06/30/2022 12:20:36 PM From: Vannessa Enciso Phone: Admit Date: 06/18/2022 02:45:00 PM Patient Name: Alireza Ervin Visit Number: [id number] Discharge Date: 06/20/2022 01:08:00 PM ATTENTION: The Clinical Documentation Specialists (CDI) and [facility] Coding Staff appreciate your assistance in clarifying documentation. Please respond to the clarification below the line at the bottom and electronically sign. The CDI & [facility] Coding staff will review the response and follow-up if needed. Please note: Queries are made part of the Legal Health Record. If you have any questions, please contact the author of this message via ITS. Dr. Bello Holden The patients principal diagnosis the diagnosis that was chiefly responsible for the admission - has not been clearly identified and clarification is requested. The patient presented with the following Headache COVID 19 2 weeks ago, and per Pt.s daughter has not been eating. Was seen by his physician in the office and was instructed to come to the emergency department for further evaluation. History/Risk factors: Recent COVID 19 PNA, encephalopathy, UTI, ATN, DMII, dehydrated, CHF, HTN, CAD, dementia, active smoker Clinical Indicators: Lab findings: RBC (4.40-5.60) X 10*6/uL Radiology findings: CXR Correlate for COPD with left basilar atelectasis favored over early pneumonia correlate clinically. Vital Signs: BP 140/83, temperature 98.7, pulse 74 to 90, respiratory rate 16 to 18. Treatment: We will obtain a broad workup included CT brain. Pt.s family was in agreement with this plan. Pt. was given a 1 L fluid bolus. He currently has no complaints. Laboratory studies are remarkable for an elevated BUN/creatinine setting of JENNIFER. Troponin is indeterminate. COVID 19 is still positive at this time. Urinalysis is still pending at this time. CXR revealed possible left sided pneumonia. Could be atelectasis. CT - no acute intracranial process. There is atrophy present. Due to the findings on CXR, we will empirically start the Pt. on antibiotics. Well continue IV fluid hydration. Urinalysis still pending at this time. Consults: Etta Qureshi MD 06/19/22 In your professional opinion, can you please clarify which diagnosis, after study, was the reason chiefly responsible for the admission? [ ] Pneumonia [ ] Dehydration [ ] Other, please specify [ ] Unable to determine (Template Last Revised: November 2020) MTDD
--- NOTE | 2022-06-30 13:12 | CDI ---
Documentation Clarification Form Date: 06/30/2022 12:20:36 PM From: Vannessa Enciso Phone: Admit Date: 06/18/2022 02:45:00 PM Patient Name: Alireza Ervin Visit Number: [id number] Discharge Date: 06/20/2022 01:08:00 PM ATTENTION: The Clinical Documentation Specialists (CDI) and [facility] Coding Staff appreciate your assistance in clarifying documentation. Please respond to the clarification below the line at the bottom and electronically sign. The CDI & [facility] Coding staff will review the response and follow-up if needed. Please note: Queries are made part of the Legal Health Record. If you have any questions, please contact the author of this message via ITS. Dr. Bello Holden The patients principal diagnosis the diagnosis that was chiefly responsible for the admission - has not been clearly identified and clarification is requested. The patient presented with the following Headache COVID 19 2 weeks ago, and per Pt.s daughter has not been eating. Was seen by his physician in the office and was instructed to come to the emergency department for further evaluation. History/Risk factors: Recent COVID 19 PNA, encephalopathy, UTI, ATN, DMII, dehydrated, CHF, HTN, CAD, dementia, active smoker Clinical Indicators: Lab findings: RBC (4.40-5.60) X 10*6/uL Radiology findings: CXR Correlate for COPD with left basilar atelectasis favored over early pneumonia correlate clinically. Vital Signs: BP 140/83, temperature 98.7, pulse 74 to 90, respiratory rate 16 to 18. Treatment: We will obtain a broad workup included CT brain. Pt.s family was in agreement with this plan. Pt. was given a 1 L fluid bolus. He currently has no complaints. Laboratory studies are remarkable for an elevated BUN/creatinine setting of JENNIFER. Troponin is indeterminate. COVID 19 is still positive at this time. Urinalysis is still pending at this time. CXR revealed possible left sided pneumonia. Could be atelectasis. CT - no acute intracranial process. There is atrophy present. Due to the findings on CXR, we will empirically start the Pt. on antibiotics. Well continue IV fluid hydration. Urinalysis still pending at this time. Consults: Etta Qureshi MD 06/19/22 In your professional opinion, can you please clarify which diagnosis, after study, was the reason chiefly responsible for the admission? [ ] Pneumonia [ ] Dehydration [ ] Other, please specify [ ] Unable to determine (Template Last Revised: November 2020) MTDD
--- NOTE | 2022-07-01 13:55 | PN ---
PROGRESS NOTE Severe protein-calorie malnutrition. MMODL / IJN: [id number] /
--- NOTE | 2022-07-01 13:55 | PN ---
PROGRESS NOTE Severe protein-calorie malnutrition. MMODL / IJN: [id number] /
--- NOTE | 2022-07-01 15:07 | PN ---
PROGRESS NOTE Chief reason responsible for this admission was pneumonia and dehydration, COPD exacerbation. MMODL / IJN: [id number] /
--- NOTE | 2022-07-01 15:07 | PN ---
PROGRESS NOTE Chief reason responsible for this admission was pneumonia and dehydration, COPD exacerbation. MMODL / IJN: [id number] /
--- NOTE | 2022-07-03 10:51 | CDI ---
Documentation Clarification Form Date: 06/30/2022 12:20:00 PM From: Vannessa Enciso Phone: Admit Date: 06/18/2022 02:45:00 PM Patient Name: Alireza Ervin Visit Number: [id number] Discharge Date: 06/20/2022 01:08:00 PM ATTENTION: The Clinical Documentation Specialists (CDI) and [facility] Coding Staff appreciate your assistance in clarifying documentation. Please respond to the clarification below the line at the bottom and electronically sign. The CDI & [facility] Coding staff will review the response and follow-up if needed. Please note: Queries are made part of the Legal Health Record. If you have any questions, please contact the author of this message via ITS. Dr. Bello Holden The previous query was singed but not answered; therefore, I am resubmitting this query. The patients principal diagnosis the diagnosis that was chiefly responsible for the admission - has not been clearly identified and clarification is requested. The patient presented with the following Headache COVID 19 2 weeks ago, and per Pt.s daughter has not been eating. Was seen by his physician in the office and was instructed to come to the emergency department for further evaluation. History/Risk factors: Recent COVID 19 PNA, encephalopathy, UTI, ATN, DMII, dehydrated, CHF, HTN, CAD, dementia, active smoker Clinical Indicators: Lab findings: RBC (4.40-5.60) X 10*6/uL Radiology findings: CXR Correlate for COPD with left basilar atelectasis favored over early Pneumonia correlate clinically. Vital Signs: BP 140/83, temperature 98.7, pulse 74 to 90, respiratory rate 16 to 18. Treatment: We will obtain a broad workup included CT brain. Pt.s family was in agreement with this plan. Pt. was given a 1 L fluid bolus. He currently has no complaints. Laboratory studies are remarkable for an elevated BUN/creatinine setting of JENNIFER. Troponin is indeterminate. COVID 19 is still positive at this time. Urinalysis is still pending at this time. CXR revealed possible left sided pneumonia. Could be atelectasis. CT - no acute intracranial process. There is atrophy present. Due to the findings on CXR, we will empirically start the Pt. on Antibiotics. Well continue IV fluid hydration. Urinalysis still pending at this time. Consults: Etta Qureshi MD 06/19/22 In your professional opinion, can you please clarify which diagnosis, after study, was the reason chiefly responsible for the admission? [ ] Pneumonia [ ] Dehydration [ ] Other, please specify [ ] Unable to determine (Template Last Revised: November 2020) MTDD
--- NOTE | 2022-07-03 10:51 | CDI ---
Documentation Clarification Form Date: 06/30/2022 12:20:00 PM From: Vannessa Enciso Phone: Admit Date: 06/18/2022 02:45:00 PM Patient Name: Alireza Ervin Visit Number: [id number] Discharge Date: 06/20/2022 01:08:00 PM ATTENTION: The Clinical Documentation Specialists (CDI) and [facility] Coding Staff appreciate your assistance in clarifying documentation. Please respond to the clarification below the line at the bottom and electronically sign. The CDI & [facility] Coding staff will review the response and follow-up if needed. Please note: Queries are made part of the Legal Health Record. If you have any questions, please contact the author of this message via ITS. Dr. Bello Holden The previous query was singed but not answered; therefore, I am resubmitting this query. The patients principal diagnosis the diagnosis that was chiefly responsible for the admission - has not been clearly identified and clarification is requested. The patient presented with the following Headache COVID 19 2 weeks ago, and per Pt.s daughter has not been eating. Was seen by his physician in the office and was instructed to come to the emergency department for further evaluation. History/Risk factors: Recent COVID 19 PNA, encephalopathy, UTI, ATN, DMII, dehydrated, CHF, HTN, CAD, dementia, active smoker Clinical Indicators: Lab findings: RBC (4.40-5.60) X 10*6/uL Radiology findings: CXR Correlate for COPD with left basilar atelectasis favored over early Pneumonia correlate clinically. Vital Signs: BP 140/83, temperature 98.7, pulse 74 to 90, respiratory rate 16 to 18. Treatment: We will obtain a broad workup included CT brain. Pt.s family was in agreement with this plan. Pt. was given a 1 L fluid bolus. He currently has no complaints. Laboratory studies are remarkable for an elevated BUN/creatinine setting of JENNIFER. Troponin is indeterminate. COVID 19 is still positive at this time. Urinalysis is still pending at this time. CXR revealed possible left sided pneumonia. Could be atelectasis. CT - no acute intracranial process. There is atrophy present. Due to the findings on CXR, we will empirically start the Pt. on Antibiotics. Well continue IV fluid hydration. Urinalysis still pending at this time. Consults: Etta Qureshi MD 06/19/22 In your professional opinion, can you please clarify which diagnosis, after study, was the reason chiefly responsible for the admission? [ ] Pneumonia [ ] Dehydration [ ] Other, please specify [ ] Unable to determine (Template Last Revised: November 2020) MTDD
--- NOTE | 2022-07-03 10:53 | CDI ---
Documentation Clarification Form Date: 06/26/2022 10:42:00 AM From: Vannessa Enciso Phone: Admit Date: 06/18/2022 02:45:00 PM Patient Name: Alireza Ervin Visit Number: [id number] Discharge Date: 06/20/2022 01:08:00 PM ATTENTION: The Clinical Documentation Specialists (CDI) and [facility] Coding Staff appreciate your assistance in clarifying documentation. Please respond to the clarification below the line at the bottom and electronically sign. The CDI & [facility] Coding staff will review the response and follow-up if needed. Please note: Queries are made part of the Legal Health Record. If you have any questions, please contact the author of this message via ITS. Dr. Bello Holden The previous two queries were signed but was not answered; therefore, I am resubmitting. Malnutrition is documented per H&P. Additional clarification regarding the severity of malnutrition is requested. History/Risk Factors: 77yo M, Recent COVID PNA, encephalopathy, UTI, ATN, DMII, CHF, HTN, CAD, dementia, active smoker Clinical Indicators: Current BMI: 19.8 Insufficient energy intake: refusing to eat; Appears dehydrated Treatment: Pt. presented hospital with generalized weakness decreased appetite in this Pt. with COVID about 2 weeks ago with a persistent positive test more likely leftover from his recent COVID infection rather than reinfection and would not need any isolation; concern for possible mild UTI versus early pneumonia community-acquired; Pt. seemed to have shown clinical improvement on Rocephin and Zithromax to finish a short course of oral Ceftin and close out Pt. follow-up Please clarify the type of malnutrition, if known: [ ] Mild Protein-Calorie Malnutrition [ ] Moderate Protein-Calorie Malnutrition [ ] Severe Protein-Calorie Malnutrition [ ] Malnutrition, unspecified [ ] Other condition, please specify [ ] Unable to Determine (Template Last Revised: November 2020) MTDD
--- NOTE | 2022-07-03 10:53 | CDI ---
Documentation Clarification Form Date: 06/26/2022 10:42:00 AM From: Vannessa Enciso Phone: Admit Date: 06/18/2022 02:45:00 PM Patient Name: Alireza Ervin Visit Number: [id number] Discharge Date: 06/20/2022 01:08:00 PM ATTENTION: The Clinical Documentation Specialists (CDI) and [facility] Coding Staff appreciate your assistance in clarifying documentation. Please respond to the clarification below the line at the bottom and electronically sign. The CDI & [facility] Coding staff will review the response and follow-up if needed. Please note: Queries are made part of the Legal Health Record. If you have any questions, please contact the author of this message via ITS. Dr. Bello Holden The previous two queries were signed but was not answered; therefore, I am resubmitting. Malnutrition is documented per H&P. Additional clarification regarding the severity of malnutrition is requested. History/Risk Factors: 77yo M, Recent COVID PNA, encephalopathy, UTI, ATN, DMII, CHF, HTN, CAD, dementia, active smoker Clinical Indicators: Current BMI: 19.8 Insufficient energy intake: refusing to eat; Appears dehydrated Treatment: Pt. presented hospital with generalized weakness decreased appetite in this Pt. with COVID about 2 weeks ago with a persistent positive test more likely leftover from his recent COVID infection rather than reinfection and would not need any isolation; concern for possible mild UTI versus early pneumonia community-acquired; Pt. seemed to have shown clinical improvement on Rocephin and Zithromax to finish a short course of oral Ceftin and close out Pt. follow-up Please clarify the type of malnutrition, if known: [ ] Mild Protein-Calorie Malnutrition [ ] Moderate Protein-Calorie Malnutrition [ ] Severe Protein-Calorie Malnutrition [ ] Malnutrition, unspecified [ ] Other condition, please specify [ ] Unable to Determine (Template Last Revised: November 2020) MTDD
== END 2022-06-20 13:08 | disposition home health service (06) | DRG 193 ==
LOC: EC 11:46 → 4SSUR 14:45
PROVIDERS: ADMIT Family Medicine; ATTEND Family Medicine
DX: J18.9 Pneumonia, unspecified organism (principal); E43 Unspecified severe protein-calorie malnutrition; N17.0 Acute kidney failure with tubular necrosis; G93.40 Encephalopathy, unspecified; J44.1 Chronic obstructive pulmonary disease with (acute) exacerbation; N39.0 Urinary tract infection, site not specified; Z68.1 Body mass index [BMI] 19.9 or less, adult; F03.90 Unspecified dementia, unspecified severity, without behavioral disturbance, psychotic disturbance, mood disturbance, and anxiety; E11.42 Type 2 diabetes mellitus with diabetic polyneuropathy; I11.0 Hypertensive heart disease with heart failure; I50.9 Heart failure, unspecified; E86.0 Dehydration; I25.10 Atherosclerotic heart disease of native coronary artery without angina pectoris; E78.5 Hyperlipidemia, unspecified; F17.210 Nicotine dependence, cigarettes, uncomplicated; R26.89 Other abnormalities of gait and mobility; Z20.822 Contact with and (suspected) exposure to COVID-19; I25.2 Old myocardial infarction; Z95.5 Presence of coronary angioplasty implant and graft; Z86.16 Personal history of COVID-19; Z87.01 Personal history of pneumonia (recurrent); Z28.310 Unvaccinated for COVID-19; Z79.899 Other long term (current) drug therapy; Z79.4 Long term (current) use of insulin; Z79.02 Long term (current) use of antithrombotics/antiplatelets; Z88.5 Allergy status to narcotic agent
CPT/HCPCS: 36415; 70450; 71046; 74018; 80053; 81001; 82140; 82150; 83605; 83690; 84484; 85025; 85610; 85730; 87040; 87635; 93005; 96361; 96365; 96366; 96367; 99285

== ENCOUNTER 2022-08-15 13:50 | Emergency (ER) | payer MEDICARE ==
[2022-08-15 13:58] VITALS: BP 137/70; PULSE 64; RESP 18; TEMP 97
[2022-08-15 14:41] LABS: RBC 4.14 m/uL (4.30-5.90); WBC 5.5 k/uL (3.8-10.6)
[2022-08-15 14:42] LABS: Basophils % (A) 1 %; Eosinophils % (A) 1 %; HCT 38.6 % (39.0-53.0); HGB 12.3 gm/dL (13.0-17.5); Hypochromasia Moderate; Lymphocytes % (A) 18 %; MCH 29.7 pg (25.0-35.0); MCHC 31.8 g/dL (31.0-37.0); MCV 93.2 fL (80.0-100.0); Mean Platelet Volume 9.6; Monocytes # (A) 0.3 k/uL (0-1.0); Monocytes % (A) 6 %; Neutrophils # (A) 3.9 k/uL (1.3-7.7); Neutrophils % (A) 72 %; Platelet Count 221 k/uL (150-450); RDW 15.3 % (11.5-15.5)
[2022-08-15 15:05] LABS: Calcium 8.3 mg/dL (8.4-10.2); Total Bilirubin 8.5 mg/dL (0.2-1.3); Total Protein 7.7 g/dL (6.3-8.2)
[2022-08-15 15:24] LABS: Potassium 4.3 mmol/L (3.5-5.1)
[2022-08-15 15:52] LABS: INR 1.1 (<1.2); Partial Thromboplastin Time 26.6 sec (22.0-30.0); Prothrombin Time 11.8 sec (9.0-12.0)
== END 2022-08-15 17:45 | disposition left against medical advice (07) ==
LOC: EC 13:50
DX: Z53.21 Procedure and treatment not carried out due to patient leaving prior to being seen by health care provider (principal)
CPT/HCPCS: 36415; 80053; 83605; 85025; 85610; 85730; 99499